=== PATIENT | female | born 1945 | race Caucasian/White ===

== ENCOUNTER → 2016-08-18 | Outpatient (CLI) | payer MEDICARE, OTHER ==
[~2016-08-18] MED LIST: DENOSUMAB 60 MG/ML 1 ML SYRINGE SQ ONE
[2016-08-18 12:21] VITALS: BP 135/69; PULSE 79; RESP 18; TEMP 98.3
== END | disposition home or self-care (01) ==
LOC: PROCWHC3 12:06
PROVIDERS: ATTEND Family Medicine
DX: M81.0 Age-related osteoporosis without current pathological fracture (principal)
CPT/HCPCS: 96372; J0897

== ENCOUNTER → 2017-02-17 | Outpatient (CLI) | payer MEDICARE, OTHER ==
[2017-02-17 12:57] VITALS: BP 184/85; PULSE 70; RESP 16; TEMP 97.7
== END | disposition home or self-care (01) ==
LOC: PROCWHC3 12:17
PROVIDERS: ATTEND Family Medicine
DX: M81.0 Age-related osteoporosis without current pathological fracture (principal)
CPT/HCPCS: 96372; J0897

== ENCOUNTER → 2017-09-09 | Outpatient (CLI) | payer MEDICARE, OTHER ==
--- NOTE | 2017-09-13 07:51 | BD ---
EXAMINATION TYPE: MG DEXA axial skeleton. DATE OF EXAM: 09/09/2017 COMPARISON: NONE CLINICAL HISTORY: 71 YR OLD FEMALE: ICD-10 CODE : N95.1 POST MENOPAUSAL, M81.0 OSTEOPOROSIS Height: 62 Weight: 151 FRAX RISK QUESTIONS: Alcohol (3 or more units per day): NO Family History (Parent hip fracture): YES, NO FX Glucocorticoids (More than 3mos): YES (Ex: prednisone, prednisolone, methylprednisolone, dexamethasone, and hydrocortisone). History of Fracture in Adulthood: YES Secondary Osteoporosis: YES 1. Type 1 Diabetes: NO 2. Hyperthyroidism: YES, THYROID WAS REMOVED 3. Menopause before 45: NO 4. Malnutrition: NO 5. Chronic liver disease: NO Rheumatoid Arthritis: NO Current Tobacco Use: YES, 1 PAC OR LESS DAILY RISK FACTORS HISTORY OF: RIBS, RT HUMERUS, LT HUMERUS, TOES, ....>48 YRS OLD Surgery to RT HIP AND FEMUR...THE RT AND FEMUR CAGED SURGICALLY When: 64 YRS OLD Family History of Osteoporosis: HERSELF AND HER MOTHER Active: BEST SHE CAN Diet low in dairy products/other sources of calcium: NO Postmenopausal woman: 53 YRS OLD Lost more than 2 inches in height since high school: YES Frequent falls: MANY FRACTURES, Hyperparathyroidism: YES, THYROID REMOVED...2003 Adrenal Insufficiency: NO MEDICATIONS: Prednisone or other steroids: ASTHMA INHALER, ON AND OFF...BREOL Thyroid Medications: YES, GENERIC SYNTHROID How Long: SINCE 2003 Osteoporosis Medications: PROLEA How Lon-3 YRS AGO Additional Medications: IBUPROFEN, CALCITONIN, VIT D AND CALCIUM, MULTIV., HX OF CHEMO AND RADIATION , 2007 AND 2008, STATINS FOR CHOLESTEROL, REFLUX MEDS Additional History: BREAST CANCER, LT WITH BILAT MASTECTOMY... BILAT KNEE REPLACEMENTS AND RT HIP REPLACEMENT. HYPER THYROID WITH REMOVAL OF THYROID, OSTEOPOROSIS EXAM MEASUREMENTS: Bone mineral densitometry was performed using the MVERSE System. Bone mineral density as measured about the Lumbar spine is: ----- L1-L4(G/cm2): 1.641 T Score Values are as follows: ----- L1: 2.7 ----- L2: 3.5 ----- L3: 3.6 ----- L4: 5.1 ----- L1-L4: 3.8 Bone mineral density FIRST BONE DENSITY AT [facility].... Bone mineral density about the L hip (g/cm2): 0829 T Score values are as follows: -----L Neck: -1.3 -----L Total: -1.4 Bone mineral density FIRST STUDY AT [facility] FRAX: THERE IS A 24.8% CHANCE OF A MAJOR OSTEOPOROTIC FX AND A 7.2% FOR HIP FX.....PROBABILITY OF FX IN 10 YRS TIME IMPRESSION: Osteopenia (T Score between -2.5 and -1 as noted by T score values in the left hip. There is slightly increased risk of fracture and the patient may be considered for treatment. Re-Screen 2-5 years. NOTE: T-SCORE=SD OF THE YOUNG ADULT MEAN.
== END | disposition home or self-care (01) ==
LOC: RADBDWWP 08:19
PROVIDERS: ATTEND Family Medicine
DX: M85.852 Other specified disorders of bone density and structure, left thigh (principal); N95.1 Menopausal and female climacteric states
CPT/HCPCS: 77080

== ENCOUNTER → 2017-09-17 | Outpatient (CLI) | payer MEDICARE, OTHER ==
[2017-09-17 14:13] VITALS: BP 182/75; PULSE 83; RESP 16; TEMP 97.5
== END | disposition home or self-care (01) ==
LOC: PROCWHC3 13:37
PROVIDERS: ATTEND Family Medicine
DX: M81.0 Age-related osteoporosis without current pathological fracture (principal)
CPT/HCPCS: 96372; J0897

== ENCOUNTER 2018-02-09 11:49 | Day surgery (SDC) | payer MEDICARE, OTHER ==
[2018-02-03 15:58] VITALS: BMI 27.1
[~2018-02-09 11:49] MED LIST changes: -DENOSUMAB 60 MG/ML 1 ML SYRINGE SQ ONE; +Pre Op ABX Message 1 EACH MISC MISCELLANE ONE
[2018-02-09] MEDS ORDERED: LACTATED RINGERS 1,000 ML IV SCH (12:11)
[2018-02-09] MEDS ORDERED: DEXAMETHASONE SOD PHOSPHATE 10 MG/ML 1 ML VIAL IV ONE (12:11)
[2018-02-09] MEDS ORDERED: ONDANSETRON 4 MG/2 ML VIAL IVP ONE (12:11)
[2018-02-09] MEDS ORDERED: MORPHINE SULFATE 4 MG/ML SYRINGE IV PRN (12:11)
[2018-02-09 12:20] VITALS: TEMP 98
[2018-02-09] MEDS ORDERED: LIDOCAINE 1% INJ 10MG/ML (20 ML MDV) ONE (13:00)
[2018-02-09] MEDS ORDERED: MIDAZOLAM 2 MG/2 ML VIAL ONE (13:00)
[2018-02-09] MEDS ORDERED: fentaNYL (PF) 50 MCG/ML 2 ML AMP ONE (13:00)
[2018-02-09] MEDS ORDERED: PROPOFOL 10 MG/ML 20 ML VIAL IV ONE (13:00)
[2018-02-09] MEDS ORDERED: LIDOCAINE 1% INJ 10MG/ML (20 ML MDV) SQ ONE (13:16)
--- NOTE | 2018-02-09 13:37 | P.PCN ---
Date of Procedure: 02/09/18 Preoperative Diagnosis: Hypertrophied bone fifth digit left foot Postoperative Diagnosis: Same Anesthesia: MAC (With 4 mL of 1% Xylocaine plain), local
--- NOTE | 2018-02-09 13:48 | P.OP ---
Date of Procedure: 02/09/18 Preoperative Diagnosis: Hypertrophied bone fifth digit left foot Postoperative Diagnosis: Same Procedure(s) Performed: Partial phalangectomy fifth digit left foot Surgeon: Get Richmond Operative Findings: Unremarkable Description of Procedure: On the date of surgery the patient was taken to the operating room in good condition placed on the operating table in the supine position where an IV was started and adequate IV anesthetic agents were utilized anesthesia was then further supplemented with approximately 4 mL of 1% Xylocaine plain given in a digital block to the fifth digit of the patient's left foot Agents left foot and ankle were then prepped and draped in the usual aseptic manner. His left foot and ankle were then elevated and exsanguinated of blood and clot tourniquet was placed over the patient's left ankle above the malleoli ankle tourniquet was then inflated to approximately 250 mmHg or graft at this time attention was directed to the distal aspect of the fifth digit of the patient's left foot where an approximately 0.75 cm linear incision - fish month incision was made. The incision was deepened down to the distal phalanx , tissue was freed dorsally plantarly medially and laterally. Utilizing a bone rongeur the terminal phalanx of the fifth digit was resected and removed ,throughout the surgical procedure copious amounts of sterile saline solution was used to irrigate the surgical site. Skin edges were then coaptated and maintained utilizing 4-0 nylon simple interrupted suture. Surgical site was covered with Adaptic kerlex fluffs and four inch Coban. Prior to dressing the digitthe ankle tourniquet to the patient's left ankle was deflated and adequate hemostatic return was seen in all digits of the left foot specifically the fifth digit. The patient tolerated the surgery and anesthesia well was taken to the recovery room in good postoperative condition.
[2018-02-09 14:22] VITALS: BP 150/75; PULSE 62; RESP 59
== END 2018-02-09 14:35 | disposition home or self-care (01) ==
LOC: OR 11:49
PROVIDERS: ATTEND Podiatrist Foot & Ankle Surgery
DX: M89.372 Hypertrophy of bone, left ankle and foot (principal); M81.0 Age-related osteoporosis without current pathological fracture; J44.9 Chronic obstructive pulmonary disease, unspecified; E78.5 Hyperlipidemia, unspecified; M15.9 Polyosteoarthritis, unspecified; R91.1 Solitary pulmonary nodule; E89.0 Postprocedural hypothyroidism; H40.9 Unspecified glaucoma; F17.210 Nicotine dependence, cigarettes, uncomplicated; Z96.649 Presence of unspecified artificial hip joint; Z96.659 Presence of unspecified artificial knee joint; Z79.890 Hormone replacement therapy; Z79.51 Long term (current) use of inhaled steroids; Z79.1 Long term (current) use of non-steroidal anti-inflammatories (NSAID); Z79.899 Other long term (current) drug therapy; Z88.8 Allergy status to other drugs, medicaments and biological substances; Z90.13 Acquired absence of bilateral breasts and nipples; Z85.3 Personal history of malignant neoplasm of breast; Z78.0 Asymptomatic menopausal state; Z98.51 Tubal ligation status
CPT/HCPCS: 28124; J1100; J2405; J2001; 88304; 88311

== ENCOUNTER → 2018-03-18 | Outpatient (CLI) | payer MEDICARE, OTHER ==
[~2018-03-18] MED LIST changes: +DENOSUMAB 60 MG/ML 1 ML SYRINGE SQ ONE; -Pre Op ABX Message 1 EACH MISC MISCELLANE ONE
[2018-03-18 13:18] VITALS: BP 125/65; PULSE 16; RESP 16; TEMP 97.8
== END | disposition home or self-care (01) ==
LOC: PROCWHC3 12:58
PROVIDERS: ATTEND Family Medicine
DX: M81.0 Age-related osteoporosis without current pathological fracture (principal)
CPT/HCPCS: 96372; J0897

== ENCOUNTER → 2018-09-22 | Outpatient (CLI) | payer MEDICARE, OTHER ==
[2018-09-22 11:06] VITALS: BP 157/79; PULSE 79; RESP 18; TEMP 97.9
== END ==
LOC: PROCWHC3 10:36
PROVIDERS: ATTEND Family Medicine
DX: M81.0 Age-related osteoporosis without current pathological fracture (principal)
CPT/HCPCS: 96372; J0897

== ENCOUNTER → 2018-11-01 | Outpatient (CLI) | payer MEDICARE, OTHER ==
--- NOTE | 2018-11-01 13:16 | CTL ---
EXAMINATION TYPE: CT Low Dose Lung DATE OF EXAM ORDERED: 11/01/2018 HISTORY: 72-year-old female Personal history of tobacco abuse. Lung cancer screening CT DLP: [address] CTDI: 1.76 mGy Automated exposure control for dose reduction was used. SCREENING VISIT: 2 year 3 month follow-up COMPARISON: 08/07/2016 and prior 03/23/2012 CT abdomen and pelvis TECHNIQUE: Low dose computed tomography scan was performed through the chest at 1 mm thick sections a nd reconstructed images in the coronal/sagittal plane. Additional coronal MIP reconstruction performe d. CT DIAGNOSTIC QUALITY: Satisfactory FINDINGS: Heart normal size without pericardial effusion. Coronary vessel calcifications are present. Ectatic ascending aorta 3.8 cm with moderate atherosclerotic arch calcifications and conventional arc h vessel branch anatomy. Lower descending thoracic aorta ectatic at 2.8 cm. Borderline enlarged caliber to the main right and left pulmonary arteries at 2.5 cm may reflect under lying pulmonary arterial hypertension. Patient is status post bilateral mastectomies. Surgical clips are noted in the left axilla. No thoracic lymphadenopathy by CT size criteria. Left apical pleural parenchymal scarring unchanged. Additional scattered strandy areas of scarring ar e present with a scattered mild to moderate bronchial wall thickening. Stable 4 mm right lower lobe pulmonary nodule axial image 135, 5 mm peripheral right lower lobe pulmo nary nodule axial image 165, some focal pleural parenchymal thickening peripheral right base, likely scarring, axial image 181, and 4 mm subpleural pulmonary nodule posterior right midlung, axial image 129. Very mild subpleural reticulations along the anterior mid to lower left chest probably due to postrad iation therapy change. No consolidation or pleural effusion. Some surgical material suggested along the right mid lung probably relating to prior wedge resection. Visualized upper abdomen shows a partially visualized lesion within the anterior left kidney that cou ld represent an enlarging cyst as compared to 03/23/2012 and can be confirmed with renal ultrasound. Bones: Moderate to advanced degenerative disc disease mid to lower thoracic spine. Superior endplate deformity of T7 is unchanged relating to a remote compression fracture. IMPRESSION: 1. LungRADS 2, Benign. Stable scattered 5 mm and smaller pulmonary nodules on the right. 2. Gdcy-nw-utitwnes bronchial wall thickening suggesting bronchitis or asthma. There are fibrotic noel nges and scarring and likely prior wedge resection along the right mid lung are redemonstrated. 3. Possible underlying pulmonary arterial hypertension. 4. Bilateral mastectomies and some mild subpleural postradiation fibrosis anterior aspect of the lung s. RECOMMENDATION: 1. Continue annual low-dose lung cancer screening CT. 2. Smoking cessation. FOLLOW UP CT CHEST RECOMMENDATION: [address] LUNG RAD: Lung-Rad 2 Benign Appearance or Behavior
== END | disposition home or self-care (01) ==
LOC: RADCTMAIN 12:13
PROVIDERS: ATTEND Family Medicine
DX: Z12.2 Encounter for screening for malignant neoplasm of respiratory organs (principal); R91.8 Other nonspecific abnormal finding of lung field; J98.09 Other diseases of bronchus, not elsewhere classified; Z87.891 Personal history of nicotine dependence; Z90.13 Acquired absence of bilateral breasts and nipples

== ENCOUNTER 2018-11-16 01:34 | Inpatient (IN) | payer MEDICARE, OTHER ==
[2018-11-16] MEDS ORDERED: DILTIAZEM DRIP BOLUS FROM BAG 1 MG SOLN IV ONE (01:43)
[2018-11-16] MEDS ORDERED: DILTIAZEM 125 MG in SODIUM CHLORIDE 0.9% 100 ML IV SCH (02:00)
[2018-11-16 02:02] LABS: Basophils % (A) 0 %; Eosinophils # (A) 0.2 k/uL (0-0.7); Eosinophils % (A) 1 %; HCT 42.7 % (34.0-46.0); HGB 13.9 gm/dL (11.4-16.0); Lymphocytes # (A) 0.8 k/uL (1.0-4.8); Lymphocytes % (A) 4 %; MCH 28.4 pg (25.0-35.0); MCHC 32.6 g/dL (31.0-37.0); Mean Platelet Volume 7.3; Monocytes # (A) 0.8 k/uL (0-1.0); Monocytes % (A) 4 %; Neutrophils # (A) 19.5 k/uL (1.3-7.7); Neutrophils % (A) 91 %; Platelet Count 242 k/uL (150-450); RBC 4.91 m/uL (3.80-5.40); RDW 12.9 % (11.5-15.5); WBC 21.4 k/uL (3.8-10.6)
[2018-11-16 02:11] LABS: Partial Thromboplastin Time 24.5 sec (22.0-30.0); Prothrombin Time 10.9 sec (9.0-12.0)
[2018-11-16 02:14] LABS: Albumin 3.6 g/dL (3.5-5.0); Calcium 9.1 mg/dL (8.4-10.2); Magnesium 1.3 mg/dL (1.6-2.3); Total Bilirubin 0.9 mg/dL (0.2-1.3); Total Protein 6.4 g/dL (6.3-8.2)
[2018-11-16 02:16] LABS: Potassium 4.3 mmol/L (3.5-5.1)
--- NOTE | 2018-11-16 02:21 | XR ---
INDICATION: Dyspnea COMPARISON: CXR 10/29/13 FINDINGS: Portable AP view of the chest is submitted for interpretation. The cardiomediastinal silhouette and pulmonary vascularity are normal. There is silhouetting of the lateral right hemidiaphragm which may represent focal airspace disease. There is no evidence of significant pleural effusion. There is no pneumothorax. There are no acute osseous findings. There are old left-sided rib fractures. IMPRESSION: 1. Possible airspace disease at the lateral right lung base could represent atelectasis or infiltrate.
[2018-11-16] MEDS ORDERED: SODIUM CHLORIDE 0.9% 500 ML 500 ML IV ONE (02:23)
[2018-11-16] MEDS ORDERED: DILTIAZEM 5 MG/ML 5 ML VIAL IVP STA ×2 (02:42→03:01)
[2018-11-16] MEDS ORDERED: LORazepam 2 MG/ML INJ IV STA (03:01)
--- NOTE | 2018-11-16 03:18 | ED ---
SOB HPI - General Chief Complaint: Shortness of Breath Stated Complaint: TONI Time Seen by Provider: 11/16/18 01:42 Source: patient, EMS Mode of arrival: EMS Limitations: no limitations - History of Present Illness Initial Comments: 's patient is 73-year-old woman who presents to be evaluated for shortness of breath. The patient states this is been coming on for nearly a week now. She states things had initially started with a cough, and then she started having shortness of breath associated. Patient denies having fever or chills. No chest pain. She denies diaphoresis, nausea or vomiting. Initially there was some congestion as well. MD Complaint: shortness of breath, cough Onset/Timin -: week(s) Severity: moderate Consistency: constant Improves With: nothing Worsens With: lying flat Associated Symptoms: cough Treatments Prior to Arrival: none - Related Data Home Medications Medication Instructions Recorded Confirmed Denosumab [Prolia] 60 mg SQ DIRECTED 01/10/14 09/22/18 Ibuprofen [Advil] 400 mg PO TID 01/10/14 09/22/18 Levothyroxine Sodium [Synthroid] 100 mcg PO DAILY 01/10/14 09/22/18 Calcitonin,[place],Synthetic 1 spray NASAL DAILY 12/17/14 09/22/18 [Calcitonin-[place]] Calcium Carbonate/Vitamin D3 1 each PO BID 12/17/14 09/22/18 [Calcium 600 + Vit D Tablet] Multivitamins, Thera [Theragran] 1 each PO DAILY 12/17/14 09/22/18 Potassium Gluconate 595 Mg 1 tab PO DAILY 12/17/14 09/22/18 Latanoprost [Xalatan 0.005%] 1 drop BOTH EYES HS 08/13/15 09/22/18 B12/Levomefolate Calcium/B-6 1 each PO DAILY 02/17/17 09/22/18 [Foltx Tablet] Fluticasone/Vilanterol [Breo 1 inhalation INHALATION HS 02/03/18 09/22/18 Ellipta 200-25 Mcg INH] Rosuvastatin [Crestor] 5 mg PO Q7D 02/03/18 09/22/18 Allergies Allergy/AdvReac Type Severity Reaction Status Date / Time diphenhydramine HCl Allergy EXTREME Verified 09/22/18 11:02 [From Benadryl] AGITATION Review of Systems ROS Statement: Those systems with pertinent positive or pertinent negative responses have been documented in the HPI. ROS Other: All systems not noted in ROS Statement are negative. Constitutional: Denies: fever, chills ENT: Reports: congestion Respiratory: Reports: cough, dyspnea. Denies: wheezes, hemoptysis, stridor Cardiovascular: Reports: palpitations, orthopnea. Denies: chest pain, dyspnea on exertion, edema, syncope Gastrointestinal: Denies: abdominal pain, nausea, vomiting Genitourinary: Denies: dysuria, hematuria Musculoskeletal: Denies: back pain Skin: Denies: rash Neurological: Denies: headache Past Medical History Past Medical History: Cancer, Hyperlipidemia, Osteoarthritis (OA), Thyroid Disorder Additional Past Medical History / Comment(s): BREAST CANCER, GLAUCOMA, LEFT LAZY EYE, EMPHYSEMA, HX OF STOMACH ULCER, PERFORATED BOWEL. states has "slack wrist" dx 2016 History of Any Multi-Drug Resistant Organisms: None Reported Past Surgical History: Bowel Resection, Breast Surgery, Joint Replacement, Orthopedic Surgery, Tonsillectomy, Tubal Ligation Additional Past Surgical History / Comment(s): RT TOTAL HIP X2, LT TOTAL HIP, BILAT KNEE REPLACEMENT, meenakshi mastectomy, partial lobectomy-rt upper lobe, thyroidectomy, colostomy/later reversal, meenakshi carpal tunnel, LT CATARACT. Past Anesthesia/Blood Transfusion Reactions: No Reported Reaction Past Psychological History: No Psychological Hx Reported Smoking Status: Current every day smoker - Past Family History Brother(s) Family Medical History: Cancer General Exam Limitations: no limitations General appearance: alert, in no apparent distress Head exam: Present: atraumatic, normocephalic Eye exam: Present: normal appearance. Absent: scleral icterus, conjunctival injection ENT exam: Present: normal oropharynx Respiratory exam: Present: respiratory distress. Absent: wheezes, rales, rhonchi, stridor, accessory muscle use, decreased breath sounds, prolonged expiratory Cardiovascular Exam: Present: tachycardia, irregular rhythm, normal heart sounds. Absent: systolic murmur, diastolic murmur, rubs, gallop GI/Abdominal exam: Present: soft. Absent: distended, tenderness, guarding, rebound, rigid, mass Extremities exam: Present: normal inspection, normal capillary refill. Absent: pedal edema, calf tenderness Neurological exam: Present: alert Skin exam: Present: warm, dry, intact, normal color. Absent: rash Course Vital Signs 11/16/18 11/16/18 11/16/18 01:35 02:00 02:10 Temperature 98.4 F Pulse Rate 150 H 156 H 151 H Pulse Rate [ Sleeper Cutter ] Respiratory 28 H 17 20 Rate Blood Pressure 80/64 80/64 72/61 Blood Pressure [Right Arm] O2 Sat by Pulse 95 94 L 94 L Oximetry 11/16/18 11/16/18 11/16/18 02:20 02:25 02:43 Temperature Pulse Rate 156 H 150 H 140 H Pulse Rate [ Sleeper Cutter ] Respiratory 23 18 18 Rate Blood Pressure 92/20 85/45 109/84 Blood Pressure [Right Arm] O2 Sat by Pulse 94 L 96 95 Oximetry 11/16/18 11/16/18 11/16/18 02:57 03:00 03:07 Temperature Pulse Rate 135 H 147 H 130 H Pulse Rate [ Sleeper Cutter ] Respiratory 18 17 Rate Blood Pressure 88/64 88/64 80/62 Blood Pressure [Right Arm] O2 Sat by Pulse 97 93 L Oximetry 11/16/18 11/16/18 11/16/18 03:29 03:30 04:00 Temperature Pulse Rate 140 H 149 H 130 H Pulse Rate [ Sleeper Cutter ] Respiratory 18 32 H 31 H Rate Blood Pressure 88/60 88/67 119/68 Blood Pressure [Right Arm] O2 Sat by Pulse 93 L 93 L 93 L Oximetry 11/16/18 11/16/18 11/16/18 04:30 04:51 05:00 Temperature Pulse Rate 138 H 130 H 108 H Pulse Rate [ Sleeper Cutter ] Respiratory 31 H 18 10 L Rate Blood Pressure 99/80 104/61 104/61 Blood Pressure [Right Arm] O2 Sat by Pulse 90 L 94 L 93 L Oximetry 11/16/18 11/16/18 11/16/18 05:29 05:30 05:39 Temperature 98.2 F Pulse Rate 73 75 Pulse Rate [ 74 Sleeper Cutter ] Respiratory 19 24 16 Rate Blood Pressure 97/68 96/57 Blood Pressure 123/56 [Right Arm] O2 Sat by Pulse 93 L 92 L Oximetry 11/16/18 06:00 Temperature Pulse Rate 67 Pulse Rate [ Sleeper Cutter ] Respiratory 30 H Rate Blood Pressure 101/54 Blood Pressure [Right Arm] O2 Sat by Pulse 94 L Oximetry Medical Decision Making - Lab Data Result diagrams: 11/16/18:50 11/16/18 01:50 Lab Results 11/16/18 11/16/18 11/16/18 Range/Units 01:50 01:50 01:50 WBC 21.4 H (3.8-10.6) k/uL RBC 4.91 (3.80-5.40) m/uL Hgb 13.9 (11.4-16.0) gm/dL Hct 42.7 (34.0-46.0) % MCV 87.0 (80.0-100.0) fL MCH 28.4 (25.0-35.0) pg MCHC 32.6 (31.0-37.0) g/dL RDW 12.9 (11.5-15.5) % Plt Count 242 (150-450) k/uL Neutrophils % 91 % Lymphocytes % 4 % Monocytes % 4 % Eosinophils % 1 % Basophils % 0 % Neutrophils # 19.5 H (1.3-7.7) k/uL Lymphocytes # 0.8 L (1.0-4.8) k/uL Monocytes # 0.8 (0-1.0) k/uL Eosinophils # 0.2 (0-0.7) k/uL Basophils # 0.0 (0-0.2) k/uL PT (9.0-12.0) sec INR (<1.2) APTT (22.0-30.0) sec Sodium 134 L (137-145) mmol/L Potassium 4.3 (3.5-5.1) mmol/L Chloride 102 (98-107) mmol/L Carbon Dioxide 22 (22-30) mmol/L Anion Gap 10 mmol/L BUN 15 (7-17) mg/dL Creatinine 0.79 (0.52-1.04) mg/dL Est GFR (CKD-EPI)AfAm 85 (>60 ml/min/1.73 sqM) Est GFR (CKD-EPI)NonAf 74 (>60 ml/min/1.73 sqM) Glucose 217 H (74-99) mg/dL Calcium 9.1 (8.4-10.2) mg/dL Magnesium 1.3 L (1.6-2.3) mg/dL Total Bilirubin 0.9 (0.2-1.3) mg/dL AST 34 (14-36) U/L ALT 22 (9-52) U/L Alkaline Phosphatase 56 (38-126) U/L Troponin I (0.000-0.034) ng/mL NT-Pro-B Natriuret Pep 2350 pg/mL Total Protein 6.4 (6.3-8.2) g/dL Albumin 3.6 (3.5-5.0) g/dL Influenza Type A RNA (Not Detectd) Influenza Type B (PCR) (Not Detectd) 11/16/18 11/16/18 11/16/18 Range/Units 01:50 01:50 03:43 WBC (3.8-10.6) k/uL RBC (3.80-5.40) m/uL Hgb (11.4-16.0) gm/dL Hct (34.0-46.0) % MCV (80.0-100.0) fL MCH (25.0-35.0) pg MCHC (31.0-37.0) g/dL RDW (11.5-15.5) % Plt Count (150-450) k/uL Neutrophils % % Lymphocytes % % Monocytes % % Eosinophils % % Basophils % % Neutrophils # (1.3-7.7) k/uL Lymphocytes # (1.0-4.8) k/uL Monocytes # (0-1.0) k/uL Eosinophils # (0-0.7) k/uL Basophils # (0-0.2) k/uL PT 10.9 (9.0-12.0) sec INR 1.0 (<1.2) APTT 24.5 (22.0-30.0) sec Sodium (137-145) mmol/L Potassium (3.5-5.1) mmol/L Chloride (98-107) mmol/L Carbon Dioxide (22-30) mmol/L Anion Gap mmol/L BUN (7-17) mg/dL Creatinine (0.52-1.04) mg/dL Est GFR (CKD-EPI)AfAm (>60 ml/min/1.73 sqM) Est GFR (CKD-EPI)NonAf (>60 ml/min/1.73 sqM) Glucose (74-99) mg/dL Calcium (8.4-10.2) mg/dL Magnesium (1.6-2.3) mg/dL Total Bilirubin (0.2-1.3) mg/dL AST (14-36) U/L ALT (9-52) U/L Alkaline Phosphatase (38-126) U/L Troponin I 0.109 H* (0.000-0.034) ng/mL NT-Pro-B Natriuret Pep pg/mL Total Protein (6.3-8.2) g/dL Albumin (3.5-5.0) g/dL Influenza Type A RNA Detected H (Not Detectd) Influenza Type B (PCR) Not Detected (Not Detectd) - EKG Data -: EKG Interpreted by Me EKG shows normal: axis (Normal), intervals (Normal) Rate: tachycardia Interpretation: LVH, other (Atrial fibrillation) Critical Care Time Critical Care Time: Yes (45 minutes) Disposition Clinical Impression: Atrial fibrillation with RVR Disposition: ADMITTED IP TO THIS HOSP Condition: Serious
[2018-11-16] MEDS ORDERED: MAGNESIUM SULFATE-D5W PMX 1 GM in DEXTROSE/WATER 1 100ML.BAG IVPB ONE (03:39)
[2018-11-16] MEDS ORDERED: NITROGLYCERIN SL TABS 0.4 MG TAB SUBLINGUAL PRN (05:10)
[2018-11-16] MEDS ORDERED: DENOSUMAB 60 MG/ML 1 ML SYRINGE SQ SCH (05:15)
[2018-11-16 06:19] LABS: Glucose,Whole Blood 134 mg/dL (75-99)
[2018-11-16 06:37] VITALS: BMI 25.1
[2018-11-16] MEDS ORDERED: ENOXAPARIN 80 MG/0.8 ML SYRINGE SQ SCH (07:00)
[2018-11-16] MEDS: LEVOTHYROXINE 100 MCG TAB PO SCH (08:34)
[2018-11-16] MEDS: CALCITONIN 200 USP/1 NASAL SPRAY 3.7ML BTL NASAL SCH (08:40)
[2018-11-16] MEDS ORDERED: ATORVASTATIN 10 MG TAB PO SCH (09:00)
[2018-11-16] MEDS ORDERED: OSELTAMIVIR 75 MG CAP PO SCH (09:00)
--- NOTE | 2018-11-16 11:14 | P.CRDCN ---
History of Present Illness History of present illness: This is Dr. Hernandez dictating a consult on this patient The patient was interviewed and examined by me IMPRESSION / ASSESSMENT: Patient presents with probably symptoms and is influenza A. Her troponins are abnormal. She was in atrial fibrillation with RVR paroxysmal She denies any chest discomfort. PLAN: Continue IV Cardizem and then switched to by mouth Cardizem Increase atorvastatin to 20 mg by mouth daily Continue Lovenox for now but switched to oral anticoagulants later 2-D echo and Doppler study to assess LV function HPI 73-year-old female who presented with shortness of breath for a week gestation started with a cough and then started expressing shortness of breath. She denied any fever chills no chest pain no diaphoresis nausea vomiting Nondiabetic, denies hypertension On Crestor for dyslipidemia Current smoker ROS: No fever chills or rigors, no cough, phlegm or expectoration, no nausea, vomiting or diarrhea, no hematuria, dysuria, no musculoskeletal complaints, no strokes or seizures, no skin lesions. EXAMINATION: Pulse rate in the 70s, respirations 16-20 Blood pressure 101/54 mmHg and 122 64 mmHg Patient is resting comfortably in bed Breath sounds are rhonchorous bilaterally with reduced breath sounds and crackles at the bases Heart sounds are soft and normal S1 normal S2 Abdomen is soft nontender No extremity edema REVIEW OF LABS, ECG & MEDICAL DATA Labs are reviewed white count is elevated at 21,000 sodium 134 potassium 4.3 normal renal function Troponin of 0.1 and 0.65 in the setting of influenza A with primary symptoms and signs Atrial fibrillation with RVR on 12-lead ECG heart rate from 56 beats a minute Another EKG shows sinus rhythm with T-wave inversions in V5 and V6 During atrial fibrillation she had a 0.5-[address] depression in V5 and V6 also Past Medical History Past Medical History: Cancer, Hyperlipidemia, Osteoarthritis (OA), Thyroid Disorder Additional Past Medical History / Comment(s): BREAST CANCER, GLAUCOMA, LEFT LAZY EYE, EMPHYSEMA, HX OF STOMACH ULCER, PERFORATED BOWEL. states has "slack wrist" dx 2015 History of Any Multi-Drug Resistant Organisms: None Reported Past Surgical History: Bowel Resection, Breast Surgery, Joint Replacement, Orthopedic Surgery, Tonsillectomy, Tubal Ligation Additional Past Surgical History / Comment(s): RT TOTAL HIP X2, LT TOTAL HIP, BILAT KNEE REPLACEMENT, meenakshi mastectomy, partial lobectomy-rt upper lobe, thyroidectomy, colostomy/later reversal, meenakshi carpal tunnel, LT CATARACT. Past Anesthesia/Blood Transfusion Reactions: No Reported Reaction Past Psychological History: No Psychological Hx Reported Smoking Status: Current every day smoker - Past Family History Brother(s) Family Medical History: Cancer Medications and Allergies Home Medications Medication Instructions Recorded Confirmed Type Levothyroxine Sodium [Synthroid] 100 mcg PO DAILY 01/10/14 11/16/18 History Calcitonin,[place],Synthetic 1 spray NASAL DAILY 12/17/14 11/16/18 History [Calcitonin-[place]] Latanoprost [Xalatan 0.005%] 1 drop BOTH EYES HS 08/13/15 11/16/18 History Fluticasone/Vilanterol [Breo 1 inhalation INHALATION DAILY 02/03/18 11/16/18 History Ellipta 200-25 Mcg INH] Rosuvastatin [Crestor] 5 mg PO SUWE 02/03/18 11/16/18 History Tiotropium 18 Mcg/Puff [Spiriva] 1 puff INHALATION DAILY 11/16/18 11/16/18 History Allergies Allergy/AdvReac Type Severity Reaction Status Date / Time diphenhydramine HCl Allergy EXTREME Verified 11/16/18 10:15 [From Benadryl] AGITATION Physical Exam Vitals: Vital Signs Temp Pulse Pulse Resp BP BP Pulse Ox 11/16/18 08:00 98.3 F 68 17 128/64 94 L 11/16/18 06:00 67 30 H 101/54 94 L 11/16/18 05:39 75 16 96/57 92 L 11/16/18 05:30 73 24 97/68 93 L 11/16/18 05:29 98.2 F 74 19 123/56 11/16/18 05:00 108 H 10 L 104/61 93 L 11/16/18 04:51 130 H 18 104/61 94 L 11/16/18 04:30 138 H 31 H 99/80 90 L 11/16/18 04:00 130 H 31 H 119/68 93 L 11/16/18 03:30 149 H 32 H 88/67 93 L 11/16/18 03:29 140 H 18 88/60 93 L 11/16/18 03:07 130 H 80/62 11/16/18 03:00 147 H 17 88/64 93 L 11/16/18 02:57 135 H 18 88/64 97 11/16/18 02:43 140 H 18 109/84 95 11/16/18 02:25 150 H 18 85/45 96 11/16/18 02:20 156 H 23 92/20 94 L 11/16/18 02:10 151 H 20 72/61 94 L 11/16/18 02:00 156 H 17 80/64 94 L 11/16/18 01:35 98.4 F 150 H 28 H 80/64 95 Intake and Output 11/15/18 11/16/18 11/16/18 22:59 06:59 14:59 Intake Total 732.417 10 Balance 732.417 10 Intake: IV 10 Sodium Chloride 0.9% 500 10 ml 500 ml @ 999 mls/hr IV .Q31M [facility] Rx#:[id number] Amount of Fluid Infused ( 700 ml) Intake, IV Titration 32.417 Amount Diltiazem 125 mg In 32.417 Sodium Chloride 0.9% 100 ml @ 5 MG/HR 5 mls/hr IV .Q24H [facility] Rx#:[id number] Other: # Voids 1 Weight 70.307 kg Results 11/16/18 01:50 11/16/18 01:50 Cardiac Enzymes 11/16/18 11/16/18 11/16/18 Range/Units 01:50 01:50 07:12 AST 34 (14-36) U/L Troponin I 0.109 H* 0.659 H* (0.000-0.034) ng/mL Coagulation 11/16/18 Range/Units 01:50 PT 10.9 (9.0-12.0) sec APTT 24.5 (22.0-30.0) sec CBC 11/16/18 Range/Units 01:50 WBC 21.4 H (3.8-10.6) k/uL RBC 4.91 (3.80-5.40) m/uL Hgb 13.9 (11.4-16.0) gm/dL Hct 42.7 (34.0-46.0) % Plt Count 242 (150-450) k/uL Comprehensive Metabolic Panel 11/16/18 Range/Units 01:50 Sodium 134 L (137-145) mmol/L Potassium 4.3 (3.5-5.1) mmol/L Chloride 102 (98-107) mmol/L Carbon Dioxide 22 (22-30) mmol/L BUN 15 (7-17) mg/dL Creatinine 0.79 (0.52-1.04) mg/dL Glucose 217 H (74-99) mg/dL Calcium 9.1 (8.4-10.2) mg/dL AST 34 (14-36) U/L ALT 22 (9-52) U/L Alkaline Phosphatase 56 (38-126) U/L Total Protein 6.4 (6.3-8.2) g/dL Albumin 3.6 (3.5-5.0) g/dL Current Medications Generic Name Dose Route Start Last Admin Trade Name Freq PRN Reason Stop Dose Admin Aspirin 325 mg 11/17/18 09:00 Aspirin PO DAILY [facility] Atorvastatin Calcium 10 mg 11/16/18 09:00 11/16/18 08:37 Lipitor PO 10 mg Q7D [facility]ILLI Administration Budesonide/Formoterol Fumarate 2 puff 11/16/18 20:00 Symbicort 160-4.5 Mcg Inhaler INHALATION RT-BID [facility] Calcitonin [place] 1 spray 11/16/18 09:00 11/16/18 08:40 Fortical NASAL 1 spray DAILY [facility] Administration Enoxaparin Sodium 70 mg 11/16/18 07:00 11/16/18 08:34 Lovenox SQ 70 mg Q12H MILLI Administration Diltiazem HCl 125 mg/ Sodium 125 mls @ 5 mls/hr 11/16/18 02:00 11/16/18 05:44 Chloride IV 5 mg/hr .Q24H [facility] 5 mls/hr Infusion 5 MG/HR Latanoprost 1 drops 11/16/18 21:00 Xalatan 0.005% BOTH EYES HS [facility] Levothyroxine Sodium 100 mcg 11/16/18 06:30 11/16/18 08:34 Synthroid PO 100 mcg DAILY@0630 MILLI Administration Nitroglycerin 0.4 mg 11/16/18 05:10 Nitrostat SUBLINGUAL Q5M PRN Chest Pain Oseltamivir Phosphate 75 mg 11/16/18 09:00 11/16/18 10:00 Tamiflu PO 75 mg DAILY [facility] Administration Intake and Output 11/15/18 11/16/18 11/16/18 22:59 06:59 14:59 Intake Total 732.417 10 Balance 732.417 10 Intake: IV 10 Sodium Chloride 0.9% 500 10 ml 500 ml @ 999 mls/hr IV .Q31M [facility] Rx#:[id number] Amount of Fluid Infused ( 700 ml) Intake, IV Titration 32.417 Amount Diltiazem 125 mg In 32.417 Sodium Chloride 0.9% 100 ml @ 5 MG/HR 5 mls/hr IV .Q24H [facility] Rx#:[id number] Other: # Voids 1 Weight 70.307 kg 11/16/18 01:50 11/16/18 01:50
[2018-11-16] MEDS: IPRATROPIUM-ALBUTEROL 3 ML NEB INHALATION SCH ×2 (16:01→19:41)
--- NOTE | 2018-11-16 16:23 | P.HPIM ---
History of Present Illness H&P Date: 11/16/18 Chief Complaint: Shortness of breath. This is a 73-year-old female one of Dr. Gamble with a previous medical history significant for hypertension and hypertensive cardio vascular disease with left ventricular hypertrophy, hyperlipidemia, history of chronic obstructi ve pulmonary disease/emphysema, hypothyroidism, history of breast cancer in the past status post left mastectomy, osteoarthritis, solitary pulmonary nodule, patient was in her usual state of health about a week ago Wednesday when she went and saw Dr. Gamble for follow-up appointment she was doing fine on Wednesday last week developed to have an increased postnasal drip associated with increased coughing with more shortness of breath, increased body aches, patient felt worse and ended up coming to the emergency department at [facility] yesterday because of increased shortness with an increased coughing and expiratory wheezes she was found to have A. fib with RVR in the EKG and also she was found to have an influenza A, patient was admitted to the hospital she was started on Lovenox 70 mg subcutaneously every 12 hours as well as Cardizem drip and she was placed in the droplet isolation due to her influenza A and she was started on Tamiflu, patient was seen by cardiology already she was converted to a sinus rhythm she was taken off her Cardizem drip and she was started on Lovenox 70 mg subcu Wednesday every 12 hours until the next 24 hours and she will be switched to Xarelto or Eliquis. Review of Systems Constitutional: Reports fatigue, Reports malaise, Reports weakness, Denies anorexia, Denies chronic headaches, Denies chronic pain, Denies lethargy Eyes: denies blurred vision, denies bulging eye, denies decreased vision Ears: deny: decreased hearing Ears, nose, mouth and throat: Denies dysphagia, Denies neck lump, Denies swelling in throat, Denies sore throat Breasts: bilateral: as per HPI (Bilateral mastectomies.) Cardiovascular: Reports decreased exercise tolerance, Reports dyspnea on exertion, Reports high blood pressure, Reports irregular heart beat, Reports orthopnea, Reports rapid heart beat, Reports shortness of breath, Denies chest pain, Denies syncope Respiratory: Reports congestion, Reports cough, Reports cough with sputum, Reports dyspnea, Reports respiratory infections, Reports wheezing, Denies home oxygen, Denies sleep apnea, Denies snoring Gastrointestinal: Denies abdominal pain, Denies bloating, Denies BRBPR, Denies heartburn, Denies hematemesis, Denies melena, Denies nausea, Denies vomiting Genitourinary: Denies dysuria, Denies hematuria Menstruation: Reports postmenopausal Musculoskeletal: Denies myalgias Musculoskeletal: absent: ankle pain, ankle stiffness, ankle swelling, elbow pain, elbow stiffness, elbow swelling, foot pain, foot stiffness, foot swelling, hand pain, hand stiffness, hand swelling, hip pain, hip stiffness, hip swelling, knee pain, knee stiffness, knee swelling, shoulder pain, shoulder stiffness, shoulder swelling, wrist pain, wrist stiffness, wrist swelling Integumentary: Denies pruritus, Denies rash Neurological: Denies numbness, Denies weakness Psychiatric: Denies anxiety, Denies depression Endocrine: Denies fatigue, Denies weight change Past Medical History Past Medical History: Cancer, COPD, Hyperlipidemia, Hypertension, Osteoarthritis (OA), Thyroid Disorder Additional Past Medical History / Comment(s): BREAST CANCER, GLAUCOMA, LEFT LAZY EYE, EMPHYSEMA, HX OF STOMACH ULCER, PERFORATED BOWEL. states has "slack wrist" dx 2016 History of Any Multi-Drug Resistant Organisms: None Reported Past Surgical History: Bowel Resection, Breast Surgery, Joint Replacement, Orthopedic Surgery, Tonsillectomy, Tubal Ligation Additional Past Surgical History / Comment(s): RT TOTAL HIP X2, LT TOTAL HIP, BILAT KNEE REPLACEMENT, meenakshi mastectomy, partial lobectomy-rt upper lobe, thyroidectomy, colostomy/later reversal, meenakshi carpal tunnel, LT CATARACT. Past Anesthesia/Blood Transfusion Reactions: No Reported Reaction Past Psychological History: No Psychological Hx Reported Smoking Status: Current every day smoker (Patient smoked about half a pack per day she started smoking when she was 18-year-old.) Past Alcohol Use History: None Reported Past Drug Use History: None Reported - Past Family History Brother(s) Family Medical History: Cancer (Patient had 3 brothers one of them alive and well the other one from lung cancer with metastases to the brain at age of 75 and the third one from congestive heart failure at the age of 78.) Father Family Medical History: Myocardial Infarction ([place]) (Father at age of 60 from heart disease.) Mother Family Medical History: Congestive Heart Failure (CHF) (Mother at age 70 from congestive heart failure.) Medications and Allergies Home Medications Medication Instructions Recorded Confirmed Type Levothyroxine Sodium [Synthroid] 100 mcg PO DAILY 01/10/14 11/16/18 History Calcitonin,[place],Synthetic 1 spray NASAL DAILY 12/17/14 11/16/18 History [Calcitonin-[place]] Latanoprost [Xalatan 0.005%] 1 drop BOTH EYES HS 08/13/15 11/16/18 History Fluticasone/Vilanterol [Breo 1 inhalation INHALATION DAILY 02/03/18 11/16/18 History Ellipta 200-25 Mcg INH] Rosuvastatin [Crestor] 5 mg PO SUWE 02/03/18 11/16/18 History Tiotropium 18 Mcg/Puff [Spiriva] 1 puff INHALATION DAILY 11/16/18 11/16/18 History Allergies Allergy/AdvReac Type Severity Reaction Status Date / Time diphenhydramine HCl Allergy EXTREME Verified 11/16/18 10:15 [From Benadryl] AGITATION Physical Exam Vitals: Vital Signs Temp Pulse Pulse Resp BP BP Pulse Ox 11/16/18 16:04 68 18 11/16/18 11:25 98.2 F 71 18 113/61 93 L 11/16/18 08:00 98.3 F 68 17 128/64 94 L 11/16/18 06:00 67 30 H 101/54 94 L 11/16/18 05:39 75 16 96/57 92 L 11/16/18 05:30 73 24 97/68 93 L 11/16/18 05:29 98.2 F 74 19 123/56 11/16/18 05:00 108 H 10 L 104/61 93 L 11/16/18 04:51 130 H 18 104/61 94 L 11/16/18 04:30 138 H 31 H 99/80 90 L 11/16/18 04:00 130 H 31 H 119/68 93 L 11/16/18 03:30 149 H 32 H 88/67 93 L 11/16/18 03:29 140 H 18 88/60 93 L 11/16/18 03:07 130 H 80/62 11/16/18 03:00 147 H 17 88/64 93 L 11/16/18 02:57 135 H 18 88/64 97 11/16/18 02:43 140 H 18 109/84 95 0403/19 02:25 150 H 18 85/45 96 11/16/18 02:20 156 H 23 92/20 94 L 11/16/18 02:10 151 H 20 72/61 94 L 11/16/18 02:00 156 H 17 80/64 94 L 11/16/18 01:35 98.4 F 150 H 28 H 80/64 95 Intake and Output 11/16/18 11/16/18 11/16/18 06:59 14:59 22:59 Intake Total 732.417 10 Balance 732.417 10 Intake: IV 10 Sodium Chloride 0.9% 500 10 ml 500 ml @ 999 mls/hr IV .Q31M [facility] Rx#:[id number] Amount of Fluid Infused ( 700 ml) Intake, IV Titration 32.417 Amount Diltiazem 125 mg In 32.417 Sodium Chloride 0.9% 100 ml @ 5 MG/HR 5 mls/hr IV .Q24H [facility] Rx#:[id number] Other: # Voids 1 Weight 70.307 kg - Constitutional General appearance: average body habitus, mild distress - EENT Eyes: anicteric sclerae, EOMI, PERRLA, no ptosis, no scleral icterus, normal ap pearance ENT: hearing grossly normal, NA/AT, normal oropharynx, no thrush Ears: bilateral: normal - Neck Neck: no lymphadenopathy, normal ROM, no rigidity, no stridor, no thyromegaly Carotids: bilateral: upstroke normal - Respiratory Respiratory: bilateral: diminished, rales, rhonchi, wheezing, prolonged expiration, negative: dullness - Cardiovascular Rhythm: regular Heart sounds: normal: S1, S2 Abnormal Heart Sounds: systolic murmur, no S3 Gallop, no S4 Gallop - Gastrointestinal General gastrointestinal: normal bowel sounds, soft, no splenomegaly, no tenderness, no umbilical hernia, no ventral hernia - Integumentary Integumentary: normal, normal turgor - Neurologic Neurologic: CNII-XII intact - Musculoskeletal Musculoskeletal: gait normal, strength equal bilaterally - Psychiatric Psychiatric: A&O x's 3, appropriate affect, intact judgment & insight Results CBC & Chem 7: 11/16/18 01:50 11/16/18 01:50 Labs: Abnormal Lab Results - Last 24 Hours (Table) 11/16/18 11/16/18 11/16/18 Range/Units 01:50 01:50 01:50 WBC 21.4 H (3.8-10.6) k/uL Neutrophils # 19.5 H (1.3-7.7) k/uL Lymphocytes # 0.8 L (1.0-4.8) k/uL Sodium 134 L (137-145) mmol/L Glucose 217 H (74-99) mg/dL POC Glucose (mg/dL) (75-99) mg/dL Magnesium 1.3 L (1.6-2.3) mg/dL Troponin I 0.109 H* (0.000-0.034) ng/mL Influenza Type A RNA (Not Detectd) 11/16/18 11/16/18 11/16/18 Range/Units 03:43 06:17 07:12 WBC (3.8-10.6) k/uL Neutrophils # (1.3-7.7) k/uL Lymphocytes # (1.0-4.8) k/uL Sodium (137-145) mmol/L Glucose (74-99) mg/dL POC Glucose (mg/dL) 134 H (75-99) mg/dL Magnesium (1.6-2.3) mg/dL Troponin I 0.659 H* (0.000-0.034) ng/mL Influenza Type A RNA Detected H (Not Detectd) 11/16/18 Range/Units 14:43 WBC (3.8-10.6) k/uL Neutrophils # (1.3-7.7) k/uL Lymphocytes # (1.0-4.8) k/uL Sodium (137-145) mmol/L Glucose (74-99) mg/dL POC Glucose (mg/dL) (75-99) mg/dL Magnesium (1.6-2.3) mg/dL Troponin I 0.589 H* (0.000-0.034) ng/mL Influenza Type A RNA (Not Detectd) Thrombosis Risk Factor Assmnt - DVT/VTE Prophylaxis DVT/VTE Prophylaxis: Pharmacologic Prophylaxis ordered, Mechanical Prophylaxis ordered - Choose All That Apply Any of the Below Risk Factors Present?: No Other Risk Factors: Yes Each Risk Factor Represents 3 Points: Age 75 years or older Thrombosis Risk Factor Assessment Total Risk Factor Score: 3 Thrombosis Risk Factor Assessment Level: Moderate Risk Assessment and Plan Assessment: Assessment and plan: 1. Acute hypoxemic respiratory failure secondary to atrial fibrillation with rapid ventricular response as well as Influenza A with COPD exacerbation. Patient will be started on Tamiflu 30 mg orally twice every day, she was already on Cardizem drip that was discontinued since the patient converted to sinus rhythm, continue Lovenox 70 mg subcutaneously every 12 hours, continue to monitor the patient very closely, continue oxygen support, continue DuoNeb 3 mL nebulization 4 times every day, continue Pulmicort 1 mg nebulization twice every day, pulmonary and cardiology consultation, follow the patient very closely. 2. Acute influenza A. Continue droplet precautions, continue with Tamiflu 30 mg orally twice every day for 5 days. 3. Acute COPD exacerbation. Continue DuoNeb 3 mg position 4 times every day, Pulmicort 1 mg nebulization twice every day, continue Solu-Medrol 40 mg IV push every 8 hours, continue oxygen support, continue to monitor the patient, Pulmonary consultation. 4. Hyperlipidemia. Continue patient on Lipitor 40 mg orally once every day. 5. COPD. Continue treatment as in paragraph #1 and #3. 6. Hypothyroidism. Continue Synthroid 100 g orally once every day. 7. Osteoporosis. Continue patient on calcitonin 200 international unit one spray in nostril alternate between nostrils daily. 8. DVT prophylaxis. Continue patient on Lovenox 70 mg subcu Wednesday every 12 hours. 9. GI prophylaxis. Continue Protonix 40 mg orally once every day. 10. Admitted to inpatient. Estimate a length of stay 2 midnights. 11. Patient is full code.
[2018-11-16] MEDS: methylPREDNISolone SOD SUCCI 40 MG/ML 1 ML VIAL IV SCH ×2 (17:36→23:32)
[2018-11-16] MEDS: BUDESONIDE 0.5 MG/2 ML NEBU INHALATION SCH (19:41)
[2018-11-16] MEDS ORDERED: SYMBICORT 160-4.5 MCG INHALER INHALATION SCH (20:00)
[2018-11-16] MEDS: OSELTAMIVIR 60 MG/10 ML ORAL SYRINGE PO SCH (21:01)
[2018-11-16] MEDS: ENOXAPARIN 80 MG/0.8 ML SYRINGE SQ SCH (21:02)
[2018-11-16] MEDS: LATANOPROST 0.005% OPHTH DROPS 2.5 ML BTL BOTH EYES SCH (21:05)
[2018-11-17 06:23] LABS: Basophils % (A) 0 %; Eosinophils % (A) 0 %; HCT 38.7 % (34.0-46.0); Lymphocytes # (A) 0.7 k/uL (1.0-4.8); Lymphocytes % (A) 5 %; MCH 28.7 pg (25.0-35.0); MCHC 33.7 g/dL (31.0-37.0); MCV 85.2 fL (80.0-100.0); Mean Platelet Volume 8.2; Monocytes # (A) 0.2 k/uL (0-1.0); Monocytes % (A) 2 %; Neutrophils # (A) 11.9 k/uL (1.3-7.7); Neutrophils % (A) 93 %; Platelet Count 253 k/uL (150-450); RBC 4.54 m/uL (3.80-5.40); RDW 13.1 % (11.5-15.5); WBC 12.8 k/uL (3.8-10.6)
[2018-11-17] MEDS: LEVOTHYROXINE 100 MCG TAB PO SCH (06:47)
[2018-11-17] MEDS: PANTOPRAZOLE 40 MG TABLET PO SCH (06:47)
[2018-11-17 06:55] LABS: ALT 26 U/L (9-52); AST 24 U/L (14-36); Albumin 3.4 g/dL (3.5-5.0); Alkaline Phosphatase 95 U/L (38-126); Anion Gap 8 mmol/L; Blood Urea Nitrogen 15 mg/dL (7-17); Calcium 8.5 mg/dL (8.4-10.2); Carbon Dioxide 23 mmol/L (22-30); Chloride 108 mmol/L (98-107); Cholesterol 136 mg/dL (<200); Glucose 168 mg/dL (74-99); HDL Cholesterol 44 mg/dL (40-60); LDL Cholesterol,Calculated 74 mg/dL (0-99); Magnesium 1.9 mg/dL (1.6-2.3); Potassium 3.8 mmol/L (3.5-5.1); Sodium 139 mmol/L (137-145); Total Bilirubin 0.4 mg/dL (0.2-1.3); Total Protein 6.2 g/dL (6.3-8.2); Triglycerides 89 mg/dL (<150)
[2018-11-17] MEDS: IPRATROPIUM-ALBUTEROL 3 ML NEB INHALATION SCH ×4 (08:04→20:10)
[2018-11-17] MEDS: BUDESONIDE 0.5 MG/2 ML NEBU INHALATION SCH ×2 (08:04→20:10)
--- NOTE | 2018-11-17 08:14 | XR ---
EXAMINATION TYPE: XR chest 1V portable DATE OF EXAM: 11/17/2018 COMPARISON: Prior chest x-ray 11/16/2018 HISTORY: Shortness of breath TECHNIQUE: Single frontal view of the chest is obtained. FINDINGS: There is some improvement in visualization of the lateral aspect of the right hemidiaphrag m. Heart size is stable. No evident pneumothorax. Rib deformities and associated pleural irregularity along the left hemithorax are again noted, surgical clips present in the left axilla. Aorta is dense . IMPRESSION: There is some improvement in aeration.
[2018-11-17] MEDS: ENOXAPARIN 80 MG/0.8 ML SYRINGE SQ SCH ×2 (08:57→23:38)
[2018-11-17] MEDS: ATORVASTATIN 20 MG TAB PO SCH (08:58)
[2018-11-17] MEDS: methylPREDNISolone SOD SUCCI 40 MG/ML 1 ML VIAL IV SCH ×2 (08:58→23:12)
[2018-11-17] MEDS: ASPIRIN 81 MG PO SCH (08:58)
[2018-11-17] MEDS ORDERED: ASPIRIN 325 MG TAB PO SCH (09:00)
--- NOTE | 2018-11-17 10:09 | ECHOF ---
Referral Reason:LV function MEASUREMENTS -------- HEIGHT: 162.6 cm WEIGHT: 70.3 kg BP: IVSd: 2.0 cm (0.6 - 1.1) LVIDd: 3.0 cm (3.9 - 5.3) LVPWd: 1.9 cm (0.6 - 1.1) IVSs: 2.2 cm LVIDs: 1.9 cm LVPWs: 2.0 cm LAESV Index (A-L): 38.03 ml/m Ao Diam: 3.3 cm (2.0 - 3.7) AV Cusp: 2.0 cm (1.5 - 2.6) LA Diam: 3.8 cm (2.7 - 3.8) MV EXCURSION: 14.924 mm (> 18.000) MV EF SLOPE: 100 mm/s (70 - 150) EPSS: 0.8 cm MV E Job: 0.91 m/s MV DecT: 267 ms MV A Job: 0.84 m/s MV E/A Ratio: 1.08 AV maxP.34 mmHg AV meanP.62 mmHg RAP: 5.00 mmHg RVSP: 33.76 mmHg FINDINGS -------- Sinus rhythm. This was a technically good study. The left ventricular size is normal. There is severe concentric left ventricular hypertrophy. Ove rall left ventricular systolic function is normal with, an EF between 55 - 60 %. The right ventricle is normal in size. LA is moderately dilated 34-39 ml/m2 The right atrial size is normal. Aortic valve is trileaflet and is mildly thickened. There is mild aortic valve sclerosis. Peak/me an gradient across the Aortic Valve is 12.34mmHg / 6.62mmHg. The mitral valve leaflets are mildly thickened. Moderate mitral annular calcification present. Mi ld mitral regurgitation is present. Mild tricuspid regurgitation present. The right ventricular systolic pressure, as measured by Doppl er, is 33.76mmHg. Pulmonic valve appears structurally normal. The aortic root size is normal. Normal inferior vena cava with normal inspiratory collapse consistent with estimated right atrial pre ssure of 5 mmHg. The pericardium is normal. CONCLUSIONS -------- 1. Sinus rhythm. 2. This was a technically good study. 3. The left ventricular size is normal. 4. There is severe concentric left ventricular hypertrophy. 5. Overall left ventricular systolic function is normal with, an EF between 55 - 60 %. 6. The right ventricle is normal in size. 7. LA is moderately dilated 34-39 ml/m2 8. The right atrial size is normal. 9. Aortic valve is trileaflet and is mildly thickened. 10. There is mild aortic valve sclerosis. 11. Peak/mean gradient across the Aortic Valve is 12.34mmHg / 6.62mmHg. 12. The mitral valve leaflets are mildly thickened. 13. Moderate mitral annular calcification present. 14. Mild mitral regurgitation is present. 15. Mild tricuspid regurgitation present. 16. The right ventricular systolic pressure, as measured by Doppler, is 33.76mmHg. 17. Pulmonic valve appears structurally normal. 18. The aortic root size is normal. 19. Normal inferior vena cava with normal inspiratory collapse consistent with estimated right atrial pressure of 5 mmHg. 20. The pericardium is normal. GAME ADVISOR: Thea Sellers RDCS
[2018-11-17] MEDS: METOPROLOL TARTRATE 25 MG TAB PO SCH ×2 (13:04→23:12)
[2018-11-17] MEDS: CALCITONIN 200 USP/1 NASAL SPRAY 3.7ML BTL NASAL SCH (13:04)
--- NOTE | 2018-11-17 13:24 | P.PN ---
Subjective Progress Note Date: 11/17/18 This is a 73-year-old female one of Dr. Gamble with a previous medical history significant for hypertension and hypertensive cardio vascular disease with left ventricular hypertrophy, hyperlipidemia, history of chronic obstructive pulmonary disease/emphysema, hypothyroidism, history of breast can cer in the past status post left mastectomy, osteoarthritis, solitary pulmonary nodule, patient was in her usual state of health about a week ago Wednesday when she went and saw Dr. Gamble for follow-up appointment she was doing fine on Wednesday last week developed to have an increased postnasal drip associated with increased coughing with more shortness of breath, increased body aches, patient felt worse and ended up coming to the emergency department at [facility] yesterday because of increased shortness with an increased coughing and expiratory wheezes she was found to have A. fib with RVR in the EKG and also she was found to have an influenza A, patient was admitted to the hospital she was started on Lovenox 70 mg subcutaneously every 12 hours as well as Cardizem drip and she was placed in the droplet isolation due to her influenza A and she was started on Tamiflu, patient was seen by cardiology already she was converted to a sinus rhythm she was taken off her Cardizem drip and she was started on Lovenox 70 mg subcu Wednesday every 12 hours until the next 24 hours and she will be switched to Xarelto or Eliquis. 11/17: Patient is seen again in the intensive care unit. She is waiting for a bed on the stepdown unit. Breathing status is improved from yesterday and we will d ecrease Solu-Medrol to 40 mg every 12 hours. She is continued on Tamiflu and in isolation. Repeat chest x-ray this morning is showing some improvement in aeration. Echocardiogram reveals severe concentric left ventricular hypertrophy, EF 55-60%, mild aortic valve sclerosis, mild mitral regurgitation, mild tricuspid regurgitation. Patient blood pressure is a little high today so we will start her on Lopressor 25 mg twice daily. Cardiology is following. Patient should be able to be transferred to the cardiac stepdown unit today. Anticipate discharge in the next 24-48 hours. Case management is checking co- pays on Xarelto and eliquis. Review of Systems Constitutional: Reports fatigue, Reports malaise, Reports weakness, Denies anorexia, Denies chronic headaches, Denies chronic pain, Denies lethargy Eyes: denies blurred vision, denies bulging eye, denies decreased vision Ears: deny: decreased hearing Ears, nose, mouth and throat: Denies dysphagia, Denies neck lump, Denies swelling in throat, Denies sore throat Breasts: bilateral: as per HPI (Bilateral mastectomies.) Cardiovascular: Reports decreased exercise tolerance, Reports dyspnea on exertion, Reports high blood pressure, Reports irregular heart beat, Reports orthopnea, Reports rapid heart beat, Reports shortness of breath, Denies chest pain, Denies syncope Respiratory: Reports congestion, Reports cough, Reports cough with sputum, Reports dyspnea, Reports respiratory infections, Reports wheezing, Denies home oxygen, Denies sleep apnea, Denies snoring Gastrointestinal: Denies abdominal pain, Denies bloating, Denies BRBPR, Denies heartburn, Denies hematemesis, Denies melena, Denies nausea, Denies vomiting Genitourinary: Denies dysuria, Denies hematuria Musculoskeletal: Denies myalgias Integumentary: Denies pruritus, Denies rash Neurological: Denies numbness, Denies weakness Psychiatric: Denies anxiety, Denies depression Endocrine: Denies fatigue, Denies weight change Objective - Vital Signs Vital signs: Vital Signs Temp 97.8 F 11/17/18 05:00 Pulse 76 11/17/18 08:15 Resp 21 11/17/18 05:00 BP 152/76 11/17/18 05:00 Pulse Ox 95 11/17/18 00:00 Intake & Output 11/16/18 11/17/18 11/17/18 18:59 06:59 18:59 Intake Total 90 400 Balance 90 400 Weight 68 kg Intake: IV 90 Sodium Chloride 0.9% 500 90 ml 500 ml @ 999 mls/hr IV .Q31M ONE Rx#:[id number] Oral 400 Other: # Voids 1 3 - Exam General appearance: average body habitus, no distress - EENT Eyes: anicteric sclerae, EOMI, PERRLA, no ptosis, no scleral icterus, normal appearance ENT: hearing grossly normal, NA/AT, normal oropharynx, no thrush Ears: bilateral: normal - Neck Neck: no lymphadenopathy, normal ROM, no rigidity, no stridor, no thyromegaly Carotids: bilateral: upstroke normal - Respiratory Respiratory: bilateral: diminished, rales, rhonchi, wheezing, prolonged expiration, negative: dullness - Cardiovascular Rhythm: regular Heart sounds: normal: S1, S2 Abnormal Heart Sounds: systolic murmur, no S3 Gallop, no S4 Gallop panel monitor is sinus rhythm. - Gastrointestinal General gastrointestinal: normal bowel sounds, soft, no splenomegaly, no tenderness, no umbilical hernia, no ventral hernia - Integumentary Integumentary: normal, normal turgor - Neurologic Neurologic: CNII-XII intact - Musculoskeletal Musculoskeletal: gait normal, strength equal bilaterally - Psychiatric Psychiatric: A&O x's 3, appropriate affect, intact judgment & insight - Labs CBC & Chem 7: 11/17/18 04:53 11/17/18 04:53 Labs: Abnormal Lab Results - Last 24 Hours (Table) 11/16/18 11/17/18 11/17/18 Range/Units 14:43 04:53 04:53 WBC 12.8 H (3.8-10.6) k/uL Neutrophils # 11.9 H (1.3-7.7) k/uL Lymphocytes # 0.7 L (1.0-4.8) k/uL Chloride 108 H (98-107) mmol/L Creatinine 0.50 L (0.52-1.04) mg/dL Glucose 168 H (74-99) mg/dL Troponin I 0.589 H* (0.000-0.034) ng/mL Total Protein 6.2 L (6.3-8.2) g/dL Albumin 3.4 L (3.5-5.0) g/dL Assessment and Plan Plan: 1. Acute hypoxemic respiratory failure secondary to atrial fibrillation with rapid ventricular response as well as Influenza A with COPD exacerbation. Continue Tamiflu 30 mg orally twice every day, patient is off Cardizem drip. Lopressor 25 mg twice daily will be started, continue Lovenox 70 mg subcutaneously every 12 hours, continue DuoNeb 3 mL nebulization 4 times every day, continue Pulmicort 1 mg nebulization twice every day, pulmonary and cardiology consultation, follow the patient very closely. 2. Acute influenza A. Continue droplet precautions, continue with Tamiflu 30 mg orally twice every day for 5 days. 3. Acute COPD exacerbation. Continue DuoNeb 3 mg position 4 times every day, Pulmicort 1 mg nebulization twice every day, continue Solu-Medrol 40 mg IV push every 8 hours, continue oxygen support, continue to monitor the patient, Pulmonary consultation. 4. A. fib with RVR, paroxysmal. Lopressor 25 mg twice daily will be started. Case management is checking co-pays on Xarelto and eliquis. Cardiology consult appreciated. 5. Hyperlipidemia. Continue patient on Lipitor 40 mg orally once every day. 6. Hypothyroidism. Continue Synthroid 100 g orally once every day. 7. Osteoporosis. Continue patient on calcitonin 200 international unit one spray in nostril alternate between nostrils daily. 8. DVT prophylaxis. Continue patient on Lovenox 70 mg subcu Wednesday every 12 hours. 9. GI prophylaxis. Continue Protonix 40 mg orally once every day. Patient is full code. Discharge plan: Return home Impression and plan of care have been directed as dictated by the signing physician. Megan Henry nurse practitioner acting as scribe for signing physician.
[2018-11-17] MEDS: OSELTAMIVIR 60 MG/10 ML ORAL SYRINGE PO SCH ×2 (15:25→23:13)
[2018-11-17] MEDS ORDERED: LEVOFLOXACIN 500MG-D5W PMX 500 MG in DEXTROSE/WATER 1 100ML.BAG IVPB SCH (23:00)
[2018-11-17] MEDS: LATANOPROST 0.005% OPHTH DROPS 2.5 ML BTL BOTH EYES SCH (23:12)
[2018-11-18] MEDS: PANTOPRAZOLE 40 MG TABLET PO SCH (06:34)
[2018-11-18] MEDS: LEVOTHYROXINE 100 MCG TAB PO SCH (06:34)
--- NOTE | 2018-11-18 06:37 | CONS ---
CONSULTATION Criss Sandhu is a 73 -year-old female who presented to the ED at [facility] with increasing shortness of breath of about 1 to 2 days duration. She felt some chills. No clear fever. She subsequently came into the ER. When she came into the ER, she was found to have atrial fibrillation with rapid ventricular response. She subsequently was admitted for further evaluation and management. PAST MEDICAL HISTORY: Positive for asthma, COPD. No clear history of A. fib. History of hypothyroidism. History of osteoarthritis. Previous history of breast cancer with double mastectomy, subsequent radiation and chemotherapy. History of perforated bowel and peptic ulcer disease. History of bowel resection, tonsillectomy. FAMILY HISTORY: Family history is positive for cancer in her brother. SOCIAL HISTORY: Patient is a smoker, smoked about 1 to 2 packs of cigarettes per day. 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 MEDICATIONS: Her medications prior to admission were Crestor, Synthroid, latanoprost, calcitonin, tiotropium, and Breo Ellipta. REVIEW OF SYSTEMS: Noncontributory. PHYSICAL EXAMINATION: On physical examination, respiratory rate is 18, pulse rate of 77, temperature 98.2, blood pressure 152/76, O2 saturation on room air is 95%. HEENT: Pupils are equal. Chest reveals decreased breath sounds, prolonged expiration with expiratory wheeze. Cardiovascular system reveals an S1, S2. Abdomen is soft. There is no pedal edema. White count is 21.4, hemoglobin of 13.9. Sodium 134, potassium 4.3, chloride 102, bicarb 22. Glucose 217. Influenza A is positive. Blood cultures have not been done. Magnesium is 1.3. Chest x-ray shows is possible infiltrate in the right lower zone. IMPRESSION AT THIS TIME: 1. Influenza A. 2. Asthma with chronic obstructive pulmonary disease with acute exacerbation. 3. Pneumonia. Continue her on Tamiflu, methylprednisolone, Pulmicort. Because of an elevated white blood cell count and possible infiltrate. We will add Levaquin to her regimen. I agree with keeping her on GI and DVT prophylaxis. I would like to thank you for allowing me the privilege of participating in her care. MMODL / IJN: [id number] /
[2018-11-18] MEDS: IPRATROPIUM-ALBUTEROL 3 ML NEB INHALATION SCH ×2 (07:30→11:28)
[2018-11-18] MEDS: BUDESONIDE 0.5 MG/2 ML NEBU INHALATION SCH (07:30)
[2018-11-18] MEDS: OSELTAMIVIR 60 MG/10 ML ORAL SYRINGE PO SCH (07:54)
[2018-11-18] MEDS: ASPIRIN 81 MG PO SCH (07:54)
[2018-11-18] MEDS: ENOXAPARIN 80 MG/0.8 ML SYRINGE SQ SCH (07:54)
[2018-11-18] MEDS: CALCITONIN 200 USP/1 NASAL SPRAY 3.7ML BTL NASAL SCH (07:54)
[2018-11-18] MEDS: methylPREDNISolone SOD SUCCI 40 MG/ML 1 ML VIAL IV SCH (07:54)
[2018-11-18] MEDS: METOPROLOL TARTRATE 25 MG TAB PO SCH (07:54)
[2018-11-18] MEDS: ATORVASTATIN 20 MG TAB PO SCH (07:55)
[2018-11-18 08:04] VITALS: BP 167/61; RESP 18; TEMP 98
[2018-11-18] MEDS ORDERED: APIXABAN 5 MG TAB PO SCH (11:00)
[2018-11-18 11:44] VITALS: PULSE 70
--- NOTE | 2018-11-18 12:49 | PN ---
PROGRESS NOTE DATE OF SERVICE: 11/18/2018 Patient is a 73-year-old female who is seen lying in bed, is awake and alert, feeling much better. Denies shortness of breath. is hemodynamically stable, afebrile, in no acute distress. PHYSICAL EXAM: VITAL SIGNS: Temp is 98.0, heart rate is 70, respiratory rate 18, blood pressure is 167/61, O2 SATs 94% on room air. HEENT. Head is normocephalic, atraumatic. Neck is supple. Trachea is midline. Lung sounds are decreased with an expiratory wheeze. HEART: S1, S2 are heard. Not tachycardic. ABDOMEN: Soft. Bowel sounds are heard. EXTREMITIES: With no edema. NEUROLOGIC: Patient is awake and alert. LABS: No new labs to review. IMAGING: No new imaging to review. IMPRESSION: 1. Influenza A. 2. Afib 3. Asthma with chronic obstructive pulmonary disease with acute exacerbation. 4. Pneumonia. PLAN: Continue current medications which have been reviewed. Continue bronchodilators and aerosolized steroids. Continue GI and DVT prophylaxis. Recommend changing from IV steroids to p.o. prednisone with a slow taper and will follow patient closely with you, making further changes as necessary. MMODL / IJN: [id number] / ELDON
--- NOTE | 2018-11-18 13:01 | P.DS ---
Providers Date of admission: 11/16/18 05:13 Expected date of discharge: 11/18/18 Attending physician: Lia Gamble Consults: 11/16/18 05:10 Consult Physician Routine Consulting Provider: Myles Tobin Consult Reason/Comments: Atrial fibrillation with rapid ventricular rate Do you want consulting provider notified?: Yes 11/16/18 15:06 Consult Physician Routine Consulting Provider: Analy Trejo Consult Reason/Comments: Flu A, COPD Do you want consulting provider notified?: Yes Primary care physician: Lia Gamble [facility] Course: This is a 73-year-old female one of Dr. Gamble with a previous medical history significant for hypertension and hypertensive cardio vascular disease with left ventricular hypertrophy, hyperlipidemia, history of chronic obstructive pulmonary disease/emphysema, hypothyroidism, history of breast cancer in the past status post left mastectomy, osteoarthritis, solitary pulmonary nodule, patient was in her usual state of health about a week ago Wednesday when she went and saw Dr. Gamble for follow-up appointment she was doing fine on Wednesday last week developed to have an increased postnasal drip associated with increased coughing with more shortness of breath, increased body aches, patient felt worse and ended up coming to the emergency department at [facility] yesterday because of increased shortness with an increased coughing and expiratory wheezes she was found to have A. fib with RVR in the EKG and also she was found to have an influenza A, patient was admitted to the hospital she was started on Lovenox 70 mg subcutaneously every 12 hours as well as Cardizem drip and she was placed in the droplet isolation due to her influenza A and she was started on Tamiflu, patient was seen by cardiology already she was converted to a sinus rhythm she was taken off her Cardizem drip and she was started on Lovenox 70 mg subcu Wednesday every 12 hours until the next 24 hours and she will be switched to Xarelto or Eliquis. 11/17: Patient is seen again in the intensive care unit. She is waiting for a bed on the stepdown unit. Breathing status is improved from yesterday and we will decrease Solu-Medrol to 40 mg every 12 hours. She is continued on Tamiflu and in isolation. Repeat chest x-ray this morning is showing some improvement in aeration. Echocardiogram reveals severe concentric left ventricular hypertro phy, EF 55-60%, mild aortic valve sclerosis, mild mitral regurgitation, mild tricuspid regurgitation. Patient blood pressure is a little high today so we will start her on Lopressor 25 mg twice daily. Cardiology is following. Patient should be able to be transferred to the cardiac stepdown unit today. Anticipate discharge in the next 24-48 hours. Case management is checking co- pays on Xarelto and eliquis. 11/18:the patient states that her breathing status is much improved today. She denies any chest pain or palpitations. She did have a bowel movement this morning.she is eating and drinking without difficulty. She has been afebrile, heart rate in the 60s and 70s, blood pressure 167/61, pulse ox 94% on room air.WBC 12.8, creatinine 0.5. Patient will be discharged home today in stable condition. Discharge diagnoses: 1. Acute hypoxemic respiratory failure secondary to atrial fibrillation with rapid ventricular response as well as Influenza A with COPD exacerbation. 2. Acute influenza A. 3. Acute COPD exacerbation. 4. A. fib with RVR, paroxysmal. 5. Hyperlipidemia. 6. Hypothyroidism. 7. Osteoporosis. Discharge plan: Return home Impression and plan of care have been directed as dictated by the signing physician. Megan Henry nurse practitioner acting as scribe for signing physician. Patient Condition at Discharge: Good Plan - Discharge Summary New Discharge Prescriptions: New Metoprolol Tartrate [Lopressor] 25 mg PO BID #60 tab Pantoprazole [Protonix] 40 mg PO AC-BRKFST #30 tablet. Apixaban [Eliquis] 5 mg PO BID #60 tab Levofloxacin [Levaquin] 500 mg PO DAILY #5 tab predniSONE 0 mg PO DIRECTED #30 tab Oseltamivir [Tamiflu] 75 mg PO Q12HR #6 cap Tiotropium 18 Mcg/Puff [Spiriva] 1 puff INHALATION DAILY #1 device Continue Levothyroxine Sodium [Synthroid] 100 mcg PO DAILY Calcitonin,[place],Synthetic [Calcitonin-[place]] 1 spray NASAL DAILY Latanoprost [Xalatan 0.005%] 1 drop BOTH EYES HS Rosuvastatin [Crestor] 5 mg PO SUWE Fluticasone/Vilanterol [Breo Ellipta 200-25 Mcg INH] 1 inhalation INHALATION DAILY Tiotropium 18 Mcg/Puff [Spiriva] 1 puff INHALATION DAILY Discharge Medication List Levothyroxine Sodium [Synthroid] 100 mcg PO DAILY 01/10/14 [History] Calcitonin,[place],Synthetic [Calcitonin-[place]] 1 spray NASAL DAILY 12/17/14 [History] Latanoprost [Xalatan 0.005%] 1 drop BOTH EYES HS 08/13/15 [History] Fluticasone/Vilanterol [Breo Ellipta 200-25 Mcg INH] 1 inhalation INHALATION DAILY 02/03/18 [History] Rosuvastatin [Crestor] 5 mg PO SUWE 02/03/18 [History] Tiotropium 18 Mcg/Puff [Spiriva] 1 puff INHALATION DAILY 11/16/18 [History] Apixaban [Eliquis] 5 mg PO BID #60 tab 11/18/18 [Rx] Levofloxacin [Levaquin] 500 mg PO DAILY #5 tab 11/18/18 [Rx] Metoprolol Tartrate [Lopressor] 25 mg PO BID #60 tab 11/18/18 [Rx] Oseltamivir [Tamiflu] 75 mg PO Q12HR #6 cap 11/18/18 [Rx] Pantoprazole [Protonix] 40 mg PO AC-BRKFST #30 tablet. 11/18/18 [Rx] Tiotropium 18 Mcg/Puff [Spiriva] 1 puff INHALATION DAILY #1 device 11/18/18 [Rx] predniSONE 0 mg PO DIRECTED #30 tab 11/18/18 [Rx] Follow up Appointment(s)/Referral(s): Nick Hernandez MD [STAFF PHYSICIAN] - 12/09/18 3:30 pm Lia Gamble MD [Primary Care Provider] - 11/22/18 2:45 pm Phani Cervantes MD [STAFF PHYSICIAN] - 11/24/18 2:45 pm (Appointment at [address] [place] [address] office: [address] [place] [address], [facility]) Patient Instructions/Handouts: A-fib (Atrial Fibrillation) (DC), Influenza (DC), Safe Use of Anticoagulants (DC)
== END 2018-11-18 13:15 | disposition home or self-care (01) | DRG 193 ==
LOC: EC 01:34 → 2SICU 05:13 → 3SCARD 11-17 11:27
PROVIDERS: ADMIT Family Medicine; ATTEND Family Medicine
DX: J10.00 Influenza due to other identified influenza virus with unspecified type of pneumonia (principal); J96.01 Acute respiratory failure with hypoxia; J45.901 Unspecified asthma with (acute) exacerbation; I48.0 Paroxysmal atrial fibrillation; I08.3 Combined rheumatic disorders of mitral, aortic and tricuspid valves; J43.9 Emphysema, unspecified; I11.9 Hypertensive heart disease without heart failure; J18.9 Pneumonia, unspecified organism; E78.5 Hyperlipidemia, unspecified; M19.90 Unspecified osteoarthritis, unspecified site; H40.9 Unspecified glaucoma; E89.0 Postprocedural hypothyroidism; F17.210 Nicotine dependence, cigarettes, uncomplicated; M81.0 Age-related osteoporosis without current pathological fracture; Z79.890 Hormone replacement therapy; Z79.899 Other long term (current) drug therapy; Z87.11 Personal history of peptic ulcer disease; Z96.653 Presence of artificial knee joint, bilateral; Z85.3 Personal history of malignant neoplasm of breast; Z90.49 Acquired absence of other specified parts of digestive tract; Z96.641 Presence of right artificial hip joint; Z90.13 Acquired absence of bilateral breasts and nipples; Z90.2 Acquired absence of lung [part of]; Z98.42 Cataract extraction status, left eye; Z98.41 Cataract extraction status, right eye; Z88.8 Allergy status to other drugs, medicaments and biological substances; Z82.49 Family history of ischemic heart disease and other diseases of the circulatory system; Z80.1 Family history of malignant neoplasm of trachea, bronchus and lung
CPT/HCPCS: 36415; 71045; 80053; 80061; 83735; 83880; 84484; 85025; 85610; 85730; 87502; 93005; 93306; 94640; 96361; 96365; 96366; 96375; 96376; 99291

== ENCOUNTER → 2019-03-10 | Outpatient (CLI) | payer MEDICARE, OTHER | END | disposition home or self-care (01) | LOC: RADUSWWP 12:12 | PROVIDERS: ATTEND Family Medicine | DX: M48.062 Spinal stenosis, lumbar region with neurogenic claudication (principal) | CPT/HCPCS: 93923 ==

== ENCOUNTER → 2019-03-16 | Outpatient (CLI) | payer MEDICARE, OTHER ==
--- NOTE | 2019-03-16 14:24 | MR ---
EXAMINATION TYPE: MR lumbar spine wo con DATE OF EXAM: 03/16/2019 COMPARISON: None HISTORY: LBP, spinal stenosis TECHNIQUE: Multiplanar, multisequence images of the lumbar spine were acquired. FINDINGS: Localizer images demonstrate extensive susceptibility artifact generated from a right hip p rosthesis. There is a mild compression deformity of L4 vertebral body that is chronic with approximat lorraine 10% vertebral body height loss of the anterior endplate however the mid portion of the superior e ndplate is also depressed from degenerative disc disease and Schmorl's node formation. The remainder the vertebral body heights of the lumbar spine are maintained. T11 and L1 vertebral body hemangiomas are seen that are T1/T2 hyperintense. Multilevel disc desiccation is present. There is a partially vi sualized T2 hyperintense and T1 hypointense left renal lesion. L1-L2: There is a broad-based disc bulge and facet arthropathy resulting in moderate to severe left a nd moderate right neural foraminal narrowing and mild spinal canal stenosis in combination with facet arthropathy and ligamentum flavum buckling. L2-L3: There is a broad-based disc bulge, ligamentum flavum buckling and facet arthropathy creating m oderate to severe spinal canal stenosis with buckling of the distal nerve roots. This also creates mo derate to severe left and moderate right neural foraminal narrowing. L3-L4: There is a right eccentric broad-based disc bulge and facet arthropathy creating severe right and moderate left neural foraminal narrowing. In combination with facet arthropathy and ligamentum fl avum buckling there is moderate spinal canal stenosis. L4-L5: There is a broad-based disc bulge and facet arthropathy with ligamentum flavum buckling creati ng moderate bilateral neural foraminal narrowing and moderate to severe spinal canal stenosis. The sp inal canal is narrowed in an anterior posterior and transverse dimension. L5-S1: There is a broad-based disc bulge and facet arthropathy contributing to moderate to severe meenakshi ateral neural foraminal narrowing and mild spinal canal stenosis. IMPRESSION: 1. Spinal canal stenosis throughout the lumbar spine that is mild at L1-L2 and L5-S1, moderate to sev ere at L2-L3 and L4-L5, and moderate at L3-L4. This is secondary to broad-based disc bulges, ligament um flavum buckling, and facet arthropathy. 2. Variable degrees of neural foraminal narrowing throughout the lumbar spine as detailed above are a lso secondary to broad-based disc bulges, ligamentum flavum buckling and facet arthropathy. 3. Old mild compression deformity of the L4 vertebral body without bone marrow edema.
== END | disposition home or self-care (01) ==
LOC: RADMRIMAIN 12:25
PROVIDERS: ATTEND Family Medicine
DX: M48.061 Spinal stenosis, lumbar region without neurogenic claudication (principal); M48.07 Spinal stenosis, lumbosacral region; M51.26 Other intervertebral disc displacement, lumbar region; M51.27 Other intervertebral disc displacement, lumbosacral region; M46.96 Unspecified inflammatory spondylopathy, lumbar region; M46.97 Unspecified inflammatory spondylopathy, lumbosacral region
CPT/HCPCS: 72148

== ENCOUNTER → 2019-04-19 | Outpatient (CLI) | payer MEDICARE, OTHER ==
[~2019-04-19] MED LIST changes: +DENOSUMAB 60 MG/ML 1 ML SYRINGE SQ NR; -DENOSUMAB 60 MG/ML 1 ML SYRINGE SQ ONE
[2019-04-19 12:40] VITALS: BP 122/66; PULSE 77; RESP 16; TEMP 97.8
== END | disposition home or self-care (01) ==
LOC: PROCWHC3 12:21
PROVIDERS: ATTEND Family Medicine
DX: M81.0 Age-related osteoporosis without current pathological fracture (principal)
CPT/HCPCS: 96372; J0897

== ENCOUNTER → 2019-05-17 | Outpatient (CLI) | payer MEDICARE, OTHER ==
--- NOTE | 2019-05-17 13:17 | US ---
EXAMINATION TYPE: US venous doppler duplex UE LT DATE OF EXAM: 05/17/2019 COMPARISON: NONE CLINICAL HISTORY: I82.629 Acute embolism and thrombosis of deep vein. Pt states left arm swelling aft er laceration to left elbow/ pt has history of mastectomy SIDE PERFORMED: Left Left Arm: Negative for DVT Results called to Dr. Gamble at time of exam IMPRESSION: No evidence of DVT.
== END | disposition home or self-care (01) ==
LOC: RADUSWWP 12:47
PROVIDERS: ATTEND Family Medicine
DX: I82.622 Acute embolism and thrombosis of deep veins of left upper extremity (principal)

== ENCOUNTER → 2019-07-20 | Outpatient (CLI) | payer MEDICARE, OTHER ==
[2019-07-20 13:09] LABS: HCT 43.5 % (34.0-46.0); HGB 14.1 gm/dL (11.4-16.0); MCH 28.6 pg (25.0-35.0); MCHC 32.5 g/dL (31.0-37.0); MCV 88.1 fL (80.0-100.0); Platelet Count 343 k/uL (150-450); RBC 4.94 m/uL (3.80-5.40); RDW 13.3 % (11.5-15.5); WBC 12.9 k/uL (3.8-10.6)
[2019-07-20 13:28] LABS: African American GFR (CKD) >90 (>60 ml/min/1.73 sqM); Anion Gap 8 mmol/L; Blood Urea Nitrogen 13 mg/dL (7-17); Carbon Dioxide 27 mmol/L (22-30); Chloride 101 mmol/L (98-107); Non-African American GFR(CKD) 85 (>60 ml/min/1.73 sqM); Potassium 4.1 mmol/L (3.5-5.1); Sodium 136 mmol/L (137-145)
== END | disposition home or self-care (01) ==
LOC: LABPAT 12:38
PROVIDERS: ATTEND Internal Medicine Interventional Cardiology
DX: Z01.812 Encounter for preprocedural laboratory examination (principal); I70.213 Atherosclerosis of native arteries of extremities with intermittent claudication, bilateral legs
CPT/HCPCS: 80051; 82565; 84520; 85027

== ENCOUNTER 2019-07-25 06:15 | Day surgery (SDC) | payer MEDICARE, OTHER ==
[2019-07-20 16:23] VITALS: BMI 26.9
[2019-07-25] MEDS ORDERED: SODIUM CHLORIDE 0.9% 1,000 ML in EMPTY BAG 1 BAG IV ONE (06:37)
[2019-07-25] MEDS ORDERED: ALPRAZolam 0.5 MG TAB PO PRN (06:37)
[2019-07-25] MEDS ORDERED: METOPROLOL SUCCINATE (ER) 50 MG TAB.ER.24H PO STA (06:45)
[2019-07-25] MEDS ORDERED: SODIUM CHLORIDE 0.9% 1,000 ML IV ONE (06:50)
[2019-07-25 07:05] VITALS: RESP 16; TEMP 98.1
[2019-07-25] MEDS: hydrALAZINE HCL 20 MG/ML 1 ML VIAL IV ONE ×3 (08:02→08:28)
[2019-07-25] MEDS ORDERED: ENALAPRILAT 1.25 MG/ML 1 ML VIAL IV ONE (08:03)
[2019-07-25] MEDS ORDERED: MIDAZOLAM 2 MG/2 ML VIAL IV ONE (08:04)
[2019-07-25] MEDS ORDERED: LIDOCAINE 1% INJ 10MG/ML (20 ML MDV) SQ ONE (08:06)
[2019-07-25] MEDS ORDERED: IOPAMIDOL-250 50ML BTL INTRAARTER ONE (08:14)
[2019-07-25] MEDS ORDERED: IOPAMIDOL-250 100ML BTL INTRAARTER ONE (08:14)
[2019-07-25] MEDS ORDERED: hydrALAZINE HCL 20 MG/ML 1 ML VIAL ONE (08:26)
[2019-07-25] MEDS ORDERED: hydrALAZINE HCL 20 MG/ML 1 ML VIAL IVP PRN (08:27)
[2019-07-25] MEDS ORDERED: ENALAPRILAT 1.25 MG/ML 1 ML VIAL IVP PRN (08:27)
[2019-07-25] MEDS ORDERED: SODIUM CHLORIDE 0.9% 1,000 ML IV SCH (08:30)
--- NOTE | 2019-07-25 09:47 | AN ---
ANGIOGRAPHY REPORT ABDOMINAL AORTOGRAM AND BILATERAL LOWER EXTREMITIES RUNOFF: DATE OF SERVICE: 07/25/2019 PERFORMING PHYSICIAN: Myles Tobin MD. PROCEDURE PERFORMED: 1. An abdominal aortogram. 2. Bilateral lower extremities runoff. INDICATION: This is a pleasant 73-year-old female patient who sees Dr. Hernandez in the office as an outpatient with history of smoking as well as history of dyslipidemia, was experiencing left leg intermittent claudication. She underwent an anterior duplex study and that revealed intermediate to severe disease involving the left SFA. Because she continues to be symptomatic in term of intermittent claudication, she was brought today to undergo an aortogram with runoff. APPROACH: Right common femoral artery. COMPLICATION: None. LEVEL OF SEDATION: Moderate with sedation length of 15 minutes. PROCEDURE DESCRIPTION: After obtaining an informed consent, the patient was brought to the cardiac laborer tan house. The right common femoral artery was cannulated using micropuncture technique, the micropuncture wire passed easily, then I placed a 5-Stateless sheath in the right common femoral artery. After that, I did an aortogram with runoff using 5-Stateless pigtail catheter which was initially placed at the level of the renal arteries, then it was pulled into above the bifurcation into right and left common iliac arteries. SELECTIVE PERIPHERAL ANGIOGRAM: 1. The aorta appeared to be calcified with mild diffuse disease only. 2. Common iliac arteries both appear to be calcified with mild disease only. 3. Internal iliac arteries both appear to be patent. 4. External iliac arteries, the right external iliac artery appeared to be normal and the left external iliac artery appeared to have intermediate disease only. 5. Common femoral arteries, both appeared to be angiographically normal. 6. Profunda, both appeared to be patent. 7. SFA, the right SFA appeared to have mild diffuse disease. The left SFA is occluded on short segment in the proximal portion that is diffusely diseased up to about 80%- 90% distally. 8. Popliteal, the right popliteal appeared to have mild disease only and the left popliteal appeared to have mild disease only. 9. Below the knee, there are 3 vessel runoff below the knee bilaterally. CONCLUSION: 1. Mild aortoiliac disease. 2. Occluded left SFA and diffuse disease involving the very distal left SFA as well. 3. Three vessel runoff below the knee bilaterally. POSTPROCEDURE MANAGEMENT: The patient will be scheduled to undergo a LOGISTIC SPECIALIST of the left SFA in the next few weeks. MMODL / IJN: [id number] /
--- NOTE | 2019-07-25 10:06 | IR ---
Fluoroscopy HISTORY: Leg pain, peripheral vascular occlusive disease 1.4 minutes fluoroscopy time supplied to the referring clinician. 98 intraoperative C-arm images doc ument the procedure. See dictated report from cardiology.
[2019-07-25] MEDS ORDERED: HYDROmorphone 0.5 MG/0.5 ML SYRINGE IVP PRN (13:53)
[2019-07-25] MEDS ORDERED: HYDROmorphone 1 MG/ML 1 ML SYRINGE ONE (13:54)
[2019-07-25 14:16] VITALS: BP 148/72; PULSE 72
== END 2019-07-25 14:05 | disposition home or self-care (01) ==
LOC: CATHCVL 06:15
PROVIDERS: ATTEND Internal Medicine Interventional Cardiology
DX: I70.213 Atherosclerosis of native arteries of extremities with intermittent claudication, bilateral legs (principal); I70.0 Atherosclerosis of aorta; I65.23 Occlusion and stenosis of bilateral carotid arteries; I48.0 Paroxysmal atrial fibrillation; I47.1 Supraventricular tachycardia; J44.9 Chronic obstructive pulmonary disease, unspecified; E78.5 Hyperlipidemia, unspecified; E03.9 Hypothyroidism, unspecified; F17.210 Nicotine dependence, cigarettes, uncomplicated; Z79.01 Long term (current) use of anticoagulants; Z79.51 Long term (current) use of inhaled steroids; Z79.890 Hormone replacement therapy; Z79.899 Other long term (current) drug therapy; Z88.8 Allergy status to other drugs, medicaments and biological substances
CPT/HCPCS: 36200; 75625; 75716; C1769 ×4; C1894; J2250; J0360; J2001; Q9966 ×2

== ENCOUNTER → 2019-09-18 | Outpatient (CLI) | payer MEDICARE, OTHER ==
[2019-09-18 12:14] LABS: HCT 43.5 % (34.0-46.0); MCH 28.6 pg (25.0-35.0); MCHC 32.2 g/dL (31.0-37.0); MCV 88.6 fL (80.0-100.0); Platelet Count 352 k/uL (150-450); RBC 4.91 m/uL (3.80-5.40); RDW 13.3 % (11.5-15.5); WBC 9.5 k/uL (3.8-10.6)
[2019-09-18 12:29] LABS: African American GFR (CKD) >90 (>60 ml/min/1.73 sqM); Anion Gap 6 mmol/L; Blood Urea Nitrogen 14 mg/dL (7-17); Carbon Dioxide 27 mmol/L (22-30); Chloride 104 mmol/L (98-107); Non-African American GFR(CKD) 88 (>60 ml/min/1.73 sqM); Potassium 3.9 mmol/L (3.5-5.1); Sodium 137 mmol/L (137-145)
== END | disposition home or self-care (01) ==
LOC: LABPAT 10:46
PROVIDERS: ATTEND Internal Medicine Interventional Cardiology
DX: Z01.812 Encounter for preprocedural laboratory examination (principal); I73.9 Peripheral vascular disease, unspecified
CPT/HCPCS: 36415; 80051; 82565; 84520; 85027

== ENCOUNTER 2019-09-20 13:46 | Day surgery (SDC) | payer MEDICARE, OTHER ==
[2019-09-15 15:35] VITALS: BMI 27.6
[~2019-09-20 13:46] MED LIST changes: +ALPRAZolam 0.5 MG TAB PO PRN; -DENOSUMAB 60 MG/ML 1 ML SYRINGE SQ NR; +SODIUM CHLORIDE 0.9% 1,000 ML in EMPTY BAG 1 BAG IV ONE
[2019-09-20] MEDS ORDERED: LIDOCAINE 1% INJ 10MG/ML (20 ML MDV) SQ ONE (18:43)
[2019-09-20] MEDS ORDERED: MIDAZOLAM 2 MG/2 ML VIAL IV ONE (18:43)
[2019-09-20] MEDS: fentaNYL (PF) 50 MCG/ML 2 ML AMP IV ONE ×2 (18:43→19:23)
[2019-09-20] MEDS ORDERED: hydrALAZINE HCL 20 MG/ML 1 ML VIAL IV ONE (18:53)
[2019-09-20] MEDS ORDERED: HYDROmorphone 1 MG/ML 1 ML SYRINGE IVP ONE (19:41)
[2019-09-20] MEDS ORDERED: IOPAMIDOL-250 100ML BTL INTRAARTER ONE ×2 (19:53→20:04)
[2019-09-20] MEDS ORDERED: CLOPIDOGREL 75 MG TAB PO ONE (20:04)
[2019-09-20] MEDS ORDERED: IBUPROFEN 400 MG TAB PO PRN (20:08)
[2019-09-20] MEDS ORDERED: PROLIA SQ SCH (20:15)
[2019-09-20] MEDS ORDERED: SODIUM CHLORIDE 0.9% 1,000 ML in EMPTY BAG 1 BAG IV SCH (20:15)
--- NOTE | 2019-09-20 20:37 | IR ---
EXAMINATION TYPE: IR stent intravas non coronary DATE OF EXAM: 09/20/2019 COMPARISON: NONE HISTORY: Fluoroscopy time. Fluoroscopy was provided to the referring clinician.
[2019-09-20] MEDS: IPRATROPIUM 0.5 MG/2.5 ML NEBU INHALATION SCH (20:39)
[2019-09-20] MEDS: SYMBICORT 160-4.5 MCG INHALER INHALATION SCH (20:40)
[2019-09-20] MEDS ORDERED: MONTELUKAST 10 MG TAB PO SCH (21:00)
[2019-09-20] MEDS ORDERED: LATANOPROST 0.005% OPHTH DROPS 2.5 ML BTL BOTH EYES SCH (21:00)
[2019-09-20] MEDS ORDERED: ZOLPIDEM 5 MG TAB PO PRN (21:00)
--- NOTE | 2019-09-20 22:26 | LTR ---
DATE OF SERVICE: September 20, 2019. Dear Dr. Gamble: Ms. Criss Sandhu underwent successful angioplasty of the left leg with an excellent angiographic results and without any complication. Thank you for allowing us to participate in her care and please do not hesitate to call if you have any question or any concerns. Sincerely, MMODL / IJN: [id number] /
[2019-09-20] MEDS: CALCIUM CARB-VIT D 500MG-200UN 1 EACH TAB PO SCH (22:39)
[2019-09-20] MEDS: VARENICLINE 1 MG TAB PO SCH (22:39)
--- NOTE | 2019-09-21 05:53 | AN ---
ANGIOGRAPHY REPORT PERCUTANEOUS PERIPHERAL INTERVENTION: DATE OF SERVICE: September 20, 2019. PERFORMING PHYSICIAN: Myles Tobin MD. PROCEDURE PERFORMED: 1. Left lower extremity angiogram. 2. 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 3. Intravascular ultrasound, IVUS, Of the left SFA. 4. Atherectomy of the left SFA using the TurboHawk device with extraction of significant amount of plaque. 5. Successful balloon angioplasty of the left SFA using 6 mm In.Pact drug-coated balloon with an excellent angiographic result. 6. Successful stenting of the proximal left SFA using 7 x 140 mm Zilver PTX drug- coated stent with an excellent angiographic result. 7. Selective right common femoral artery angiogram. INDICATION: This is a 73-year-old female patient who was experiencing lower extremities intermittent claudication and underwent a peripheral angiogram and that revealed occluded left SFA. She was brought today to undergo a MANAGER APPLICATION of the left SFA. APPROACH: Right common femoral artery. COMPLICATION: None. LEVEL OF SEDATION: Moderate with sedation length of 76 minutes. PROCEDURE DESCRIPTION: After obtaining an informed consent, the patient was brought to the cardiac laborer concrete paving. The right common femoral artery was cannulated using micropuncture technique, the micropuncture wire passed easily then I placed a 6-Divehi sheath 11 cm at the right common femoral artery. At that point, anticoagulation was initiated using heparin and the patient was given weight-based heparin with continuous ACT monitoring throughout the procedure. I did after that select the left profunda using 0.035 wire with 5-Divehi Rim catheter. After that I did exchange my short 11 cm sheath into long 70 cm Lionel sheath using 0.035 Supra Core wire After that I did leave lower extremity angiogram which revealed 3-vessel runoff below the knee with mild disease involving the left popliteal as well as occluded left SFA on long segment started from the very proximal portion. I did cross the chronic total occlusion of the left SFA and subsequently I was able to advance my catheter all the way to the left popliteal where I injected contrast in the left popliteal to prove that I was in the true lumen. After that I did intravascular ultrasound IVUS of the left SFA which showed a diameter of 6 to 7 mm with no evidence of clot/thrombus. There was significant change in the appearance of the left SFA between June and August and because of that, I did an IVUS to rule out any thrombus. I did after that atherectomy using the TurboHawk device with extraction of significant amount of plaque. After that I did balloon angioplasty using 5 mm balloon for the whole SFA. The proximal portion seems to be dissected, but the distal portion appeared to be angiographically normal and because of that I decided to cover the proximal portion with a stent so I deployed 7 x 140 mm Zilver PTX drug-coated stent where the stent was positioned under fluoroscopy guidance and deployed under fluoroscopy guidance then it was post dilated using 6 mm balloon. Distally I did drug-coated balloon which was 6 x 200 mm drug-coated balloon where the balloon was inflated under 4 atmospheres for 3 minutes. The following angiogram showed good angiographic results with an area in the mid left SFA appeared to be in the range of 50% to 60% which I decided to leave. After that I did change my long sheath into short sheath using 0.035 wire before I did selective right common femoral artery angiogram. The procedure was completed without any complication. POSTPROCEDURE MANAGEMENT: 1. Dual antiplatelet therapy. 2. Risk factor modifications. 3. Follow up with the patient. MMMIKEY / RUPAN: [id number] /
[2019-09-21] MEDS ORDERED: LEVOTHYROXINE 100 MCG TAB PO SCH (06:30)
[2019-09-21 07:02] LABS: Basophils % (A) 0 %; Eosinophils # (A) 0.1 k/uL (0-0.7); Eosinophils % (A) 1 %; HCT 42.3 % (34.0-46.0); HGB 13.9 gm/dL (11.4-16.0); Lymphocytes # (A) 1.3 k/uL (1.0-4.8); Lymphocytes % (A) 12 %; MCH 29.4 pg (25.0-35.0); MCHC 32.9 g/dL (31.0-37.0); MCV 89.3 fL (80.0-100.0); Monocytes # (A) 0.6 k/uL (0-1.0); Monocytes % (A) 5 %; Neutrophils # (A) 9.3 k/uL (1.3-7.7); Neutrophils % (A) 81 %; Platelet Count 329 k/uL (150-450); RBC 4.73 m/uL (3.80-5.40); RDW 13.3 % (11.5-15.5); WBC 11.5 k/uL (3.8-10.6)
[2019-09-21 07:11] LABS: African American GFR (CKD) >90 (>60 ml/min/1.73 sqM); Anion Gap 8 mmol/L; Blood Urea Nitrogen 11 mg/dL (7-17); Calcium 8.8 mg/dL (8.4-10.2); Carbon Dioxide 24 mmol/L (22-30); Chloride 106 mmol/L (98-107); Glucose 96 mg/dL (74-99); Non-African American GFR(CKD) >90 (>60 ml/min/1.73 sqM); Potassium 3.9 mmol/L (3.5-5.1); Sodium 138 mmol/L (137-145)
[2019-09-21 07:15] VITALS: RESP 18
[2019-09-21] MEDS: SYMBICORT 160-4.5 MCG INHALER INHALATION SCH (08:01)
[2019-09-21] MEDS: IPRATROPIUM 0.5 MG/2.5 ML NEBU INHALATION SCH (08:01)
[2019-09-21] MEDS: VARENICLINE 1 MG TAB PO SCH (08:32)
[2019-09-21] MEDS: CALCIUM CARB-VIT D 500MG-200UN 1 EACH TAB PO SCH (08:32)
[2019-09-21] MEDS ORDERED: CLOPIDOGREL 75 MG TAB PO SCH (09:00)
[2019-09-21] MEDS ORDERED: ASPIRIN 81 MG PO SCH (09:00)
[2019-09-21] MEDS ORDERED: CALCITONIN 200 USP/1 NASAL SPRAY 3.7ML BTL NASAL SCH (09:00)
[2019-09-21] MEDS ORDERED: METOPROLOL SUCCINATE (ER) 50 MG TAB.ER.24H PO SCH (09:00)
[2019-09-21] MEDS ORDERED: MULTIVITAMINS, THERA 1 EACH TAB PO SCH (09:00)
[2019-09-21 09:52] VITALS: BP 133/52; PULSE 84; TEMP 98.1
--- NOTE | 2019-09-21 10:27 | DS ---
DISCHARGE SUMMARY ADMISSION DATE: September 20, 2019. DISCHARGE DATE: September 21, 2019. BRIEF HISTORY: This is a 73-year-old female patient who underwent yesterday successful recanalizing chronically occluded left SFA with excellent angiographic results by the end and without any complication. The patient is going to be discharged home on dual antiplatelet therapy and statin and I will follow up with her in the office next week. MMODL / RUPAN: [id number] /
[2019-09-21] MEDS ORDERED: ATORVASTATIN 20 MG TAB PO SCH (18:30)
== END 2019-09-21 10:44 | disposition home or self-care (01) ==
LOC: CATHCVL 13:46 → 3SCARD 19:59 → CATHCVL 09-21 10:44
PROVIDERS: ATTEND Internal Medicine Interventional Cardiology
DX: I70.212 Atherosclerosis of native arteries of extremities with intermittent claudication, left leg (principal); I70.92 Chronic total occlusion of artery of the extremities; E11.51 Type 2 diabetes mellitus with diabetic peripheral angiopathy without gangrene; I48.0 Paroxysmal atrial fibrillation; E78.5 Hyperlipidemia, unspecified; I10 Essential (primary) hypertension; E03.9 Hypothyroidism, unspecified; Z79.01 Long term (current) use of anticoagulants; Z79.890 Hormone replacement therapy; Z79.899 Other long term (current) drug therapy; F17.210 Nicotine dependence, cigarettes, uncomplicated; Z88.8 Allergy status to other drugs, medicaments and biological substances
CPT/HCPCS: 94640 ×2; 37227; 37252; 80048; 85025; C1769 ×5; C1894; C1714; C1753; C1884; C1874; C1725; C2623; J2250; J0360; J2001; J3010; J1170; J1644; Q9966

== ENCOUNTER → 2019-10-19 | Outpatient (CLI) | payer MEDICARE, OTHER ==
[~2019-10-19] MED LIST changes: -ALPRAZolam 0.5 MG TAB PO PRN; +DENOSUMAB 60 MG/ML 1 ML SYRINGE SQ ONE; -SODIUM CHLORIDE 0.9% 1,000 ML in EMPTY BAG 1 BAG IV ONE
[2019-10-19 09:56] VITALS: BP 143/77; PULSE 87; RESP 14; TEMP 98.2
== END | disposition home or self-care (01) ==
LOC: PROCWHC3 09:48
PROVIDERS: ATTEND Family Medicine
DX: M81.0 Age-related osteoporosis without current pathological fracture (principal)
CPT/HCPCS: 96372; J0897

== ENCOUNTER → 2020-03-12 | Outpatient (CLI) | payer MEDICARE, OTHER ==
--- NOTE | 2020-03-12 10:40 | CTL ---
EXAMINATION TYPE: CT Low Dose Lung DATE OF EXAM ORDERED: 03/12/2020 HISTORY: Personal history tobacco use. Lung cancer screening CT DLP: 79.[address] CTDI: 2.2 mGy Automated exposure control for dose reduction was used. SCREENING VISIT: 3 COMPARISON: Prior exam dated 11/01/2018 TECHNIQUE: Low dose computed tomography scan was performed through the chest at 1 mm thick sections a nd reconstructed images in the coronal plane at [address] DIAGNOSTIC QUALITY: Satisfactory FINDINGS: LUNG NODULES: Stable appearance LUNGS: Stable appearance, there are areas of parenchymal scarring at the left lung apex, interstitial change s are again seen with interlobular pleural septal thickening, postop changes are noted to the right h emithorax. Lingular nodular density is more well-defined on axial image #106 is associated with the f issure and is likely not significant RIGHT PLEURAL SPACE: Effusion: None Calcification: Stable calcified subpleural lung nodules at the posterior right hemithorax Thickening: Stable Pneumothorax: None LEFT PLEURAL SPACE: Effusion: None Calcification: None Thickening: None Pneumothorax: None HEART: Heart Size: Stable Coronary calcification: Moderate Pericardial effusion: None OTHER FINDINGS: Upper abdomen: Unchanged Bony thorax: Stable but is multilevel spondylosis, degenerative disc change in the visualized spine, compression deformity superior endplate midthoracic spine again noted Supraclavicular region: 11/01/2018 Unremarkable Other: Aorta is borderline aneurysmal at the root level measuring 4 cm, ascending aorta measures appr oximately 4.2 cm pulmonary artery is prominent as noted on prior exam. Bilateral mastectomy change no rolly. IMPRESSION: benign. Aortic aneurysm and additional findings above. FOLLOW UP CT CHEST RECOMMENDATION: [address] LUNG RAD: 2
--- NOTE | 2020-03-12 14:52 | BD ---
EXAMINATION TYPE: Axial Bone Density DATE OF EXAM: 03/12/2020 COMPARISON: NONE CLINICAL HISTORY: Height: 5 FT 2 IN Weight: 155 FRAX RISK QUESTIONS: Alcohol (3 or more units per day): NO Family History (Parent hip fracture): NO Glucocorticoids (More than 3mos): NO (Ex: prednisone, prednisolone, methylprednisolone, dexamethasone, and hydrocortisone). History of Fracture in Adulthood: YES Secondary Osteoporosis: 1. Type 1 Diabetes: NO 2. Hyperthyroidism: THYROID REMOVED 3. Menopause before 45: NO 4. Malnutrition: NO 5. Chronic liver disease: NO Rheumatoid Arthritis: NO Current Tobacco Use: YES RISK FACTORS HISTORY OF: Surgery to Spine/Hip(right/left)/Wrist (right/left): RT HIP REPLACED RT WRIST When: 2009 AND 2010 Family History of Osteoporosis: YES Active: NO Postmenopausal woman: AGE 53 Take estrogen and/or progesterone medications: TOOK HRT FOR A WHILE NO LONGER TAKES Lost more than 2 inches in height since high school: YES MEDICATIONS: Thyroid Medications: YES Which medication: LEVOTHYROXINE How Long: SINCE 2003 Additional Medications: LEVOTHYROXINE, LATANAPROST, MONTELUKAST, ROSUVASTATIN, SPIRIVA, ELIQUIS, MUL TI, PROLEA Additional History: BREAST CANCER CHEMO AND RADIATION EXAM MEASUREMENTS: Bone mineral densitometry was performed using the [employer] System. Bone mineral density as measured about the Lumbar spine is: ----- L1-L4(G/cm2): 1.773 T Score Values are as follows: ----- L2: 6.0 ----- L3: 4.9 ----- L4: 5.7 ----- L1-L4: 4.9 Bone mineral density has: INCREASED 9.7 % since study of: 2018 Bone mineral density about the L hip (g/cm2): 0.886 T Score values are as follows: -----L Neck: -1.1 -----L Total: -1.3 Bone mineral density has: INCREASED 1.1 % since study of: 2018 IMPRESSION: Osteopenia bilateral femora. NOTE: T-SCORE=SD OF THE YOUNG ADULT MEAN.
== END | disposition home or self-care (01) ==
LOC: RADCTMAIN 09:10
PROVIDERS: ATTEND Family Medicine
DX: Z12.2 Encounter for screening for malignant neoplasm of respiratory organs (principal); F17.210 Nicotine dependence, cigarettes, uncomplicated; M81.0 Age-related osteoporosis without current pathological fracture; M85.89 Other specified disorders of bone density and structure, multiple sites
CPT/HCPCS: 77080; G0297

== ENCOUNTER 2020-04-23 13:09 | Emergency (ER) | payer MEDICARE, OTHER ==
[2020-04-23 13:32] VITALS: BP 110/63; PULSE 86; RESP 20; TEMP 98
--- NOTE | 2020-04-23 14:04 | XR ---
EXAMINATION TYPE: XR forearm RT DATE OF EXAM: 04/23/2020 CLINICAL HISTORY: Pain from fall injury. TECHNIQUE: Two views of the right forearm are obtained. COMPARISON: None. FINDINGS: Teller osseous structures are demineralized. There is no acute fracture or dislocation seen in the right radius or ulna. Some spurring at the ulnar aspect ulnohumeral articulation. Minus ulna r variance with near complete resorption of the proximal carpal row. Suspect old trauma or injury. Co rrelate clinically. Possible product of Charcot arthropathy. Moderate to severe narrowing at base of first metacarpal. With overlying soft tissue is unremarkable. IMPRESSION: There is no acute fracture or dislocation seen in the right radius or ulna.
--- NOTE | 2020-04-23 14:06 | ED ---
Upper Extremity HPI - General Source: patient Mode of arrival: wheelchair Limitations: no limitations <Alice Rodriguez - Last Filed: 04/23/20 14:16> <Garrett Washburn - Last Filed: 04/23/20 17:52> - General Chief Complaint: Extremity Injury, Upper Stated Complaint: rt arm injury Time Seen by Provider: 04/23/20 13:40 - History of Present Illness Initial Comments: 74yo female presented for right arm bruising after fall. Pt was in shower last week when she feel striking her right arm, causing a bruise. There is a small bump and a [facility] thought it might be broken sending patient to the ER for imaging. patient denies additional complaints or injuries. she states she only wants imaging of the right arm to ensure it is not broken. Denies numbness, tingling coolness or pallor. Patietn does use anticoagulation therapy. Patient appears well nontoxic on arrival. (Alice Rodriguez) - Related Data Home Medications Medication Instructions Recorded Confirmed Levothyroxine Sodium [Synthroid] 100 mcg PO DAILY 01/10/14 04/23/20 Calcitonin,[place],Synthetic 1 spray NASAL DAILY 12/17/14 04/23/20 [Calcitonin-[place]] Latanoprost [Xalatan 0.005%] 1 drop BOTH EYES HS 08/13/15 04/23/20 Rosuvastatin [Crestor] 10 mg PO 1830 02/03/18 04/23/20 Calcium With Vitamin D 1 tab PO BID 07/20/19 04/23/20 Ibuprofen 400 mg PO TID PRN 07/20/19 04/23/20 Metoprolol Succinate [Toprol XL] 50 mg PO DAILY 07/20/19 04/23/20 Montelukast [Singulair] 10 mg PO HS 07/20/19 04/23/20 Multivit with Calcium,Iron,Min 1 each PO DAILY 07/20/19 04/23/20 [Women's Multivitamin] Prolia (Unknown Dose) 1 dose SQ DIRECTED 07/20/19 04/23/20 Varenicline [Chantix Continuing 1 mg PO BID 07/20/19 04/23/20 Pack] Apixaban [Eliquis] 2.5 mg PO BID 09/21/19 04/23/20 Previous Rx's Medication Instructions Recorded Tiotropium 18 Mcg/Puff [Spiriva] 1 puff INHALATION DAILY #1 device 11/18/18 Allergies Allergy/AdvReac Type Severity Reaction Status Date / Time aspirin Allergy Nausea/ringing Verified 04/23/20 13:32 in ears diphenhydramine HCl Allergy EXTREME Verified 04/23/20 13:32 [From Benadryl] AGITATION/high BP Review of Systems ROS Other: All systems not noted in ROS Statement are negative. <Alice Rodriguez - Last Filed: 04/23/20 14:16> ROS Other: All systems not noted in ROS Statement are negative. <Garrett Washburn - Last Filed: 04/23/20 17:52> ROS Statement: Those systems with pertinent positive or pertinent negative responses have been documented in the HPI. Past Medical History Past Medical History: Atrial Fibrillation, Asthma, Cancer, COPD, Hyperlipidemia, Osteoarthritis (OA), Thyroid Disorder, Vascular Disorder Additional Past Medical History / Comment(s): BREAST CANCER, GLAUCOMA, LEFT LAZY EYE, EMPHYSEMA, HX OF STOMACH ULCER, PERFORATED BOWEL. states has "slack rt wrist" dx 2016, blocked artery left leg, hx velley fever rtlung History of Any Multi-Drug Resistant Organisms: None Reported Past Surgical History: Bowel Resection, Breast Surgery, Joint Replacement, Orthopedic Surgery, Tonsillectomy, Tubal Ligation Additional Past Surgical History / Comment(s): RT TOTAL HIP X2, LT TOTAL HIP, BILAT KNEE REPLACEMENT, meenakshi mastectomy, partial lobectomy-rt upper lobe, thyroidectomy, colostomy/later reversal, meenakshi carpal tunnel, meenakshi CATARACT. left wrist surgery, left great toe surgery, arortogram Past Anesthesia/Blood Transfusion Reactions: No Reported Reaction Past Psychological History: No Psychological Hx Reported Smoking Status: Current every day smoker Past Alcohol Use History: None Reported Past Drug Use History: None Reported - Past Family History Father Family Medical History: Myocardial Infarction (LA) Mother Family Medical History: Congestive Heart Failure (CHF) Brother(s) Family Medical History: Cancer <Alice Rodriguez - Last Filed: 04/23/20 14:16> General Exam Limitations: no limitations <Alice Rodriguez - Last Filed: 04/23/20 14:16> - General Exam Comments Initial Comments: General: The patient is awake and alert, in no distress, and does not appear acutely ill. Eye: +3 mm pupils are equal, round and reactive to light, extra-ocular movements are intact. No nystagmus. There is normal conjunctiva bilaterally. No signs of icterus. Cardiovascular: There is a regular rate and rhythm. No murmur, rub or gallop is appreciated. Respiratory: Lungs are clear to auscultation, respirations are non-labored, breath sounds are equal. No wheezes, stridor, rales, or rhonchi. Gastrointestinal: Soft, non-distended, non-tender abdomen without masses or organomegaly noted. There is no rebound or guarding present. Musculoskeletal: Some ecchymosis, of the radial aspect of the distal forearm, minimal tenderness. Normal ROM, no tenderness at wrist or elbow. Strength 5/5 of the UE and LE b/l. Sensation intact of the UE and LE b/l. Radial pulses equal bilaterally 2+. Neurological: A&O x 3. CN II-XII intact grossly, There are no obvious motor or sensory deficits. Coordination appears grossly intact. Speech is normal. Skin: Skin is warm and dry and no rashes or lesions are noted. Psychiatric: Cooperative, appropriate mood & affect, normal judgment. (Alice Rodriguez) Course <Garrett Washburn - Last Filed: 04/23/20 17:52> Vital Signs 04/23/20 13:29 Temperature 98.0 F Pulse Rate 86 Respiratory 20 Rate Blood Pressure 110/63 O2 Sat by Pulse 92 L Oximetry - Reevaluation(s) Reevaluation #1: 04/23/20 17:52 PA supervision: I personally evaluate this case patient present with complaints of a hematoma to the right hand/arm after falling recently. She came in for evaluation. Imaging shows no evidence of acute findings patient be discharged I do agree with the assessment and plan (Garrett Washburn) Medical Decision Making <Ailce Rodriguez - Last Filed: 04/23/20 14:16> - Medical Decision Making 74 year old female presenting today for chief complaint of evaluation of hematoma. Patient states she believes she has hematoma poison was more center and someone told her to come to the ER to ensure no fracture since she fell last week. Patient denies sustaining any other injuries. Denies additional concerns, patient XR (-) she is neurovascularly intact. She denies rapid expanding of the hematoma. It appears small this time. pt discharged appearing well. (Alice Rodriguez) Disposition Is patient prescribed a controlled substance at d/c from ED?: No Time of Disposition: 14:06 <Alice Rodriguez - Last Filed: 04/23/20 14:16> <Garrett Washburn - Last Filed: 04/23/20 17:52> Clinical Impression: Traumatic hematoma of right forearm Disposition: HOME SELF-CARE Condition: Good Instructions (If sedation given, give patient instructions): Hematoma (ED) Additional Instructions: Please use medication as discussed. Please follow-up with family doctor in the next 2 days. Please return to emergency room if the symptoms increase or worsen or for any other concerns. Referrals: Lia Gamble MD [Primary Care Provider] - 1-2 days
== END 2020-04-23 14:05 | disposition home or self-care (01) ==
LOC: EC 13:09
DX: S50.11XA Contusion of right forearm, initial encounter (principal); J44.9 Chronic obstructive pulmonary disease, unspecified; E07.9 Disorder of thyroid, unspecified; H40.9 Unspecified glaucoma; I48.91 Unspecified atrial fibrillation; K25.9 Gastric ulcer, unspecified as acute or chronic, without hemorrhage or perforation; M19.90 Unspecified osteoarthritis, unspecified site; E78.5 Hyperlipidemia, unspecified; F17.200 Nicotine dependence, unspecified, uncomplicated; Z79.890 Hormone replacement therapy; Z79.899 Other long term (current) drug therapy; Z79.01 Long term (current) use of anticoagulants; Z88.6 Allergy status to analgesic agent; Z88.8 Allergy status to other drugs, medicaments and biological substances; Z85.3 Personal history of malignant neoplasm of breast; Z96.653 Presence of artificial knee joint, bilateral; W18.2XXA Fall in (into) shower or empty bathtub, initial encounter; Y92.009 Unspecified place in unspecified non-institutional (private) residence as the place of occurrence of the external cause; Z90.13 Acquired absence of bilateral breasts and nipples
CPT/HCPCS: 99283

== ENCOUNTER → 2020-04-23 | Outpatient (CLI) | payer MEDICARE, OTHER ==
[2020-04-23 12:59] VITALS: BP 143/70; PULSE 81; RESP 16; TEMP 97.6
== END | disposition home or self-care (01) ==
LOC: PROCWHC3 12:50
PROVIDERS: ATTEND Family Medicine
DX: M81.0 Age-related osteoporosis without current pathological fracture (principal)
CPT/HCPCS: 96372; J0897

== ENCOUNTER → 2021-01-29 | Outpatient (CLI) | payer MEDICARE, OTHER ==
--- NOTE | 2021-01-29 10:54 | US ---
EXAMINATION TYPE: US carotid duplex BILAT DATE OF EXAM: 01/29/2021 COMPARISON: NONE CLINICAL HISTORY: I73.9 PAD, R09.89 Bruit. HTN. EXAM MEASUREMENTS: RIGHT: Peak Systolic Velocity (PSV) cm/sec ----- Right CCA: 70.2 ----- Right ICA: 138.4 ----- Right ECA: 175.3 ICA/CCA ratio: 2.0 RIGHT: End Diastole cm/sec ----- Right CCA: 19.7 ----- Right ICA: 39.8 ----- Right ECA: 5.7 LEFT: Peak Systolic Velocity (PSV) cm/sec ----- Left CCA: 117.9 ----- Left ICA: 75.8 ----- Left ECA: 137.3 ICA/CCA ratio: 0.6 LEFT: End Diastole cm/sec ----- Left CCA: 24.1 ----- Left ICA: 14.4 ----- Left ECA: 6.3 VERTEBRALS (direction of flow): Right Vertebral: Antegrade Left Vertebral: Antegrade Rhythm: Arrhythmia Bilateral wall thickening. Plaque visualized in bilateral CCA's and bulbs. Elevated bilateral ECA v elocities and proximal right ICA. Right significant stenosis. IMPRESSION: 50-69% stenosis of the proximal right ICA by peak systolic velocity criteria. Arrhythmia is questioned. Criteria for Assigning % of Stenosis / Diameter reduction (Estimation based on the indirect measurements of the internal carotid artery velocities (ICA PSV). 1. Normal (no stenosis)=ICA PSV < 125 cm/s: ratio < 2.0: ICA EDV<40 cm/s. 2. Less than 50% stenosis=ICA PSV < 125 cm/s: ratio < 2.0: ICA EDV<40 cm/s. 3. 50 to 69% stenosis=ICA PSV of 125 to 230 cm/s: ration 2.0 ? 4.0: ICA EDV 40-100 cm/s. 4. Greater than 70% stenosis to near occlusion= ICA PSV > 230 cm/s: ratio > 4.0: ICA EDV > 100 cm/s. 5. Near occlusion= ICA PSV velocities may be low or undetectable: variable ratio and ICA EDV. 6. Total occlusion=unable to detect flow.
--- NOTE | 2021-02-05 10:36 | P.ARTDOP ---
Arterial Doppler LOWER EXTREMITY ARTERIAL DOPPLER: DATE OF SERVICE: 01/29/2021 Reason for study: Follow post left femoral stent. Doppler waveforms: Multiphasic bilaterally throughout. Pulse volume recording: []. Pressure gradients: None. Ankle-brachial indices: 0.98 on the right and greater than 1 on the left. Toe brachial indices: [] on the right, [] on the left Impression: Normal study..
== END | disposition home or self-care (01) ==
LOC: RADUSWWP 08:50
PROVIDERS: ATTEND Family Medicine
DX: I73.9 Peripheral vascular disease, unspecified (principal); I65.21 Occlusion and stenosis of right carotid artery; I10 Essential (primary) hypertension
CPT/HCPCS: 93880; 93923

== ENCOUNTER → 2021-03-13 | Outpatient (CLI) | payer MEDICARE, OTHER ==
--- NOTE | 2021-03-13 11:40 | CTL ---
EXAMINATION TYPE: CT Low Dose Lung DATE OF EXAM ORDERED: 03/13/2021 HISTORY: Personal tobacco use. Lung cancer screening CT DLP: 54.10 mGycm Automated exposure control for dose reduction was used. SCREENING VISIT: Subsequent follow-up, third COMPARISON: 03/12/2020 TECHNIQUE: Low dose computed tomography scan was performed through the chest at 1 mm thick sections a nd reconstructed images in the coronal plane at [address] DIAGNOSTIC QUALITY: Satisfactory FINDINGS: LUNG NODULES: Present, detailed below: 1. Pleural-based nodule measuring 0.5 cm. Posterior right lung, series 4 image 119, present previousl y. 2. Stable posterior lateral right lung nodule, series 4 image 123. 3. Stable 0.4 cm nodule posterior left lung base. Series 4 image 152. 4. Stable 0.5 cm nodule lateral right lung. Series 4 image 156. 5. Stable 1.3 cm pleural-based thickening lateral right lung base. Series 4 image 173. There is a consolidation infiltrate within the lateral left apex, stable from comparison. Mild groundglass opacity is in the right mid lung. Sample image Series 4 image 119. LUNGS: COPD: Severity: Mild Fibrosis: Severity: Mild Lymph nodes: None Other findings: None RIGHT PLEURAL SPACE: Effusion: None Calcification: None Thickening: None Pneumothorax: None LEFT PLEURAL SPACE: Effusion: None Calcification: None Thickening: None Pneumothorax: None HEART: Heart Size: Normal Coronary calcification: Mild Pericardial effusion: None OTHER FINDINGS: Upper abdomen: Normal Bony thorax: Left rib fractures are evident. Supraclavicular region: Normal Other: The ascending thoracic aorta at the level of main pulmonary artery is 4.0 cm. Main pulmonary a rtery the bifurcation is 3.4 cm. IMPRESSION: 1. Stable nodularity. No suspicious changes to suggest primary or metastatic neoplasm. 2. Ascending thoracic aortic aneurysm stable at 4.[address] CHEST RECOMMENDATION: Yes, follow-up low-dose CT chest one year CT LUNG RAD: 2
== END | disposition home or self-care (01) ==
LOC: RADCTMAIN 09:26
PROVIDERS: ATTEND Family Medicine
DX: Z12.2 Encounter for screening for malignant neoplasm of respiratory organs (principal); R91.8 Other nonspecific abnormal finding of lung field; I71.2 Thoracic aortic aneurysm, without rupture; Z72.0 Tobacco use
CPT/HCPCS: 71271

== ENCOUNTER → 2021-11-06 | Outpatient (CLI) | payer MEDICARE, OTHER ==
--- NOTE | 2021-11-06 11:34 | P.CON ---
Consult Note - . Consult date: 11/06/21 Assessment/Plan:: HISTORY OF PRESENT ILLNESS: 75 yr old female as a referral from Dr Joya presents today with neck pain secondary to level scoliosis, anterolisthesis, DDD, neuroforaminal stenosis, spinal stenosis and facet arthropathy for evaluation. Patient states her neck pain waxes and wanes in intensity throughout the day but is currently 5 out of 10, constant, pressure in the lower aspect of her cervical spine where it meets the crook of her right shoulder. Pain is provoked with lateral flexion and rotation of the neck. Pain is relieved with ibuprofen, history of injections, ice or heat which provided little relief, physical therapy in September and October 2021 which did not help very much, daily home stretching regimen, use of a cane for ambulation, use of a tens unit which worsen the pain, massage which provided no change in pain level and rest. Past Medical History: Cancer, COPD/ Emphysema, Hyperlipidemia, Hypertension, Osteoarthritis (OA), Thyroid Disorder Past Surgical History: Bowel Resection, Breast CA Resection, Joint Replacement, Orthopedic Surgery, Tonsillectomy, Tubal Ligation Additional Past Surgical History / Comment(s): RT TOTAL HIP X2, LT TOTAL HIP, BILAT KNEE REPLACEMENT, meenakshi mastectomy, partial lobectomy-rt upper lobe, thyroidectomy, colostomy/later reversal, meenakshi carpal tunnel, LT CATARACT, Multiple MEGGAN (last in 2019) and Lumbar Ablation. Social History: 1/2 ppd x 57 years. No ETOH or illicit drug use. Family History: Brother(s)- Lung CA/ at age 75. CHF/ at age 78. One well. Father- IN/ at age 60. Mother- CHF- at age 60. All: See list Meds: See list REVIEW OF ORGAN SYSTEMS: CONSTITUTIONAL: No fevers or chills. No recent weight loss. HEENT: No visual acuity loss, eye pain, difficulties with hearing. No nosebleeds. No difficulty swallowing. RESPIRATORY: Denies any troubles with breathing or dyspnea on exertion. CARDIOVASCULAR: Denies any chest pain, palpitations, or r ecent heart attacks. GASTROINTESTINAL: Denies fatty food intolerance. Has change in bowel habits and gas bloat. GENITOURINARY: Denies any blood in urine. Has increased urinary frequency. NEUROLOGICAL: + numbness and tingling along the distal extremities. No seizure disorders or headaches. MUSCULOSKELETAL: + back pain SKIN: No skin cancer. No rash. PSYCHIATRIC: Denies current depression or suicidal thoughts. ENDOCRINE: Denies current thyroid disorders. Denies any blood sugar glucose intolerance. HEME/LYMPHATIC: Denies any lumps and bumps around the neck. History of deep venous thrombosis. ALLERGY/IMMUNOLOGY: No immunoglobulin therapy. No immune deficiencies. BREAST: Denies current breast lumps, pain or nipple discharge. Physical Examinations : Constitutional : Cooperative , not in acute distress . HEENT: Neck supple. No Lymphadenopathy. Normal thyroid size . Eyes no ptosis , no icterus, no photophobia . Hearing intact. Normal oropharynx. No Thrush. Respiratory : Chest clear to auscultations bilaterally. No whe ezing. No rhonchi. Cardiovascular : Regular rate and rhythm , S1 / S2. No S3 . No S4. Gastrointestinal : Abdomen soft. No tenderness. Bowel sounds x 4. No organomegaly . Genitourinary : Deferred. Neurologic : Cranial nerve II to XII intact. No focal neurological deficits. Psychiatric : alert & oriented x 3. Matching mood & appropriate affect. Judgment & insight intact. Lymphatic No Lymphadenopathy. Musculoskeletal : Cervical Spine Motor strength in the deltoid and biceps: Normal right side. Normal Left side Motor strength biceps and the wrist extensors: Normal right side . Normal left side Motor strength in the triceps muscle: Normal right side. Normal left side Deep tendon reflexes: Normal at the biceps. Normal at Brachioradialis. Normal at triceps Vertebral body tenderness over C7 Cervical facet loading test: positive on right Spurling test: positive Neck distraction test: positive bilaterally Foreign sign: positive bilaterally Lumbar spine Motor strength lower extremities ,thigh and legs 5/5 Right side , 5/5 Left side Deep tendon reflexes : Normal Knee Jerk. Normal Ankle Jerk Vertebral body tenderness over Lumbar facet Loading Test: positive Right / positive Left Range of motion of the lumbar spine Flexion 30 degrees, extension 10 degrees Straight Leg Raise test: Left/ Right positive at degree Chayo test: positive right / positive left. Severe tenderness over the Sacroiliac joint on the Right / Left sides Gaenslen test: positive bilaterally Seated flexion test: positive bilaterally. Assessment/ Plan : Recommendation of right C7-T1 interlaminar MEGGAN. May need a series of injections, up to 3 within a six-month period, to obtain optimal pain relief. Risks, benefits of procedure discussed and patient verbalized understanding. Denies aspirin or anti- coagulant use. Denies medical history of diabetes. All questions answered. I have spent greater than 50 minutes on patient care today. Dr Miller was available by phone for the evaluation of this patient. The time was used to review the medical records including relevant urine studies and Prescription history (MAPs), review of the available imaging, evaluation and examination of the patient, coordination of care with the medical staff and if applicable referring physicians, as well as creation of the medical record PQRS Measure Charge Sheet PQRS Narrative: Smoking Status Former smoker Home Medications: Ambulatory Orders Levothyroxine Sodium [Synthroid] 100 mcg PO DAILY 01/10/14 Calcitonin,[place],Synthetic [Calcitonin-[place]] 1 spray NASAL DAILY 12/17/14 Latanoprost [Xalatan 0.005%] 1 drop BOTH EYES HS 08/13/15 Rosuvastatin [Crestor] 10 mg PO 1830 02/03/18 Tiotropium 18 Mcg/Puff [Spiriva] 1 puff INHALATION DAILY #1 device 11/18/18 Calcium With Vitamin D 1 tab PO BID 07/20/19 Ibuprofen 400 mg PO TID PRN 07/20/19 Metoprolol Succinate [Toprol XL] 50 mg PO DAILY 07/20/19 Montelukast [Singulair] 10 mg PO HS 07/20/19 Multivit with Calcium,Iron,Min [Women's Multivitamin] 1 each PO DAILY 07/20/19 Prolia (Unknown Dose) 1 dose SQ DIRECTED 07/20/19 Varenicline [Chantix Continuing Pack] 1 mg PO BID 07/20/19 Apixaban [Eliquis] 2.5 mg PO BID 09/21/19
[2021-11-06 12:13] VITALS: BP 135/77; PULSE 80; RESP 18; TEMP 97.8
== END ==
LOC: PNWHC3 10:12
PROVIDERS: ATTEND Specialist
DX: M50.30 Other cervical disc degeneration, unspecified cervical region (principal); M41.9 Scoliosis, unspecified; M48.02 Spinal stenosis, cervical region; M47.812 Spondylosis without myelopathy or radiculopathy, cervical region; J43.9 Emphysema, unspecified; E78.5 Hyperlipidemia, unspecified; I10 Essential (primary) hypertension; M19.90 Unspecified osteoarthritis, unspecified site; Z87.891 Personal history of nicotine dependence; Z88.6 Allergy status to analgesic agent; Z88.8 Allergy status to other drugs, medicaments and biological substances
CPT/HCPCS: 99202

== ENCOUNTER 2021-12-09 13:05 | Day surgery (SDC) | payer MEDICARE, OTHER ==
[2021-12-08 12:37] VITALS: BMI 26.4
[~2021-12-09 13:05] MED LIST changes: -DENOSUMAB 60 MG/ML 1 ML SYRINGE SQ ONE; +LACTATED RINGERS 1,000 ML IV SCH; +LIDOCAINE 1% (10MG/ML) FOR IV START INTRADERMA PRN
[2021-12-09 13:17] VITALS: RESP 18; TEMP 98
[2021-12-09] MEDS ORDERED: LACTATED RINGERS 1,000 ML IV ONE ×2 (13:19→14:08)
[2021-12-09] MEDS ORDERED: DEXAMETHASONE SOD PHOSPHATE 10 MG/ML 1 ML VIAL ONE (13:24)
[2021-12-09] MEDS ORDERED: MIDAZOLAM 2 MG/2 ML VIAL ONE (13:24)
[2021-12-09] MEDS ORDERED: IOPAMIDOL M200 10 ML VIAL ONE (13:24)
[2021-12-09] MEDS ORDERED: fentaNYL (PF) 50 MCG/ML 2 ML AMP ONE (13:24)
--- NOTE | 2021-12-09 13:43 | P.PCN ---
Date of Procedure: 12/09/21 Description of Procedure: Pre- and Post-operative Diagnosis: Cervical radiculopathy Procedure: C7-T1 Inter-Laminar Cervical Epidural Steroid Injection under biplanar fluoroscopy Surgeon: Benjamin Perdue Anesthesia: Local: 1% Lidocaine, IV sedation : Versed, and fentanyl. Complications: None. Estimated blood loss: None Specimens removed: None Fluoroscopic image: saved to electronic medical records. Indications for Procedure: The patient has been suffering from neck pain and pain radiating to the upper extremity . Inadequate pain control with pharmacologic regimen. An inter-laminar approach cervical epidural steroid injection was scheduled for the patient. Procedure and Findings: The patient was seen and examined in the holding area. The written informed consent was obtained after explaining the risks, benefits, alternatives of the procedure to the patient. The patient was brought to the procedure room and was placed in the prone position on the operating table. A pillow was placed under the upper chest. Standard anesthesia monitoring was done through out the procedure. Timeout was completed. The skin preparation was done with ChloraPrep 1 and draping was done in usual sterile fashion. Sterile technique was observed throughout the procedure. Under fluoroscopic guidance, the C7-T1 inter-laminar space was identified. 3 ml of 1% Lidocaine was injected with a 25 gauge needle to achieve adequate local anesthesia of the skin and subcutaneous tissue. A 18 gauge, 3.5 inch Tuohy type epidural needle was placed and gradually advanced up to the epidural space using loss of resistance technique and fluoroscopic guidance. Lateral, oblique fluoroscopic views confirm the needle position. No paresthesia was noted. A negative aspiration was confirmed and then 2 ml of Isovue-200 was injected. A good dye spread was seen in the epidural space and it was negative for any intrathecal, intraneural or intravascular spread. A total of 5 ml solution containing 10 mg Dexamethasone, and 4 ml preservative-free Normal Saline was injected slowly with intermittent aspiration. The needle was removed intact, area was cleaned and bandage was applied. Disposition : The patient tolerated the procedure very well. The patient was transferred to the recovery room and remained stable until discharged home. The patient was given detailed discharge instructions for bleeding, infection, increased pain at the injection site, and was advised to seek immediate medical attention should significant side effects develop. The patient will be followed up with our Pain [facility] within 4 weeks for follow-up visit. 20-gauge 3.5 inch Tuohy epidural needle is not available as its backordered.
[2021-12-09 14:05] VITALS: BP 160/87; PULSE 74
[2021-12-09] MEDS ORDERED: IV FLUID CONTINUATION 800 ML IV ONE (14:08)
--- NOTE | 2021-12-09 14:16 | FL ---
Fluoroscopy HISTORY: Pain 19 seconds fluoroscopy time supplied to the referring clinician. 1 intraoperative C-arm images docum ent the procedure. See dictated report from anesthesia.
--- NOTE | 2021-12-15 17:59 | CDI ---
[facility] [address] [place] [address] Date: 12/15/2021 05:54:04 PM From: Susi Troy Phone: Admit Date: 12/09/2021 01:05:00 PM Patient Name: Criss Sandhu Visit Number: [id number] Discharge Date: Payor: MEDICARE Dear Dr. Hill, conscious sedation Please provide clarification as to what type of anesthesia was provided. MAC/unconscious sedation or Moderate/conscious sedation. Please respond below the line at the bottom. Thank you for your kind consideration. MTDD
== END 2021-12-09 14:12 | disposition home or self-care (01) ==
LOC: ORPAIN 13:05
DX: M54.2 Cervicalgia (principal); M54.12 Radiculopathy, cervical region; I73.9 Peripheral vascular disease, unspecified; I10 Essential (primary) hypertension; E03.9 Hypothyroidism, unspecified; H40.9 Unspecified glaucoma; Z85.3 Personal history of malignant neoplasm of breast; Z88.6 Allergy status to analgesic agent; Z88.8 Allergy status to other drugs, medicaments and biological substances
CPT/HCPCS: 62321; J2250; J1100; J3010; Q9966; 99152

== ENCOUNTER → 2022-01-07 | Outpatient (CLI) | payer MEDICARE, OTHER ==
--- NOTE | 2022-01-07 10:51 | P.PN ---
Subjective Progress Note Date: 01/07/22 Principal diagnosis: A 76 yr old female with a history of severe and chronic low back pain secondary to cervical degenerative disc diseases and spondylosis with facet arthropathy presents today for evaluation s/p R C7-T1 LEONCIO. She experienced 100% pain relief s/p procedure. Pain level is currently at 4/10 in intensity in the R aspects of her lumbar spine, constant, stabbing pain with movement. . Pain is provoked by PT in 2019 which made it worse, chiropractic treatments which worsened pain and she will not return to one, and walking. Pain is alleviated with medications (Ibuprofen), topicals, injections, R Lumbar RFA with Dr Ram in the past, alternating heat and ice, repositioning and rest. Interventional pain procedures completed include R Lumbar RFA Patient is currently on Ibuprofen OTC Patient denies any side effects of the medication(s), denies excessive d rowsiness or sleepiness, denies suicidal ideation and reports that the current pain medication is helping to control the pain and improve activities of daily living. Patient denies any motor or sensory deficits. Patient denies any fever or night sweats, denies any change in the bowel movements or urination. Physical Examination: -Constitutional: Cooperative. Not in acute distress . -HEENT: Neck is supple. No lymphadenopathy. No thyromegaly. Normal thyroid size. Eyes: No ptosis , no icterus, no photophobia. ENT: No auditory deficits. Normal oropharynx. No Thrush. - Respiratory: Chest clear to auscultations bilaterally. No wheezing. No rhonchi. - Cardiovascular: Regular rate and rhythm. S1 / S2 , no S3 , no S4. - Gastrointestinal: Abdomen soft no tenderness. Bowel sounds positive in all four quadrants. No organomegaly. - Genitourinary: Deferred. - Neurologic: Cranial nerve II to XII intact. No focal neurological deficits. - Psychatric: Alert & oriented x 3. Matching mood & appropriate affect. Judgment and insight intact. - Lymphatic: No Lymphadenopathy. - Musculoskeletal: Cervical spine: Muscle bulk/ tone/ strength in the bilateral upper extremities normal Vertebral body tenderness to palpation over Facet loading test positive Thoracic spine Muscle bulk / tone/ strength in the bilateral paraspinal muscles normal Vertebral body tender to palpation over Facet loading test positive Lumbar spine: Motor bulk/ tone/ strength lower extremities , thigh and legs : 5/5 Deep tendon reflexes : Normal Knee Jerk. Normal Ankle Jerk . Vertebral body tenderness to palpation over Lumbar Facet Loading Test positive R L4-L5, L5-S1 with jump reflex Straight Leg Raise: positive at 30 degrees right side/ left side Gaenslen's Test positive Sacral spine : Severe tenderness over the Sacroiliac joint: right side / left side Range of motion: Flexion of the lumbar spine <60 degrees Range of motion: Extension of the lumbar spine <20 degrees Gaenslen's Test positive Omar's Test positive Chayo test: positive right side / left side Thigh Thrust Test Sacral Thrust Test Assessment and plan: Chronic low back pain secondary to lumbar degenerative disc disease , lumbar spondylosis with facet arthropathy without myelopathy Recommendation of R RFA L4-L5, L5-S1. Documentation from Dr Ram/[facility] requested of the prior procedure. Risks, benefits of procedure discussed and pt verbalized understanding. Denies anticoagulant use or medical history of diabetes. All patient questions answered MAPS reviewed and it was appropriate. I have spent 31 minutes on patient care today. Dr Miller was available by phone for the evaluation of this patient. The time was used to review the medical records including relevant urine studies and Prescription history (MAPs), review of the available imaging, evaluation and examination of the patient, coordination of care with the medical staff and if applicable referring physicians, as well as creation of the medical record PQRS Measure Charge Sheet PQRS Narrative: Smoking Status Former smoker Hx Alcohol Use (MH) Yes Home Medications: Ambulatory Orders Latanoprost [Xalatan 0.005%] 1 drop BOTH EYES HS 08/13/15 Rosuvastatin [Crestor] 10 mg PO 1830 02/03/18 Calcium With Vitamin D 1 tab PO BID 07/20/19 Ibuprofen 400 mg PO TID PRN 07/20/19 Multivit with Calcium,Iron,Min [Women's Multivitamin] 1 each PO DAILY 07/20/19 Levothyroxine Sodium [Synthroid] 88 mcg PO DAILY 12/08/21
[2022-01-07 11:03] VITALS: BP 188/90; PULSE 72; RESP 18; TEMP 97.8
== END ==
LOC: PNWHC3 10:25
PROVIDERS: ATTEND Specialist
DX: M51.36 Other intervertebral disc degeneration, lumbar region (principal); M47.816 Spondylosis without myelopathy or radiculopathy, lumbar region; G89.29 Other chronic pain; Z87.891 Personal history of nicotine dependence; Z88.6 Allergy status to analgesic agent; Z88.8 Allergy status to other drugs, medicaments and biological substances
CPT/HCPCS: 99211

== ENCOUNTER 2022-02-13 06:54 | Day surgery (SDC) | payer MEDICARE, OTHER ==
[2022-02-11 11:41] VITALS: BMI 26.4
[2022-02-13 07:27] VITALS: RESP 16; TEMP 96.7
[2022-02-13] MEDS ORDERED: ROPIVACAINE 5MG/ML 20ML VIAL ONE (08:10)
[2022-02-13] MEDS ORDERED: fentaNYL (PF) 50 MCG/ML 2 ML AMP ONE (08:10)
[2022-02-13] MEDS ORDERED: MIDAZOLAM 2 MG/2 ML VIAL ONE (08:10)
[2022-02-13] MEDS ORDERED: methylPREDNISolone ACETATE 40 MG/ML 1 ML VIAL ONE (08:10)
--- NOTE | 2022-02-13 08:34 | P.PCN ---
Date of Procedure: 02/13/22 Procedure(s) Performed: PREOPERATIVE DIAGNOSIS: 1-Lumbar Spondylosis with Facet Arthropathy without myelopathy. 2- Lumber degenerative disc disease. POSTOPERATIVE DIAGNOSIS: 1- Lumbar Spondylosis with Facet Arthropathy without myelopathy. 2- Lumber degenerative disc disease. PROCEDURES : Right Radiofrequency thermocoagulation, L3 , L4 , and L5 medial branch, with fluoroscopic guidance (fluoroscopy images available in the radiology department) ( to denervate the facet joint at Right L4-5 ,and L5-S1 levels ). ANESTHESIA: Monitored anesthesia care as per anesthesia department . EBL: Minimal PROCEDURE INDICATION: The patient with low back pain secondary to lumbar facet arthropathy who had more than 50% relief of her pain with previous diagnostic lumbar medial branch block with bupivacaine. PROCEDURE DESCRIPTION / TECHNIQUE: The patient was seen and identified in the preoperative area. Risks, benefits, complications, including but not limited to risk of infection ,bleeding , allergic reactions to the medications and no complete pain releife , and alternatives were discussed with the patient, the patient agreed to proceed with the procedure and signed the consent. IV was started. Vital signs remained stable throughout the procedure. Patient was taken to the OR and time out was completed. The patient was placed in the prone position on the procedure table. The lumber area was prepped and draped in the usual sterile fashion. . Vital signs were closely monitored during the procedure .IV sedation was used during the procedure to decrease patients anxiety. Using AP and then oblique fluoroscopy, the ``eye of the Francesco dog correspon ding to the connection between the superior and transverse articular processes of right L3, L4, and L5 were identified, marked, and localized with 1% lidocaine. Subsequently, a 18 -lr radiofrequency cannula with a 10-mm active tip was advanced guided by fluoroscopy to each of the``eyes of the Francesco dog at right L3, L4, and L5. Each site then underwent sensory testing at 50 Hz and 0 to 1 volt and motor testing at 2.5 Hz and 0 to 3 volt with local stimulation, but no radicular symptoms down the legs. Thereafter each sites underwent radiofrequency thermocoagulation at 80 degrees celsius for 90 seconds after injecting 0.5 ml of PF Ropivacaine 1ml, then after the thermocoagulation done , 1 ml of the block solution containing Depo-Medrol 20 mg and 3 ml of Ropivacaine 0.5% was injected at the right L3 , L4 , and L5 , levels after negative aspiration of CSF and blood and with no paresthesias. Cannulas were retracted while injecting lidocaine 1% until the needle is out. At the end of the procedure, the skin was cleansed and bandages were applied. COMPLICATIONS: No acute complications. DISPOSITION / PLANS: The patient was placed in a supine position and transferred to the recovery area in a stable condition for observation and was discharged from the recovery room after meeting discharge criteria. Home discharge instructions given to the patient by the staff. The patient was reexamined prior to discharge. The patient will schedule a follow up in the clinic in 2-4 weeks.
[2022-02-13] MEDS ORDERED: IV FLUID CONTINUATION 1,000 ML IV ONE ×3 (08:38)
[2022-02-13 08:49] VITALS: BP 206/83; PULSE 73
--- NOTE | 2022-02-13 08:59 | FL ---
EXAMINATION TYPE: FL guided pain mgmt statistic DATE OF EXAM: 02/13/2022 HISTORY: Fluoroscopy time 14 seconds of fluoroscopy provided. IMPRESSION: 1. Fluoroscopy time.
== END 2022-02-13 09:30 | disposition home or self-care (01) ==
LOC: ORPAIN 06:54
PROVIDERS: ATTEND Specialist
DX: M47.816 Spondylosis without myelopathy or radiculopathy, lumbar region (principal); M51.36 Other intervertebral disc degeneration, lumbar region; I50.9 Heart failure, unspecified; I48.91 Unspecified atrial fibrillation; E78.5 Hyperlipidemia, unspecified; J45.909 Unspecified asthma, uncomplicated; M19.90 Unspecified osteoarthritis, unspecified site; Z97.2 Presence of dental prosthetic device (complete) (partial); E07.9 Disorder of thyroid, unspecified; Z79.1 Long term (current) use of non-steroidal anti-inflammatories (NSAID); Z79.890 Hormone replacement therapy; Z79.899 Other long term (current) drug therapy; Z88.6 Allergy status to analgesic agent; Z91.09 Other allergy status, other than to drugs and biological substances
CPT/HCPCS: 64635; 64636; J2250; J1030; J3010; J2795

== ENCOUNTER → 2022-03-02 | Outpatient (CLI) | payer MEDICARE, OTHER ==
[2022-03-02 10:42] VITALS: BP 143/75; PULSE 70; RESP 18; TEMP 98.1
--- NOTE | 2022-03-02 14:25 | P.PAINPG ---
PQRS Measure Charge Sheet Comment: A 76 yr old female with a history of severe and chronic low back pain secondary to lumbar degenerative disc diseases and lumbar spondylosis with facet arthropathy presents today for evaluation s/p R RFA L3-L5. She experienced 100% pain relief s/p procedure. Pain level is 3/10, localized in her R shoulder. SHe doesnt think it originates from her neck because she has a history of RCT for 35 yrs. Pain is dull/ achy in character. Pain is provoked by lifting. Pain is alleviated with medications (Ibuprofen), stretching, repositioning and rest. Interventional pain procedures completed include LEONCIO C7-T1 x 1 Patient is currently on Ibuprofen Patient denies any side effects of the medication(s), denies excessive drowsiness or sleepiness, denies suicidal ideation and reports that the current pain medication is helping to control the pain and improve activities of daily living. Patient denies any motor or sensory deficits. Patient denies any fever or night sweats, denies any change in the bowel movements or urination. Physical Examination: -Constitutional: Cooperative. Not in acute distress . - Neurologic: Cranial nerve II to XII intact. No focal neurological deficits. - Psychatric: Alert & oriented x 3. Matching mood & appropriate affect. Judgment and insight intact. - Musculoskeletal: Cervical spine: Muscle bulk/ tone/ strength in the bilateral upper extremities normal Vertebral body tenderness to palpation over C7 Spurling test positive on the R Distraction test positive Facet loading test positive Thoracic spine Muscle bulk / tone/ strength in the bilateral paraspinal muscles normal Vertebral body tender to palpation over Facet loading test positive Lumbar spine: Motor bulk/ tone/ strength lower extremities , thigh and legs : 5/5 Deep tendon reflexes : Normal Knee Jerk. Normal Ankle Jerk . Vertebral body tenderness to palpation over Lumbar Facet Loading Test positive Straight Leg Raise: positive at 30 degrees right side/ left side Gaenslen's Test positive Sacral spine : Severe tenderness over the Sacroiliac joint: right side / left side Range of motion: Flexion of the lumbar spine <60 degrees Range of motion: Extension of the lumbar spine <20 degrees Gaenslen's Test positive Omar's Test positive Chayo test: positive right side / left side Thigh Thrust Test Sacral Thrust Test Assessment and plan: Chronic low back pain secondary to lumbar degenerative disc disease , lumbar spondylosis with facet arthropathy without myelopathy Recommendation of LEONCIO R interlaminar C7-T1 #2. May need a series of injections, up to 6 within a year, for optimal pain relief. Risks, benefits of procedure discussed and pt verbalized understanding. Denies anticoagulant use or medical history of diabetes. R shoulder x ray re: M 19.019 All patient questions answered MAPS reviewed and it was appropriate. I have spent less than 30 minutes on patient care today. Dr Miller was available by phone for the evaluation of this patient. The time was used to review the medical records including relevant urine studies and Prescription history (MAPs), review of the available imaging, evaluation and examination of the patient, coordination of care with the medical staff and if applicable referring physicians, as well as creation of the medical record PQRS Narrative: Smoking Status Former smoker Hx Alcohol Use (MH) Yes Home Medications: Ambulatory Orders Latanoprost [Xalatan 0.005%] 1 drop BOTH EYES HS 08/13/15 Rosuvastatin [Crestor] 10 mg PO 1830 02/03/18 Calcium With Vitamin D 1 tab PO BID 07/20/19 Ibuprofen 400 mg PO TID PRN 07/20/19 Multivit with Calcium,Iron,Min [Women's Multivitamin] 1 each PO DAILY 07/20/19 Levothyroxine Sodium [Synthroid] 88 mcg PO DAILY 12/08/21 Controlled Substance Measures - Controlled Substance Measures Is patient prescribed a controlled substance at discharge?: No
== END ==
LOC: PNWHC3 10:13
PROVIDERS: ATTEND Specialist
DX: M51.36 Other intervertebral disc degeneration, lumbar region (principal); M47.816 Spondylosis without myelopathy or radiculopathy, lumbar region; G89.29 Other chronic pain; Z87.891 Personal history of nicotine dependence; Z88.6 Allergy status to analgesic agent; Z88.8 Allergy status to other drugs, medicaments and biological substances
CPT/HCPCS: 99211

== ENCOUNTER → 2022-03-02 | Outpatient (CLI) | payer MEDICARE, OTHER ==
--- NOTE | 2022-03-02 11:18 | XR ---
EXAMINATION TYPE: XR shoulder complete RT DATE OF EXAM: 03/02/2022 COMPARISON: NONE HISTORY: Obtained TECHNIQUE: Three views are submitted. FINDINGS: The osseous structures are intact. There is no acute fracture or dislocation. Severe AC joint arthro reynold with diffuse osteopenia. Suggestion previous surgery involving right hemithorax. IMPRESSION: 1. Severe AC joint arthropathy correlate for rotator cuff disease.
== END | disposition home or self-care (01) ==
LOC: RADXRMAIN 10:55
PROVIDERS: ATTEND Physician Assistant Medical
DX: M19.011 Primary osteoarthritis, right shoulder (principal)

== ENCOUNTER → 2022-05-21 | Outpatient (CLI) | payer MEDICARE, OTHER ==
[2022-05-21 11:50] VITALS: BP 162/82; PULSE 76; RESP 18; TEMP 97.9
--- NOTE | 2022-05-21 14:51 | P.PAINPG ---
Objective - Vital Signs Vital signs: Intake & Output 05/20/22 05/21/22 05/21/22 18:59 06:59 18:59 Weight 60.328 kg PQRS Measure Charge Sheet Comment: A 76 yr old femalewith a history of severe and chronic low back pain secondary to lumbar degenerative disc diseases and lumbar spondylosis with facet arthropathy without myelopathy presents today for evaluation s/p MEGGAN R intralaminar C7-T1. Pt states she experienced 100 % pain relief x 3 wks s/p procedure. Pain level is currently at 0/10 in intensity. Pain is provoked by hyperextension. Pain is alleviated with injections, medications (Ibuprofen), PT x 6 wks in Sep 2021, heat, ice, repositioning and rest. Interventional pain procedures completed include MEGGAN C7-T1. Patient is currently on Ibuprofen Patient denies any side effects of the medication(s), denies excessive drowsiness or sleepiness, denies suicidal ideation and reports that the current pain medication is helping to control the pain and improve activities of daily living. Patient denies any motor or sensory deficits. Patient denies any fever or night sweats, denies any change in the bowel movements or urination. Physical Examination: -Constitutional: Cooperative. Not in acute distress . - Neurologic: Cranial nerve II to XII intact. No focal neurological deficits. - Psychatric: Alert & oriented x 3. Matching mood & appropriate affect. Judgment and insight intact. - Musculoskeletal: Cervical spine: Muscle bulk/ tone/ strength in the bilateral upper extremities normal Vertebral body tenderness to palpation over Spurling test positive Distraction test positive Facet loading test positive Thoracic spine Muscle bulk / tone/ strength in the bilateral paraspinal muscles normal Vertebral body tender to palpation over Facet loading test positive Lumbar spine: Motor bulk/ tone/ strength lower extremities , thigh and legs : 5/5 Deep tendon reflexes : Normal Knee Jerk. Normal Ankle Jerk . Vertebral body tenderness to palpation over Lumbar Facet Loading Test positive Straight Leg Raise: positive at 30 degrees right side/ left side Gaenslen's Test positive Sacral spine : Severe tenderness over the Sacroiliac joint: right side / left side Range of motion: Flexion of the lumbar spine <60 degrees Range of motion: Extension of the lumbar spine <20 degrees Gaenslen's Test positive Omar's Test positive Chayo test: positive right side / left side Thigh Thrust Test Sacral Thrust Test Assessment and plan: Chronic low back pain secondary to lumbar degenerative disc disease , lumbar spondylosis with facet arthropathy without myelopathy Pt exhibited sufficent and substantial pain relief w prior procedure. She will continue to utilize home pain mgmt modalities and may return to this clinic on an as needed basis. Risks, benefits of procedure discussed and pt verbalized understanding. Denies anticoagulant use or medical history of diabetes. All patient questions answered I have spent less than 30 minutes on patient care today. Dr Miller was available by phone for the evaluation of this patient. The time was used to review the medical records including relevant urine studies and Prescription history (MAPs), review of the available imaging, evaluation and examination of the patient, coordination of care with the medical staff and if applicable referring physicians, as well as creation of the medical record PQRS Narrative: Smoking Status Former smoker Pain Intensity [Right Upper 0 Shoulder] Hx Alcohol Use (MH) No Home Medications: Ambulatory Orders Latanoprost [Xalatan 0.005%] 1 drop BOTH EYES HS 08/13/15 Rosuvastatin [Crestor] 10 mg PO 1830 02/03/18 Calcium With Vitamin D 1 tab PO BID 07/20/19 Ibuprofen 400 mg PO TID PRN 07/20/19 Multivit with Calcium,Iron,Min [Women's Multivitamin] 1 each PO DAILY 07/20/19 Levothyroxine Sodium [Synthroid] 88 mcg PO DAILY 12/08/21 Fiber Unknown Doseage 4 tab PO 1630 05/20/22 Controlled Substance Measures - Controlled Substance Measures Is patient prescribed a controlled substance at discharge?: No
== END ==
LOC: PNWHC3 11:04
PROVIDERS: ATTEND Specialist
DX: M51.36 Other intervertebral disc degeneration, lumbar region (principal); M47.816 Spondylosis without myelopathy or radiculopathy, lumbar region; G89.29 Other chronic pain; Z88.6 Allergy status to analgesic agent; Z88.8 Allergy status to other drugs, medicaments and biological substances; Z87.891 Personal history of nicotine dependence
CPT/HCPCS: 99211

== ENCOUNTER 2022-08-20 10:16 | Inpatient (IN) | payer MEDICARE, OTHER ==
[2022-08-20] MEDS ORDERED: DILTIAZEM DRIP BOLUS FROM BAG 1 MG SOLN IV ONE (10:41)
--- NOTE | 2022-08-20 10:42 | ED ---
General Adult HPI - General Chief complaint: Shortness of Breath Stated complaint: TONI Time Seen by Provider: 08/20/22 10:16 Source: patient, RN notes reviewed, old records reviewed Mode of arrival: EMS Limitations: no limitations - History of Present Illness Initial comments: This is a 76-year-old female who presents emergency Department complaining of shortness of breath last few days. Patient states she has a distant history of atrial fibrillation but nothing lately. Patient states her doctor gave her albuterol and Levaquin after she spoke to her over the phone thinking she might have pneumonia. Patient denies any chest pain but states she short of breath and particularly short of breath with walking. Patient states she has an occasional cough but no sputum production. Patient denies any fever chills or cough. Patient denies abdominal pain. Patient denies any swelling to the legs or calf tenderness. - Related Data Home Medications Medication Instructions Recorded Confirmed Latanoprost [Xalatan 0.005%] 1 drop BOTH EYES HS 08/13/15 08/20/22 Rosuvastatin [Crestor] 10 mg PO DAILY@1800 02/03/18 08/20/22 Levothyroxine Sodium [Synthroid] 88 mcg PO DAILY 12/08/21 08/20/22 Ipratropium/Albuter 20-100Mcg 1 puff INHALATION RT-QID 08/20/22 08/20/22 [Combivent Respimat 20-100Mcg Inhaler] predniSONE [Deltasone] See Taper PO DIRECTED 08/20/22 08/20/22 Allergies Allergy/AdvReac Type Severity Reaction Status Date / Time aspirin Allergy Nausea/ringing Verified 08/20/22 14:12 in ears diphenhydramine HCl Allergy EXTREME Verified 08/20/22 14:12 [From Benadryl] AGITATION/high BP Review of Systems ROS Statement: Those systems with pertinent positive or pertinent negative responses have been documented in the HPI. ROS Other: All systems not noted in ROS Statement are negative. Past Medical History Past Medical History: Atrial Fibrillation, Asthma, Cancer, COPD, Hyperlipidemia, Osteoarthritis (OA), Thyroid Disorder, Vascular Disorder Additional Past Medical History / Comment(s): BREAST CANCER, GLAUCOMA, LEFT LAZY EYE, EMPHYSEMA, HX OF STOMACH ULCER, PERFORATED BOWEL. states has "slack rt wrist" dx 2016, blocked artery left leg, hx valley fever rt lung, LOSING STRENGTH IN RT ARM, History of Any Multi-Drug Resistant Organisms: None Reported Past Surgical History: Bowel Resection, Breast Surgery, Joint Replacement, Orthopedic Surgery, Tonsillectomy, Tubal Ligation Additional Past Surgical History / Comment(s): RT TOTAL HIP X2, LT TOTAL HIP, BILAT KNEE REPLACEMENT, meenakshi mastectomy, partial lobectomy-rt upper lobe, thyroidectomy, colostomy/later reversal, meenakshi carpal tunnel, meenakshi CATARACT. left wrist surgery, left great toe surgery, arortogram, PAIN CLINIC PROCEDURES Past Anesthesia/Blood Transfusion Reactions: No Reported Reaction Past Psychological History: No Psychological Hx Reported Smoking Status: Current every day smoker - Past Family History Father Family Medical History: Myocardial Infarction ([place]) Mother Family Medical History: Congestive Heart Failure (CHF) Brother(s) Family Medical History: Cancer General Exam - General Exam Comments Initial Comments: GENERAL: Patient is well-developed and well-nourished. Patient is nontoxic and well- hydrated and is in mild distress. ENT: Neck is soft and supple. No significant lymphadenopathy is noted. Oropharynx is clear. Moist mucous membranes. Neck has full range of motion without eliciting any pain. EYES: The sclera were anicteric and conjunctiva were pink and moist. Extraocular movements were intact and pupils were equal round and reactive to light. Eyelids were unremarkable. PULMONARY: Patient is crackles bilateral bases CARDIOVASCULAR: Patient's heart rate about 170 beats a minute does appear to be irregular ABDOMEN: Soft and nontender with normal bowel sounds. SKIN: Skin is clear with no lesions or rashes and otherwise unremarkable. NEUROLOGIC: Patient is alert and oriented x3. Cranial nerves II through XII are grossly intact. Motor and sensory are also intact. Normal speech, volume and content. Symmetrical smile. MUSCULOSKELETAL: Normal extremities with adequate strength and full range of motion. No lower extremity swelling or edema. No calf tenderness. LYMPHATICS: No significant lymphadenopathy is noted PSYCHIATRIC: Normal psychiatric evaluation. Limitations: no limitations Course Vital Signs 08/20/22 08/20/22 10:17 14:02 Temperature 96.9 F L Pulse Rate 154 H 130 H Respiratory 20 18 Rate Blood Pressure 122/84 120/106 O2 Sat by Pulse 96 95 Oximetry Medical Decision Making - Medical Decision Making EKG was interpreted by myself. EKG shows atrial fibrillation with rapid ventricular response at 155 bpm QRS is 102 QT interval is 260 QTC is 347 per patient's EKG shows no ST segment elevation or depression. Was pt. sent in by a medical professional or institution (DWIGHT Lambert, FUNERAL HOME LOCATION MANAGER, urgent care, hospital, or [facility]...) When possible be specific @ -[No] Did you speak to anyone other than the patient for history (EMS, parent, family, police, friend...)? What history was obtained from this source @ -[No] Did you review nursing and triage notes (agree or disagree)? Why? @ -[I reviewed and agree with nursing and triage notes] Were old charts reviewed (outside hosp., previous admission, EMS record, old EKG, old radiological studies, urgent care reports/EKG's, [facility] records)? Report findings @ -I compared chest x-ray was normal chest x-ray and I reviewed old EKGs. Differential Diagnosis (chest pain, altered mental status, abdominal pain women, abdominal pain men, vaginal bleeding, weakness, fever, dyspnea, syncope, headache, dizziness, GI bleed, back pain, seizure, CVA, palpatations, mental health)? @ -Differential Dyspnea: Coronary syndrome, arrhythmia, tamponade, asthma, COPD, pulmonary embolism, pneumonia, pneumothorax, pulmonary effusion, anaphylaxis, diabetic ketoacidosis, flailed chest, pulmonary contusion, diaphragmatic rupture, anemia, neuromuscular, this is not meant to be an all-inclusive list. EKG interpreted by me (3pts min.). @ -[As above] X-rays interpreted by me (1pt min.). @ -Chest x-ray showed acute pulmonary edema it was compared to old chest x- rays. CT interpreted by me (1pt min.). @ -[None done] U/S interpreted by me (1pt. min.). @ -[None done] What testing was considered but not performed or refused? (CT, X-rays, U/S, labs)? Why? @ -[None] What meds were considered but not given or refused? Why? @ -[None] Did you discuss the management of the patient with other professionals (angie rios i.e. DWIGHT Lambert, [employer]ERAL HOME LOCATION MANAGER, lab, RT, psych nurse, clinical social work aide, hr intern, teacher, staff combat information center officer, case consultant)? Give summary @ -I spoke with Dr. winston and he agreed to admit the patient admitted the patient wrote admitting orders and he is aware of the treatment and workup in the emergency department Was smoking cessation discussed for >3mins.? @ -[No] Was critical care preformed (if so, how long)? @ -35 minutes. Patient was started on Cardizem after being given a Cardizem bolus she was given a second bolus because heart rate was not coming down and started to come down slowly. Were there social determinants of health that impacted care today? How? (Homelessness, low income, unemployed, alcoholism, drug addiction, transportation, low edu. Level, literacy, decrease access to med. care, custodial, rehab)? @ -[No] Was there de-escalation of care discussed even if they declined (Discuss DNR or withdrawal of care, Hospice)? DNR status @ -[No] What co-morbidities impacted this encounter? (DM, HTN, Smoking, COPD, CAD, Cancer, CVA, ARF, Chemo, Hep., AIDS, mental health diagnosis, sleep apnea, morbid obesity)? @ -[None] Was patient admitted / discharged? Hospital course, mention meds given and route, prescriptions, significant lab abnormalities, going to OR and other pertinent info. @ -Will be admitted. Patient has atrial fibrillation which is causing her pulmonary edema. Patient was started on Cardizem to slow her heart rate down. Patient was also given a bolus of Cardizem. Patient is also started on heparin for the atrial fibrillation. Patient will be admitted to Dr. winston and cardiology will be consulted Undiagnosed new problem with uncertain prognosis? @ -[No] Drug Therapy requiring intensive monitoring for toxicity (Heparin, Nitro, Insulin, Cardizem)? @ -[No] Were any procedures done? @ -[No] Diagnosis/symptom? @ -A. fib with rapid ventricular response Acute, or Chronic, or Acute on Chronic? @ -Acute Uncomplicated (without systemic symptoms) or Complicated (systemic symptoms)? @ -Complicated Side effects of treatment? @ -No Exacerbation, Progression, or Severe Exacerbation? @ -Severe exacerbation Poses a threat to life or bodily function? How? (Chest pain, [place], [place], pneumonia, PE, COPD, DKA, ARF, appy, cholecystitis, CVA, Diverticulitis, Homicidal, Suicidal, threat to staff... and all critical care pts) @ -Yes atrial fibrillation his cause back of fluid and lungs which is potentially leading to hypoxia Diagnosis/symptom? @ -Acute pulmonary edema Acute, or Chronic, or Acute on Chronic? @ -Acute Uncomplicated (without systemic symptoms) or Complicated (systemic symptoms)? @ -complicated Side effects of treatment? @ -[none] Exacerbation, Progression, or Severe Exacerbation] @ -Severe exacerbation Poses a threat to life or bodily function? @ -Yes it can lead to hypoxia and the patient - Lab Data Result diagrams: 08/20/22 11:01 08/20/22 11:01 Lab Results 08/20/22 08/20/22 08/20/22 Range/Units 11: 11: 11:01 WBC 15.5 H (3.8-10.6) k/uL RBC 4.47 (3.80-5.40) m/uL Hgb 13.1 (11.4-16.0) gm/dL Hct 39.3 (34.0-46.0) % MCV 87.9 (80.0-100.0) fL MCH 29.3 (25.0-35.0) pg MCHC 33.3 (31.0-37.0) g/dL RDW 13.0 (11.5-15.5) % Plt Count 402 (150-450) k/uL MPV 7.5 Neutrophils % 82 % Lymphocytes % 11 % Monocytes % 6 % Eosinophils % 0 % Basophils % 1 % Neutrophils # 12.6 H (1.3-7.7) k/uL Lymphocytes # 1.7 (1.0-4.8) k/uL Monocytes # 0.9 (0-1.0) k/uL Eosinophils # 0.0 (0-0.7) k/uL Basophils # 0.1 (0-0.2) k/uL PT 11.4 (9.0-12.0) sec INR 1.1 (<1.2) APTT 23.8 (22.0-30.0) sec Sodium 134 L (137-145) mmol/L Potassium 4.5 (3.5-5.1) mmol/L Chloride 101 (98-107) mmol/L Carbon Dioxide 26 (22-30) mmol/L Anion Gap 7 mmol/L BUN 25 H (7-17) mg/dL Creatinine 0.76 (0.52-1.04) mg/dL Est GFR (CKD-EPI)AfAm 87 (>60 ml/min/1.73 sqM) Est GFR (CKD-EPI)NonAf 76 (>60 ml/min/1.73 sqM) Glucose 112 H (74-99) mg/dL Calcium 8.7 (8.4-10.2) mg/dL Magnesium 2.0 (1.6-2.3) mg/dL Total Bilirubin 0.3 (0.2-1.3) mg/dL AST 31 (14-36) U/L ALT 42 H (4-34) U/L Alkaline Phosphatase 108 (38-126) U/L Troponin I (0.000-0.034) ng/mL NT-Pro-B Natriuret Pep pg/mL Total Protein 5.8 L (6.3-8.2) g/dL Albumin 3.2 L (3.5-5.0) g/dL TSH 2.110 (0.465-4.680) mIU/L 08/20/22 08/20/22 Range/Units 11:01 11:01 WBC (3.8-10.6) k/uL RBC (3.80-5.40) m/uL Hgb (11.4-16.0) gm/dL Hct (34.0-46.0) % MCV (80.0-100.0) fL MCH (25.0-35.0) pg MCHC (31.0-37.0) g/dL RDW (11.5-15.5) % Plt Count (150-450) k/uL MPV Neutrophils % % Lymphocytes % % Monocytes % % Eosinophils % % Basophils % % Neutrophils # (1.3-7.7) k/uL Lymphocytes # (1.0-4.8) k/uL Monocytes # (0-1.0) k/uL Eosinophils # (0-0.7) k/uL Basophils # (0-0.2) k/uL PT (9.0-12.0) sec INR (<1.2) APTT (22.0-30.0) sec Sodium (137-145) mmol/L Potassium (3.5-5.1) mmol/L Chloride (98-107) mmol/L Carbon Dioxide (22-30) mmol/L Anion Gap mmol/L BUN (7-17) mg/dL Creatinine (0.52-1.04) mg/dL Est GFR (CKD-EPI)AfAm (>60 ml/min/1.73 sqM) Est GFR (CKD-EPI)NonAf (>60 ml/min/1.73 sqM) Glucose (74-99) mg/dL Calcium (8.4-10.2) mg/dL Magnesium (1.6-2.3) mg/dL Total Bilirubin (0.2-1.3) mg/dL AST (14-36) U/L ALT (4-34) U/L Alkaline Phosphatase (38-126) U/L Troponin I 0.022 (0.000-0.034) ng/mL NT-Pro-B Natriuret Pep 6850 pg/mL Total Protein (6.3-8.2) g/dL Albumin (3.5-5.0) g/dL TSH (0.465-4.680) mIU/L Critical Care Time Critical Care Time: Yes Total Critical Care Time: 35 Disposition Clinical Impression: Acute pulmonary edema, Atrial fibrillation with rapid ventricular response Disposition: ADMITTED IP TO THIS HOSP Referrals: Lia Gamble MD [Primary Care Provider] - 1-2 days Time of Disposition: 14:30
[2022-08-20] MEDS: DILTIAZEM 125 MG in SODIUM CHLORIDE 0.9% 100 ML IV SCH (11:01)
[2022-08-20 11:43] LABS: Basophils # (A) 0.1 k/uL (0-0.2); Basophils % (A) 1 %; Eosinophils % (A) 0 %; HCT 39.3 % (34.0-46.0); HGB 13.1 gm/dL (11.4-16.0); Lymphocytes # (A) 1.7 k/uL (1.0-4.8); Lymphocytes % (A) 11 %; MCH 29.3 pg (25.0-35.0); MCHC 33.3 g/dL (31.0-37.0); MCV 87.9 fL (80.0-100.0); Mean Platelet Volume 7.5; Monocytes # (A) 0.9 k/uL (0-1.0); Monocytes % (A) 6 %; Neutrophils # (A) 12.6 k/uL (1.3-7.7); Neutrophils % (A) 82 %; Platelet Count 402 k/uL (150-450); RBC 4.47 m/uL (3.80-5.40); WBC 15.5 k/uL (3.8-10.6)
[2022-08-20 11:46] LABS: INR 1.1 (<1.2); Partial Thromboplastin Time 23.8 sec (22.0-30.0); Prothrombin Time 11.4 sec (9.0-12.0)
[2022-08-20 11:47] LABS: Albumin 3.2 g/dL (3.5-5.0); Calcium 8.7 mg/dL (8.4-10.2); Potassium 4.5 mmol/L (3.5-5.1); Total Bilirubin 0.3 mg/dL (0.2-1.3); Total Protein 5.8 g/dL (6.3-8.2)
--- NOTE | 2022-08-20 11:59 | XR ---
EXAMINATION TYPE: XR chest 2V DATE OF EXAM: 08/20/2022 COMPARISON: 11/17/2018 HISTORY: 76-year-old female dysrhythmia, shortness of breath TECHNIQUE: AP and lateral views FINDINGS: Patient is rotated towards the left. Heart appears borderline in size. Multifocal patchy and confluen t opacities, left greater than right. Trace bilateral pleural effusions. Hyperinflation. Loss of the subacromial space on both sides compatible with chronic full-thickness rotator cuff tears. IMPRESSION: COPD with a new interstitial and patchy bilateral opacities and trace pleural effusions. Findings sug gest CHF with patchy pulmonary edema versus multifocal pneumonia. Clinically correlate.
[2022-08-20] MEDS ORDERED: HEPARIN SODIUM 1,000 UN/ML (10ML VL) IV ONE (14:44)
[2022-08-20] MEDS ORDERED: NITROGLYCERIN SL TABS 0.4 MG TAB SUBLINGUAL PRN (14:50)
[2022-08-20] MEDS: HEPARIN SOD,PORK IN 0.45% NACL 25,000 UNIT in 0.45% NACL 1 250ML.BAG IV SCH (14:58)
[2022-08-20] MEDS ORDERED: ALPRAZolam 0.25 MG TAB PO PRN (16:57)
[2022-08-20] MEDS ORDERED: IPRATROPIUM-ALBUTEROL 3 ML NEB INHALATION PRN (16:57)
[2022-08-20] MEDS ORDERED: HYDROcodone/APAP 5-325MG 1 EACH TAB PO PRN (16:57)
[2022-08-20] MEDS: ATORVASTATIN 20 MG TAB PO SCH (17:30)
[2022-08-20] MEDS ORDERED: NON FORMULARY DRUG (Rosuvastatin 10 MG Tablet) PO SCH (18:00)
[2022-08-20] MEDS: BUDESONIDE 1 MG/2 ML NEBU INHALATION SCH (19:44)
[2022-08-20] MEDS: FORMOTEROL FUMARATE 20 MCG/2 ML NEBU INHALATION SCH (19:44)
[2022-08-20] MEDS: IPRATROPIUM-ALBUTEROL 3 ML NEB INHALATION SCH (19:44)
[2022-08-20] MEDS: FUROSEMIDE 10 MG/ML 2 ML VIAL IV SCH (21:45)
[2022-08-20] MEDS: LATANOPROST 0.005% OPHTH DROPS 2.5 ML BTL BOTH EYES SCH (21:54)
--- NOTE | 2022-08-20 23:14 | HP ---
HISTORY AND PHYSICAL CHIEF COMPLAINT: Shortness of breath. HISTORY OF PRESENT ILLNESS: This is a 76-year-old woman with a past medical history of emphysema, asthma, COPD, atrial fibrillation, history of hypertension, being followed by Dr. Gamble in the outpatient setting, complaining of shortness of breath over the past several days. Because of lack of improvement, the patient came to [facility] and was admitted for further evaluation and treatment. Chest x-ray showed some evidence of CHF also. The patient continues to smoke. The patient also has atrial fibrillation started on Cardizem drip in the ER. There is no history of any fever, rigors, or chills. PAST MEDICAL HISTORY: Reviewed include atrial fibrillation. The rest of the history and rest of the chart is also reviewed. HOME MEDICATIONS: Reviewed include prednisone, doses and rest of medications reviewed. ALLERGIES: Reviewed include aspirin. FAMILY HISTORY: History of cancer. SOCIAL HISTORY: History of smoking. REVIEW OF SYSTEMS: A 14-point review is negative except as mentioned earlier. PHYSICAL EXAMINATION: VITAL SIGNS: Pulse is 155, regular. Blood pressure 120/84, respirations 20. HEENT: Conjunctivae normal. NECK: No jugular venous distention. Breathing efforts are markedly increased. CARDIOVASCULAR: S1, S2 regular. RESPIRATORY: Breath sounds diminished at the bases. Scattered rhonchi and expiratory wheezing. No crackles. ABDOMEN: Soft, nontender. LEGS: No edema. No swelling. NERVOUS SYSTEM: No focal deficits. LABORATORY DATA: WBC 15.5. The rest of the labs are noted. ASSESSMENT: 1. Chronic obstructive pulmonary disease acute exacerbation with acute pain tracheobronchitis. 2. Rule out congestive heart failure, acute exacerbation. 3. Atrial fibrillation with fast ventricular rate present on admission. 4. Continued ongoing nicotine dependence. 5. History of asthma. 6. Hyperlipidemia. 7. History of breast cancer. 8. Multiple medical issues. RECOMMENDATIONS: This is a 76-year-old woman who presented with multiple complex medical issues. We will monitor the patient closely. I will recommend to initiate intensive bronchodilator treatment as well as IV steroids and empiric antibiotics. Otherwise, I would also recommend Cardiology and Pulmonology consultations. Empiric Lasix also will be given. Monitor fluid/electrolyte balance closely. A 2D echo with Doppler is also being ordered. The RSV, flu and COVID-19 testing is also recommended. Overall prognosis guarded. Home medication will be initiated once they are confirmed. Further recommendations to follow. MMODL / IJN: [id number] /
[2022-08-21] MEDS: DILTIAZEM 125 MG in SODIUM CHLORIDE 0.9% 100 ML IV SCH ×3 (06:44→22:21)
[2022-08-21 07:58] LABS: Basophils # (A) 0.1 k/uL (0-0.2); Basophils % (A) 0 %; Eosinophils % (A) 0 %; HCT 36.5 % (34.0-46.0); HGB 12.1 gm/dL (11.4-16.0); Lymphocytes # (A) 1.9 k/uL (1.0-4.8); Lymphocytes % (A) 12 %; MCHC 33.2 g/dL (31.0-37.0); MCV 87.1 fL (80.0-100.0); Mean Platelet Volume 7.5; Monocytes # (A) 0.7 k/uL (0-1.0); Monocytes % (A) 5 %; Neutrophils # (A) 12.6 k/uL (1.3-7.7); Neutrophils % (A) 80 %; Platelet Count 379 k/uL (150-450); RBC 4.19 m/uL (3.80-5.40); RDW 13.5 % (11.5-15.5); WBC 15.7 k/uL (3.8-10.6)
[2022-08-21] MEDS: FORMOTEROL FUMARATE 20 MCG/2 ML NEBU INHALATION SCH ×2 (08:07→20:32)
[2022-08-21] MEDS: BUDESONIDE 1 MG/2 ML NEBU INHALATION SCH ×2 (08:07→20:19)
[2022-08-21] MEDS: IPRATROPIUM-ALBUTEROL 3 ML NEB INHALATION SCH ×4 (08:08→20:19)
[2022-08-21] MEDS: LEVOTHYROXINE 88 MCG TAB PO SCH (08:46)
[2022-08-21] MEDS ORDERED: ASPIRIN 325 MG TAB PO SCH (09:00)
[2022-08-21] MEDS: FUROSEMIDE 10 MG/ML 2 ML VIAL IV SCH ×2 (09:02→20:34)
[2022-08-21] MEDS: NICOTINE 14MG/24HR PATCH TRANSDERM SCH (09:02)
[2022-08-21] MEDS: METOPROLOL TARTRATE 50 MG TAB PO SCH ×2 (09:02→20:34)
[2022-08-21] MEDS: ASPIRIN 81 MG PO SCH (09:02)
[2022-08-21] MEDS: PANTOPRAZOLE 40 MG TABLET PO SCH (09:02)
[2022-08-21 09:07] LABS: ALT 34 U/L (4-34); AST 23 U/L (14-36); African American GFR (CKD) >90 (>60 ml/min/1.73 sqM); Alkaline Phosphatase 104 U/L (38-126); Anion Gap 7 mmol/L; Blood Urea Nitrogen 19 mg/dL (7-17); Calcium 7.7 mg/dL (8.4-10.2); Carbon Dioxide 30 mmol/L (22-30); Chloride 101 mmol/L (98-107); Glucose 85 mg/dL (74-99); Non-African American GFR(CKD) 82 (>60 ml/min/1.73 sqM); Potassium 3.3 mmol/L (3.5-5.1); Sodium 138 mmol/L (137-145); Total Bilirubin 0.2 mg/dL (0.2-1.3); Total Protein 5.6 g/dL (6.3-8.2)
[2022-08-21] MEDS: MULTIVITAMINS, THERA 1 EACH TAB PO SCH (12:56)
--- NOTE | 2022-08-21 13:16 | P.CRDCN ---
History of Present Illness Consult date: 08/21/22 Consult reason: atrial fibrillation (with RVR) History of present illness: History of present illness: This is a 76 year old female patient of Dr. Hernandez with a past medical history of paroxysmal atrial fibrillation not on anticoagulation, diabetes mellitus type 2, tobacco use and dependence, PAD status post ZINC CHLORIDE OPERATOR of the left SFA. Patient gives history that she had body aches all over along with shortness of breath cough and phlegm production and runny nose along with sweats on Linda. She improved later in the week but 5 the following day the symptoms came back. She had contacted her PCP and was placed on prednisone, Levaquin and inhaler and was not getting any better. She states she continue have no energy and couldn't sleep and had difficulty taking a deep breath. Patient presented to the hospital and was found to be in A. fib with RVR. Consult was requested for A. fib with RVR. Patient has been started on a Cardizem drip and heparin drip. Patient is seen today in the emergency center waiting for a bed on the cardiac stepdown unit. EKG initial A. fib with RVR. Second EKG rate controlled with A. fib Chest x-ray COPD with new interstitial and patchy bilateral opacities and trace pleural effusions. Findings suggest heart failure with patchy pulmonary edema versus multifocal pneumonia WBC 15.7, hemoglobin 12.1. Potassium 3.3, BUN 19 and creatinine 0.7. Troponins negative 3. TSH 2.110. Influenza A, influenza B, RSV, Covid 19 not detected. Home cardiac medications include Crestor 10 mg daily, patient is also on levothyroxine 88 g daily Review Of Systems: At the time of my evaluation: Constitutional: No fever, no chills. No weakness, fatigue or lethargy. EENT: No headache. No dizziness. Lungs: Denies shortness of breath, cough, no sputum production. No wheezing. Cardiovascular: No chest pain, no lower extremity edema. No palpitations. No paroxysmal nocturnal dyspnea. No orthopnea. No lightheadedness or dizziness. No syncopal episodes. Abdominal: No abdominal pain. No nausea, vomiting. No diarrhea. No constipation. No bloody or tarry stools. Genitourinary: No dysuria.. No urinary retention. Musculoskeletal: No myalgias. No muscle weakness, no frequent falls. No back pain. No neck pain. Integumentary: No wounds. No rash. No unusual bruising. Neurologic: No aphasia. No facial droop. No change in mentation. No head injury. No headache. Psychiatric: No depression. No anxiety. Endocrine: No abnormal blood sugars. Physical examination: Gen: This is a 76 year old female. She is resting on the ER stretch and appears to be comfortable and in no acute distress. VS: reviewed HEENT: Head is atraumatic, normocephalic. Pupils equal, round. Sclerae is anic teric. NECK: Supple. No JVD. No lymphadenopathy. No thyromegaly. LUNGS: Bilateral scattered rhonchi. No intercostal retractions. HEART: Irregular rate and rhythm. ABDOMEN: Soft. Bowel sounds are present. No masses. No tenderness. EXTREMITIES: No pedal edema. No calf tenderness. NEUROLOGICAL: Patient is awake, alert and oriented x3. Cranial nerves 2 through 12 are grossly intact. Assessment: Pneumonia with A. fib with RVR Paroxysmal atrial fibrillation Recent viral infection Possible viral pneumonia Diabetes mellitus type 2 PAD Plan: Continue patient on home cardiac medications Continue patient on Cardizem drip Continue heparin drip Prescription for eliquis in to pharmacy to check coverage. Patient may be transitioned to eliquis tomorrow. Obtain 2-D echocardiogram and Doppler study to assess cardiac structure and function Further recommendations to follow based upon clinical course Thank you kindly for this consultation. Nurse practitioner note has been reviewed, I agree with documented findings and plan of care. Patient was seen and examined. Past Medical History Past Medical History: Atrial Fibrillation, Asthma, Cancer, COPD, Hyperlipidemia, Osteoarthritis (OA), Thyroid Disorder, Vascular Disorder Additional Past Medical History / Comment(s): BREAST CANCER, GLAUCOMA, LEFT LAZY EYE, EMPHYSEMA, HX OF STOMACH ULCER, PERFORATED BOWEL. states has "slack rt wrist" dx 2016, blocked artery left leg, hx valley fever rt lung, LOSING STRENGTH IN RT ARM, History of Any Multi-Drug Resistant Organisms: None Reported Past Surgical History: Bowel Resection, Breast Surgery, Joint Replacement, Orthopedic Surgery, Tonsillectomy, Tubal Ligation Additional Past Surgical History / Comment(s): RT TOTAL HIP X2, BILAT KNEE REPLACEMENT, meenakshi mastectomy, partial lobectomy-rt upper lobe, thyroidectomy, colostomy/later reversal, meenakshi carpal tunnel, meenakshi CATARACT. right wrist surgery, left great toe surgery, arortogram, PAIN CLINIC PROCEDURES Past Anesthesia/Blood Transfusion Reactions: No Reported Reaction Past Psychological History: No Psychological Hx Reported Smoking Status: Current every day smoker Past Alcohol Use History: None Reported Additional Past Alcohol Use History / Comment(s): SMOKES LESS THAN 1 PPD FROM 1963, down to 5 cigarettes Past Drug Use History: None Reported - Past Family History Father Family Medical History: Myocardial Infarction (CO) Mother Family Medical History: Congestive Heart Failure (CHF) Brother(s) Family Medical History: Cancer, Congestive Heart Failure (CHF) Medications and Allergies Home Medications Medication Instructions Recorded Confirmed Type Latanoprost [Xalatan 0.005%] 1 drop BOTH EYES HS 08/13/15 08/20/22 History Rosuvastatin [Crestor] 10 mg PO DAILY@1800 02/03/18 08/20/22 History Levothyroxine Sodium [Synthroid] 88 mcg PO DAILY 12/08/21 08/20/22 History Ipratropium/Albuter 20-100Mcg 1 puff INHALATION RT-QID 08/20/22 08/20/22 History [Combivent Respimat 20-100Mcg Inhaler] predniSONE [Deltasone] See Taper PO DIRECTED 08/20/22 08/20/22 History Apixaban [Eliquis] 5 mg PO BID #60 tab 08/21/22 Rx Allergies Allergy/AdvReac Type Severity Reaction Status Date / Time aspirin Allergy Nausea/ringing Verified 08/20/22 14:12 in ears diphenhydramine HCl Allergy EXTREME Verified 08/20/22 14:12 [From Benadryl] AGITATION/high BP Physical Exam Vitals: Vital Signs Temp Pulse Pulse Resp BP BP Pulse Ox 08/21/22 12:54 122 H 18 108/76 95 08/21/22 12:03 82 08/21/22 11:52 90 08/21/22 09:51 131 H 19 08/21/22 08:49 96.8 F L 131 H 19 144/89 91 L 08/21/22 08:33 121 H 08/21/22 08:24 104 H 08/21/22 08:09 101 H 94 L 08/21/22 06:00 123 H 16 148/116 95 08/21/22 05:00 124 H 16 106/74 96 08/21/22 04:00 97 16 157/96 94 L 08/21/22 03:00 124 H 16 131/90 95 08/21/22 02:00 133 H 16 96 08/20/22 23:28 124 H 16 135/76 94 L 08/20/22 21:57 128 H 16 126/83 94 L 08/20/22 21:00 136 H 16 120/92 96 08/20/22 20:08 122 H 08/20/22 20:00 172 H 16 118/96 94 L 08/20/22 19:57 131 H 08/20/22 19:56 131 H 08/20/22 19:45 130 H 08/20/22 17:47 134 H 20 105/91 95 08/20/22 14:37 154 H 18 100/75 95 08/20/22 14:02 130 H 18 120/106 95 Intake and Output 08/20/22 08/21/22 08/21/22 22:59 06:59 14:59 Intake Total 98.583 147.314 Balance 98.583 147.314 Intake: Intake, IV Titration 98.583 147.314 Amount Diltiazem 125 mg In 98.583 Sodium Chloride 0.9% 100 ml @ 5 MG/HR 5 mls/hr IV .Q24H [facility] Rx#:[id number] Heparin Sod,Pork in 0.45% 147.314 NaCl 25,000 unit In 0.45 % NaCl 1 250ml.bag @ 12 UNITS/KG/HR 7.239 mls/hr IV .Q24H [facility] Rx#: [id number] Other: Voiding Method Bedside Commode Weight 60.328 kg Results 08/21/22 07:29 08/21/22 07:29 Cardiac Enzymes 08/20/22 08/20/22 08/21/22 Range/Units 15:12 17:46 07:29 AST 23 (14-36) U/L Troponin I 0.020 0.019 (0.000-0.034) ng/mL Coagulation 08/20/22 08/21/22 08/21/22 Range/Units 20:30 07:29 10:42 APTT 48.1 H >200.0 H* 40.4 H (22.0-30.0) sec CBC 08/21/22 Range/Units 07:29 WBC 15.7 H (3.8-10.6) k/uL RBC 4.19 (3.80-5.40) m/uL Hgb 12.1 (11.4-16.0) gm/dL Hct 36.5 (34.0-46.0) % Plt Count 379 (150-450) k/uL Comprehensive Metabolic Panel 08/21/22 Range/Units 07:29 Sodium 138 (137-145) mmol/L Potassium 3.3 L (3.5-5.1) mmol/L Chloride 101 (98-107) mmol/L Carbon Dioxide 30 (22-30) mmol/L BUN 19 H (7-17) mg/dL Creatinine 0.71 (0.52-1.04) mg/dL Glucose 85 (74-99) mg/dL Calcium 7.7 L (8.4-10.2) mg/dL AST 23 (14-36) U/L ALT 34 (4-34) U/L Alkaline Phosphatase 104 (38-126) U/L Total Protein 5.6 L (6.3-8.2) g/dL Albumin 3.0 L (3.5-5.0) g/dL Current Medications Generic Name Dose Route Start Last Admin Trade Name Freq PRN Reason Stop Dose Admin Hydrocodone Bitart/Acetaminophen 1 each 08/20/22 16:57 Hydrocodone/Apap 5-325mg 1 Each Tab PO Q6HR PRN Pain Albuterol/Ipratropium 3 ml 08/20/22 20:00 08/21/22 11:52 Ipratropium-Albuterol 3 Ml Neb INHALATION 3 ml RT-QID [facility] Administration Albuterol/Ipratropium 3 ml 08/20/22 16:57 Ipratropium-Albuterol 3 Ml Neb INHALATION RT-QID PRN Shortness Of Breath Or Wheezing Alprazolam 0.25 mg 08/20/22 16:57 Alprazolam 0.25 Mg Tab PO TID PRN Anxiety Aspirin 81 mg 08/21/22 09:00 08/21/22 09:02 Aspirin 81 Mg PO 81 mg DAILY [facility] Administration Atorvastatin Calcium 20 mg 08/20/22 18:00 08/20/22 17:30 Atorvastatin 20 Mg Tab PO 20 mg DAILY@1800 [facility] Administration Budesonide 1 mg 08/20/22 18:00 08/21/22 08:07 Budesonide 1 Mg/2 Ml Nebu INHALATION 1 mg RT-BID [facility] Administration Formoterol Fumarate 20 mcg 08/20/22 18:00 08/21/22 08:07 Formoterol Fumarate 20 Mcg/2 Ml Nebu INHALATION 20 mcg RT-BID [facility] Administration Furosemide 20 mg 08/20/22 21:00 08/21/22 09:02 Furosemide 10 Mg/Ml 2 Ml Vial IV 20 mg Q12HR [facility] Administration Diltiazem HCl 125 mg/ Sodium 125 mls @ 10 mls/hr 08/20/22 10:45 08/21/22 06:44 Chloride IV 5 mg/hr .[id number] [facility] 5 mls/hr Administration 10 MG/HR Heparin Sodium/Sodium Chloride 250 mls @ 7.239 mls/hr 08/20/22 14:45 08/21/22 11:19 25,000 unit/ Sodium Chloride IV 15.32 units/kg/hr .Q24H [facility] 9.24 mls/hr Titration Protocol 12 UNITS/KG/HR Ceftriaxone Sodium 1 gm/ 50 mls @ 100 mls/hr 08/20/22 18:00 08/20/22 17:30 Sodium Chloride IVPB 100 mls/hr Q24H [facility] Administration Protocol Latanoprost 1 drops 08/20/22 21:00 08/20/22 21:54 Latanoprost 0.005% Ophth Drops 2.5 Ml Btl BOTH EYES 1 drops HS [facility] Administration Levothyroxine Sodium 88 mcg 08/21/22 06:30 08/21/22 08:46 Levothyroxine 88 Mcg Tab PO Not Given DAILY@0630 [facility] Metoprolol Tartrate 50 mg 08/21/22 09:00 08/21/22 09:02 Metoprolol Tartrate 50 Mg Tab PO 50 mg BID [facility] Administration Multivitamins 1 each 08/21/22 12:00 08/21/22 12:56 Multivitamins, Thera 1 Each Tab PO 1 each DAILY@1200 [facility] Administration Nicotine 1 patch 08/21/22 09:00 08/21/22 09:02 Nicotine 14mg/24hr Patch TRANSDERM 1 patch DAILY [facility] Administration Nitroglycerin 0.4 mg 08/20/22 14:50 Nitroglycerin Sl Tabs 0.4 Mg Tab SUBLINGUAL Q5M PRN Chest Pain Pantoprazole Sodium 40 mg 08/21/22 07:30 08/21/22 09:02 Pantoprazole 40 Mg Tablet PO 40 mg AC-BRKFST [facility] Administration Intake and Output 08/20/22 08/21/22 08/21/22 22:59 06:59 14:59 Intake Total 98.583 147.314 Balance 98.583 147.314 Intake: Intake, IV Titration 98.583 147.314 Amount Diltiazem 125 mg In 98.583 Sodium Chloride 0.9% 100 ml @ 5 MG/HR 5 mls/hr IV .Q24H [facility] Rx#:[id number] Heparin Sod,Pork in 0.45% 147.314 NaCl 25,000 unit In 0.45 % NaCl 1 250ml.bag @ 12 UNITS/KG/HR 7.239 mls/hr IV .Q24H [facility] Rx#: [id number] Other: Voiding Method Bedside Commode Weight 60.328 kg Patient Weight 08/22/22 06:59 Weight 60.328 kg 08/21/22 07:29 08/21/22 07:29
[2022-08-21] MEDS: ATORVASTATIN 20 MG TAB PO SCH (17:35)
[2022-08-21] MEDS: AZITHROMYCIN 500 MG TAB PO SCH (17:35)
[2022-08-21 17:56] LABS: Chol/HDL Ratio 2.23 Ratio; VLDL Calculation 18.06 mg/dL (5.00-40.00)
[2022-08-21] MEDS: HEPARIN SOD,PORK IN 0.45% NACL 25,000 UNIT in 0.45% NACL 1 250ML.BAG IV SCH (20:34)
[2022-08-21] MEDS: LATANOPROST 0.005% OPHTH DROPS 2.5 ML BTL BOTH EYES SCH (21:13)
[2022-08-22] MEDS: PANTOPRAZOLE 40 MG TABLET PO SCH (06:37)
[2022-08-22] MEDS: LEVOTHYROXINE 88 MCG TAB PO SCH (06:37)
[2022-08-22] MEDS: BUDESONIDE 1 MG/2 ML NEBU INHALATION SCH ×2 (08:47→19:57)
[2022-08-22] MEDS: FORMOTEROL FUMARATE 20 MCG/2 ML NEBU INHALATION SCH ×2 (08:47→20:09)
[2022-08-22] MEDS: IPRATROPIUM-ALBUTEROL 3 ML NEB INHALATION SCH ×4 (08:47→19:57)
[2022-08-22] MEDS: AZITHROMYCIN 500 MG TAB PO SCH (08:56)
[2022-08-22] MEDS: NICOTINE 14MG/24HR PATCH TRANSDERM SCH (08:56)
[2022-08-22] MEDS: ASPIRIN 81 MG PO SCH (08:56)
[2022-08-22] MEDS: FUROSEMIDE 10 MG/ML 2 ML VIAL IV SCH (08:56)
[2022-08-22] MEDS: METOPROLOL TARTRATE 50 MG TAB PO SCH ×3 (08:56→20:51)
[2022-08-22] MEDS ORDERED: FUROSEMIDE 10 MG/ML 2 ML VIAL IV ONE (10:26)
[2022-08-22 11:26] LABS: Basophils # (A) 0.1 k/uL (0-0.2); Basophils % (A) 0 %; Eosinophils # (A) 0.1 k/uL (0-0.7); Eosinophils % (A) 1 %; HGB 12.1 gm/dL (11.4-16.0); Hypochromasia Slight; Lymphocytes # (A) 1.3 k/uL (1.0-4.8); Lymphocytes % (A) 10 %; MCH 29.9 pg (25.0-35.0); MCHC 33.6 g/dL (31.0-37.0); MCV 89.2 fL (80.0-100.0); Mean Platelet Volume 7.8; Monocytes # (A) 0.7 k/uL (0-1.0); Monocytes % (A) 6 %; Neutrophils # (A) 10.3 k/uL (1.3-7.7); Neutrophils % (A) 82 %; Platelet Count 322 k/uL (150-450); RBC 4.04 m/uL (3.80-5.40); RDW 13.4 % (11.5-15.5); WBC 12.7 k/uL (3.8-10.6)
[2022-08-22 11:49] LABS: Calcium 6.9 mg/dL (8.4-10.2); Potassium 3.3 mmol/L (3.5-5.1)
[2022-08-22] MEDS ORDERED: Potassium Replacement Protocol 1 EACH MISC MISCELLANE PRN (12:11)
[2022-08-22] MEDS: MULTIVITAMINS, THERA 1 EACH TAB PO SCH (12:17)
[2022-08-22] MEDS: DIGOXIN 125 MCG TAB PO SCH (12:17)
--- NOTE | 2022-08-22 14:12 | P.PN ---
Subjective Progress Note Date: 08/22/22 This is Virgilio Pope NP, I'm dictating on behalf of Dr. Hernandez's H&P and A&P. Patient was interviewed and examined. Patient is a pleasant 68-year-old female who initially presented to the hospital with A. fib with rapid ventricular response, and possible pneumonia. Patient reports that she's feeling okay today. However she continues to demonstrate atrial fibrillation with an increased heart rate. He has been on a Cardizem drip. Patient has an echo ordered that is pending completion. GENERAL: Well-appearing, well-nourished and in no acute distress. NECK: Supple without JVD or thyromegaly. LUNGS: Breath sounds clear to auscultation bilaterally. Respiration equal and unlabored. No wheezes, rales or rhonchi. HEART: Regular rate and rhythm without murmurs, rubs or gallops. S1 and S2 heard. EXTREMITIES: Normal range of motion, no edema. No clubbing or cyanosis. Peripheral pulses intact and strong. VITALS: Temp 97.9, mechanical cuff heart rate 82, however telemetry shows 115, respira tions 19, blood pressure 91/60, O2 saturation 95% on 2 L TELEMETRY: Atrial fibrillation with rapid ventricular response LABS: White count 12.7, hemoglobin 12.1, platelet 222, sodium 135, potassium 3.3, B1 19, creatinine 0.76, calcium 6.9 IMPRESSION: 1. A. fib with RVR 2. Paroxysmal atrial fibrillation 3. Pneumonia 4. Diabetes 5. PAD PLAN: Continue Cardizem drip Start metoprolol 50 mg 3 times a day Start digoxin 0.125 mg daily Change Lasix to 40 mg by mouth daily Echocardiogram pending If approved by insurance, transition patient Eliquis Further recommendations based on the patient's clinical course Objective - Vital Signs Vital signs: Vital Signs Temp 97.9 F 08/22/22 11:53 Pulse 81 08/22/22 12:56 Resp 19 08/22/22 11:53 BP 91/60 08/22/22 11:53 Pulse Ox 95 08/22/22 11:53 FiO2 Intake & Output 08/21/22 08/22/22 08/22/22 18:59 06:59 18:59 Intake Total 201.564 85.47 265.256 Output Total 750 300 Balance 201.564 -664.53 -34.744 Weight 60.328 kg 63 kg Intake: Intake, IV Titration 201.564 85.47 147.256 Amount Diltiazem 125 mg In 54.25 Sodium Chloride 0.9% 100 ml @ 10 MG/HR 10 mls/hr IV .[id number] [facility] Rx#: [id number] Heparin Sod,Pork in 0.45% 147.314 85.47 147.256 NaCl 25,000 unit In 0.45 % NaCl 1 250ml.bag @ 12 UNITS/KG/HR 7.239 mls/hr IV .Q24H [facility] Rx#: [id number] Oral 118 Output: Urine 750 300 Other: Voiding Method Bedside Commode Bedside Commode Bedside Commode # Voids 1 2 - Labs CBC & Chem 7: 08/22/22 10:40 08/22/22 10:40 Labs: Abnormal Lab Results - Last 24 Hours (Table) 08/21/22 08/22/22 08/22/22 Range/Units 16:52 10:40 10:40 WBC 12.7 H (3.8-10.6) k/uL Neutrophils # 10.3 H (1.3-7.7) k/uL APTT 55.7 H (22.0-30.0) sec Sodium 135 L (137-145) mmol/L Potassium 3.3 L (3.5-5.1) mmol/L Carbon Dioxide 33 H (22-30) mmol/L BUN 19 H (7-17) mg/dL Glucose 102 H (74-99) mg/dL Calcium 6.9 L (8.4-10.2) mg/dL 08/22/22 Range/Units 10:40 WBC (3.8-10.6) k/uL Neutrophils # (1.3-7.7) k/uL APTT 92.7 H (22.0-30.0) sec Sodium (137-145) mmol/L Potassium (3.5-5.1) mmol/L Carbon Dioxide (22-30) mmol/L BUN (7-17) mg/dL Glucose (74-99) mg/dL Calcium (8.4-10.2) mg/dL Microbiology - Last 24 Hours (Table) 08/20/22 11:01 Blood Culture - Preliminary Blood No Growth after 48 hours 08/20/22 10:45 Blood Culture - Preliminary Blood No Growth after 48 hours
[2022-08-22] MEDS: DILTIAZEM 125 MG in SODIUM CHLORIDE 0.9% 100 ML IV SCH ×2 (15:57→23:58)
[2022-08-22] MEDS: POTASSIUM CHLORIDE ER 20 MEQ TAB.ER PO SCH ×2 (16:07→17:56)
[2022-08-22] MEDS: methylPREDNISolone SOD SUCCI 40 MG/ML 1 ML VIAL IV SCH ×2 (16:07→23:57)
[2022-08-22] MEDS: HEPARIN SOD,PORK IN 0.45% NACL 25,000 UNIT in 0.45% NACL 1 250ML.BAG IV SCH (17:56)
[2022-08-22] MEDS: ATORVASTATIN 20 MG TAB PO SCH (17:59)
--- NOTE | 2022-08-22 19:05 | CA ---
Transthoracic Echo Report Name: Criss Sandhu Age: 76 Gender: F : 1945 Exam Date: 08/22/2022 14:23 Exam Location: [facility] Ht (in): 61 Wt (lb): 138 Ordering Physician: Melonie Chisholm MD Attending/Referring Phys: Calculation Clerk Lory Ying RDCS Procedure CPT: Indications: chf Cardiac Hx: Technical Quality: Fair Contrast 1: Total Dose (mL): Contrast 2: Total Dose (mL): MEASUREMENTS (Male / Female) Normal Values 2D ECHO LV Diastolic Diameter PLAX 4.2 cm 4.2 - 5.9 / 3.9 - 5.3 cm LV Systolic Diameter PLAX 3.1 cm IVS Diastolic Thickness 1.6 cm 0.6 - 1.0 / 0.6 - 0.9 cm LVPW Diastolic Thickness 1.5 cm 0.6 - 1.0 / 0.6 - 0.9 cm LV Relative Wall Thickness 0.7 RV Internal Dim ED PLAX 3.3 cm LVOT Diameter 1.8 cm LA Volume 92.7 cm??? 18 - 58 / 22 - 52 cm??? M-MODE Aortic Root Diameter MM 3.0 cm LA Systolic Diameter MM 5.3 cm LA Ao Ratio MM 1.8 AV Cusp Separation MM 1.3 cm DOPPLER AV Peak Velocity 148.2 cm/s AV Peak Gradient 8.8 mmHg AV Mean Velocity 104.2 cm/s AV Mean Gradient 4.7 mmHg AV Velocity Time Integral 26.2 cm LVOT Peak Velocity 79.8 cm/s LVOT Peak Gradient 2.5 mmHg AV Area Cont Eq pk 1.4 cm??? MV E' Velocity 7.2 cm/s TR Peak Velocity 307.8 cm/s TR Peak Gradient 37.9 mmHg Right Ventricular Systolic Press 41.8 mmHg FINDINGS Left Ventricle Moderately increased septal wall thickness. Moderately increased posterior wall thickness. No obvious regional wall motion abnormalities. Left ventricular ejection fraction is estimated at 50-55 %. Right Ventricle Mild right ventricular dilatation. Mild pulmonary hypertension. Right Atrium Mild to moderate right atrial dilatation. Left Atrium Severely increased left atrial volume. Mildly increased left atrial area. Mitral Valve Mitral valve thickened. Moderate mitral annular calcification. [id number] mitral regurgitation. Aortic Valve No aortic valve stenosis or regurgitation. Aortic valve sclerosis. Tricuspid Valve [id number] tricuspid regurgitation. Pulmonic Valve Trace pulmonic regurgitation. Pericardium No pericardial effusion. Aorta Normal size aortic root and proximal ascending aorta. CONCLUSIONS Patient tachycardic LVH with ejection fraction of 50% Irregular rhythm Reduced aortic valve leaflet excursion Aortic valve gradient does not suggest significant aortic stenosis However the short axis views suggest reduced aortic valve opening Suggest reassessment when heart rates improve/or during sinus rhythm Previewed by: Dr. Nick Hernandez MD (Electronically Signed) Final Date: 22 August 2022 19:04
[2022-08-22] MEDS: LATANOPROST 0.005% OPHTH DROPS 2.5 ML BTL BOTH EYES SCH (20:51)
[2022-08-23] MEDS ORDERED: POTASSIUM CHLORIDE ER 20 MEQ TAB.ER PO STA (00:33)
--- NOTE | 2022-08-23 00:39 | P.PN ---
Subjective Progress Note Date: 08/21/22 Patient is a 76-year-old female with past medical history of COPD/asthma, atrial fibrillation, hypertension presents to ER with complaints of shortness of breath for the past few days. Chest x-ray showed evidence of CHF and pneumonia and patient was found to be in atrial fibrillation with rapid regular rate. 08/21/2022 Patient is currently lying in bed. Awake alert and oriented. Complains of shortness of breath with exertion. Heart rate is still elevated and is being continued on Cardizem drip. Cardiology is on board. Patient is also on heparin drip. No complaints of chest pain. No fever no chills. No nausea vomiting abdominal pain or diarrhea. Laboratory data showed WBC 15.7 hemoglobin 12.1 and platelets 379 sodium 138 potassium 3.3 chloride 101 bicarb is 30 BUN 19 and creatinine 0.11 and calcium 7.7 protein 5.6 and albumin 3.0. Cardiology is on board. Current medications reviewed. Objective - Vital Signs Vital signs: Vital Signs Temp 96.8 F L 08/21/22 08:49 Pulse 122 H 08/21/22 13:59 Resp 18 08/21/22 13:59 BP 108/76 08/21/22 12:54 Pulse Ox 95 08/21/22 12:54 FiO2 Intake & Output 08/20/22 08/21/22 08/21/22 18:59 06:59 18:59 Intake Total 98.583 147.314 Balance 98.583 147.314 Weight 60.328 kg 60.328 kg Intake: Intake, IV Titration 98.583 147.314 Amount Diltiazem 125 mg In 98.583 Sodium Chloride 0.9% 100 ml @ 5 MG/HR 5 mls/hr IV .Q24H [facility] Rx#:[id number] Heparin Sod,Pork in 0.45% 147.314 NaCl 25,000 unit In 0.45 % NaCl 1 250ml.bag @ 12 UNITS/KG/HR 7.239 mls/hr IV .Q24H [facility] Rx#: [id number] Other: Voiding Method Bedside Commode - Exam PHYSICAL EXAMINATION: Patient is lying in the bed comfortably, no acute distress, awake alert and oriented.. HEENT: Normocephalic. Neck is supple. Pupils reactive. Nostrils clear. Oral ca vity is moist. Neck reveals no JVD, carotid bruits, or thyromegaly. CHEST EXAMINATION: Trachea is central. Symmetrical expansion. Bilateral coarse breath sounds and scattered rhonchi.. CARDIAC: Normal S1, S2 with no gallops. No murmurs irregularly irregular rhythm. ABDOMEN: Soft. Bowel sounds present. Nontender. No organomegaly. No abdominal bruits. Extremities: reveal no edema. No clubbing or cyanosis Neurologically awake, alert, oriented x3 with well-coordinated movements. No focal deficits noted Skin: No rash or skin lesions. Psychiatric: Coperative. Nonsuicidal, Musculoskeletal: No joint swelling or deformity. Normal range of motion. - Labs CBC & Chem 7: 08/22/22 10:40 08/22/22 10:40 Labs: Abnormal Lab Results - Last 24 Hours (Table) 08/20/22 08/21/22 08/21/22 Range/Units 20:30 07:29 07:29 WBC 15.7 H (3.8-10.6) k/uL Neutrophils # 12.6 H (1.3-7.7) k/uL APTT 48.1 H (22.0-30.0) sec Potassium 3.3 L (3.5-5.1) mmol/L BUN 19 H (7-17) mg/dL Calcium 7.7 L (8.4-10.2) mg/dL Total Protein 5.6 L (6.3-8.2) g/dL Albumin 3.0 L (3.5-5.0) g/dL 08/21/22 08/21/22 Range/Units 07:29 10:42 WBC (3.8-10.6) k/uL Neutrophils # (1.3-7.7) k/uL APTT >200.0 H* 40.4 H (22.0-30.0) sec Potassium (3.5-5.1) mmol/L BUN (7-17) mg/dL Calcium (8.4-10.2) mg/dL Total Protein (6.3-8.2) g/dL Albumin (3.5-5.0) g/dL Microbiology - Last 24 Hours (Table) 08/20/22 11:01 Blood Culture - Preliminary Blood No Growth after 24 hours 08/20/22 10:45 Blood Culture - Preliminary Blood No Growth after 24 hours Assessment and Plan Assessment: Bilateral patchy infiltrates secondary to pneumonia Atrial fibrillation with rapid ventricular rate Paroxysmal atrial fibrillation Asthma/COPD and currently everyday smoker Hypertension Hypothyroidism Peripheral vascular disease History of breast cancer status post bilateral mastectomy History of right upper lobectomy GI prophylaxis Plan: Patient will be continued on Cardizem drip and heparin drip. Continue with antibiotics ceftriaxone azithromycin. Follow-up CBC and BMP. Cardiology is on board. Follow-up culture reports. Time with Patient: Greater than 30
--- NOTE | 2022-08-23 00:41 | P.PN ---
Subjective Progress Note Date: 08/22/22 Patient is a 76-year-old female with past medical history of COPD/asthma, atrial fibrillation, hypertension presents to ER with complaints of shortness of breath for the past few days. Chest x-ray showed evidence of CHF and pneumonia and patient was found to be in atrial fibrillation with rapid regular rate. 08/21/2022 Patient is currently lying in bed. Awake alert and oriented. Complains of shortness of breath with exertion. Heart rate is still elevated and is being continued on Cardizem drip. Cardiology is on board. Patient is also on heparin drip. No complaints of chest pain. No fever no chills. No nausea vomiting abdominal pain or diarrhea. Laboratory data showed WBC 15.7 hemoglobin 12.1 and platelets 379 sodium 138 potassium 3.3 chloride 101 bicarb is 30 BUN 19 and creatinine 0.11 and calcium 7.7 protein 5.6 and albumin 3.0. Cardiology is on board. 08/22/2022 Patient is currently sitting in the bed awake alert oriented x3. Still complains of shortness of breath and exertional dyspnea. Patient is also wheezing on exam and diffuse coarse sounds. No fever no chills. Does have c ough without any sputum production. Heart rate is still elevated today. No fever no chills. Currently on antibiotics. Leukocytosis trending down. Laboratory data showed WBC 12.7 hemoglobin 12.1 and platelets 322 sodium 135 potassium 3.3 chloride 98 bicarb 33 BUN 19 and creatinine 0.76 and calcium 6.9. Cardiology is on board. 2D echocardiogram showed ejection fraction 50% and reduced aortic valve leaflet excursion aortic valve gradient does not suggest significant aortic stenosis. Current medications reviewed. Objective - Vital Signs Vital signs: Vital Signs Temp 97.6 F 08/22/22 16:00 Pulse 80 08/22/22 20:15 Resp 19 08/22/22 16:00 BP 98/65 08/22/22 16:00 Pulse Ox 96 08/22/22 16:00 FiO2 Intake & Output 08/22/22 08/22/22 08/23/22 06:59 18:59 06:59 Intake Total 85.47 457.899 500 Output Total 750 300 700 Balance -664.53 157.899 -200 Weight 63 kg Intake: Intake, IV Titration 85.47 339.899 Amount Diltiazem 125 mg In 121.833 Sodium Chloride 0.9% 100 ml @ 10 MG/HR 10 mls/hr IV .[id number] [facility] Rx#: [id number] Heparin Sod,Pork in 0.45% 85.47 168.066 NaCl 25,000 unit In 0.45 % NaCl 1 250ml.bag @ 12 UNITS/KG/HR 7.239 mls/hr IV .Q24H [facility] Rx#: [id number] cefTRIAXone 1 gm In 50 Sodium Chloride 0.9% 50 ml @ 100 mls/hr IVPB Q24H [facility] Rx#:[id number] Oral 118 500 Output: Urine 750 300 700 Other: Voiding Method Bedside Commode Bedside Commode # Voids 1 2 2 - Exam PHYSICAL EXAMINATION: Patient is lying in the bed comfortably, no acute distress, awake alert and oriented.. HEENT: Normocephalic. Neck is supple. Pupils reactive. Nostrils clear. Oral cavity is moist. Neck reveals no JVD, carotid bruits, or thyromegaly. CHEST EXAMINATION: Trachea is central. Symmetrical expansion. Bilateral coarse breath sounds and scattered rhonchi.. CARDIAC: Normal S1, S2 with no gallops. No murmurs irregularly irregular rhythm. ABDOMEN: Soft. Bowel sounds present. Nontender. No organomegaly. No abdominal bruits. Extremities: reveal no edema. No clubbing or cyanosis Neurologically awake, alert, oriented x3 with well-coordinated movements. No focal deficits noted Skin: No rash or skin lesions. Psychiatric: Coperative. Nonsuicidal, Musculoskeletal: No joint swelling or deformity. Normal range of motion. - Labs CBC & Chem 7: 08/22/22 10:40 08/22/22 10:40 Labs: Abnormal Lab Results - Last 24 Hours (Table) 08/22/22 08/22/22 08/22/22 Range/Units 10:40 10:40 10:40 WBC 12.7 H (3.8-10.6) k/uL Neutrophils # 10.3 H (1.3-7.7) k/uL APTT 92.7 H (22.0-30.0) sec Sodium 135 L (137-145) mmol/L Potassium 3.3 L (3.5-5.1) mmol/L Carbon Dioxide 33 H (22-30) mmol/L BUN 19 H (7-17) mg/dL Glucose 102 H (74-99) mg/dL Calcium 6.9 L (8.4-10.2) mg/dL Microbiology - Last 24 Hours (Table) 08/20/22 11:01 Blood Culture - Preliminary Blood No Growth after 48 hours 08/20/22 10:45 Blood Culture - Preliminary Blood No Growth after 48 hours Assessment and Plan Assessment: Bilateral patchy infiltrates secondary to pneumonia Acute COPD exacerbation Atrial fibrillation with rapid ventricular rate Paroxysmal atrial fibrillation Asthma/COPD and currently everyday smoker Hypertension Hypothyroidism Peripheral vascular disease History of breast cancer status post bilateral mastectomy History of right upper lobectomy GI prophylaxis Plan: Patient is being continued on Cardizem drip. Also on metoprolol dose increased to 50 mg 3 times daily. Continue the digoxin. Patient was patient was started on IV Solu-Medrol and was given a dose of IV Lasix today. Continue with duo nebs and follow-up closely. Cardiology is on board. Patient is currently on heparin drip and will be changed to Eliquis. Continue with antibiotics ceftriaxone azithromycin. Follow-up CBC and BMP. Cardiology is on board. Follow-up culture reports. Time with Patient: Greater than 30
[2022-08-23] MEDS: HEPARIN SOD,PORK IN 0.45% NACL 25,000 UNIT in 0.45% NACL 1 250ML.BAG IV SCH (01:49)
[2022-08-23] MEDS: DILTIAZEM 125 MG in SODIUM CHLORIDE 0.9% 100 ML IV SCH ×2 (05:07→18:25)
[2022-08-23] MEDS: PANTOPRAZOLE 40 MG TABLET PO SCH (06:22)
[2022-08-23] MEDS: LEVOTHYROXINE 88 MCG TAB PO SCH (06:22)
[2022-08-23 07:26] LABS: Basophils % (A) 0 %; Eosinophils % (A) 0 %; HCT 40.4 % (34.0-46.0); HGB 12.6 gm/dL (11.4-16.0); Hypochromasia Slight; Lymphocytes # (A) 0.4 k/uL (1.0-4.8); Lymphocytes % (A) 2 %; MCH 28.4 pg (25.0-35.0); MCHC 31.2 g/dL (31.0-37.0); MCV 91.2 fL (80.0-100.0); Mean Platelet Volume 8.1; Monocytes # (A) 0.3 k/uL (0-1.0); Monocytes % (A) 2 %; Neutrophils # (A) 16.2 k/uL (1.3-7.7); Neutrophils % (A) 96 %; Platelet Count 326 k/uL (150-450); RBC 4.43 m/uL (3.80-5.40); RDW 13.7 % (11.5-15.5); WBC 16.9 k/uL (3.8-10.6)
[2022-08-23 07:39] LABS: African American GFR (CKD) >90 (>60 ml/min/1.73 sqM); Anion Gap 7 mmol/L; Blood Urea Nitrogen 19 mg/dL (7-17); Calcium 7.2 mg/dL (8.4-10.2); Carbon Dioxide 27 mmol/L (22-30); Chloride 100 mmol/L (98-107); Glucose 162 mg/dL (74-99); Non-African American GFR(CKD) 86 (>60 ml/min/1.73 sqM); Potassium 5.1 mmol/L (3.5-5.1); Sodium 134 mmol/L (137-145)
[2022-08-23] MEDS: IPRATROPIUM-ALBUTEROL 3 ML NEB INHALATION SCH ×4 (08:40→21:11)
[2022-08-23] MEDS: BUDESONIDE 1 MG/2 ML NEBU INHALATION SCH ×2 (08:40→21:11)
[2022-08-23] MEDS: FORMOTEROL FUMARATE 20 MCG/2 ML NEBU INHALATION SCH ×2 (08:40→21:11)
[2022-08-23] MEDS: NICOTINE 14MG/24HR PATCH TRANSDERM SCH (09:38)
[2022-08-23] MEDS: ASPIRIN 81 MG PO SCH (09:38)
[2022-08-23] MEDS: AZITHROMYCIN 500 MG TAB PO SCH (09:39)
[2022-08-23] MEDS: DIGOXIN 125 MCG TAB PO SCH (09:39)
[2022-08-23] MEDS: FUROSEMIDE 40 MG TAB PO SCH (09:39)
[2022-08-23] MEDS: methylPREDNISolone SOD SUCCI 40 MG/ML 1 ML VIAL IV SCH ×3 (09:39→23:36)
[2022-08-23] MEDS: METOPROLOL TARTRATE 50 MG TAB PO SCH ×3 (09:39→20:38)
[2022-08-23] MEDS: APIXABAN 5 MG TAB PO SCH ×2 (10:06→20:38)
[2022-08-23] MEDS: MULTIVITAMINS, THERA 1 EACH TAB PO SCH (12:14)
--- NOTE | 2022-08-23 12:33 | P.PN ---
Subjective Progress Note Date: 08/23/22 This is Virgilio Pope NP, I'm dictating on behalf of Dr. eHrnandez's H&P and A&P. Patient was interviewed and examined. Patient is a pleasant 76-year-old female who presented to the hospital with SOB and heart palpitations, has pneumonia and afib with RVR. Heart rate is much better controlled today, she continues in afib on the monitor but heart rate is in the 70's. Patient is tolerating the metoprolol and digoxin. She has continued on the cardizem drip. She denies chest pain overnight. Denies flu ttering in her chest. Echocardiogram read yesterday was difficult to read due to tachycardia, but EF is estimated at 50%. No obvious valvular abnormalities. Recommend follow-up echo once patient has her heart rate better under control. GENERAL: Well-appearing, well-nourished and in no acute distress. NECK: Supple without JVD or thyromegaly. LUNGS: Breath sounds clear to auscultation bilaterally. Respiration equal and unlabored. No wheezes, rales or rhonchi. HEART: Regular rate and rhythm without murmurs, rubs or gallops. S1 and S2 heard. EXTREMITIES: Normal range of motion, no edema. No clubbing or cyanosis. Peripheral pulses intact and strong. VITALS: Temp 98.0, pulse 75, respirations 18, blood pressure 106/67, O2 saturation 97% on 2 L TELEMETRY: Atrial fibrillation with controlled ventricular response LABS: White count 16.9, hemoglobin 12.6, platelets 326, sodium 134, potassium 5.1, B1 19, creatinine 0.64 IMPRESSION: 1. A. fib with RVR 2. Paroxysmal atrial fibrillation 3. Pneumonia 4. Diabetes 5. PAD PLAN: DC Cardizem Continue metoprolol, digoxin. If rate control continues to remain stable, consider Metoprolol BID. Start Eliquis 5mg BID. Pharmacy has verified coverage. Stop Heparin Drip 5 hours after first Eliqius dose. Further recommendations based on the patient's clinical course. Objective - Vital Signs Vital signs: Vital Signs Temp 97.5 F L 08/23/22 04:00 Pulse 78 08/23/22 09:03 Resp 16 08/23/22 04:00 BP 105/58 08/23/22 04:00 Pulse Ox 94 L 08/23/22 04:00 FiO2 Intake & Output 08/22/22 08/23/22 08/23/22 18:59 06:59 18:59 Intake Total 457.899 910.256 240 Output Total 300 1250 300 Balance 157.899 -339.744 -60 Intake: Intake, IV Titration 339.899 170.256 Amount Diltiazem 125 mg In 121.833 111.667 Sodium Chloride 0.9% 100 ml @ 10 MG/HR 10 mls/hr IV .[id number] [facility] Rx#: [id number] Heparin Sod,Pork in 0.45% 168.066 58.589 NaCl 25,000 unit In 0.45 % NaCl 1 250ml.bag @ 12 UNITS/KG/HR 7.239 mls/hr IV .Q24H [facility] Rx#: [id number] cefTRIAXone 1 gm In 50 Sodium Chloride 0.9% 50 ml @ 100 mls/hr IVPB Q24H [facility] Rx#:[id number] Oral 118 740 240 Output: Urine 300 1250 300 Other: Voiding Method Bedside Commode Bedside Commode # Voids 2 1 - Labs CBC & Chem 7: 08/23/22 06:46 08/23/22 06:46 Labs: Abnormal Lab Results - Last 24 Hours (Table) 08/22/22 08/22/22 08/22/22 Range/Units 10:40 10:40 10:40 WBC 12.7 H (3.8-10.6) k/uL Neutrophils # 10.3 H (1.3-7.7) k/uL Lymphocytes # (1.0-4.8) k/uL APTT 92.7 H (22.0-30.0) sec Sodium 135 L (137-145) mmol/L Potassium 3.3 L (3.5-5.1) mmol/L Carbon Dioxide 33 H (22-30) mmol/L BUN 19 H (7-17) mg/dL Glucose 102 H (74-99) mg/dL Calcium 6.9 L (8.4-10.2) mg/dL 08/23/22 08/23/22 08/23/22 Range/Units 00:26 06:46 06:46 WBC 16.9 H (3.8-10.6) k/uL Neutrophils # 16.2 H (1.3-7.7) k/uL Lymphocytes # 0.4 L (1.0-4.8) k/uL APTT 48.4 H (22.0-30.0) sec Sodium 134 L (137-145) mmol/L Potassium (3.5-5.1) mmol/L Carbon Dioxide (22-30) mmol/L BUN 19 H (7-17) mg/dL Glucose 162 H (74-99) mg/dL Calcium 7.2 L (8.4-10.2) mg/dL 08/23/22 Range/Units 06:46 WBC (3.8-10.6) k/uL Neutrophils # (1.3-7.7) k/uL Lymphocytes # (1.0-4.8) k/uL APTT 44.9 H (22.0-30.0) sec Sodium (137-145) mmol/L Potassium (3.5-5.1) mmol/L Carbon Dioxide (22-30) mmol/L BUN (7-17) mg/dL Glucose (74-99) mg/dL Calcium (8.4-10.2) mg/dL Microbiology - Last 24 Hours (Table) 08/20/22 11:01 Blood Culture - Preliminary Blood No Growth after 48 hours 08/20/22 10:45 Blood Culture - Preliminary Blood No Growth after 48 hours
[2022-08-23 17:02] LABS: Glucose,Whole Blood 276 mg/dL (70-110)
[2022-08-23] MEDS: ATORVASTATIN 20 MG TAB PO SCH (18:25)
[2022-08-23 20:25] LABS: Glucose,Whole Blood 186 mg/dL (70-110)
[2022-08-23] MEDS: LATANOPROST 0.005% OPHTH DROPS 2.5 ML BTL BOTH EYES SCH (20:38)
--- NOTE | 2022-08-24 01:21 | P.PN ---
Subjective Progress Note Date: 08/23/22 Patient is a 76-year-old female with past medical history of COPD/asthma, atrial fibrillation, hypertension presents to ER with complaints of shortness of breath for the past few days. Chest x-ray showed evidence of CHF and pneumonia and patient was found to be in atrial fibrillation with rapid regular rate. 08/21/2022 Patient is currently lying in bed. Awake alert and oriented. Complains of shortness of breath with exertion. Heart rate is still elevated and is being continued on Cardizem drip. Cardiology is on board. Patient is also on heparin drip. No complaints of chest pain. No fever no chills. No nausea vomiting abdominal pain or diarrhea. Laboratory data showed WBC 15.7 hemoglobin 12.1 and platelets 379 sodium 138 potassium 3.3 chloride 101 bicarb is 30 BUN 19 and creatinine 0.11 and calcium 7.7 protein 5.6 and albumin 3.0. Cardiology is on board. 08/22/2022 Patient is currently sitting in the bed awake alert oriented x3. Still complains of shortness of breath and exertional dyspnea. Patient is also wheezing on exam and diffuse coarse sounds. No fever no chills. Does have c ough without any sputum production. Heart rate is still elevated today. No fever no chills. Currently on antibiotics. Leukocytosis trending down. Laboratory data showed WBC 12.7 hemoglobin 12.1 and platelets 322 sodium 135 potassium 3.3 chloride 98 bicarb 33 BUN 19 and creatinine 0.76 and calcium 6.9. Cardiology is on board. 2D echocardiogram showed ejection fraction 50% and reduced aortic valve leaflet excursion aortic valve gradient does not suggest significant aortic stenosis. 08/23/2022 Patient is currently sitting in the bed. Awake alert and oriented. Breathing status is better today. Requiring oxygen at 2 L via nasal cannula. Patient is being continued on antibiotics ceftriaxone and azithromycin. Also on IV steroids and duo nebs. Otherwise patient continues to be in atrial fibrillation but heart rate is controlled. Cardizem drip has been discontinued and patient will be started on metoprolol. Heparin drip has been discontinued and patient was started on Eliquis. First dose today. Today echocardiogram showed physical activity percent and tachycardic. No obvi ous valvular abnormalities noted. Laboratory showed WBC increased to 16.9 likely due to steroids Hemoglobin 12.6 and platelets 326 sodium 134 potassium 5.1 chloride 100 bicarb 27 BUN 19 creatinine 0.64 and calcium 7.2. Cardiology is on board. Current medications reviewed. Objective - Vital Signs Vital signs: Vital Signs Temp 98.4 F 08/23/22 16:00 Pulse 80 08/23/22 21:25 Resp 18 08/23/22 16:00 BP 118/73 08/23/22 16:00 Pulse Ox 96 08/23/22 16:00 FiO2 Intake & Output 08/23/22 08/23/22 08/24/22 06:59 18:59 06:59 Intake Total 910.256 407.167 Output Total 1250 1950 300 Balance -339.744 -1542.833 -300 Intake: Intake, IV Titration 170.256 49.167 Amount Diltiazem 125 mg In 111.667 49.167 Sodium Chloride 0.9% 100 ml @ 10 MG/HR 10 mls/hr IV .[id number] [facility] Rx#: [id number] Heparin Sod,Pork in 0.45% 58.589 NaCl 25,000 unit In 0.45 % NaCl 1 250ml.bag @ 12 UNITS/KG/HR 7.239 mls/hr IV .Q24H [facility] Rx#: [id number] Oral 740 358 Output: Urine 1250 1950 300 Other: Voiding Method Bedside Commode Bedside Commode # Voids 1 2 - Exam PHYSICAL EXAMINATION: Patient is lying in the bed comfortably, no acute distress, awake alert and oriented.. HEENT: Normocephalic. Neck is supple. Pupils reactive. Nostrils clear. Oral cavity is moist. Neck reveals no JVD, carotid bruits, or thyromegaly. CHEST EXAMINATION: Trachea is central. Symmetrical expansion. Bilateral expiratory wheezing and scattered rhonchi and crackles.. CARDIAC: Normal S1, S2 with no gallops. No murmurs irregularly irregular rhythm. ABDOMEN: Soft. Bowel sounds present. Nontender. No organomegaly. No abdominal bruits. Extremities: reveal no edema. No clubbing or cyanosis Neurologically awake, alert, oriented x3 with well-coordinated movements. No focal deficits noted Skin: No rash or skin lesions. Psychiatric: Coperative. Nonsuicidal, Musculoskeletal: No joint swelling or deformity. Normal range of motion. - Labs CBC & Chem 7: 08/23/22 06:46 08/23/22 06:46 Labs: Abnormal Lab Results - Last 24 Hours (Table) 08/23/22 08/23/22 08/23/22 Range/Units 00:26 06:46 06:46 WBC 16.9 H (3.8-10.6) k/uL Neutrophils # 16.2 H (1.3-7.7) k/uL Lymphocytes # 0.4 L (1.0-4.8) k/uL APTT 48.4 H (22.0-30.0) sec Sodium 134 L (137-145) mmol/L BUN 19 H (7-17) mg/dL Glucose 162 H (74-99) mg/dL POC Glucose (mg/dL) (70-110) mg/dL Calcium 7.2 L (8.4-10.2) mg/dL 08/23/22 08/23/22 08/23/22 Range/Units 06:46 17:00 20:23 WBC (3.8-10.6) k/uL Neutrophils # (1.3-7.7) k/uL Lymphocytes # (1.0-4.8) k/uL APTT 44.9 H (22.0-30.0) sec Sodium (137-145) mmol/L BUN (7-17) mg/dL Glucose (74-99) mg/dL POC Glucose (mg/dL) 276 H 186 H (70-110) mg/dL Calcium (8.4-10.2) mg/dL Microbiology - Last 24 Hours (Table) 08/20/22 10:45 Blood Culture - Preliminary Blood No Growth after 72 hours 08/20/22 11:01 Blood Culture - Preliminary Blood No Growth after 72 hours Assessment and Plan Assessment: Bilateral patchy infiltrates secondary to pneumonia Acute COPD exacerbation Atrial fibrillation with rapid ventricular rate Paroxysmal atrial fibrillation Asthma/COPD and currently everyday smoker Hypertension Hypothyroidism Peripheral vascular disease History of breast cancer status post bilateral mastectomy History of right upper lobectomy GI prophylaxis Plan: Continue with digoxin started back on metoprolol. Cardizem drip will be discontinued with better heart rate control. Patient was patient was started on IV Solu-Medrol and was given a dose of IV Lasix. c/w PO lasix. Continue with duo nebs and follow-up closely. Cardiology is on board. Patient is currently on heparin drip and changed to Eliquis. Continue with antibiotics ceftriaxone azithromycin. Follow-up CBC and BMP. Cardiology is on board. Follow-up culture reports. Time with Patient: Greater than 30
[2022-08-24 06:17] LABS: Glucose,Whole Blood 154 mg/dL (70-110)
[2022-08-24] MEDS: DILTIAZEM 125 MG in SODIUM CHLORIDE 0.9% 100 ML IV SCH ×2 (06:22→21:38)
[2022-08-24] MEDS: LEVOTHYROXINE 88 MCG TAB PO SCH (06:22)
[2022-08-24] MEDS: PANTOPRAZOLE 40 MG TABLET PO SCH (06:23)
[2022-08-24] MEDS: IPRATROPIUM-ALBUTEROL 3 ML NEB INHALATION SCH ×4 (07:33→20:24)
[2022-08-24] MEDS: BUDESONIDE 1 MG/2 ML NEBU INHALATION SCH ×2 (07:33→20:24)
[2022-08-24] MEDS: FORMOTEROL FUMARATE 20 MCG/2 ML NEBU INHALATION SCH ×2 (07:33→20:24)
[2022-08-24 08:18] LABS: African American GFR (CKD) >90 (>60 ml/min/1.73 sqM); Anion Gap 6 mmol/L; Blood Urea Nitrogen 23 mg/dL (7-17); Calcium 7.1 mg/dL (8.4-10.2); Carbon Dioxide 28 mmol/L (22-30); Chloride 99 mmol/L (98-107); Glucose 141 mg/dL (74-99); Non-African American GFR(CKD) 86 (>60 ml/min/1.73 sqM); Potassium 4.8 mmol/L (3.5-5.1); Sodium 133 mmol/L (137-145)
[2022-08-24 08:26] LABS: Basophils % (A) 0 %; Eosinophils % (A) 0 %; HCT 38.1 % (34.0-46.0); HGB 12.6 gm/dL (11.4-16.0); Lymphocytes # (A) 0.4 k/uL (1.0-4.8); Lymphocytes % (A) 2 %; Mean Platelet Volume 8.4; Monocytes # (A) 0.4 k/uL (0-1.0); Monocytes % (A) 2 %; Neutrophils # (A) 21.2 k/uL (1.3-7.7); Neutrophils % (A) 96 %; Platelet Count 308 k/uL (150-450); RBC 4.33 m/uL (3.80-5.40); RDW 13.9 % (11.5-15.5)
[2022-08-24] MEDS: DIGOXIN 125 MCG TAB PO SCH (08:47)
[2022-08-24] MEDS: FUROSEMIDE 40 MG TAB PO SCH (08:47)
[2022-08-24] MEDS: METOPROLOL TARTRATE 50 MG TAB PO SCH ×3 (08:47→20:57)
[2022-08-24] MEDS: ASPIRIN 81 MG PO SCH (08:47)
[2022-08-24] MEDS: NICOTINE 14MG/24HR PATCH TRANSDERM SCH (08:47)
[2022-08-24] MEDS: methylPREDNISolone SOD SUCCI 40 MG/ML 1 ML VIAL IV SCH ×3 (08:47→23:48)
[2022-08-24] MEDS: APIXABAN 5 MG TAB PO SCH ×2 (08:47→20:56)
--- NOTE | 2022-08-24 10:05 | P.PN ---
Subjective Progress Note Date: 08/24/22 HISTORY OF PRESENT ILLNESS: Patient is a pleasant 76-year-old female who presented to the hospital with SOB and heart palpitations, has pneumonia and afib with RVR. Heart rate is much better controlled today, she continues in afib on the monitor but heart rate is in the 70's. Patient is tolerating the metoprolol and digoxin. She has continued on the cardizem drip. She denies chest pain overnight. Denies fluttering in her chest. Echocardiogram read yesterday was difficult to read due to tachycardia, but EF is estimated at 50%. No obvious valvular abnormalities. Recommend follow-up echo once patient has her heart rate better under control. 08/24/2022 Patient examined this morning at the bedside. Patient denies chest pain or pressure. She reports SOB which she states is chronic and at her baseline. Telemetry reveals atrial fibrillation with heart rates in the 100-120s. Patient denies palpitations. Patient's blood pressure is stable. She remains on IV Cardizem at 5 mg an hour. PHYSICAL EXAM: VITAL SIGNS: Reviewed. GENERAL: Well-developed in no acute distress. NECK: Supple. No JVD or thyromegaly LUNGS: Respirations even and unlabored. Lungs diminished to auscultation bilaterally. HEART: Tachycardic. Irregular rate and rhythm. S1 and S2 heard. EXTREMITIES: Normal range of motion. No clubbing or cyanosis. Peripheral pulses intact. No lower extremity edema ASSESSMENT: Paroxysmal atrial fibrillation with RVR Pneumonia Diabetes Peripheral arterial disease PLAN: Continue current dose of metoprolol 50 mg 3 times a day Continue digoxin Continue IV Cardizem drip Continue anticoagulation with Eliquis Further recommendations pending evaluation by Dr. Pineda Patient to follow up outpatient with Dr. Hernandez Further recommendations pending patient course Nurse practitioner note has been reviewed by physician. Signing provider agrees with the documented findings, assessment, and plan of care. Objective - Vital Signs Vital signs: Vital Signs Temp 97.5 F L 08/24/22 08:45 Pulse 126 H 08/24/22 08:45 Resp 18 08/24/22 08:45 BP 111/58 08/24/22 08:45 Pulse Ox 94 L 08/24/22 08:45 FiO2 Intake & Output 08/23/22 08/24/22 08/24/22 18:59 06:59 18:59 Intake Total 407.167 119.5 118 Output Total 1950 950 Balance -1542.833 -830.5 118 Intake: Intake, IV Titration 49.167 119.5 Amount Diltiazem 125 mg In 49.167 Sodium Chloride 0.9% 100 ml @ 10 MG/HR 10 mls/hr IV .[id number] [facility] Rx#: [id number] Diltiazem 125 mg In 119.5 Sodium Chloride 0.9% 100 ml @ 10 MG/HR 10 mls/hr IV .[id number] [facility] Rx#: [id number] Oral 358 118 Output: Urine 1950 950 Other: Voiding Method Bedside Commode Bedside Commode # Voids 2 - Labs CBC & Chem 7: 08/24/22 07:23 08/24/22 07:23 Labs: Abnormal Lab Results - Last 24 Hours (Table) 08/23/22 08/23/22 08/24/22 Range/Units 17:00 20:23 06:16 WBC (3.8-10.6) k/uL Neutrophils # (1.3-7.7) k/uL Lymphocytes # (1.0-4.8) k/uL Sodium (137-145) mmol/L BUN (7-17) mg/dL Glucose (74-99) mg/dL POC Glucose (mg/dL) 276 H 186 H 154 H (70-110) mg/dL Calcium (8.4-10.2) mg/dL 08/24/22 08/24/22 Range/Units 07:23 07:23 WBC 22.0 H (3.8-10.6) k/uL Neutrophils # 21.2 H (1.3-7.7) k/uL Lymphocytes # 0.4 L (1.0-4.8) k/uL Sodium 133 L (137-145) mmol/L BUN 23 H (7-17) mg/dL Glucose 141 H (74-99) mg/dL POC Glucose (mg/dL) (70-110) mg/dL Calcium 7.1 L (8.4-10.2) mg/dL Microbiology - Last 24 Hours (Table) 08/20/22 10:45 Blood Culture - Preliminary Blood No Growth after 72 hours 08/20/22 11:01 Blood Culture - Preliminary Blood No Growth after 72 hours
[2022-08-24 12:11] LABS: Glucose,Whole Blood 230 mg/dL (70-110)
[2022-08-24 12:53] VITALS: BMI 26.2
[2022-08-24] MEDS: MULTIVITAMINS, THERA 1 EACH TAB PO SCH (13:28)
--- NOTE | 2022-08-24 15:25 | CDI ---
Documentation Clarification Form Date: 08/24/2022 3:11:32 PM From: Rylie Burgess RN CCDS Admit Date: 08/20/2022 2:51:00 PM Patient Name: Criss Sandhu Visit Number: [id number] Discharge Date: ATTENTION: The Clinical Documentation Specialists (CDI) and [facility] Coding Staff appreciate your assistance in clarifying documentation. Please respond to the clarification below the line at the bottom and electronically sign. The CDI & [facility] Coding staff will review the response and follow-up if needed. Please note: Queries are made part of the Legal Health Record. If you have any questions, please contact the author of this message via ITS. Dr. Leobardo Pineda Your patient has the documented diagnosis of unspecified Heart Failure08/21, Cardiology Consult. Additional information regarding the type, acuity of CHF is requested. History/Risk Factors: 76-year-old female presents to the ED with shortness of breath over the past several days. Medical History: Asthma, COPD, Atrial fibrillation and HTN. 08/20, H&P Clinical Indicators: VS/Pulse OX: 08/20 B/P 122/84; HR 154; Temp 96.9 F Oral; RR 20; SpO2 96% room air BNP: 08/20 6850 Echocardiogram Results: 08/22 Patient tachycardic LVH with ejection fraction of 50% Irregular rhythm Reduced aortic valve leaflet excursion. Aortic valve gradient does not suggest significant aortic stenosis However the short axis views suggest reduced aortic valve opening. Chest X Ray: 08/20 Heart appears borderline in size. Multifocal patchy and confluent opacities left greater than right. Trace bilateral pleural effusions. Treatment: 08/20 08/22 Lasix 20m IV Q12HR; 08/22 Lasix 20mg IV x 1 Patient refused; 08/23 Lasix 40mg PO Daily [facility]; 08/21 08/22 Lopressor 50mg PO BID [facility]; 08/22 Lopressor 50mg TID [facility] In your professional opinion, can you please clarify the acuity and type of Heart Failure if known? [ ] Acute Diastolic Heart Failure (preserved EF) [ ] Chronic Diastolic Heart Failure (preserved EF) [ ] Other, please specify [ ] Unable to determine please pose the question to the physician that did the consult and documented CHF please avoid these queries that waste our time (Template Last Revised: September 2020) [facility]
[2022-08-24] MEDS ORDERED: DEXTROSE 50% SYRINGE 50 ML IVP PRN ×2 (16:50)
[2022-08-24 16:54] LABS: Glucose,Whole Blood 195 mg/dL (70-110)
[2022-08-24] MEDS: ATORVASTATIN 20 MG TAB PO SCH (16:59)
[2022-08-24] MEDS: INSULIN ASPART (NovoLOG) 100 UNIT/ML VIAL SQ SCH ×2 (17:07→20:57)
--- NOTE | 2022-08-24 18:46 | P.PN ---
Subjective Progress Note Date: 08/24/22 Patient is a 76-year-old female with past medical history of COPD/asthma, atrial fibrillation, hypertension presents to ER with complaints of shortness of breath for the past few days. Chest x-ray showed evidence of CHF and pneumonia and patient was found to be in atrial fibrillation with rapid regular rate. 08/21/2022 Patient is currently lying in bed. Awake alert and oriented. Complains of shortness of breath with exertion. Heart rate is still elevated and is being continued on Cardizem drip. Cardiology is on board. Patient is also on heparin drip. No complaints of chest pain. No fever no chills. No nausea vomiting abdominal pain or diarrhea. Laboratory data showed WBC 15.7 hemoglobin 12.1 and platelets 379 sodium 138 potassium 3.3 chloride 101 bicarb is 30 BUN 19 and creatinine 0.11 and calcium 7.7 protein 5.6 and albumin 3.0. Cardiology is on board. 08/22/2022 Patient is currently sitting in the bed awake alert oriented x3. Still complains of shortness of breath and exertional dyspnea. Patient is also wheezing on exam and diffuse coarse sounds. No fever no chills. Does have cough without any sputum production. Heart rate is still elevated today. No fever no chills. Currently on antibiotics. Leukocytosis trending down. Laboratory data showed WBC 12.7 hemoglobin 12.1 and platelets 322 sodium 135 potassium 3.3 chloride 98 bicarb 33 BUN 19 and creatinine 0.76 and calcium 6.9. Cardiology is on board. 2D echocardiogram showed ejection fraction 50% and reduced aortic valve leaflet excursion aortic valve gradient does not suggest significant aortic stenosis. 08/23/2022 Patient is currently sitting in the bed. Awake alert and oriented. Breathing status is better today. Requiring oxygen at 2 L via nasal cannula. Patient is being continued on antibiotics ceftriaxone and azithromycin. Also on IV steroids and duo nebs. Otherwise patient continues to be in atrial fibrillation but heart rate is controlled. Cardizem drip has been discontinued and patient will be started on metoprolol. Heparin drip has been discontinued and patient was started on Eliquis. First dose today. Today echocardiogram showed physical activity percent and tachycardic. No obvious valvular abnormalities noted. Laboratory showed WBC increased to 16.9 likely due to steroids Hemoglobin 12.6 and platelets 326 sodium 134 potassium 5.1 chloride 100 bicarb 27 BUN 19 creatinine 0.64 and calcium 7.2. Cardiology is on board. 08/24/2022 Patient is seen and evaluated and follow-up currently sitting up in bed bronchospastic continues to have cough with congestion. Patient's heart rate e levated into the 120s and patient placed back on Cardizem IV with cardiology following closely. Adjustments to beta daja being done and recommending continued telemetry monitoring with follow-up in the a.m. Patient is afebrile denies chest pain or palpitations. Patient continues to report coughing and shortness of breath which she states is chronic and wears oxygen outpatient. Recommend continued telemetry monitoring and weaning off Cardizem drip. Review of systems: Constitutional: No reports of fatigue, fever, or chills Cardiovascular: No reports of chest pain or palpitations Respiratory: No reports of worsening shortness of breath, reports continued cough GI: No reports of nausea, vomiting, or diarrhea : No reports of dysuria or retention Neurovascular: No reports of weakness or numbness All medications have been reviewed Active Medications Hydrocodone Bitart/Acetaminophen (Hydrocodone/Apap 5-325mg 1 Each Tab) 1 each PO Q6HR PRN PRN Reason: Pain Albuterol/Ipratropium (Ipratropium-Albuterol 3 Ml Neb) 3 ml INHALATION RT-QID [facility] [place] Last Admin: 08/24/22 15:10 Dose: 3 ml Albuterol/Ipratropium (Ipratropium-Albuterol 3 Ml Neb) 3 ml INHALATION RT-QID PRN PRN Reason: Shortness Of Breath Or Wheezing Alprazolam (Alprazolam 0.25 Mg Tab) 0.25 mg PO TID PRN PRN Reason: Anxiety Apixaban (Apixaban 5 Mg Tab) 5 mg PO BID [facility] [place]; Protocol Last Admin: 08/24/22 08:47 Dose: 5 mg Aspirin (Aspirin 81 Mg) 81 mg PO DAILY [facility] [place] Last Admin: 08/24/22 08:47 Dose: 81 mg Atorvastatin Calcium (Atorvastatin 20 Mg Tab) 20 mg PO DAILY@1800 [facility] [place] Last Admin: 08/23/22 18:25 Dose: 20 mg Budesonide (Budesonide 1 Mg/2 Ml Nebu) 1 mg INHALATION RT-BID [facility] [place] Last Admin: 08/24/22 07:33 Dose: 1 mg Digoxin (Digoxin 125 Mcg Tab) 125 mcg PO DAILY [facility] [place] Last Admin: 08/24/22 08:47 Dose: 125 mcg Formoterol Fumarate (Formoterol Fumarate 20 Mcg/2 Ml Nebu) 20 mcg INHALATION RT-BID [facility] [place] Last Admin: 08/24/22 07:33 Dose: 20 mcg Furosemide (Furosemide 40 Mg Tab) 40 mg PO DAILY [facility] [place] Last Admin: 08/24/22 08:47 Dose: 40 mg Ceftriaxone Sodium 1 gm/ (Sodium Chloride) 50 mls @ 100 mls/hr IVPB Q24H [facility] [place]; Protocol Last Admin: 08/23/22 17:45 Dose: 100 mls/hr Diltiazem HCl 125 mg/ Sodium (Chloride) 125 mls @ 10 mls/hr IV .[id number] [facility] [place] Last Admin: 08/24/22 06:22 Dose: 10 mg/hr, 10 mls/hr Latanoprost (Latanoprost 0.005% Ophth Drops 2.5 Ml Btl) 1 drops BOTH EYES HS [facility] [place] Last Admin: 08/23/22 20:38 Dose: 1 drops Levothyroxine Sodium (Levothyroxine 88 Mcg Tab) 88 mcg PO DAILY@0630 [facility] [place] Last Admin: 08/24/22 06:22 Dose: 88 mcg Methylprednisolone Sodium Succinate (Methylprednisolone Sod Succi 40 Mg/Ml 1 Ml Vial) 40 mg IV Q8HR [facility] [place] Last Admin: 08/24/22 08:47 Dose: 40 mg Metoprolol Tartrate (Metoprolol Tartrate 50 Mg Tab) 50 mg PO TID [facility] [place] Last Admin: 08/24/22 08:47 Dose: 50 mg Miscellaneous Information (Potassium Replacement Protocol 1 Each Misc) 1 each MISCELLANE DAILY PRN; Protocol PRN Reason: Per Protocol Multivitamins (Multivitamins, Thera 1 Each Tab) 1 each PO DAILY@1200 [facility] [place] Last Admin: 08/24/22 13:28 Dose: 1 each Nicotine (Nicotine 14mg/24hr Patch) 1 patch TRANSDERM DAILY [facility] [place] Last Admin: 08/24/22 08:47 Dose: 1 patch Nitroglycerin (Nitroglycerin Sl Tabs 0.4 Mg Tab) 0.4 mg SUBLINGUAL Q5M PRN PRN Reason: Chest Pain Pantoprazole Sodium (Pantoprazole 40 Mg Tablet) 40 mg PO [id number] [facility] [place] Last Admin: 08/24/22 06:23 Dose: 40 mg Physical exam: Patient is sitting up in the bed comfortably, no acute distress, awake alert and oriented.. HEENT: Normocephalic. Neck is supple. Pupils reactive. Nostrils clear. Oral cavity is moist. Neck reveals no JVD, carotid bruits, or thyromegaly. CHEST EXAMINATION: Trachea is central. Symmetrical expansion. Bilateral expiratory wheezing and scattered rhonchi and crackles.. CARDIAC: Normal S1, S2 with no gallops. No murmurs irregularly irregular rhythm. ABDOMEN: Soft. Bowel sounds present. Nontender. No organomegaly. No abdominal bruits. Extremities: reveal no edema. No clubbing or cyanosis Neurologically awake, alert, oriented x3 with well-coordinated movements. No focal deficits noted Skin: No rash or skin lesions. Psychiatric: Cooperative. Non-suicidal, Musculoskeletal: No joint swelling or deformity. Normal range of motion. Assessment: Bilateral patchy infiltrates secondary to pneumonia Acute COPD exacerbation Atrial fibrillation with rapid ventricular rate Paroxysmal atrial fibrillation Asthma/COPD and currently everyday smoker acute on chronic hypoxic respiratory failure secondary to COPD, wears 2 L outpatient Hypertension Hypothyroidism Peripheral vascular disease History of breast cancer status post bilateral mastectomy History of right upper lobectomy GI prophylaxis Plan: Continue with digoxin started back on metoprolol. cardiology following and patient continued in uncontrolled A. fib being placed back on Cardizem dri and increasing the doses of beta daja. Patient is continued on by mouth Lasix and will continue with duo nebs and IV steroids. Will need prednisone taper and is maintained on antibiotics in the form of ceftriaxone and Zithromax. Recommend repeat labs and follow-up chest x-ray. Prognosis is guarded The impression and plan of care has been dictated by Lori Cloud, Nurse Practitioner as directed. MD Pieter I have performed a history and examination and MDM of this patient, discussed the same with the dictator, and agree with the dictator's assessment and plan as written ,documented as a scribe. Based on total visit time, I have performed more than 50% of the visit. Objective - Vital Signs Vital signs: Vital Signs Temp 97.6 F 08/24/22 13:30 Pulse 98 08/24/22 15:11 Resp 16 08/24/22 13:30 BP 117/60 08/24/22 13:30 Pulse Ox 91 L 08/24/22 13:30 FiO2 Intake & Output 08/23/22 08/24/22 08/24/22 18:59 06:59 18:59 Intake Total 407.167 119.5 118 Output Total 1950 950 700 Balance -1542.833 -830.5 -582 Weight 63 kg Intake: Intake, IV Titration 49.167 119.5 Amount Diltiazem 125 mg In 49.167 Sodium Chloride 0.9% 100 ml @ 10 MG/HR 10 mls/hr IV .[id number] [facility] [place] Rx#: [id number] Diltiazem 125 mg In 119.5 Sodium Chloride 0.9% 100 ml @ 10 MG/HR 10 mls/hr IV .[id number] [facility] [place] Rx#: [id number] Oral 358 118 Output: Urine 1950 950 700 Other: Voiding Method Bedside Commode Bedside Commode Bedside Commode # Voids 2 - Labs CBC & Chem 7: 08/24/22 07:23 08/24/22 07:23 Labs: Abnormal Lab Results - Last 24 Hours (Table) 08/23/22 08/23/22 08/24/22 Range/Units 17:00 20:23 06:16 WBC (3.8-10.6) k/uL Neutrophils # (1.3-7.7) k/uL Lymphocytes # (1.0-4.8) k/uL Sodium (137-145) mmol/L BUN (7-17) mg/dL Glucose (74-99) mg/dL POC Glucose (mg/dL) 276 H 186 H 154 H (70-110) mg/dL Calcium (8.4-10.2) mg/dL 08/24/22 08/24/22 08/24/22 Range/Units 07:23 07:23 12:08 WBC 22.0 H (3.8-10.6) k/uL Neutrophils # 21.2 H (1.3-7.7) k/uL Lymphocytes # 0.4 L (1.0-4.8) k/uL Sodium 133 L (137-145) mmol/L BUN 23 H (7-17) mg/dL Glucose 141 H (74-99) mg/dL POC Glucose (mg/dL) 230 H (70-110) mg/dL Calcium 7.1 L (8.4-10.2) mg/dL Microbiology - Last 24 Hours (Table) 08/20/22 11:01 Blood Culture - Preliminary Blood No Growth after 96 hours 08/20/22 10:45 Blood Culture - Preliminary Blood No Growth after 96 hours
[2022-08-24 20:06] LABS: Glucose,Whole Blood 185 mg/dL (70-110)
[2022-08-24] MEDS: LATANOPROST 0.005% OPHTH DROPS 2.5 ML BTL BOTH EYES SCH (20:57)
[2022-08-25 06:28] LABS: Glucose,Whole Blood 188 mg/dL (70-110)
[2022-08-25] MEDS: LEVOTHYROXINE 88 MCG TAB PO SCH (06:38)
[2022-08-25] MEDS: INSULIN ASPART (NovoLOG) 100 UNIT/ML VIAL SQ SCH ×4 (06:38→20:46)
[2022-08-25] MEDS: PANTOPRAZOLE 40 MG TABLET PO SCH (06:38)
--- NOTE | 2022-08-25 07:35 | XR ---
EXAMINATION TYPE: XR chest 1V portable DATE OF EXAM: 08/25/2022 COMPARISON: 08/20/2022 HISTORY: Shortness of breath TECHNIQUE: Single frontal view of the chest is obtained. FINDINGS: Surgical clips in the left axilla. There is bilateral lower lobe consolidation and small e ffusion. COPD chronic interstitial lung disease is suspected. No pneumothorax. Degenerative changes of the spi ne. IMPRESSION: 1. Stable bilateral infiltrate and small effusion. 2. COPD.
[2022-08-25] MEDS: BUDESONIDE 1 MG/2 ML NEBU INHALATION SCH ×2 (07:47→20:17)
[2022-08-25] MEDS: FORMOTEROL FUMARATE 20 MCG/2 ML NEBU INHALATION SCH ×2 (07:47→20:18)
[2022-08-25] MEDS: IPRATROPIUM-ALBUTEROL 3 ML NEB INHALATION SCH ×4 (07:47→20:18)
[2022-08-25 08:14] LABS: Basophils % (A) 0 %; Eosinophils % (A) 0 %; HCT 38.2 % (34.0-46.0); HGB 12.3 gm/dL (11.4-16.0); Hypochromasia Slight; Lymphocytes # (A) 0.3 k/uL (1.0-4.8); Lymphocytes % (A) 2 %; MCHC 32.1 g/dL (31.0-37.0); MCV 90.2 fL (80.0-100.0); Mean Platelet Volume 7.9; Monocytes # (A) 0.4 k/uL (0-1.0); Monocytes % (A) 2 %; Neutrophils # (A) 16.7 k/uL (1.3-7.7); Neutrophils % (A) 96 %; Platelet Count 300 k/uL (150-450); RBC 4.23 m/uL (3.80-5.40); RDW 13.8 % (11.5-15.5); WBC 17.5 k/uL (3.8-10.6)
[2022-08-25 08:27] LABS: Potassium 4.1 mmol/L (3.5-5.1)
[2022-08-25] MEDS: DILTIAZEM 125 MG in SODIUM CHLORIDE 0.9% 100 ML IV SCH (09:21)
[2022-08-25] MEDS: methylPREDNISolone SOD SUCCI 40 MG/ML 1 ML VIAL IV SCH ×2 (09:27→16:11)
[2022-08-25] MEDS: METOPROLOL TARTRATE 50 MG TAB PO SCH ×2 (09:27→16:11)
[2022-08-25] MEDS: APIXABAN 5 MG TAB PO SCH ×2 (09:27→20:46)
[2022-08-25] MEDS: FUROSEMIDE 40 MG TAB PO SCH (09:27)
[2022-08-25] MEDS: DIGOXIN 125 MCG TAB PO SCH (09:27)
[2022-08-25] MEDS: ASPIRIN 81 MG PO SCH (09:27)
[2022-08-25] MEDS: NICOTINE 14MG/24HR PATCH TRANSDERM SCH (09:27)
[2022-08-25] MEDS: MULTIVITAMINS, THERA 1 EACH TAB PO SCH (11:44)
[2022-08-25 11:54] LABS: Glucose,Whole Blood 187 mg/dL (70-110)
--- NOTE | 2022-08-25 12:00 | P.PN ---
Subjective Progress Note Date: 08/25/22 HISTORY OF PRESENT ILLNESS: Patient is a pleasant 76-year-old female who presented to the hospital with SOB and heart palpitations, has pneumonia and afib with RVR. Heart rate is much better controlled today, she continues in afib on the monitor but heart rate is in the 70's. Patient is tolerating the metoprolol and digoxin. She has continued on the cardizem drip. She denies chest pain overnight. Denies fluttering in her chest. Echocardiogram read yesterday was difficult to read due to tachycardia, but EF is estimated at 50%. No obvious valvular abnormalities. Recommend follow-up echo once patient has her heart rate better under control. 08/24/2022 Patient examined this morning at the bedside. Patient denies chest pain or pressure. She reports SOB which she states is chronic and at her baseline. Telemetry reveals atrial fibrillation with heart rates in the 100-120s. Patient denies palpitations. Patient's blood pressure is stable. She remains on IV Cardizem at 5 mg an hour. 08/25/2022 Patient examined this morning at the bedside. Patient denies chest pain or pressure. Denies SOB. Telemetry reveals atrial fibrillation with RVR. She is on a Cardizem drip at 5mg/hr. Blood pressure stable. PHYSICAL EXAM: VITAL SIGNS: Reviewed. GENERAL: Well-developed in no acute distress. NECK: Supple. No JVD or thyromegaly LUNGS: Respirations even and unlabored. Lungs diminished to auscultation bilaterally. HEART: Tachycardic. Irregular rate and rhythm. S1 and S2 heard. EXTREMITIES: Normal range of motion. No clubbing or cyanosis. Peripheral pulses intact. No lower extremity edema ASSESSMENT: Paroxysmal atrial fibrillation with RVR Pneumonia Diabetes Peripheral arterial disease PLAN: Increase metoprolol to 100mg TID Continue digoxin Continue IV Cardizem Continue anticoagulation with Eliquis Case discussed with Dr. Hernandez. If patient continues to have afib with RVR despite medication changes, will plan for ANKUSH/CV or Wednesday. Further recommendations pending patient course Nurse practitioner note has been reviewed by physician. Signing provider agrees with the documented findings, assessment, and plan of care. Objective - Vital Signs Vital signs: Vital Signs Temp 98.1 F 08/25/22 08:00 Pulse 77 08/25/22 10:45 Resp 16 08/25/22 08:00 BP 152/69 08/25/22 08:00 Pulse Ox 92 L 08/25/22 08:00 FiO2 Intake & Output 08/24/22 08/25/22 08/25/22 18:59 06:59 18:59 Intake Total 841 348 Output Total 1400 300 Balance -559 -300 348 Weight 63 kg Intake: Intake, IV Titration 125 108 Amount Diltiazem 125 mg In 125 108 Sodium Chloride 0.9% 100 ml @ 10 MG/HR 10 mls/hr IV .[id number] [facility] Rx#: [id number] Oral 716 240 Output: Urine 1400 300 Other: Voiding Method Bedside Commode Bedside Commode Bedside Commode # Voids 1 - Labs CBC & Chem 7: 08/25/22 07:53 08/25/22 07:53 Labs: Abnormal Lab Results - Last 24 Hours (Table) 08/24/22 08/24/22 08/24/22 Range/Units 07:09 12:08 16:51 WBC (3.8-10.6) k/uL Neutrophils # (1.3-7.7) k/uL Lymphocytes # (1.0-4.8) k/uL Sodium (137-145) mmol/L BUN (7-17) mg/dL Glucose (74-99) mg/dL POC Glucose (mg/dL) 230 H 195 H (70-110) mg/dL Hemoglobin A1c 6.3 H (0.0-6.0) % Calcium (8.4-10.2) mg/dL 08/24/22 08/25/22 08/25/22 Range/Units 20:05 06:26 07:53 WBC 17.5 H (3.8-10.6) k/uL Neutrophils # 16.7 H (1.3-7.7) k/uL Lymphocytes # 0.3 L (1.0-4.8) k/uL Sodium (137-145) mmol/L BUN (7-17) mg/dL Glucose (74-99) mg/dL POC Glucose (mg/dL) 185 H 188 H (70-110) mg/dL Hemoglobin A1c (0.0-6.0) % Calcium (8.4-10.2) mg/dL 08/25/22 Range/Units 07:53 WBC (3.8-10.6) k/uL Neutrophils # (1.3-7.7) k/uL Lymphocytes # (1.0-4.8) k/uL Sodium 133 L (137-145) mmol/L BUN 32 H (7-17) mg/dL Glucose 187 H (74-99) mg/dL POC Glucose (mg/dL) (70-110) mg/dL Hemoglobin A1c (0.0-6.0) % Calcium 7.0 L (8.4-10.2) mg/dL Microbiology - Last 24 Hours (Table) 08/20/22 11:01 Blood Culture - Preliminary Blood No Growth after 96 hours 08/20/22 10:45 Blood Culture - Preliminary Blood No Growth after 96 hours
--- NOTE | 2022-08-25 16:01 | P.PN ---
Subjective Progress Note Date: 08/25/22 Patient is a 76-year-old female with past medical history of COPD/asthma, atrial fibrillation, hypertension presents to ER with complaints of shortness of breath for the past few days. Chest x-ray showed evidence of CHF and pneumonia and patient was found to be in atrial fibrillation with rapid regular rate. 08/21/2022 Patient is currently lying in bed. Awake alert and oriented. Complains of shortness of breath with exertion. Heart rate is still elevated and is being continued on Cardizem drip. Cardiology is on board. Patient is also on heparin drip. No complaints of chest pain. No fever no chills. No nausea vomiting abdominal pain or diarrhea. Laboratory data showed WBC 15.7 hemoglobin 12.1 and platelets 379 sodium 138 potassium 3.3 chloride 101 bicarb is 30 BUN 19 and creatinine 0.11 and calcium 7.7 protein 5.6 and albumin 3.0. Cardiology is on board. 08/22/2022 Patient is currently sitting in the bed awake alert oriented x3. Still complains of shortness of breath and exertional dyspnea. Patient is also wheezing on exam and diffuse coarse sounds. No fever no chills. Does have cough without any sputum production. Heart rate is still elevated today. No fever no chills. Currently on antibiotics. Leukocytosis trending down. Laboratory data showed WBC 12.7 hemoglobin 12.1 and platelets 322 sodium 135 potassium 3.3 chloride 98 bicarb 33 BUN 19 and creatinine 0.76 and calcium 6.9. Cardiology is on board. 2D echocardiogram showed ejection fraction 50% and reduced aortic valve leaflet excursion aortic valve gradient does not suggest significant aortic stenosis. 08/23/2022 Patient is currently sitting in the bed. Awake alert and oriented. Breathing status is better today. Requiring oxygen at 2 L via nasal cannula. Patient is being continued on antibiotics ceftriaxone and azithromycin. Also on IV steroids and duo nebs. Otherwise patient continues to be in atrial fibrillation but heart rate is controlled. Cardizem drip has been discontinued and patient will be started on metoprolol. Heparin drip has been discontinued and patient was started on Eliquis. First dose today. Today echocardiogram showed physical activity percent and tachycardic. No obvious valvular abnormalities noted. Laboratory showed WBC increased to 16.9 likely due to steroids Hemoglobin 12.6 and platelets 326 sodium 134 potassium 5.1 chloride 100 bicarb 27 BUN 19 creatinine 0.64 and calcium 7.2. Cardiology is on board. 08/24/2022 Patient is seen and evaluated and follow-up currently sitting up in bed bronchospastic continues to have cough with congestion. Patient's heart rate e levated into the 120s and patient placed back on Cardizem IV with cardiology following closely. Adjustments to beta daja being done and recommending continued telemetry monitoring with follow-up in the a.m. Patient is afebrile denies chest pain or palpitations. Patient continues to report coughing and shortness of breath which she states is chronic and wears oxygen outpatient. Recommend continued telemetry monitoring and weaning off Cardizem drip. 08/25/2022 Patient is seen and evaluated in follow-up today continues to be dyspneic with exertion and bronchospastic maintained on duo nebs along with IV steroids. Cardiology following patient is continued to be in atrial fibrillation with RVR and initially was on a lower dose of Cardizem although heart rates continued to be in the 120s to 140s and patient placed back on IV Cardizem 5 ML per hour. Adjustments to medications including metoprolol being made and cardiology following recommend possible consultation to Dr. Hernandez if patient remains in atrial fibrillation with uncontrolled rate. Patient encouraged to increase activity as tolerated and sit up out of the bed more often. Patient is maintained on 2 L via nasal cannula and chronically wears this outpatient. Recommend Accu-Cheks before meals and at bedtime and continue sliding scale. Chest x-ray today shows stable COPD findings. Patient is currently afebrile den ies chest pain or palpitations. Patient denies nausea or vomiting and tolerating diet. Review of systems: Constitutional: No reports of fatigue, fever, or chills Cardiovascular: No reports of chest pain or palpitations Respiratory: No reports of worsening shortness of breath, reports continued cou gh GI: No reports of nausea, vomiting, or diarrhea : No reports of dysuria or retention Neurovascular: No reports of weakness or numbness All medications have been reviewed Active Medications Hydrocodone Bitart/Acetaminophen (Hydrocodone/Apap 5-325mg 1 Each Tab) 1 each PO Q6HR PRN PRN Reason: Pain Albuterol/Ipratropium (Ipratropium-Albuterol 3 Ml Neb) 3 ml INHALATION RT-QID [facility] Last Admin: 08/25/22 10:36 Dose: 3 ml Albuterol/Ipratropium (Ipratropium-Albuterol 3 Ml Neb) 3 ml INHALATION RT-QID PRN PRN Reason: Shortness Of Breath Or Wheezing Alprazolam (Alprazolam 0.25 Mg Tab) 0.25 mg PO TID PRN PRN Reason: Anxiety Apixaban (Apixaban 5 Mg Tab) 5 mg PO BID [facility]; Protocol Last Admin: 08/25/22 09:27 Dose: 5 mg Aspirin (Aspirin 81 Mg) 81 mg PO DAILY [facility] Last Admin: 08/25/22 09:27 Dose: 81 mg Atorvastatin Calcium (Atorvastatin 20 Mg Tab) 20 mg PO DAILY@1800 [facility] Last Admin: 08/24/22 16:59 Dose: 20 mg Budesonide (Budesonide 1 Mg/2 Ml Nebu) 1 mg INHALATION RT-BID [facility] Last Admin: 08/25/22 07:47 Dose: 1 mg Dextrose/Water (Dextrose 50% Syringe 50 Ml) 25 ml IVP PER PROTOCOL PRN; Protocol PRN Reason: Hypoglycemia Dextrose/Water (Dextrose 50% Syringe 50 Ml) 50 ml IVP PER PROTOCOL PRN; Protocol PRN Reason: Hypoglycemia Digoxin (Digoxin 125 Mcg Tab) 125 mcg PO DAILY [facility] Last Admin: 08/25/22 09:27 Dose: 125 mcg Formoterol Fumarate (Formoterol Fumarate 20 Mcg/2 Ml Nebu) 20 mcg INHALATION RT-BID [facility] Last Admin: 08/25/22 07:47 Dose: 20 mcg Furosemide (Furosemide 40 Mg Tab) 40 mg PO DAILY [facility] Last Admin: 08/25/22 09:27 Dose: 40 mg Ceftriaxone Sodium 1 gm/ (Sodium Chloride) 50 mls @ 100 mls/hr IVPB Q24H [facility]; Protocol Last Admin: 08/24/22 17:01 Dose: 100 mls/hr Diltiazem HCl 125 mg/ Sodium (Chloride) 125 mls @ 10 mls/hr IV .[id number] [facility] Last Admin: 08/25/22 09:21 Dose: Not Given Insulin Aspart (Insulin Aspart (Novolog) 100 Unit/Ml Vial) 0 unit SQ ACHS [facility]; Protocol Last Admin: 08/25/22 06:38 Dose: 1 unit Latanoprost (Latanoprost 0.005% Ophth Drops 2.5 Ml Btl) 1 drops BOTH EYES HS [facility] Last Admin: 08/24/22 20:57 Dose: 1 drops Levothyroxine Sodium (Levothyroxine 88 Mcg Tab) 88 mcg PO DAILY@0630 [facility] Last Admin: 08/25/22 06:38 Dose: 88 mcg Methylprednisolone Sodium Succinate (Methylprednisolone Sod Succi 40 Mg/Ml 1 Ml Vial) 40 mg IV Q8HR [facility] Last Admin: 08/25/22 09:27 Dose: 40 mg Metoprolol Tartrate (Metoprolol Tartrate 50 Mg Tab) 100 mg PO TID [facility] Miscellaneous Information (Potassium Replacement Protocol 1 Each Misc) 1 each MISCELLANE DAILY PRN; Protocol PRN Reason: Per Protocol Multivitamins (Multivitamins, Thera 1 Each Tab) 1 each PO DAILY@1200 [facility] Last Admin: 08/25/22 11:44 Dose: 1 each Nicotine (Nicotine 14mg/24hr Patch) 1 patch TRANSDERM DAILY [facility] Last Admin: 08/25/22 09:27 Dose: 1 patch Nitroglycerin (Nitroglycerin Sl Tabs 0.4 Mg Tab) 0.4 mg SUBLINGUAL Q5M PRN PRN Reason: Chest Pain Pantoprazole Sodium (Pantoprazole 40 Mg Tablet) 40 mg PO AC-[id number] [facility] Last Admin: 08/25/22 06:38 Dose: 40 mg Physical exam: Patient is sitting up in the bed asleep, but arousable, alert and oriented.. HEENT: Normocephalic. Neck is supple. Pupils reactive. Nostrils clear. Oral cavity is moist. Neck reveals no JVD, carotid bruits, or thyromegaly. CHEST EXAMINATION: Trachea is central. Symmetrical expansion. Bilateral expiratory wheezing and scattered rhonchi and crackles.. CARDIAC: Normal S1, S2 with no gallops. No murmurs irregularly irregular rhythm. ABDOMEN: Soft. Bowel sounds present. Nontender. No organomegaly. No abdominal bruits. Extremities: reveal no edema. No clubbing or cyanosis Neurologically awake, alert, oriented x3 with well-coordinated movements. No focal deficits noted Skin: No rash or skin lesions. Psychiatric: Cooperative. Non-suicidal, Musculoskeletal: No joint swelling or deformity. Normal range of motion. Assessment: Bilateral patchy infiltrates secondary to pneumonia Acute COPD exacerbation Atrial fibrillation with rapid ventricular rate Paroxysmal atrial fibrillation Asthma/COPD and currently everyday smoker acute on chronic hypoxic respiratory failure secondary to COPD, wears 2 L outpatient Hypertension Hypothyroidism Peripheral vascular disease History of breast cancer status post bilateral mastectomy History of right upper lobectomy GI prophylaxis Plan: Continue with digoxin and increasing metoprolol with cardiology following. Patient is continued to be uncontrolled and atrial fibrillation maintained on IV Cardizem. Possible consultation to Dr Hernandez if A. fib persists. Patient is continued on by mouth Lasix and will continue with duo nebs and IV steroids. Will need prednisone taper on discharge She is continued on antibiotics in the form of ceftriaxone and Zithromax for pneumonia Chest x-ray reviewed and stable COPD Continue current medication regimen and will follow-up with cardiology Encouraged increased activity as tolerated Prognosis is guarded The impression and plan of care has been dictated by Lori Cloud, Nurse Practitioner as directed. MD Pieter I have performed a history and examination and MDM of this patient, discussed the same with the dictator, and agree with the dictator's assessment and plan as written ,documented as a scribe. Based on total visit time, I have performed more than 50% of the visit. Objective - Vital Signs Vital signs: Vital Signs Temp 97.8 F 08/25/22 05:00 Pulse 71 08/25/22 08:08 Resp 16 08/25/22 05:00 BP 120/68 08/25/22 05:00 Pulse Ox 96 08/25/22 07:48 FiO2 Intake & Output 08/24/22 08/25/22 08/25/22 18:59 06:59 18:59 Intake Total 841 348 Output Total 1400 300 Balance -559 -300 348 Weight 63 kg Intake: Intake, IV Titration 125 108 Amount Diltiazem 125 mg In 125 108 Sodium Chloride 0.9% 100 ml @ 10 MG/HR 10 mls/hr IV .[id number] [facility] Rx#: [id number] Oral 716 240 Output: Urine 1400 300 Other: Voiding Method Bedside Commode Bedside Commode # Voids 1 - Labs CBC & Chem 7: 08/25/22 07:53 08/25/22 07:53 Labs: Abnormal Lab Results - Last 24 Hours (Table) 08/24/22 08/24/22 08/24/22 Range/Units 07:09 12:08 16:51 WBC (3.8-10.6) k/uL Neutrophils # (1.3-7.7) k/uL Lymphocytes # (1.0-4.8) k/uL Sodium (137-145) mmol/L BUN (7-17) mg/dL Glucose (74-99) mg/dL POC Glucose (mg/dL) 230 H 195 H (70-110) mg/dL Hemoglobin A1c 6.3 H (0.0-6.0) % Calcium (8.4-10.2) mg/dL 08/24/22 08/25/22 08/25/22 Range/Units 20:05 06:26 07:53 WBC 17.5 H (3.8-10.6) k/uL Neutrophils # 16.7 H (1.3-7.7) k/uL Lymphocytes # 0.3 L (1.0-4.8) k/uL Sodium (137-145) mmol/L BUN (7-17) mg/dL Glucose (74-99) mg/dL POC Glucose (mg/dL) 185 H 188 H (70-110) mg/dL Hemoglobin A1c (0.0-6.0) % Calcium (8.4-10.2) mg/dL 08/25/22 Range/Units 07:53 WBC (3.8-10.6) k/uL Neutrophils # (1.3-7.7) k/uL Lymphocytes # (1.0-4.8) k/uL Sodium 133 L (137-145) mmol/L BUN 32 H (7-17) mg/dL Glucose 187 H (74-99) mg/dL POC Glucose (mg/dL) (70-110) mg/dL Hemoglobin A1c (0.0-6.0) % Calcium 7.0 L (8.4-10.2) mg/dL Microbiology - Last 24 Hours (Table) 08/20/22 11:01 Blood Culture - Preliminary Blood No Growth after 96 hours 08/20/22 10:45 Blood Culture - Preliminary Blood No Growth after 96 hours
[2022-08-25 16:59] LABS: Glucose,Whole Blood 215 mg/dL (70-110)
[2022-08-25] MEDS: ATORVASTATIN 20 MG TAB PO SCH (18:07)
[2022-08-25 19:50] LABS: Glucose,Whole Blood 175 mg/dL (70-110)
[2022-08-25] MEDS: LATANOPROST 0.005% OPHTH DROPS 2.5 ML BTL BOTH EYES SCH (20:46)
[2022-08-26] MEDS: DILTIAZEM 125 MG in SODIUM CHLORIDE 0.9% 100 ML IV SCH ×2 (00:08→08:43)
[2022-08-26] MEDS: METOPROLOL TARTRATE 50 MG TAB PO SCH ×4 (00:09→23:08)
[2022-08-26] MEDS: methylPREDNISolone SOD SUCCI 40 MG/ML 1 ML VIAL IV SCH ×2 (00:09→08:43)
[2022-08-26 06:15] LABS: Glucose,Whole Blood 137 mg/dL (70-110)
[2022-08-26] MEDS: INSULIN ASPART (NovoLOG) 100 UNIT/ML VIAL SQ SCH ×4 (06:16→20:43)
[2022-08-26] MEDS: LEVOTHYROXINE 88 MCG TAB PO SCH (06:29)
[2022-08-26] MEDS: PANTOPRAZOLE 40 MG TABLET PO SCH (06:29)
[2022-08-26] MEDS: IPRATROPIUM-ALBUTEROL 3 ML NEB INHALATION SCH ×4 (07:34→21:16)
[2022-08-26] MEDS: FORMOTEROL FUMARATE 20 MCG/2 ML NEBU INHALATION SCH ×2 (07:35→21:16)
[2022-08-26] MEDS: BUDESONIDE 1 MG/2 ML NEBU INHALATION SCH ×2 (07:35→21:16)
[2022-08-26 08:28] LABS: Basophils % (A) 0 %; Eosinophils % (A) 0 %; HCT 39.2 % (34.0-46.0); HGB 12.2 gm/dL (11.4-16.0); Lymphocytes # (A) 0.2 k/uL (1.0-4.8); Lymphocytes % (A) 2 %; MCH 27.9 pg (25.0-35.0); MCHC 31.2 g/dL (31.0-37.0); MCV 89.4 fL (80.0-100.0); Mean Platelet Volume 7.9; Monocytes # (A) 0.3 k/uL (0-1.0); Monocytes % (A) 2 %; Neutrophils # (A) 12.9 k/uL (1.3-7.7); Neutrophils % (A) 95 %; Platelet Count 296 k/uL (150-450); RBC 4.38 m/uL (3.80-5.40); RDW 14.6 % (11.5-15.5); WBC 13.6 k/uL (3.8-10.6)
[2022-08-26 08:32] LABS: African American GFR (CKD) >90 (>60 ml/min/1.73 sqM); Anion Gap 6 mmol/L; Blood Urea Nitrogen 31 mg/dL (7-17); Calcium 6.9 mg/dL (8.4-10.2); Carbon Dioxide 30 mmol/L (22-30); Chloride 97 mmol/L (98-107); Glucose 200 mg/dL (74-99); Non-African American GFR(CKD) 78 (>60 ml/min/1.73 sqM); Potassium 4.1 mmol/L (3.5-5.1); Sodium 133 mmol/L (137-145)
[2022-08-26] MEDS: NICOTINE 14MG/24HR PATCH TRANSDERM SCH (08:44)
[2022-08-26] MEDS: FUROSEMIDE 40 MG TAB PO SCH (08:44)
[2022-08-26] MEDS: APIXABAN 5 MG TAB PO SCH ×2 (08:44→20:05)
[2022-08-26] MEDS: DIGOXIN 125 MCG TAB PO SCH (08:44)
[2022-08-26] MEDS: ASPIRIN 81 MG PO SCH (08:44)
[2022-08-26 11:57] LABS: Glucose,Whole Blood 172 mg/dL (70-110)
--- NOTE | 2022-08-26 12:10 | P.PN ---
Subjective Progress Note Date: 08/26/22 HISTORY OF PRESENT ILLNESS: Patient is a pleasant 76-year-old female who presented to the hospital with SOB and heart palpitations, has pneumonia and afib with RVR. Heart rate is much better controlled today, she continues in afib on the monitor but heart rate is in the 70's. Patient is tolerating the metoprolol and digoxin. She has continued on the cardizem drip. She denies chest pain overnight. Denies fluttering in her chest. Echocardiogram read yesterday was difficult to read due to tachycardia, but EF is estimated at 50%. No obvious valvular abnormalities. Recommend follow-up echo once patient has her heart rate better under control. 08/24/2022 Patient examined this morning at the bedside. Patient denies chest pain or pressure. She reports SOB which she states is chronic and at her baseline. Telemetry reveals atrial fibrillation with heart rates in the 100-120s. Patient denies palpitations. Patient's blood pressure is stable. She remains on IV Cardizem at 5 mg an hour. 08/25/2022 Patient examined this morning at the bedside. Patient denies chest pain or pressure. Denies SOB. Telemetry reveals atrial fibrillation with RVR. She is on a Cardizem drip at 5mg/hr. Blood pressure stable. 08/26/2022 Patient examined this morning at the bedside. Patient denies chest pain or pressure. Denies SOB. Telemetry reveals atrial fibrillation with controlled ventricular rates. She remains on a Cardizem drip at 5 mg an hour. Blood pressure stable. PHYSICAL EXAM: VITAL SIGNS: Reviewed. GENERAL: Well-developed in no acute distress. NECK: Supple. No JVD or thyromegaly LUNGS: Respirations even and unlabored. Lungs diminished to auscultation bilaterally. HEART: Tachycardic. Irregular rate and rhythm. S1 and S2 heard. EXTREMITIES: Normal range of motion. No clubbing or cyanosis. Peripheral pulses intact. No lower extremity edema ASSESSMENT: Paroxysmal atrial fibrillation with RVR Pneumonia Diabetes Peripheral arterial disease PLAN: Continue current cardiac medications Add oral Cardizem 30 mg 3 times a day Discontinue IV Cardizem Continue anticoagulation with [facility] Case discussed with Dr. Hernandez. If patient continues to have afib with RVR despite medication changes, will plan for ANKUSH/CV, however her rate seems to be better controlled today Further recommendations pending patient course Nurse practitioner note has been reviewed by physician. Signing provider agrees with the documented findings, assessment, and plan of care. Objective - Vital Signs Vital signs: Vital Signs Temp 97.0 F L 08/26/22 08:00 Pulse 80 08/26/22 11:38 Resp 18 08/26/22 11:38 BP 109/68 08/26/22 08:00 Pulse Ox 94 L 08/26/22 08:00 FiO2 Intake & Output 08/25/22 08/26/22 08/26/22 18:59 06:59 18:59 Intake Total 963 118 Output Total 329 504 6499 Balance 834 -457 -698 Intake: Intake, IV Titration 125 Amount Diltiazem 125 mg In 125 Sodium Chloride 0.9% 100 ml @ 10 MG/HR 10 mls/hr IV .[id number] [facility] Rx#: [id number] Oral 838 118 Output: Urine 746 995 1177 Other: Voiding Method Bedside Commode Bedside Commode Toilet # Voids 1 # Bowel Movements 1 1 - Labs CBC & Chem 7: 08/26/22 07:43 08/26/22 07:42 Labs: Abnormal Lab Results - Last 24 Hours (Table) 08/25/22 08/25/22 08/26/22 Range/Units 16:57 19:49 06:14 WBC (3.8-10.6) k/uL Neutrophils # (1.3-7.7) k/uL Lymphocytes # (1.0-4.8) k/uL Sodium (137-145) mmol/L Chloride (98-107) mmol/L BUN (7-17) mg/dL Glucose (74-99) mg/dL POC Glucose (mg/dL) 215 H 175 H 137 H (70-110) mg/dL Calcium (8.4-10.2) mg/dL 08/26/22 08/26/22 08/26/22 Range/Units 07:42 07:43 11:45 WBC 13.6 H (3.8-10.6) k/uL Neutrophils # 12.9 H (1.3-7.7) k/uL Lymphocytes # 0.2 L (1.0-4.8) k/uL Sodium 133 L (137-145) mmol/L Chloride 97 L (98-107) mmol/L BUN 31 H (7-17) mg/dL Glucose 200 H (74-99) mg/dL POC Glucose (mg/dL) 172 H (70-110) mg/dL Calcium 6.9 L (8.4-10.2) mg/dL Microbiology - Last 24 Hours (Table) 08/20/22 11:01 Blood Culture - Preliminary Blood No Growth after 120 hours 08/20/22 10:45 Blood Culture - Preliminary Blood No Growth after 120 hours
[2022-08-26] MEDS: MULTIVITAMINS, THERA 1 EACH TAB PO SCH (12:34)
[2022-08-26] MEDS: DILTIAZEM ORAL 30 MG TAB PO SCH ×3 (12:34→23:08)
[2022-08-26 16:50] LABS: Glucose,Whole Blood 160 mg/dL (70-110)
--- NOTE | 2022-08-26 17:21 | CDI ---
Documentation Clarification Form Date: 08/24/2022 3:11:32 PM From: Rylie Burgess RN CCDS Admit Date: 08/20/2022 2:51:00 PM Patient Name: Criss Sandhu Visit Number: [id number] Discharge Date: ATTENTION: The Clinical Documentation Specialists (CDI) and [facility] Coding Staff appreciate your assistance in clarifying documentation. Please respond to the clarification below the line at the bottom and electronically sign. The CDI & [facility] Coding staff will review the response and follow-up if needed. Please note: Queries are made part of the Legal Health Record. If you have any questions, please contact the author of this message via ITS. Dr. Nick Hernandez MD Your patient has the documented diagnosis of unspecified Heart Failure08/21, Cardiology Consult. Additional information regarding the type, acuity of CHF is requested. History/Risk Factors: 76-year-old female presents to the ED with shortness of breath over the past several days. Medical History: Asthma, COPD, Atrial fibrillation and HTN. 08/20, H&P Clinical Indicators: VS/Pulse OX: 08/20 B/P 122/84; HR 154; Temp 96.9 F Oral; RR 20; SpO2 96% room air BNP: 08/20 6850 Echocardiogram Results: 08/22 Patient tachycardic LVH with ejection fraction of 50% Irregular rhythm Reduced aortic valve leaflet excursion. Aortic valve gradient does not suggest significant aortic stenosis However the short axis views suggest reduced aortic valve opening. Chest X Ray: 08/20 Heart appears borderline in size. Multifocal patchy and confluent opacities left greater than right. Trace bilateral pleural effusions. Treatment: 08/20 08/22 Lasix 20m IV Q12HR; 08/22 Lasix 20mg IV x 1 Patient refused; 08/23 Lasix 40mg PO Daily [facility]; 08/21 08/22 Lopressor 50mg PO BID [facility]; 08/22 Lopressor 50mg TID [facility] In your professional opinion, can you please clarify the acuity and type of Heart Failure if known? [ x ] Unable to determine (Template Last Revised: September 2020) Unable to determine MTDD
[2022-08-26] MEDS: ATORVASTATIN 20 MG TAB PO SCH (17:33)
[2022-08-26 20:04] VITALS: RESP 18
[2022-08-26] MEDS: LATANOPROST 0.005% OPHTH DROPS 2.5 ML BTL BOTH EYES SCH (20:05)
[2022-08-26 20:10] LABS: Glucose,Whole Blood 256 mg/dL (70-110)
--- NOTE | 2022-08-26 20:31 | P.PN ---
Subjective Progress Note Date: 08/26/22 Patient is a 76-year-old female with past medical history of COPD/asthma, atrial fibrillation, hypertension presents to ER with complaints of shortness of breath for the past few days. Chest x-ray showed evidence of CHF and pneumonia and patient was found to be in atrial fibrillation with rapid regular rate. 08/21/2022 Patient is currently lying in bed. Awake alert and oriented. Complains of shortness of breath with exertion. Heart rate is still elevated and is being continued on Cardizem drip. Cardiology is on board. Patient is also on heparin drip. No complaints of chest pain. No fever no chills. No nausea vomiting abdominal pain or diarrhea. Laboratory data showed WBC 15.7 hemoglobin 12.1 and platelets 379 sodium 138 potassium 3.3 chloride 101 bicarb is 30 BUN 19 and creatinine 0.11 and calcium 7.7 protein 5.6 and albumin 3.0. Cardiology is on board. 08/22/2022 Patient is currently sitting in the bed awake alert oriented x3. Still complains of shortness of breath and exertional dyspnea. Patient is also wheezing on exam and diffuse coarse sounds. No fever no chills. Does have cough without any sputum production. Heart rate is still elevated today. No fever no chills. Currently on antibiotics. Leukocytosis trending down. Laboratory data showed WBC 12.7 hemoglobin 12.1 and platelets 322 sodium 135 potassium 3.3 chloride 98 bicarb 33 BUN 19 and creatinine 0.76 and calcium 6.9. Cardiology is on board. 2D echocardiogram showed ejection fraction 50% and reduced aortic valve leaflet excursion aortic valve gradient does not suggest significant aortic stenosis. 08/23/2022 Patient is currently sitting in the bed. Awake alert and oriented. Breathing status is better today. Requiring oxygen at 2 L via nasal cannula. Patient is being continued on antibiotics ceftriaxone and azithromycin. Also on IV steroids and duo nebs. Otherwise patient continues to be in atrial fibrillation but heart rate is controlled. Cardizem drip has been discontinued and patient will be started on metoprolol. Heparin drip has been discontinued and patient was started on Eliquis. First dose today. Today echocardiogram showed physical activity percent and tachycardic. No obvious valvular abnormalities noted. Laboratory showed WBC increased to 16.9 likely due to steroids Hemoglobin 12.6 and platelets 326 sodium 134 potassium 5.1 chloride 100 bicarb 27 BUN 19 creatinine 0.64 and calcium 7.2. Cardiology is on board. 08/24/2022 Patient is seen and evaluated and follow-up currently sitting up in bed bronchospastic continues to have cough with congestion. Patient's heart rate e levated into the 120s and patient placed back on Cardizem IV with cardiology following closely. Adjustments to beta daja being done and recommending continued telemetry monitoring with follow-up in the a.m. Patient is afebrile denies chest pain or palpitations. Patient continues to report coughing and shortness of breath which she states is chronic and wears oxygen outpatient. Recommend continued telemetry monitoring and weaning off Cardizem drip. 08/25/2022 Patient is seen and evaluated in follow-up today continues to be dyspneic with exertion and bronchospastic maintained on duo nebs along with IV steroids. Cardiology following patient is continued to be in atrial fibrillation with RVR and initially was on a lower dose of Cardizem although heart rates continued to be in the 120s to 140s and patient placed back on IV Cardizem 5 ML per hour. Adjustments to medications including metoprolol being made and cardiology following recommend possible consultation to Dr. Hernandez if patient remains in atrial fibrillation with uncontrolled rate. Patient encouraged to increase activity as tolerated and sit up out of the bed more often. Patient is maintained on 2 L via nasal cannula and chronically wears this outpatient. Recommend Accu-Cheks before meals and at bedtime and continue sliding scale. Chest x-ray today shows stable COPD findings. Patient is currently afebrile den ies chest pain or palpitations. Patient denies nausea or vomiting and tolerating diet. 08/26/2022 Patient is seen in follow-up today with cardiology following And IV Cardizem is being discontinued. Metoprolol being increased along with Cardizem oral. Dr. hernandez discussed with cardiology and may plan for cardioversion if patient persists to be in atrial fibrillation. Encourage increase activity as tolerated and encouraged oral intake. Patient is currently on 2L via NC and was misunderstood when she does not usually wear 02 in the outpatient setting. Wean FI02 as tolerated and will do home assessment. Case management is aware. Afebrile and continued on antibiotics. Will transition steroids to oral. Review of systems: Constitutional: No reports of fatigue, fever, or chills Cardiovascular: No reports of chest pain or palpitations Respiratory: No reports of worsening shortness of breath, reports continued cough GI: No reports of nausea, vomiting, or diarrhea : No reports of dysuria or retention Neurovascular: No reports of weakness or numbness All medications have been reviewed Active Medications Hydrocodone Bitart/Acetaminophen (Hydrocodone/Apap 5-325mg 1 Each Tab) 1 each PO Q6HR PRN PRN Reason: Pain Albuterol/Ipratropium (Ipratropium-Albuterol 3 Ml Neb) 3 ml INHALATION RT-QID [facility] Last Admin: 08/26/22 15:37 Dose: 3 ml Albuterol/Ipratropium (Ipratropium-Albuterol 3 Ml Neb) 3 ml INHALATION RT-QID PRN PRN Reason: Shortness Of Breath Or Wheezing Alprazolam (Alprazolam 0.25 Mg Tab) 0.25 mg PO TID PRN PRN Reason: Anxiety Apixaban (Apixaban 5 Mg Tab) 5 mg PO BID [facility]; Protocol Last Admin: 08/26/22 20:05 Dose: 5 mg Aspirin (Aspirin 81 Mg) 81 mg PO DAILY [facility] Last Admin: 08/26/22 08:44 Dose: 81 mg Atorvastatin Calcium (Atorvastatin 20 Mg Tab) 20 mg PO DAILY@1800 [facility] Last Admin: 08/26/22 17:33 Dose: 20 mg Budesonide (Budesonide 1 Mg/2 Ml Nebu) 1 mg INHALATION RT-BID [facility] Last Admin: 08/26/22 07:35 Dose: 1 mg Dextrose/Water (Dextrose 50% Syringe 50 Ml) 25 ml IVP PER PROTOCOL PRN; Protocol PRN Reason: Hypoglycemia Dextrose/Water (Dextrose 50% Syringe 50 Ml) 50 ml IVP PER PROTOCOL PRN; Protocol PRN Reason: Hypoglycemia Digoxin (Digoxin 125 Mcg Tab) 125 mcg PO DAILY [facility] Last Admin: 08/26/22 08:44 Dose: 125 mcg Diltiazem HCl (Diltiazem Oral 30 Mg Tab) 30 mg PO TID [facility] Last Admin: 08/26/22 17:33 Dose: 30 mg Formoterol Fumarate (Formoterol Fumarate 20 Mcg/2 Ml Nebu) 20 mcg INHALATION RT-BID [facility] Last Admin: 08/26/22 07:35 Dose: 20 mcg Furosemide (Furosemide 40 Mg Tab) 40 mg PO DAILY [facility] Last Admin: 08/26/22 08:44 Dose: 40 mg Ceftriaxone Sodium 1 gm/ (Sodium Chloride) 50 mls @ 100 mls/hr IVPB Q24H [facility]; Protocol Last Admin: 08/26/22 17:33 Dose: 100 mls/hr Insulin Aspart (Insulin Aspart (Novolog) 100 Unit/Ml Vial) 0 unit SQ ACHS [facility]; Protocol Last Admin: 08/26/22 17:34 Dose: 1 unit Latanoprost (Latanoprost 0.005% Ophth Drops 2.5 Ml Btl) 1 drops BOTH EYES HS [facility] Last Admin: 08/26/22 20:05 Dose: 1 drops Levothyroxine Sodium (Levothyroxine 88 Mcg Tab) 88 mcg PO DAILY@0630 [facility] Last Admin: 08/26/22 06:29 Dose: 88 mcg Metoprolol Tartrate (Metoprolol Tartrate 50 Mg Tab) 100 mg PO TID [facility] Last Admin: 08/26/22 17:33 Dose: 100 mg Miscellaneous Information (Potassium Replacement Protocol 1 Each Misc) 1 each MISCELLANE DAILY PRN; Protocol PRN Reason: Per Protocol Multivitamins (Multivitamins, Thera 1 Each Tab) 1 each PO DAILY@1200 [facility] Last Admin: 08/26/22 12:34 Dose: 1 each Nicotine (Nicotine 14mg/24hr Patch) 1 patch TRANSDERM DAILY [facility] Last Admin: 08/26/22 08:44 Dose: 1 patch Nitroglycerin (Nitroglycerin Sl Tabs 0.4 Mg Tab) 0.4 mg SUBLINGUAL Q5M PRN PRN Reason: Chest Pain Pantoprazole Sodium (Pantoprazole 40 Mg Tablet) 40 mg PO AC-BRKFST [facility] Last Admin: 08/26/22 06:29 Dose: 40 mg Prednisone (Prednisone 20 Mg Tab) 40 mg PO DAILY [facility] Physical exam: Patient is sitting up in the bed awake, alert and oriented.. HEENT: Normocephalic. Neck is supple. Pupils reactive. Nostrils clear. Oral cavity is moist. Neck reveals no JVD, carotid bruits, or thyromegaly. CHEST EXAMINATION: Trachea is central. Symmetrical expansion. Bilateral faint expiratory wheezing and scattered rhonchi noted.. CARDIAC: Normal S1, S2 with no gallops. No murmurs irregularly irregular rhythm. ABDOMEN: Soft. Bowel sounds present. Nontender. No organomegaly. No abdominal bruits. Extremities: reveal no edema. No clubbing or cyanosis Neurologically awake, alert, oriented x3 with well-coordinated movements. No focal deficits noted Skin: No rash or skin lesions. Psychiatric: Cooperative. Non-suicidal, Musculoskeletal: No joint swelling or deformity. Normal range of motion. Assessment: Bilateral patchy infiltrates secondary to pneumonia Acute COPD exacerbation Atrial fibrillation with rapid ventricular rate Paroxysmal atrial fibrillation Asthma/COPD and currently everyday smoker acute hypoxic respiratory failure secondary to COPD Hypertension Hypothyroidism Peripheral vascular disease History of breast cancer status post bilateral mastectomy History of right upper lobectomy GI prophylaxis Plan: Continue with digoxin and increasing metoprolol with cardiology following. Patient appears somewhat controlled on the monitor and Cardizem IV discontinued. Encouraged increased activity as tolerated. . Possible consultation to Dr Hernandez if A. fib persists. Patient is continued on by mouth Lasix and will continue with duo nebs and t ransition IV steroids to oral prednisone She is continued on antibiotics in the form of ceftriaxone and Zithromax for pneumonia Chest x-ray reviewed and stable COPD Continue current medication regimen and will follow-up with cardiology Encouraged increased activity as tolerated Discussed with case management about possible home 02 to manage COPD. Will do home 02 eval in am Prognosis is guarded Possible discharge in 24-48 hours. The impression and plan of care has been dictated by Lori Cloud, Nurse Practitioner as directed. MD Pieter I have performed a history and examination and MDM of this patient, discussed the same with the dictator, and agree with the dictator's assessment and plan as written ,documented as a scribe. Based on total visit time, I have performed more than 50% of the visit. Objective - Vital Signs Vital signs: Vital Signs Temp 98 F 08/25/22 20:00 Pulse 80 08/26/22 08:00 Resp 18 08/26/22 08:00 BP 146/77 08/26/22 04:00 Pulse Ox 96 08/26/22 07:35 FiO2 Intake & Output 08/25/22 08/26/22 08/26/22 18:59 06:59 18:59 Intake Total 963 118 Output Total 700 800 Balance 263 -800 118 Intake: Intake, IV Titration 125 Amount Diltiazem 125 mg In 125 Sodium Chloride 0.9% 100 ml @ 10 MG/HR 10 mls/hr IV .[id number] [facility] Rx#: [id number] Oral 838 118 Output: Urine 700 800 Other: Voiding Method Bedside Commode Bedside Commode # Voids 1 # Bowel Movements 1 - Labs CBC & Chem 7: 08/26/22 07:43 08/26/22 07:42 Labs: Abnormal Lab Results - Last 24 Hours (Table) 08/25/22 08/25/22 08/25/22 Range/Units 11:52 16:57 19:49 WBC (3.8-10.6) k/uL Neutrophils # (1.3-7.7) k/uL Lymphocytes # (1.0-4.8) k/uL Sodium (137-145) mmol/L Chloride (98-107) mmol/L BUN (7-17) mg/dL Glucose (74-99) mg/dL POC Glucose (mg/dL) 187 H 215 H 175 H (70-110) mg/dL Calcium (8.4-10.2) mg/dL 08/26/22 08/26/22 08/26/22 Range/Units 06:14 07:42 07:43 WBC 13.6 H (3.8-10.6) k/uL Neutrophils # 12.9 H (1.3-7.7) k/uL Lymphocytes # 0.2 L (1.0-4.8) k/uL Sodium 133 L (137-145) mmol/L Chloride 97 L (98-107) mmol/L BUN 31 H (7-17) mg/dL Glucose 200 H (74-99) mg/dL POC Glucose (mg/dL) 137 H (70-110) mg/dL Calcium 6.9 L (8.4-10.2) mg/dL Microbiology - Last 24 Hours (Table) 08/20/22 11:01 Blood Culture - Preliminary Blood No Growth after 120 hours 08/20/22 10:45 Blood Culture - Preliminary Blood No Growth after 120 hours
[2022-08-27 06:38] LABS: Glucose,Whole Blood 125 mg/dL (70-110)
[2022-08-27] MEDS: PANTOPRAZOLE 40 MG TABLET PO SCH (06:42)
[2022-08-27] MEDS: INSULIN ASPART (NovoLOG) 100 UNIT/ML VIAL SQ SCH ×2 (06:42→12:25)
[2022-08-27] MEDS: LEVOTHYROXINE 88 MCG TAB PO SCH (06:42)
[2022-08-27] MEDS: FORMOTEROL FUMARATE 20 MCG/2 ML NEBU INHALATION SCH (07:34)
[2022-08-27] MEDS: BUDESONIDE 1 MG/2 ML NEBU INHALATION SCH (07:34)
[2022-08-27] MEDS: IPRATROPIUM-ALBUTEROL 3 ML NEB INHALATION SCH ×2 (07:34→11:35)
[2022-08-27] MEDS: ASPIRIN 81 MG PO SCH (08:50)
[2022-08-27] MEDS: FUROSEMIDE 40 MG TAB PO SCH (08:50)
[2022-08-27] MEDS: METOPROLOL TARTRATE 50 MG TAB PO SCH (08:50)
[2022-08-27] MEDS: DIGOXIN 125 MCG TAB PO SCH (08:50)
[2022-08-27] MEDS: MULTIVITAMINS, THERA 1 EACH TAB PO SCH (08:50)
[2022-08-27] MEDS: APIXABAN 5 MG TAB PO SCH (08:50)
[2022-08-27] MEDS: NICOTINE 14MG/24HR PATCH TRANSDERM SCH (08:50)
[2022-08-27] MEDS: DILTIAZEM ORAL 30 MG TAB PO SCH (08:50)
[2022-08-27 08:56] VITALS: TEMP 97.6
[2022-08-27] MEDS ORDERED: predniSONE 20 MG TAB PO SCH (09:00)
[2022-08-27 12:04] LABS: Glucose,Whole Blood 128 mg/dL (70-110)
[2022-08-27 12:30] VITALS: BP 109/56; PULSE 89
--- NOTE | 2022-08-27 13:15 | P.PN ---
Subjective Progress Note Date: 08/27/22 HISTORY OF PRESENT ILLNESS: Patient is a pleasant 76-year-old female who presented to the hospital with SOB and heart palpitations, has pneumonia and afib with RVR. Heart rate is much better controlled today, she continues in afib on the monitor but heart rate is in the 70's. Patient is tolerating the metoprolol and digoxin. She has continued on the cardizem drip. She denies chest pain overnight. Denies fluttering in her chest. Echocardiogram read yesterday was difficult to read due to tachycardia, but EF is estimated at 50%. No obvious valvular abnormalities. Recommend follow-up echo once patient has her heart rate better under control. 08/24/2022 Patient examined this morning at the bedside. Patient denies chest pain or pressure. She reports SOB which she states is chronic and at her baseline. Telemetry reveals atrial fibrillation with heart rates in the 100-120s. Patient denies palpitations. Patient's blood pressure is stable. She remains on IV Cardizem at 5 mg an hour. 08/25/2022 Patient examined this morning at the bedside. Patient denies chest pain or pressure. Denies SOB. Telemetry reveals atrial fibrillation with RVR. She is on a Cardizem drip at 5mg/hr. Blood pressure stable. 08/26/2022 Patient examined this morning at the bedside. Patient denies chest pain or pressure. Denies SOB. Telemetry reveals atrial fibrillation with controlled ventricular rates. She remains on a Cardizem drip at 5 mg an hour. Blood pressure stable. 08/27/2022 Patient examined this might bedside. Patient denies chest pain or pressure. She denies shortness of breath. Telemetry reveals atrial fibrillation with controlled ventricular rates. Her IV Cardizem drip has been discontinued. PHYSICAL EXAM: VITAL SIGNS: Reviewed. GENERAL: Well-developed in no acute distress. NECK: Supple. No JVD or thyromegaly LUNGS: Respirations even and unlabored. Lungs diminished to auscultation bilaterally. HEART: Irregular rate and rhythm. S1 and S2 heard. EXTREMITIES: Normal range of motion. No clubbing or cyanosis. Peripheral pulses intact. No lower extremity edema ASSESSMENT: Paroxysmal atrial fibrillation with RVR Pneumonia Diabetes Peripheral arterial disease PLAN: Continue current cardiac medications Patient is stable for discharge home today from a cardiac standpoint Further recommendations pending patient course Nurse practitioner note has been reviewed by physician. Signing provider agrees with the documented findings, assessment, and plan of care. Objective - Vital Signs Vital signs: Vital Signs Temp 97.6 F 08/27/22 08:00 Pulse 89 08/27/22 12:00 Resp 18 08/27/22 12:00 BP 109/56 08/27/22 12:00 Pulse Ox 85 L 08/27/22 12:00 FiO2 Intake & Output 08/26/22 08/27/22 08/27/22 18:59 06:59 18:59 Intake Total 598 358 Output Total 1450 250 Balance -852 108 Intake: Oral 598 358 Output: Urine 1450 250 Other: Voiding Method Toilet Toilet Toilet # Voids 1 # Bowel Movements 1 - Labs CBC & Chem 7: 08/26/22 07:43 08/26/22 07:42 Labs: Abnormal Lab Results - Last 24 Hours (Table) 08/26/22 08/26/22 08/27/22 Range/Units 16:44 20:08 06:38 POC Glucose (mg/dL) 160 H 256 H 125 H (70-110) mg/dL 08/27/22 Range/Units 11:58 POC Glucose (mg/dL) 128 H (70-110) mg/dL Microbiology - Last 24 Hours (Table) 08/20/22 11:01 Blood Culture - Final Blood No Growth after 144 hours 08/20/22 10:45 Blood Culture - Final Blood No Growth after 144 hours
--- NOTE | 2022-08-29 09:02 | P.DS ---
Providers Date of admission: 08/20/22 14:51 Expected date of discharge: 08/27/22 Attending physician: Ck Murry MD Consults: 08/20/22 14:50 Consult Physician Urgent Consulting Provider: [facility] Consult Reason/Comments: Acute pulmonary edema, A. fib with rapid ventricular response Do you want consulting provider notified?: Yes Primary care physician: Lia Gamble Hospital Course: Final diagnosis Bilateral patchy infiltrates secondary to pneumonia Acute COPD exacerbation Atrial fibrillation with rapid ventricular rate Paroxysmal atrial fibrillation Asthma/COPD and currently everyday smoker acute hypoxic respiratory failure secondary to COPD Hypertension Hypothyroidism Peripheral vascular disease History of breast cancer status post bilateral mastectomy History of right upper lobectomy GI prophylaxis Discharge disposition Patient is being discharged in a stable condition with guarded prognosis to home . Patient will follow-up with Dr. Gamble in the outpatient setting upon discharge. Patient is to follow up with cardiology as scheduled. Patient will require 2 L via nasal cannula on discharge to manage COPD and will be continued on a prednisone taper Total time taken is greater than 35 minutes. Hospital course This is a 76-year-old female who was recently admitted with increasing shortness of breath COPD exacerbation also found to be in atrial fibrillation with RVR, persistent. Patient being followed by cardiology was maintained on IV Cardizem for quite some time although has converted. Patient follow-up with cardiology closely within the next 1 week. Patient with history of COPD not normally wearing oxygen in the outpatient setting is now requiring oxygen 2 L as her saturation was in the low 80s on room air. Patient to continue with DuoNeb treatments along with inhalers and close outpatient follow-up with primary care provider. Patient encouraged strongly to quit smoking and avoid tobacco exposure. Currently no reports of chest pain, shortness of breath, or palpitations. Patient is afebrile. No reports of nausea or vomiting and patient is tolerating diet. Patient will be discharged today. Physical exam: Gen: This is a 76-year-old female who is awake, alert and oriented 3, thin built, elderly appearing female HEENT: Head is atraumatic, normocephalic. Pupils equal, round. Sclerae is anicteric. NECK: Supple. No JVD. No lymphadenopathy. No thyromegaly. LUNGS: Diminished breath sounds bilaterally with some scattered rhonchi noted. No intercostal retractions. HEART: S1, S2 are muffled, irregular ABDOMEN: Soft. Bowel sounds are present. No masses. No tenderness. EXTREMITIES: No pedal edema. No calf tenderness. NEUROLOGICAL: Patient is awake, alert and oriented x3. Cranial nerves 2 through 12 are grossly intact. Please refer to medication reconciliation sheet for a list of medications. The impression and plan of care has been dictated by Lori Cloud, Nurse Practitioner as directed. Dr. Dot MD I have performed a history and examination and MDM of this patient, discussed the same with the dictator, and agree with the dictator's assessment and plan as written ,documented as a scribe. Based on total visit time, I have performed more than 50% of the visit. Patient Condition at Discharge: Fair Plan - Discharge Summary Discharge Rx Participant: No New Discharge Prescriptions: New Apixaban [Eliquis] 5 mg PO BID #60 tab Ipratropium-Albuterol Nebulize [Duoneb 0.5 mg-3 mg/3 ml Soln] 3 ml INHALATION RT-QID PRN each PRN Reason: Shortness Of Breath Or Wheezing Digoxin [Lanoxin] 125 mcg PO DAILY 30 Days #30 tab Nitroglycerin Sl Tabs [Nitrostat] 0.4 mg SUBLINGUAL Q5M PRN #30 tab PRN Reason: Chest Pain Aspirin 81 mg PO DAILY 30 Days #30 tab Diltiazem Oral [Cardizem*] 30 mg PO TID 30 Days #90 tab Ipratropium-Albuterol Nebulize [Duoneb 0.5 mg-3 mg/3 ml Soln] 3 ml INHALATION RT-QID 30 Days #120 each Furosemide [Lasix] 40 mg PO DAILY 30 Days #30 tab Metoprolol Tartrate [Lopressor] 100 mg PO TID 30 Days #180 tab Multivitamins, Thera [Multivitamin (formulary)] 1 each PO DAILY@1200 30 Days #30 tab predniSONE 10 mg PO DIRECTED #30 tab Continue Latanoprost [Xalatan 0.005%] 1 drop BOTH EYES HS Rosuvastatin [Crestor] 10 mg PO DAILY@1800 Levothyroxine Sodium [Synthroid] 88 mcg PO DAILY Ipratropium/Albuter 20-100Mcg [Combivent Respimat 20-100Mcg Inhaler] 1 puff INHALATION RT-QID Discontinued predniSONE [Deltasone] See Taper PO DIRECTED Discharge Medication List Latanoprost [Xalatan 0.005%] 1 drop BOTH EYES HS 08/13/15 [History] Rosuvastatin [Crestor] 10 mg PO DAILY@1800 02/03/18 [History] Levothyroxine Sodium [Synthroid] 88 mcg PO DAILY 12/08/21 [History] Ipratropium/Albuter 20-100Mcg [Combivent Respimat 20-100Mcg Inhaler] 1 puff INHALATION RT-QID 08/20/22 [History] Apixaban [Eliquis] 5 mg PO BID #60 tab 08/21/22 [Rx] Aspirin 81 mg PO DAILY 30 Days #30 tab 08/27/22 [Rx] Digoxin [Lanoxin] 125 mcg PO DAILY 30 Days #30 tab 08/27/22 [Rx] Diltiazem Oral [Cardizem*] 30 mg PO TID 30 Days #90 tab 08/27/22 [Rx] Furosemide [Lasix] 40 mg PO DAILY 30 Days #30 tab 08/27/22 [Rx] Ipratropium-Albuterol Nebulize [Duoneb 0.5 mg-3 mg/3 ml Soln] 3 ml INHALATION RT-QID 30 Days #120 each 08/27/22 [Rx] Ipratropium-Albuterol Nebulize [Duoneb 0.5 mg-3 mg/3 ml Soln] 3 ml INHALATION RT-QID PRN each 08/27/22 [Rx] Metoprolol Tartrate [Lopressor] 100 mg PO TID 30 Days #180 tab 08/27/22 [Rx] Multivitamins, Thera [Multivitamin (formulary)] 1 each PO DAILY@1200 30 Days #30 tab 08/27/22 [Rx] Nitroglycerin Sl Tabs [Nitrostat] 0.4 mg SUBLINGUAL Q5M PRN #30 tab 08/27/22 [Rx] predniSONE 10 mg PO DIRECTED #30 tab 08/27/22 [Rx] Follow up Appointment(s)/Referral(s): Lia Gamble MD [Primary Care Provider] - 1-2 days [facility] [NON-STAFF] - Leobardo Pineda MD [STAFF PHYSICIAN] - 09/07/22 2:15 pm Patient Instructions/Handouts: A-fib (Atrial Fibrillation) (DC) Activity/Diet/Wound Care/Special Instructions: Activity Limited until follow-up Follow-up primary care provider on discharge Follow-up cardiology in one week Continue taking medications as prescribed Continue with oxygen via nasal cannula 2 L to manage COPD Avoid tobacco use and exposure to tobacco Discharge Disposition: HOME SELF-CARE
== END 2022-08-27 14:38 | disposition home or self-care (01) | DRG 308 ==
LOC: EC 10:16 → 3SCARD 14:51
PROVIDERS: ADMIT Internal Medicine; ATTEND Internal Medicine
DX: I48.0 Paroxysmal atrial fibrillation (principal); J18.9 Pneumonia, unspecified organism; J96.21 Acute and chronic respiratory failure with hypoxia; Z20.822 Contact with and (suspected) exposure to COVID-19; I25.10 Atherosclerotic heart disease of native coronary artery without angina pectoris; I11.0 Hypertensive heart disease with heart failure; E11.51 Type 2 diabetes mellitus with diabetic peripheral angiopathy without gangrene; E78.5 Hyperlipidemia, unspecified; Z96.641 Presence of right artificial hip joint; Z96.653 Presence of artificial knee joint, bilateral; F17.210 Nicotine dependence, cigarettes, uncomplicated; I50.9 Heart failure, unspecified; J43.9 Emphysema, unspecified; T38.0X5A Adverse effect of glucocorticoids and synthetic analogues, initial encounter; Z99.81 Dependence on supplemental oxygen; Z79.01 Long term (current) use of anticoagulants; Z79.52 Long term (current) use of systemic steroids; Z79.890 Hormone replacement therapy; Z79.899 Other long term (current) drug therapy; Z85.3 Personal history of malignant neoplasm of breast; Z90.13 Acquired absence of bilateral breasts and nipples; Z87.11 Personal history of peptic ulcer disease; Z88.6 Allergy status to analgesic agent; Z88.8 Allergy status to other drugs, medicaments and biological substances; Z90.2 Acquired absence of lung [part of]
CPT/HCPCS: 36415; 71045; 71046; 80048; 80053; 80061; 83036; 83735; 83880; 84443; 84484; 85025; 85610; 85730; 87040; 87636; 93005; 93306; 94640; 94760; 96365; 96366; 96367; 96368; 96375; 96376; 99291

== ENCOUNTER → 2022-12-01 | Outpatient (CLI) | payer MEDICARE, OTHER ==
--- NOTE | 2022-12-01 17:04 | CA ---
Transthoracic Echo Report Name: Criss Sandhu Age: 77 Gender: F : 1945 Exam Date: 12/01/2022 14:09 Exam Location: [facility] Ht (in): 63 Wt (lb): 130 Ordering Physician: Lia Gamble MD Attending/Referring Phys: Urology Physician Shonna Kumar RDCS Procedure CPT: Indications: echo Cardiac Hx: Technical Quality: Fair Contrast 1: Total Dose (mL): Contrast 2: Total Dose (mL): MEASUREMENTS (Male / Female) Normal Values 2D ECHO LV Diastolic Diameter PLAX 5.2 cm 4.2 - 5.9 / 3.9 - 5.3 cm LV Systolic Diameter PLAX 3.6 cm IVS Diastolic Thickness 1.4 cm 0.6 - 1.0 / 0.6 - 0.9 cm LVPW Diastolic Thickness 1.2 cm 0.6 - 1.0 / 0.6 - 0.9 cm LV Relative Wall Thickness 0.5 RV Internal Dim ED PLAX 3.4 cm LVOT Diameter 2.5 cm LA Systolic Diameter LX 4.2 cm 3.0 - 4.0 / 2.7 - 3.8 cm LV Diastolic Volume MOD BP 34.1 cm??? 67 - 155 / 56 - 104 cm??? LV Systolic Volume MOD BP 12.4 cm??? 22 - 58 / 19 - 49 cm??? LV Ejection Fraction MOD BP 63.5 % >= 55 % LV Diastolic Volume MOD 4C 36.6 cm??? LV Systolic Volume MOD 4C 12.0 cm??? LV Ejection Fraction MOD 4C 67.3 % LV Diastolic Length 4C 5.4 cm LV Systolic Length 4C 4.6 cm LV Diastolic Volume MOD 2C 30.2 cm??? LV Systolic Volume MOD 2C 13.9 cm??? LV Ejection Fraction MOD 2C 54.1 % LV Diastolic Length 2C 5.0 cm LV Systolic Length 2C 4.5 cm LA Volume 54.1 cm??? 18 - 58 / 22 - 52 cm??? M-MODE Aortic Root Diameter MM 3.8 cm MV E Point Septal Separation 0.5 cm AV Cusp Separation MM 1.1 cm DOPPLER AV Peak Velocity 147.9 cm/s AV Peak Gradient 8.8 mmHg AV Mean Velocity 95.7 cm/s AV Mean Gradient 4.3 mmHg AV Velocity Time Integral 27.0 cm LVOT Peak Velocity 76.7 cm/s LVOT Peak Gradient 2.4 mmHg AV Area Cont Eq pk 2.6 cm??? MV Area PHT 4.2 cm??? MV Deceleration Time 119.5 ms TR Peak Velocity 299.9 cm/s TR Peak Gradient 36.0 mmHg Right Ventricular Systolic Press 40.2 mmHg FINDINGS Left Ventricle Left ventricular ejection fraction is estimated at 50-55 %. Left ventricular cavity size normal. Moderately increased septal wall thickness. Mildly increased posterior wall thickness. Right Ventricle Mild right ventricular dilatation. Mild pulmonary hypertension. Right Atrium Normal right atrial size. Left Atrium Mildly increased left atrial diameter. Mildly increased left atrial volume. Mildly increased left atrial area. Mitral Valve Mitral valve thickened. Moderate mitral annular calcification. Trace to mild mitral regurgitation. Aortic Valve Trileaflet aortic valve. Aortic stenosis. AO valve area by planimetry is 1.4 cm. No gradient recordet Tricuspid Valve Structurally normal tricuspid valve. Clec-ih-drcuifte tricuspid regurgitation. Pulmonic Valve Structurally normal pulmonic valve. Trace to mild pulmonic regurgitation. Pericardium Normal pericardium. Small pericardial effusion by LV Aorta Mild aortic dilatation at the level of the sinuses of valsalva 38 mm CONCLUSIONS Normal LV systolic function Mitral annular calcification with mild mitral regurgitation Aortic sclerosis with mild aortic stenosis Mild aortic root dilatation Previewed by: Dr. Leobardo Pineda MD (Electronically Signed) Final Date: 01 December 2022 17:03
== END | disposition home or self-care (01) ==
LOC: RADECHMAIN 14:00
PROVIDERS: ATTEND Family Medicine
DX: I34.81 Nonrheumatic mitral (valve) annulus calcification (principal); I34.0 Nonrheumatic mitral (valve) insufficiency; I35.8 Other nonrheumatic aortic valve disorders; I35.1 Nonrheumatic aortic (valve) insufficiency; I48.0 Paroxysmal atrial fibrillation
CPT/HCPCS: 93306

== ENCOUNTER → 2022-12-03 | Outpatient (CLI) | payer MEDICARE, OTHER ==
--- NOTE | 2022-12-03 12:00 | XR ---
EXAMINATION TYPE: XR chest 2V DATE OF EXAM: 12/03/2022 COMPARISON: 10/14/2022 HISTORY: Shortness of breath TECHNIQUE: Frontal and lateral views of the chest are obtained. FINDINGS: There is stable gwgz-mp-ecwrppnz cardiomegaly. The cardiomediastinal silhouette is unchanged. The pul monary vasculature is within normal limits. There is no focal consolidation, significant pleural effu janusz, or pneumothorax. There is redemonstration of an opacity at the left lung base, which correspond s to an area of pleural thickening when correlated with CT 04/08/2022. There are increased lung volume s, which can be seen in the setting of emphysema/COPD. IMPRESSION: No acute cardiopulmonary process.
== END | disposition home or self-care (01) ==
LOC: RADXRMAIN 08:58
PROVIDERS: ATTEND Family Medicine
DX: J90 Pleural effusion, not elsewhere classified (principal)
CPT/HCPCS: 71046

== ENCOUNTER → 2022-12-03 | Outpatient (CLI) | payer MEDICARE, OTHER ==
[2022-12-03 10:44] LABS: Basophils % (A) 0 %; Eosinophils # (A) 0.3 k/uL (0-0.7); Eosinophils % (A) 3 %; HGB 13.7 gm/dL (11.4-16.0); Lymphocytes # (A) 2.2 k/uL (1.0-4.8); Lymphocytes % (A) 22 %; MCH 27.2 pg (25.0-35.0); MCHC 31.1 g/dL (31.0-37.0); MCV 87.7 fL (80.0-100.0); Mean Platelet Volume 7.8; Monocytes # (A) 0.6 k/uL (0-1.0); Monocytes % (A) 6 %; Neutrophils # (A) 6.6 k/uL (1.3-7.7); Neutrophils % (A) 67 %; Platelet Count 306 k/uL (150-450); RBC 5.02 m/uL (3.80-5.40); RDW 14.3 % (11.5-15.5)
[2022-12-03 15:10] LABS: RBC Morphology Normal
[2022-12-03 16:11] LABS: ALT 20 U/L (8-44); AST 25 U/L (13-35); African American GFR (CKD) 71.5 (60.0-200.0); Albumin 3.9 g/dL (3.8-4.9); Albumin/Globulin Ratio 1.62 (1.60-3.17); Alkaline Phosphatase 86 U/L (41-126); BUN/Creat Ratio 13.39 Ratio (12.00-20.00); Blood Urea Nitrogen 11.9 mg/dL (9.0-27.0); Calcium 9.5 mg/dL (8.7-10.3); Carbon Dioxide 25.7 mmol/L (20.0-27.5); Chloride 103 mmol/L (96-109); Chol/HDL Ratio 2.91 Ratio; Globulin 2.4 g/dL (1.6-3.3); Glucose 93 mg/dL (70-110); Iron 51 ug/dL (50-170); Non-African American GFR(CKD) 61.7 (60.0-200.0); Potassium 3.4 mmol/L (3.5-5.5); Sodium 144 mmol/L (135-145); Total Iron Binding Capacity 378 ug/dL (228-460); Total Protein 6.3 g/dL (6.2-8.2)
== END | disposition home or self-care (01) ==
LOC: LABWHC1 08:06
PROVIDERS: ATTEND Family Medicine
DX: J90 Pleural effusion, not elsewhere classified (principal); D72.829 Elevated white blood cell count, unspecified; D50.9 Iron deficiency anemia, unspecified; M40.03 Postural kyphosis, cervicothoracic region; R53.82 Chronic fatigue, unspecified
CPT/HCPCS: 36415; 80053; 80061; 82533; 82607; 83036; 83540; 83550; 83735; 83880; 84146; 84439; 84443; 85025

== ENCOUNTER → 2022-12-15 | Outpatient (CLI) | payer MEDICARE, OTHER ==
[2022-12-15 08:49] LABS: African American GFR (CKD) >90 (>60 ml/min/1.73 sqM); Blood Urea Nitrogen 12 mg/dL (7-17); Non-African American GFR(CKD) 84 (>60 ml/min/1.73 sqM)
--- NOTE | 2022-12-15 09:50 | CT ---
EXAMINATION TYPE: CT chest w con DATE OF EXAM: 12/15/2022 COMPARISON: 04/08/2022, 11/01/2018 HISTORY: Atrial fibrillation. CT DLP: 146.4 mGycm Automated exposure control for dose reduction was used. TECHNIQUE: CT scan of the chest is performed with IV Contrast, patient injected with 100ml mL of Isovue 300. MS P Images are created on CT scanner and reviewed. 3D reconstructed images are created on an [employer] workstation and reviewed. FINDINGS: LUNGS: The lungs are grossly clear, there is no concerning consolidative pneumonia identified. Biapi jayant pleural thickening greater involving the left lung apex. There is subsegmental consolidation note d bilaterally. Underlying emphysematous changes suspected. There is a stable appearing 3.6 mm nodule in the right lower lobe superior segment axial image 30 and 5 mm nodule right lower lobe axial image 36 unchanged from prior exam. There is no pleural effusion or pneumothorax seen. The tracheobronchia l tree is patent. Vmdx-xj-nwjqwqre bronchial wall thickening suggesting bronchitis or asthma. There are fibrotic changes and scarring and likely prior wedge resection along the right mid lung are redem onstrated. MEDIASTINUM: There are no greater than 1 cm hilar or mediastinal lymph nodes. The heart is enlarged. There is atherosclerotic change of the aorta. Maximal dimension of 3.7 cm. Coronary artery calcificat ion noted. OTHER: Liver reduced in attenuation. There is a stable nodular thickening left adrenal gland may be in the basal segments of the abdomen. Low attenuation is most typical of hepatic steatosis. Simple ap pearing left renal cyst incidentally noted. Bilateral previous mastectomy noted. Severe multilevel de generative disc disease. A chronic appearing 50% compression endplate fracture mid thoracic spine. Ch ronic rib cage deformities suggest prior fractures. Correlate for previous left axillary lymph node d issection. Arthropathy of the shoulders. IMPRESSION: 1. Cardiomegaly with coronary artery calcium. No overt failure. 2. COPD with areas of subsegmental consolidation most typical of scarring or atelectasis. 3. Stable subcentimeter pulmonary nodules. 4. Stable postsurgical change involving the right lung.
== END | disposition home or self-care (01) ==
LOC: RADCTMAIN 08:07
PROVIDERS: ATTEND Family Medicine
DX: I51.7 Cardiomegaly (principal); I48.91 Unspecified atrial fibrillation; J44.9 Chronic obstructive pulmonary disease, unspecified; I25.10 Atherosclerotic heart disease of native coronary artery without angina pectoris; R91.8 Other nonspecific abnormal finding of lung field
CPT/HCPCS: 82565; 84520; 71260; 36415; Q9967

== ENCOUNTER → 2022-12-17 | Outpatient (CLI) | payer MEDICARE, OTHER ==
[~2022-12-17] MED LIST changes: -LACTATED RINGERS 1,000 ML IV SCH; -LIDOCAINE 1% (10MG/ML) FOR IV START INTRADERMA PRN; +REGADENOSON 0.4 MG/5 ML SYRINGE IV PRN
--- NOTE | 2022-12-17 12:19 | CA ---
Lexiscan Nuclear Stress Test Report Name: Criss Sandhu Exam Date: 12/17/2022 09:34 Exam Location: [facility] Ht (in): 62 Wt (lb): 128 BSA: 1.58 Ordering Phys: Lia Gamble MD Referring Phys: JOANNA, Technologist: Wu Carver Age: 77 Gender: F : 1945 Procedure CPT: Indications: i48.0 ICD-10 Codes: Patient History: Medications: Meds past 24 hrs: Pretest Chest Pain: STRESS TEST Lexiscan Protocol Exercise Duration (min:sec): 02:[address] Depressions (mm): Angina Score: Leonardo Score: Resting HR (bpm): 73 Peak HR (bpm): 99 Resting BP (mmHg): 174 / 88 Peak BP (mmHg): 144 / 72 MPHR: 141 Target HR: 120 % MPHR: 70 METS: 1.0 Total Dose: Peak Dose: Atropine: Double Product: 52674 BP Response: Stress Termination: PROTOCOL COMPLETE Stress Symptoms: NO SYMPTOMS Stress Summary: ECG ANALYSIS Resting ECG: Atrial fibirllation. Normal conduction. Nonspecific ST-T abnormality. Stress ECG: No ECG changes from baseline with Lexiscan infusion. CONCLUSIONS No ECG evidence of ischemia with Lexiscan infusion. Nuclear test results to follow. Dr. Shakila Clements MD (Electronically Signed) Final Date: 17 Dec 2022 12:18
--- NOTE | 2022-12-17 12:31 | NM ---
EXAMINATION TYPE: NM stress lexiscan cardiolite DATE OF EXAM: 12/17/2022 COMPARISON: NONE CLINICAL INDICATION: Female, 77 years old with history of I48.0; TECHNIQUE: After the intravenous administration of 9.4 mCi Tc 99m Sestamibi - Cardiolite resting SPE CT images acquired 45 minutes post injection. The patient received 0.4mg Lexiscan, 24.1 mCi Tc 99m Sestamibi - Stress images obtained [address] injection FINDINGS: Review of stress and rest SPECT images demonstrates no distinct perfusion abnormality. Gated analysi s shows normal wall motion with an estimated left ventricular ejection fraction of 48 %. IMPRESSION: No scintigraphic evidence for reversible ischemia.
== END | disposition home or self-care (01) ==
LOC: RADNMMAIN 07:56
PROVIDERS: ATTEND Family Medicine
DX: I48.0 Paroxysmal atrial fibrillation (principal); R07.9 Chest pain, unspecified; R91.1 Solitary pulmonary nodule
CPT/HCPCS: 93017; 78452; A9500; J2785

== ENCOUNTER → 2024-04-27 | Outpatient (CLI) | payer MEDICARE, OTHER ==
--- NOTE | 2024-04-27 14:59 | BD ---
EXAMINATION TYPE: Axial Bone Density DATE OF EXAM: 04/27/2024 CLINICAL HISTORY: 78 years old Female. ICD-10 CODE: Z78.0 Post menopausal; M89.9 Disorder of bone Height: 61.5" Weight: 121lbs FRAX RISK QUESTIONS: Alcohol (3 or more units per day): No Family History (Parent hip fracture): No Glucocorticoids (More than 3mos): No (Ex: prednisone, prednisolone, methylprednisolone, dexamethasone, and hydrocortisone). History of Fracture in Adulthood: Secondary Osteoporosis: 1. Type 1 Diabetes: No 2. Hyperthyroidism: No 3. Menopause before 45: No 4. Malnutrition: No 5. Chronic liver disease: No Rheumatoid Arthritis: No Current Tobacco Use: Yes RISK FACTORS HISTORY OF: Hip Fracture (Right/Left): No Spine Fracture: No History of Wrist Fracture: No Surgery to Spine/Hip(right/left)/Wrist (right/left): Yes, right hip and femur, also right wrist sx When: Over 5 years ago MEDICATIONS: Thyroid Medications: Yes Which medication: Levothyroxine How Long: Since 2003 Osteoporosis Medications: No EXAM MEASUREMENTS: Bone mineral densitometry was performed using the [facility]. Bone mineral density as measured about the Lumbar spine is: ----- L1-L4(G/cm2): 1.712 T Score Values are as follows: ----- L1: 2.9 ----- L2: 5.6 ----- L3: 4.6 ----- L4: 4.8 ----- L1-L4: 4.4 Z Score Values are as follows: ----- L1: 5.1 ----- L2: 7.8 ----- L3: 6.8 ----- L4: 7.0 ----- L1-L4: 6.6 Bone mineral density has: decreased -4.5% since study of: 03/12/2020 Bone mineral density about the L hip (g/cm2): 0.842 T Score values are as follows: -----L Neck: -0.9 -----L Total: -1.3 Z Score values are as follows: -----L Neck: 1.4 -----L Total: 0.9 Bone mineral density has: increased 0.5% since study of: 03/09/2020 FRAX%s: The graph provided illustrates a 15.6% chance for a major osteoporotic fx and a 4.4% chance f or the hips probability for fx in 10 years time. IMPRESSION: Osteopenia (T Score between -2.5 and -1). There is slightly increased risk of fracture and the patient may be considered for treatment. Re-Screen 2-5 years. NOTE: T-SCORE=SD OF THE YOUNG ADULT MEAN.
== END | disposition home or self-care (01) ==
LOC: RADBDWWP 08:16
PROVIDERS: ATTEND Family Medicine
DX: M85.852 Other specified disorders of bone density and structure, left thigh (principal); Z78.0 Asymptomatic menopausal state
CPT/HCPCS: 77080

== ENCOUNTER 2025-03-09 09:54 | Inpatient (IN) | payer MEDICARE, OTHER ==
--- NOTE | 2025-03-09 10:23 | CT ---
EXAMINATION TYPE: CT brain apriline wo con DATE OF EXAM: 03/09/2025 10:07 AM COMPARISON: None. CLINICAL INDICATION: Female, 79 years old with history of fall, fall on blood thinners large hematoma on left forehead, pain TECHNIQUE: CT of the brain is performed utilizing 3 mm thick sections through the posterior fossa and 3 mm thick sections through the remaining calvarium. Study is performed within 24 hours of arrival to the hospital. Contrast used: mL of , (none if empty) CT DLP: 1366.1 mGycm, Automated exposure control for dose reduction was used. FINDINGS: No abnormal hyperdensity is present to suggest an acute intracranial hemorrhage. No mass lesion is evident. Minimal physiologic basal ganglion calcifications present. No acute infarcts are evident. Periventricular white matter hypodensity is present likely on the bas is of chronic ischemic changes. Ventricles and sulci are appropriate for the patient age. There is prominent soft tissue swelling over the left frontal temporal region. No underlying fracture s Tiny retention cyst medial wall right sphenoid sinus. Paranasal sinuses and mastoid air cells within the oapgv-vv-mjvm are otherwise clear. IMPRESSIONS: 1. No acute intracranial process. Follow-up MRI can be performed as clinically indicated. 2. Atrophy with chronic appearing periventricular white matter ischemic-type changes. CT cervical spine. COMPARISON: None TECHNIQUE: CT of the cervical spine is performed in the axial plane at 2 mm thick sections. Reconstr ucted images in the coronal, and sagittal plane are reviewed on the computer. FINDINGS: No acute fractures are evident. Vertebral body alignment is normal. There is loss of disc height at C3-4 C4-5 C5-6 and C6-7. Posterior endplate spurring is present C4-5 through C6-C7. Large anterior vertebral body spurs are present C4-C6. Vertebral body heights are preserved. Endplate spurring from C6-7 has moderate left paracentral sac impression. Cord contact may be present . MRI further evaluate this if clinically indicated. C5-6 endplate spurring is moderate anterior thec al sac compression. Spinal canal stenosis is evident. Uncovertebral joint spur contributing to severe bilateral foraminal stenosis is 4 right C4-5 bilatera lly C5-6 and 7. IMPRESSION: 1. No acute osseous abnormality cervical spine. 2. Degenerative disc changes C3-4 -C6-7. 3. Posterior endplate spurring C6-7 levels C5-6 has moderate anterior thecal sac compression. MRI cou ld be performed for cord evaluation if this would be of benefit. [facility], , 03/09/2025 10:21 AM
--- NOTE | 2025-03-09 10:39 | ED ---
Fall HPI - General Chief Complaint: Fall Stated Complaint: Fall Time Seen by Provider: 03/09/25 09:55 Source: patient, EMS, RN notes reviewed Mode of arrival: EMS Limitations: no limitations - History of Present Illness Initial Comments: This is a 79-year-old female who presents to the emergency department for a fall. Patient was walking to the bathroom and this morning and lost her balance and fell, hitting the front of her head. Denies any loss of consciousness. She is on Eliquis for A-fib. Complains of pain to her head and left hip. However, she is still able to move the left leg. Patient's oxygen saturation noted to be low on arrival. Denies any chest pain or shortness of breath, however she does report feeling weaker and somewhat rundown over the last couple of days. She does not wear oxygen at home. MD Complaint: fall - Related Data Home Medications Medication Instructions Recorded Confirmed Calcium(Unknown Dose) 1 tab PO BID 03/09/25 03/09/25 Digoxin [Lanoxin] 125 mcg PO DAILY@1200 03/09/25 03/09/25 Fluticasone/Vilanterol [Breo 1 puff INHALATION RT-HS 03/09/25 03/09/25 Ellipta 200-25 Mcg Inhaler] Ipratropium/Albuter 20-100Mcg 1 puff INHALATION RT-BID 03/09/25 03/09/25 [Combivent Respimat 20-100Mcg Inhaler] Latanoprost Ophth [Xalatan 0.005%] 1 drop BOTH EYES HS 03/09/25 03/09/25 Metoprolol Tartrate [Lopressor] 100 mg PO BID 03/09/25 03/09/25 Multivitamins, Thera [Multivitamin 1 tab PO DAILY 03/09/25 03/09/25 (formulary)] Psyllium Husk [Fiber Capsule] 0.8 gm PO DAILY 03/09/25 03/09/25 Rosuvastatin [Crestor] 10 mg PO DAILY 03/09/25 03/09/25 Previous Rx's Medication Instructions Recorded Apixaban [Eliquis] 5 mg PO BID 30 Days #60 tab 10/15/22 Levothyroxine Sodium [Synthroid] 88 mcg PO DAILY #30 tab 10/15/22 Allergies Allergy/AdvReac Type Severity Reaction Status Date / Time aspirin AdvReac Nausea/ringing Verified 03/09/25 12:38 in ears diphenhydramine HCl AdvReac EXTREME Verified 03/09/25 12:38 [From Benadryl] AGITATION/high BP Review of Systems ROS Statement: Those systems with pertinent positive or pertinent negative responses have been documented in the HPI. ROS Other: All systems not noted in ROS Statement are negative. Past Medical History Past Medical History: Atrial Fibrillation, Asthma, Cancer, COPD, Hyperlipidemia, Osteoarthritis (OA), Thyroid Disorder, Vascular Disorder Additional Past Medical History / Comment(s): BREAST CANCER, GLAUCOMA, LEFT LAZY EYE, EMPHYSEMA, HX OF STOMACH ULCER, PERFORATED BOWEL. states has "slack rt wrist" dx 2016, blocked artery left leg, hx valley fever rt lung, LOSING STRENGTH IN RT ARM, History of Any Multi-Drug Resistant Organisms: None Reported Past Surgical History: Bowel Resection, Breast Surgery, Joint Replacement, Orthopedic Surgery, Tonsillectomy, Tubal Ligation Additional Past Surgical History / Comment(s): RT TOTAL HIP X2, BILAT KNEE REPLACEMENT, meenakshi mastectomy, partial lobectomy-rt upper lobe, thyroidectomy, colostomy/later reversal, meenakshi carpal tunnel, meenakshi CATARACT. right wrist surgery, left great toe surgery, arortogram, PAIN CLINIC PROCEDURES Past Anesthesia/Blood Transfusion Reactions: No Reported Reaction Past Psychological History: No Psychological Hx Reported Smoking Status: Current some day smoker Past Alcohol Use History: None Reported Past Drug Use History: None Reported - Past Family History Father Family Medical History: Myocardial Infarction ([place]) Mother Family Medical History: Congestive Heart Failure (CHF) Brother(s) Family Medical History: Cancer, Congestive Heart Failure (CHF) General Exam Limitations: no limitations General appearance: alert, in no apparent distress Head exam: Present: other (Ecchymosis to the left side of the forehead) Respiratory exam: Present: decreased breath sounds, prolonged expiratory Cardiovascular Exam: Present: tachycardia, irregular rhythm GI/Abdominal exam: Present: soft. Absent: distended, tenderness Extremities exam: Present: other (Tenderness to palpation over the left hip. Full range of motion of the left lower extremity, however this does induce pain. 2+ DP and PT pulses) Neurological exam: Present: alert, oriented X3, CN II-XII intact Psychiatric exam: Present: normal affect, normal mood Course Vital Signs 03/09/25 03/09/25 03/09/25 10:09 11:34 11:37 Temperature 97.8 F Pulse Rate 70 115 H 102 H Respiratory 18 16 Rate Blood Pressure 116/71 130/61 O2 Sat by Pulse 87 L 93 L Oximetry 03/09/25 03/09/25 11:47 12:22 Temperature Pulse Rate 114 H 137 H Respiratory 18 Rate Blood Pressure 130/67 O2 Sat by Pulse 93 L Oximetry Medical Decision Making - Medical Decision Making This is an 79-year-old female who presents to the emergency department for a fall and head injury. Was pt. sent in by a medical professional or institution? @ -No Did you speak to anyone other than the patient for history? @ -No Did you review nursing and triage notes? @ -Yes, and I agree, it is accurate with regards to the patient's symptoms. Were old charts reviewed? @ -No Differential Diagnosis? @ -Differential Diagnosis Head Injury: Contusion, hematoma, intracranial hemorrhage, skull fracture, whiplash, concuss ion, this is not meant to be an all-inclusive list. EKG interpreted by me (3pts min.)? @ -EKG interpreted by me demonstrating the following: A-fib with RVR. Ventricular rate 112 bpm, QRS duration 139 ms, QTc 460 ms. X-rays interpreted by me (1pt min.)? @ -Chest x-ray obtained. My interpretation identifies diffuse interstitial opacities. X-ray of the left hip/AP pelvis obtained. My interpretation identifies no acute fractures. CT interpreted by me (1pt min.)? @ -Computed tomography scan of the brain and c-spine obtained. My interpretation identifies no evidence of an acute intracranial hemorrhage, skull fracture, or cervical spine fracture. U/S interpreted by me (1pt. min.)? @ -Not obtained What testing was considered but not performed? (CT, X-rays, U/S, labs)? Why? @ -None What meds were considered but not given? Why? @ -None Did you discuss the management of the patient with other professionals? @ -Yes, Dr. Chisholm, who accepts the patient for admission. Did you reconcile home meds? @ -Yes Was smoking cessation discussed for >3mins.? @ -No Was critical care preformed (if so, how long)? @ -Yes, >35 minutes Were there social determinants of health that impacted care today? How? (Homelessness, low income, unemployed, alcoholism, drug addiction, transportation, low edu. Level, literacy, decrease access to med. care, penitentiary, rehab)? @ -No Was there de-escalation of care discussed even if they declined? (Discuss DNR or withdrawal of care, Hospice)? @ -No What co-morbidities impacted this encounter? (DM, HTN, Smoking, COPD, CAD, Cancer, CVA, Hep., AIDS, mental health diagnosis, sleep apnea, morbid obesity)? @ -A-fib, COPD Was patient admitted / discharged? @ -Admitted. Given that the patient experienced a head injury on blood thinners, code coag was activated on arrival. CT scan of the brain and C-spine obtained. No acute intracranial process or signs of cervical spine fracture were identified. They did note that she has posterior endplate spurring at C6- C7 and C5-C6 has moderate anterior thecal sac compression. They advised that cord contact cannot be excluded. This was discussed with the patient. States that she has had problems with her neck for quite a while and this is nothing new. Denies any upper extremity weakness or paresthesias. When the patient arrived she was found have an oxygen saturation of 87% and nasal cannula was applied at 3 L. She is not experiencing any chest pain or shortness of breath, but did advise that she felt weaker than normal. She had also been experiencing coughing and congestion. Lab work subsequently obtained, which demonstrates leukocytosis with a white blood cell count of 14.3. Lactic acid elevated at 2.6. BNP 3160, which is stable when compared with prior values. X-ray of the left hip/AP pelvis reveals no acute process. Chest x-ray demonstrates concern for pneumonia versus pulmonary edema. Given the leukocytosis associated with it, she was started on the pneumonia protocol with ceftriaxone and azithromycin. She did also meet sepsis criteria at approximately 1220 based on pneumonia being potential source of infection with SIRS criteria of tachycardia and leukocytosis. However, due to a history of CHF fluid administration was reduc ed. She had first been given a liter of normal saline followed by 500 mL of LR and blood cultures had been obtained. Patient admitted to medicine for A-fib with RVR, acute hypoxic respiratory failure, pneumonia, CHF, and fall. Consult placed for pulmonology and cardiology. Case discussed with ED attending Dr. Holt. Undiagnosed new problem with uncertain prognosis? @ -None Drug Therapy requiring intensive monitoring for toxicity (Heparin, Nitro, Insulin, Cardizem)? @ -Cardizem Were any procedures done? @ -None Diagnosis/symptom? @ -A-fib with RVR, acute hypoxic respiratory failure, pneumonia, fall Acute, or Chronic, or Acute on Chronic? @ -Acute Uncomplicated (without systemic symptoms) or Complicated (systemic symptoms)? @ -Complicated Side effects of treatment? @ -None Exacerbation, Progression, or Severe Exacerbation] @ -Not applicable Poses a threat to life or bodily function? @ -Yes, can lead to - Lab Data Result diagrams: 03/09/25 10:37 03/09/25 10:37 Lab Results 03/09/25 03/09/25 03/09/25 Range/Units 10:37 10:37 10:37 WBC 14.30 H (4.50-10.00) 10*3/uL RBC 5.49 H (4.10-5.20) 10*6/uL Hgb 16.1 H (12.0-15.0) g/dL Hct 46.8 H (37.2-46.3) % MCV 85.2 (80.0-97.0) fL MCH 29.3 (27.0-32.0) pg MCHC 34.4 (32.0-37.0) g/dL Plt Count 179 (140-440) 10*3/uL MPV 10.1 (9.5-12.2) fL Immature Gran % (Auto) 0.6 % Neutrophils % 91.8 % Lymphocytes % 1.8 % Monocytes % 4.7 % Eosinophils % 0.6 % Basophils % 0.5 % Immature Gran # 0.09 H (0.00-0.04) 10*3/uL Neutrophils # 13.12 H (1.80-7.70) 10*3/uL Lymphocytes # 0.26 L (0.90-5.00) 10*3/uL Monocytes # 0.67 (0.20-1.00) 10*3/uL Eosinophils # 0.09 (0.04-0.35) 10*3/uL Basophils # 0.07 (0.00-0.10) 10*3/uL PT 11.5 (10.0-12.5) sec INR 1.0 (<1.2) APTT 23.8 (22.0-30.0) sec Sodium 134 L (137-145) mmol/L Potassium 3.6 (3.5-5.1) mmol/L Chloride 102 (98-107) mmol/L Carbon Dioxide 25 (22-30) mmol/L Anion Gap 7 mmol/L BUN 28 H (7-17) mg/dL Creatinine 0.61 (0.52-1.04) mg/dL Est GFR (CKD-EPI)AfAm >90 (>60 ml/min/1.73 sqM) Est GFR (CKD-EPI)NonAf 85 (>60 ml/min/1.73 sqM) Glucose 110 H (74-99) mg/dL Lactic Ac Sepsis Rflx Plasma Lactic Acid Mahendra (0.7-2.0) mmol/L Calcium 9.6 (8.4-10.2) mg/dL Magnesium 1.9 (1.6-2.3) mg/dL Total Bilirubin 1.6 H (0.2-1.3) mg/dL AST 31 (14-36) U/L ALT 18 (4-34) U/L Alkaline Phosphatase 111 (38-126) U/L Troponin I (0.000-0.034) ng/mL C-Reactive Protein (<1.0) mg/dL NT-Pro-B Natriuret Pep 3160 pg/mL Total Protein 5.9 L (6.3-8.2) g/dL Albumin 3.2 L (3.5-5.0) g/dL Influenza Type A (PCR) (Not Detectd) Influenza Type B (PCR) (Not Detectd) RSV (PCR) (Not Detectd) SARS-CoV-2 (PCR) (Not Detectd) 03/09/25 03/09/25 03/09/25 Range/Units 10:37 10:37 10:37 WBC (4.50-10.00) 10*3/uL RBC (4.10-5.20) 10*6/uL Hgb (12.0-15.0) g/dL Hct (37.2-46.3) % MCV (80.0-97.0) fL MCH (27.0-32.0) pg MCHC (32.0-37.0) g/dL Plt Count (140-440) 10*3/uL MPV (9.5-12.2) fL Immature Gran % (Auto) % Neutrophils % % Lymphocytes % % Monocytes % % Eosinophils % % Basophils % % Immature Gran # (0.00-0.04) 10*3/uL Neutrophils # (1.80-7.70) 10*3/uL Lymphocytes # (0.90-5.00) 10*3/uL Monocytes # (0.20-1.00) 10*3/uL Eosinophils # (0.04-0.35) 10*3/uL Basophils # (0.00-0.10) 10*3/uL PT (10.0-12.5) sec INR (<1.2) APTT (22.0-30.0) sec Sodium (137-145) mmol/L Potassium (3.5-5.1) mmol/L Chloride (98-107) mmol/L Carbon Dioxide (22-30) mmol/L Anion Gap mmol/L BUN (7-17) mg/dL Creatinine (0.52-1.04) mg/dL Est GFR (CKD-EPI)AfAm (>60 ml/min/1.73 sqM) Est GFR (CKD-EPI)NonAf (>60 ml/min/1.73 sqM) Glucose (74-99) mg/dL Lactic Ac Sepsis Rflx Plasma Lactic Acid Mahendra 2.6 H* (0.7-2.0) mmol/L Calcium (8.4-10.2) mg/dL Magnesium (1.6-2.3) mg/dL Total Bilirubin (0.2-1.3) mg/dL AST (14-36) U/L ALT (4-34) U/L Alkaline Phosphatase (38-126) U/L Troponin I 0.013 (0.000-0.034) ng/mL C-Reactive Protein 22.8 H (<1.0) mg/dL NT-Pro-B Natriuret Pep pg/mL Total Protein (6.3-8.2) g/dL Albumin (3.5-5.0) g/dL Influenza Type A (PCR) (Not Detectd) Influenza Type B (PCR) (Not Detectd) RSV (PCR) (Not Detectd) SARS-CoV-2 (PCR) (Not Detectd) 03/09/25 03/09/25 Range/Units 10:41 11:09 WBC (4.50-10.00) 10*3/uL RBC (4.10-5.20) 10*6/uL Hgb (12.0-15.0) g/dL Hct (37.2-46.3) % MCV (80.0-97.0) fL MCH (27.0-32.0) pg MCHC (32.0-37.0) g/dL Plt Count (140-440) 10*3/uL MPV (9.5-12.2) fL Immature Gran % (Auto) % Neutrophils % % Lymphocytes % % Monocytes % % Eosinophils % % Basophils % % Immature Gran # (0.00-0.04) 10*3/uL Neutrophils # (1.80-7.70) 10*3/uL Lymphocytes # (0.90-5.00) 10*3/uL Monocytes # (0.20-1.00) 10*3/uL Eosinophils # (0.04-0.35) 10*3/uL Basophils # (0.00-0.10) 10*3/uL PT (10.0-12.5) sec INR (<1.2) APTT (22.0-30.0) sec Sodium (137-145) mmol/L Potassium (3.5-5.1) mmol/L Chloride (98-107) mmol/L Carbon Dioxide (22-30) mmol/L Anion Gap mmol/L BUN (7-17) mg/dL Creatinine (0.52-1.04) mg/dL Est GFR (CKD-EPI)AfAm (>60 ml/min/1.73 sqM) Est GFR (CKD-EPI)NonAf (>60 ml/min/1.73 sqM) Glucose (74-99) mg/dL Lactic Ac Sepsis Rflx Y Plasma Lactic Acid Mahendra (0.7-2.0) mmol/L Calcium (8.4-10.2) mg/dL Magnesium (1.6-2.3) mg/dL Total Bilirubin (0.2-1.3) mg/dL AST (14-36) U/L ALT (4-34) U/L Alkaline Phosphatase (38-126) U/L Troponin I (0.000-0.034) ng/mL C-Reactive Protein (<1.0) mg/dL NT-Pro-B Natriuret Pep pg/mL Total Protein (6.3-8.2) g/dL Albumin (3.5-5.0) g/dL Influenza Type A (PCR) Not Detected (Not Detectd) Influenza Type B (PCR) Not Detected (Not Detectd) RSV (PCR) Not Detected (Not Detectd) SARS-CoV-2 (PCR) Not Detected (Not Detectd) - Radiology Data Radiology results: report reviewed, image reviewed Critical Care Time Critical Care Time: Yes Critical Care Time: >35 minutes Disposition Clinical Impression: Atrial fibrillation with RVR, Acute hypoxic respiratory failure, CHF (congestive heart failure), Pneumonia, Sepsis Disposition: ADMITTED IP TO THIS HOSP
[2025-03-09] MEDS: SODIUM CHLORIDE 0.9% 1,000 ML IV ONE (10:40)
[2025-03-09 10:44] LABS: Basophils # (A) 0.07 10*3/uL (0.00-0.10); Basophils % (A) 0.5 %; Eosinophils # (A) 0.09 10*3/uL (0.04-0.35); Eosinophils % (A) 0.6 %; HCT 46.8 % (37.2-46.3); HGB 16.1 g/dL (12.0-15.0); Lymphocytes # (A) 0.26 10*3/uL (0.90-5.00); Lymphocytes % (A) 1.8 %; MCH 29.3 pg (27.0-32.0); MCHC 34.4 g/dL (32.0-37.0); MCV 85.2 fL (80.0-97.0); Monocytes # (A) 0.67 10*3/uL (0.20-1.00); Monocytes % (A) 4.7 %; Neutrophils # (A) 13.12 10*3/uL (1.80-7.70); Neutrophils % (A) 91.8 %; Platelet Count 179 10*3/uL (140-440); RBC 5.49 10*6/uL (4.10-5.20); RDW 14.0 % (11.5-14.5); WBC 14.30 10*3/uL (4.50-10.00)
[2025-03-09 10:57] LABS: ALT 18 U/L (4-34); AST 31 U/L (14-36); African American GFR (CKD) >90 (>60 ml/min/1.73 sqM); Albumin 3.2 g/dL (3.5-5.0); Alkaline Phosphatase 111 U/L (38-126); Anion Gap 7 mmol/L; Blood Urea Nitrogen 28 mg/dL (7-17); Calcium 9.6 mg/dL (8.4-10.2); Carbon Dioxide 25 mmol/L (22-30); Chloride 102 mmol/L (98-107); Glucose 110 mg/dL (74-99); Magnesium 1.9 mg/dL (1.6-2.3); Non-African American GFR(CKD) 85 (>60 ml/min/1.73 sqM); Potassium 3.6 mmol/L (3.5-5.1); Sodium 134 mmol/L (137-145); Total Protein 5.9 g/dL (6.3-8.2)
[2025-03-09 11:03] LABS: INR 1.0 (<1.2); Partial Thromboplastin Time 23.8 sec (22.0-30.0); Prothrombin Time 11.5 sec (10.0-12.5)
[2025-03-09 11:06] LABS: NT-Pro-B-Type Natriuretic Pept 3160 pg/mL
[2025-03-09 11:31] LABS: RSV Not Detected (Not Detectd)
[2025-03-09] MEDS: IPRATROPIUM-ALBUTEROL 3 ML NEB INHALATION STA (11:37)
[2025-03-09] MEDS ORDERED: PNEUMONIA PROTOCOL UTILIZED 1 EACH MISC PO PRN (11:48)
[2025-03-09] MEDS: ACETAMINOPHEN TAB 500 MG TAB PO STA (12:11)
--- NOTE | 2025-03-09 12:16 | XR ---
EXAMINATION TYPE: XR chest 2V DATE OF EXAM: 03/09/2025 11:40 AM COMPARISON: 12/03/2022 CLINICAL INDICATION: Female, 79 years old with history of Weakness, , TECHNIQUE: AP and lateral views FINDINGS: Heart mildly enlarged. Volume loss in the left hemithorax appears similar back to 2022. However, ther e are superimposed diffuse interstitial densities. Hyperinflation. No sizable pleural effusion is see n. IMPRESSION: Redemonstrated COPD, mild cardiomegaly, and asymmetric volume loss in the left hemithorax. However, t here are new extensive interstitial opacities throughout and patchy opacities on the left. Consider C HF with interstitial pulmonary edema versus atypical pneumonia versus patchy conventional pneumonia. [facility], , 03/09/2025 12:14 PM
[2025-03-09] MEDS ORDERED: HYDROcodone/APAP 5-325MG 1 EACH TAB PO PRN (12:18)
[2025-03-09] MEDS ORDERED: NALOXONE 0.4 MG/ML 1 ML VIAL IV PRN (12:18)
[2025-03-09] MEDS ORDERED: ACETAMINOPHEN TAB 325 MG TAB PO PRN (12:18)
[2025-03-09] MEDS ORDERED: ONDANSETRON 4 MG/2 ML VIAL IVP PRN (12:18)
[2025-03-09] MEDS ORDERED: MORPHINE SULFATE 4 MG/ML SYRINGE IV PRN (12:18)
--- NOTE | 2025-03-09 12:19 | XR ---
EXAMINATION TYPE: XR Hip 2 views LT and AP Pelvis DATE OF EXAM: 03/09/2025 11:40 AM COMPARISON: None CLINICAL INDICATION: Female, 79 years old with history of Fall; PHH, pain FINDINGS: Degenerative disc disease lower lumbar spine and facet arthropathy. Vascular calcifications in the pe lvis. Vascular stent upper medial left thigh. There is moderate degenerative change at the left hip w ith axial joint space loss. Partially visualized right hip total arthroplasty. Stable lines within th e pelvis related to prior bowel surgery. No acute fracture, subluxation, dislocation is seen. IMPRESSION: 1. Moderate left hip OA. No acute osseous abnormality seen. 2. Partially visualized right total hip arthroplasty. 3. Moderate to advanced degenerative change lower lumbar spine. [facility], Workstation: [email or web address], 03/09/2025 12:16 PM
[2025-03-09] MEDS: DILTIAZEM 5 MG/ML 5 ML VIAL IVP STA (12:26)
[2025-03-09] MEDS: DILTIAZEM 125 MG in DEXTROSE 5% IN WATER 100 ML IV SCH (12:30)
[2025-03-09] MEDS: LACTATED RINGERS 500 ML IV ONE (13:02)
[2025-03-09] MEDS: AZITHROMYCIN 500 MG in SODIUM CHLORIDE 0.9% 250 ML IVPB STA (13:02)
[2025-03-09] MEDS ORDERED: HYDROmorphone 0.5 MG/0.5 ML SYRINGE IVP PRN (13:12)
[2025-03-09] MEDS: LACTATED RINGERS 1,000 ML IV SCH (13:53)
[2025-03-09 15:28] LABS: Bilirubin,Urine Negative (Negative); Blood,Urine Trace (Negative); Color,Urine Light Yellow; Glucose,Urine (UA) Negative (Negative); Ketones,Urine Trace (Negative); Leukocyte Esterase,Urine Negative (Negative); Nitrite,Urine Negative (Negative); PH, Urine 6.5 (5.0-8.0); Protein,Urine Negative (Negative); RBC,Urine 2 /hpf (0-5); Specific Gravity,Urine 1.016 (1.001-1.035); Squamous Epithelial Cell,Urine 1 /hpf (0-4); Urobilinogen,Urine <2.0 mg/dL (<2.0); WBC,Urine 2 /hpf (0-5)
[2025-03-09] MEDS: IPRATROPIUM-ALBUTEROL 3 ML NEB INHALATION SCH (15:46)
[2025-03-09] MEDS ORDERED: NON FORMULARY DRUG (Ipratropium/Albuter 20-100mcg 120 PUFF Each) INHALATION SCH (20:00)
[2025-03-09] MEDS: SYMBICORT 160-4.5 MCG INHALER INHALATION SCH (20:31)
[2025-03-09] MEDS: CALCIUM CARBONATE 500 MG CHEWABLE PO SCH (21:16)
[2025-03-09] MEDS: METOPROLOL TARTRATE 50 MG TAB PO SCH (21:16)
[2025-03-09] MEDS: APIXABAN 2.5 MG TABLET PO SCH (21:16)
[2025-03-09] MEDS: LATANOPROST 0.005% OPHTH DROPS 2.5 ML BTL BOTH EYES SCH (21:54)
--- NOTE | 2025-03-09 23:47 | HP ---
HISTORY AND PHYSICAL CHIEF COMPLAINTS: Fall, on thinners. HISTORY OF PRESENT ILLNESS: This 79-year-old woman with a past medical history of multiple medical problems including atrial fibrillation, was on Eliquis. The patient apparently lost her balance and fell in the bathroom, hit her head on the left side resulting in hematoma. The patient also had low oxygen saturation. The patient also had some cough also. The patient was taken to [facility], admitted for evaluation and treatment. A chest x-ray showed some increased bronchovascular markings, and pneumonia is not completely ruled out. Hip and pelvis x-rays showed significant DJD. A CT scan of the brain showed no acute changes. There is no history of fever, rigors, or chills. PAST MEDICAL HISTORY: History of atrial fibrillation, history of asthma, COPD. Rest of history and chart is also reviewed. HOME MEDICATIONS: Reviewed include Crestor. Dose and rest of medications reviewed. ALLERGIES: Aspirin. FAMILY HISTORY: History of CHF. SOCIAL HISTORY: Current smoking. REVIEW OF SYSTEMS: Fourteen-point Review of Systems negative except as mentioned earlier. PHYSICAL EXAM: VITAL SIGNS: Pulse 137, blood pressure 130/67, respirations 18. HEENT: Conjunctivae normal. Significant hematoma of the left forehead present. NECK: No JVD. CARDIOVASCULAR: S1, S2 tachycardic. RESPIRATION: Few scattered rhonchi and crackles. ABDOMEN: Soft, nontender. LEGS: No edema, no cyanosis. NERVOUS SYSTEM: Nonfocal. LABORATORY DATA: Reviewed. ASSESSMENT: 1. Chronic obstructive pulmonary disease, asthma, acute exacerbation with possible acute bilateral pneumonia. 2. Rule out congestive heart failure, acute exacerbation. 3. Atrial fibrillation with fast ventricular rate. 4. Fall and left forehead hematoma. 5. Elevated WBC. 6. History of hyperlipidemia. 7. History of breast cancer. 8. Multiple complex medical issues. RECOMMENDATION: This 79-year-old woman presented with multiple complex medical issues. We will monitor the patient closely. I would recommend empiric antibiotics as well as bronchodilators. Obtain Cardiology, Pulmonology consultations. Resume the home medications. PT, OT evaluation. The patient is started on Cardizem. We will continue to monitor. Also possibly repeat a 2D echo. I will also recommend viral testing. Overall prognosis guarded because of multiple complex medical conditions. See orders for details. MMODL / IJN: [id number] /
[2025-03-10] MEDS: LEVOTHYROXINE 88 MCG TAB PO SCH (06:32)
[2025-03-10 07:31] LABS: Basophils # (A) 0.03 10*3/uL (0.00-0.10); Basophils % (A) 0.3 %; Eosinophils # (A) 0.02 10*3/uL (0.04-0.35); Eosinophils % (A) 0.2 %; HCT 33.9 % (37.2-46.3); Lymphocytes # (A) 0.89 10*3/uL (0.90-5.00); Lymphocytes % (A) 7.6 %; MCH 28.6 pg (27.0-32.0); MCHC 33.3 g/dL (32.0-37.0); MCV 85.8 fL (80.0-97.0); Monocytes # (A) 1.04 10*3/uL (0.20-1.00); Monocytes % (A) 8.9 %; Neutrophils # (A) 9.67 10*3/uL (1.80-7.70); Neutrophils % (A) 82.5 %; Platelet Count 196 10*3/uL (140-440); RBC 3.95 10*6/uL (4.10-5.20); RDW 14.0 % (11.5-14.5); WBC 11.71 10*3/uL (4.50-10.00)
[2025-03-10 07:38] LABS: HGB 11.3 g/dL (12.0-15.0)
[2025-03-10 07:40] LABS: ALT 16 U/L (4-34); AST 29 U/L (14-36); African American GFR (CKD) >90 (>60 ml/min/1.73 sqM); Albumin 2.5 g/dL (3.5-5.0); Alkaline Phosphatase 89 U/L (38-126); Anion Gap 4 mmol/L; Blood Urea Nitrogen 15 mg/dL (7-17); Calcium 8.5 mg/dL (8.4-10.2); Carbon Dioxide 25 mmol/L (22-30); Chloride 105 mmol/L (98-107); Glucose 81 mg/dL (74-99); Non-African American GFR(CKD) >90 (>60 ml/min/1.73 sqM); Potassium 3.5 mmol/L (3.5-5.1); Sodium 134 mmol/L (137-145); Total Protein 4.9 g/dL (6.3-8.2)
[2025-03-10] MEDS: MULTIVITAMINS, THERA 1 EACH TAB PO SCH (10:19)
[2025-03-10] MEDS: ATORVASTATIN 20 MG TAB PO SCH (10:20)
[2025-03-10] MEDS: AZITHROMYCIN 500 MG TAB PO SCH (10:20)
[2025-03-10] MEDS: PANTOPRAZOLE 40 MG/10 ML VIAL IV SCH (10:25)
[2025-03-10] MEDS: CALCIUM CARBONATE 500 MG CHEWABLE PO SCH (10:26)
[2025-03-10] MEDS ORDERED: Potassium Replacement Protocol 1 EACH MISC MISCELLANE PRN (11:32)
[2025-03-10] MEDS: DIGOXIN 125 MCG TAB PO SCH (11:42)
[2025-03-10] MEDS: POTASSIUM CHLORIDE ER 20 MEQ TAB.ER PO SCH (11:42)
--- NOTE | 2025-03-10 12:25 | P.CNPUL ---
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 She was brought into the emergency room yesterday after getting up to go to the bathroom and walking with her walker tripped and fell injuring her head with a left forehead hematoma noted. CT scan of the brain revealed no acute intracranial process. The scan of the cervical spine revealed no acute osseous abnormalities. Left hip x-ray reveals no acute fracture. Right total hip arthroplasty noted. Moderate to advanced degenerative changes. Chest x-ray reveals evidence of COPD, mild cardiomegaly and asymmetric volume loss of the left hemithorax. Possible pulmonary edema versus atypical pneumonia. White count 11.7. Hemoglobin 11.3. Platelets 196. Sodium 134. Potassium 3.5. Bicarb 25. BUN 15. Creatinine 0.46. Glucose 81. proBNP 2340. Urinalysis clean. Urine Legionella screen negative. She is seen today in consultation on the selective care unit. She is currently sitting up in bed. Awake and alert in no acute distress. Denies any worsening shortness of breath, cough or congestion. She is maintaining O2 saturations in the 90s on 3 L/min per nasal cannula. She is afebrile. Hemodynamically stable. Review of Systems REVIEW OF SYSTEMS: CONSTITUTIONAL: Trip and fall with head injury. Denies any recent significant weight loss or weight gain. EYES: Denies change in vision. EARS, NOSE, MOUTH, THROAT: Denies headaches, denies sore throat. CARDIOVASCULAR: Denies chest pain, palpitations or syncopal episodes. RESPIRATORY: Positive for shortness of breath, cough, congestion no hemoptysis. GASTROINTESTINAL: Denies change in appetite, denies abdominal pain GENITOURINARY: Denies hematuria, denies infections. MUSKULOSKELETAL: Denies pain, denies swelling. INTEGUMENTARY: Denies rash, denies eczema. NEUROLOGICAL: Denies recent memory loss, no recent seizure activity. PSYCHIATRIC: Denies anxiety, denies depression. HEMATOLOGIC/LYMPHATIC: Denies anemia, denies enlarged lymph nodes. Past Medical History Past Medical History: Atrial Fibrillation, Asthma, Cancer, COPD, Hyperlipidemia, Osteoarthritis (OA), Thyroid Disorder, Vascular Disorder Additional Past Medical History / Comment(s): BREAST CANCER, GLAUCOMA, LEFT LAZY EYE, EMPHYSEMA, HX OF STOMACH ULCER, PERFORATED BOWEL. states has "slack rt wrist" dx 2016, blocked artery left leg, hx valley fever rt lung, LOSING STRENGTH IN RT ARM, History of Any Multi-Drug Resistant Organisms: None Reported Past Surgical History: Bowel Resection, Breast Surgery, Joint Replacement, Orthopedic Surgery, Tonsillectomy, Tubal Ligation Additional Past Surgical History / Comment(s): RT TOTAL HIP X2, BILAT KNEE REPLACEMENT, meenakshi mastectomy, partial lobectomy-rt upper lobe, thyroidectomy, colostomy/later reversal, meenakshi carpal tunnel, meenakshi CATARACT. right wrist surgery, left great toe surgery, aortogram, PAIN CLINIC PROCEDURES Past Anesthesia/Blood Transfusion Reactions: No Reported Reaction Past Psychological History: No Psychological Hx Reported Smoking Status: Current some day smoker Past Alcohol Use History: None Reported Additional Past Alcohol Use History / Comment(s): SMOKES LESS THAN 1 PPD FROM 1963, down to 5 cigarettes Past Drug Use History: None Reported - Past Family History Father Family Medical History: Myocardial Infarction ([place]) Mother Family Medical History: Congestive Heart Failure (CHF) Brother(s) Family Medical History: Cancer, Congestive Heart Failure (CHF) Medications and Allergies Home Medications Medication Instructions Recorded Confirmed Type Apixaban [Eliquis] 5 mg PO BID 30 Days #60 tab 10/15/22 03/09/25 Rx Levothyroxine Sodium [Synthroid] 88 mcg PO DAILY #30 tab 10/15/22 03/09/25 Rx Calcium(Unknown Dose) 1 tab PO BID 03/09/25 03/09/25 History Digoxin [Lanoxin] 125 mcg PO DAILY@1200 03/09/25 03/09/25 History Fluticasone/Vilanterol [Breo 1 puff INHALATION RT-HS 03/09/25 03/09/25 History Ellipta 200-25 Mcg Inhaler] Ipratropium/Albuter 20-100Mcg 1 puff INHALATION RT-BID 03/09/25 03/09/25 History [Combivent Respimat 20-100Mcg Inhaler] Latanoprost Ophth [Xalatan 0.005%] 1 drop BOTH EYES HS 03/09/25 03/09/25 History Metoprolol Tartrate [Lopressor] 100 mg PO BID 03/09/25 03/09/25 History Multivitamins, Thera [Multivitamin 1 tab PO DAILY 03/09/25 03/09/25 History (formulary)] Psyllium Husk [Fiber Capsule] 0.8 gm PO DAILY 03/09/25 03/09/25 History Rosuvastatin [Crestor] 10 mg PO DAILY 03/09/25 03/09/25 History Allergies Allergy/AdvReac Type Severity Reaction Status Date / Time aspirin AdvReac Nausea/ringing Verified 03/09/25 12:38 in ears diphenhydramine HCl AdvReac EXTREME Verified 03/09/25 12:38 [From Benadryl] AGITATION/high BP Physical Exam Vitals: Vital Signs Temp Pulse Pulse Resp BP BP Pulse Ox 03/10/25 11:46 98.2 F 75 20 108/63 92 L 03/10/25 09:25 98.4 F 98 20 152/53 93 L 03/10/25 09:11 90 03/10/25 09:00 89 93 L 03/10/25 03:45 89 16 120/65 91 L 03/10/25 02:00 18 03/09/25 23:07 82 18 99/56 94 L 03/09/25 20:40 104 H 03/09/25 20:30 106 H 03/09/25 19:40 98.3 F 72 18 126/63 03/09/25 18:28 98.2 F 115 H 18 134/62 93 L 03/09/25 18:23 110 H 18 109/54 94 L 03/09/25 18:15 98.2 F 115 H 22 134/62 93 L 03/09/25 16:30 116 H 18 95/73 95 03/09/25 16:09 104 H 03/09/25 15:59 106 H 03/09/25 15:14 98.3 F 66 17 103/59 99 03/09/25 12:22 137 H 18 130/67 93 L Intake and Output 03/09/25 03/10/25 03/10/25 22:59 06:59 14:59 Intake Total 540 200 237.25 Output Total 1000 225 Balance 540 -800 12.25 Intake: IV 10 Invasive Line 2 10 Intake, IV Titration 109.25 Amount Diltiazem 125 mg In 109.25 Dextrose 5% in Water 100 ml @ 5 MG/HR 5 mls/hr IV .Q24H [facility] Rx#:[id number] Oral 540 200 118 Output: Urine 1000 225 Other: Voiding Method External Catheter External Catheter # Voids 0 # Bowel Movements 0 1 Weight 57 kg 58 kg 58 kg GENERAL EXAM: Alert, was not 79-year-old female, on 3 L nasal cannula, fairly comfortable in no apparent distress. HEAD: Normocephalic. Ecchymosis and edema over left eye. EYES: Normal reaction of pupils, equal size. NOSE: Clear with pink turbinates. THROAT: No erythema or exudates. NECK: No masses, no JVD. CHEST: No chest wall deformity. LUNGS: Equal air entry with few scattered rhonchi. CVS: S1 and S2 normal with no audible murmur, irregular rhythm. ABDOMEN: No hepatosplenomegaly, normal bowel sounds, no guarding or rigidity. SPINE: No scoliosis or deformity SKIN: No rashes CENTRAL NERVOUS SYSTEM: No focal deficits, tone is normal in all 4 extremities. EXTREMITIES: There is no peripheral edema. No clubbing, no cyanosis. Peripheral pulses are intact. Results - Laboratory Findings CBC and BMP: 03/10/25 06:54 03/10/25 06:54 PT/INR, D-dimer PT 11.5 sec (10.0-12.5) 03/09/25 10:37 INR 1.0 (<1.2) 03/09/25 10:37 Abnormal lab findings: Abnormal Labs 03/09/25 03/09/25 03/09/25 10:37 10:37 10:37 WBC 14.30 H RBC 5.49 H Hgb 16.1 H Hct 46.8 H Immature Gran # 0.09 H Neutrophils # 13.12 H Lymphocytes # 0.26 L Monocytes # Eosinophils # Sodium 134 L BUN 28 H Creatinine Glucose 110 H Plasma Lactic Acid Mahendra 2.6 H* Total Bilirubin 1.6 H C-Reactive Protein Total Protein 5.9 L Albumin 3.2 L Procalcitonin Urine Ketones Urine Blood 03/09/25 03/09/25 03/09/25 10:37 10:37 13:17 WBC RBC Hgb Hct Immature Gran # Neutrophils # Lymphocytes # Monocytes # Eosinophils # Sodium BUN Creatinine Glucose Plasma Lactic Acid Mahendra 2.4 H* Total Bilirubin C-Reactive Protein 22.8 H Total Protein Albumin Procalcitonin 1.63 H Urine Ketones Urine Blood 03/09/25 03/10/25 03/10/25 15:11 06:54 06:54 WBC 11.71 H RBC 3.95 L Hgb 11.3 L D Hct 33.9 L Immature Gran # 0.06 H Neutrophils # 9.67 H Lymphocytes # 0.89 L Monocytes # 1.04 H Eosinophils # 0.02 L Sodium 134 L BUN Creatinine 0.46 L Glucose Plasma Lactic Acid Mahendra Total Bilirubin C-Reactive Protein Total Protein 4.9 L Albumin 2.5 L Procalcitonin Urine Ketones Trace H Urine Blood Trace H - Diagnostic Findings Chest x-ray: image reviewed Assessment and Plan Assessment: Trauma secondary to ground-level fall, tripping over her walker, anticoagulated with Eliquis. Ecchymosis and edema over right eye. CT scan of the head without acute intracranial process and neck without fracture Acute hypoxic respiratory failure secondary to possible community-acquired pneumonia and underlying congestive heart failure. Procalcitonin 1.63. proBNP 3160. 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 Lung volume loss of the left lung of unclear etiology Plan: The patient was seen and evaluated All imaging, labs and medications reviewed Continue on ceftriaxone and azithromycin Initiate DuoNeb inhalations Initiate Symbicort Continue on Eliquis Cardiology consulted Echocardiogram pending Sputum culture pending Currently stable on 3 L nasal cannula Titrate the FiO2 as tolerated Increase her activity as tolerated Educated regarding the importance of smoking cessation NicoDerm patch will be offered We will continue to follow and make further recommendations based on her clinical status I have personally seen and examined the patient, performed the documentation and the assessment and plan as written. Number of minutes spent on the visit: 20 Dictation was produced using [employer] dictation software. Please excuse any grammatical, word or spelling errors.
--- NOTE | 2025-03-10 12:36 | P.CRDCN ---
History of Present Illness History of present illness: HISTORY OF PRESENT ILLNESS: This is a 79-year-old female with a past medical history significant for permanent atrial fibrillation, peripheral arterial disease, hypertension, hyperlipidemia, carotid stenosis, valvular heart disease, and COPD. Patient follows in the office with Dr. Tobin. We have been asked to see the patient in consultation for atrial fibrillation. Patient examined at the bedside. Patient states that she presented to the hospital after sustaining a fall at home. She states that she was rushing to get to the bathroom and lost her balance. She states that she does use a 4 wheeled walker at home. She states she is usually fairly steady on her feet and does not fall very often. At the time of examination, patient denies any chest pain or pressure. She denies any shortness of breath. She does report that she has had a cough for the past few weeks. Patient was found to be in A-fib with RVR upon admission to the hospital. She was started on IV Cardizem which is currently infusing at 5 mg an hour. Telemetry reveals atrial fibrillation with a heart rate in the 80s. DIAGNOSTICS: - EKG reveals atrial fibrillation with RVR, right bundle branch block. - Chest xray redemonstrated COPD, mild cardiomegaly, and asymmetric volume loss in the left hemothorax. However there are new extensive interstitial opacities throughout and patchy opacities on the left. Consider CHF with interstitial edema versus atypical pneumonia versus patchy conventional pneumonia. - Laboratory data: WBC 11.71. Hemoglobin 11.3. Sodium 134. Potassium 3.5. BUN 15. Creatinine 0.46. proBNP 2340 - Current home cardiac medications include rosuvastatin 10 mg daily, metoprolol tartrate 100 mg twice a day, digoxin 125 mcg daily, Eliquis 5 mg twice a day. - Most recent echocardiogram obtained in November 2022 reveals ejection fraction 50 to 55%, mild pulm hypertension, trace to mild mitral regurgitation, mild to moderate tricuspid regurgitation, small pericardial effusion. - Patient underwent Lexiscan stress test in December 2022 which was negative for ischemia - Cardiac catheterization history: Patient denies REVIEW OF SYSTEMS: At the time of my exam: CONSTITUTIONAL: Denies fever or chills. HEENT: Denies blurred vision, vision changes, or eye pain. Denies hemoptysis CARDIOVASCULAR: Denies chest pain. Denies orthopnea. Denies PND. Denies palpitations RESPIRATORY: Denies shortness of breath. GASTROINTESTINAL: Denies abdominal pain. Denies nausea or vomiting. HEMATOLOGIC: Denies bleeding disorders. GENITOURINARY: Denies any blood in urine. SKIN: Denies pruitis. Denies rash. PHYSICAL EXAM: VITAL SIGNS: Reviewed. GENERAL: Well-developed in no acute distress. HEENT: Head is normocephalic. Pupils are equal, round. Sclerae anicteric. Mucous membranes of the mouth are moist. Neck supple. No JVD or thyromegaly LUNGS: Respirations even and unlabored. Left lung with decreased air exchange HEART: Irregular rate and rhythm. S1 and S2 heard. Systolic murmur noted ABDOMEN: Soft. Nondistended. Nontender. EXTREMITIES: Normal range of motion. No clubbing or cyanosis. Peripheral pulses intact. No lower extremity edema NEUROLOGIC: Awake and alert. Oriented x 3. ASSESSMENT: Status post mechanical fall Left-sided pneumonia Acute hypoxic respiratory failure secondary to pneumonia, requiring supplemental oxygen Permanent atrial fibrillation with RVR, currently rate controlled History of COPD Peripheral arterial disease with previous lower extremity intervention Hypertension Hyperlipidemia Carotid stenosis Mild pulmonary hypertension Nicotine dependence Debility PLAN: Obtain 2D echo to assess cardiac structure and function Discontinue IV Cardizem Resume home cardiac medications including rosuvastatin, metoprolol, digoxin, and Eliquis Telemetry monitoring Wean oxygen as tolerated Further recommendations pending patient course Nurse practitioner note has been reviewed by physician. Signing provider agrees with the documented findings, assessment, and plan of care documented by STRIKE OFF MACHINE OPERATOR as a scribe. Past Medical History Past Medical History: Atrial Fibrillation, Asthma, Cancer, COPD, Hyperlipidemia, Osteoarthritis (OA), Thyroid Disorder, Vascular Disorder Additional Past Medical History / Comment(s): BREAST CANCER, GLAUCOMA, LEFT LAZY EYE, EMPHYSEMA, HX OF STOMACH ULCER, PERFORATED BOWEL. states has "slack rt wrist" dx 2016, blocked artery left leg, hx valley fever rt lung, LOSING STRENGTH IN RT ARM, History of Any Multi-Drug Resistant Organisms: None Reported Past Surgical History: Bowel Resection, Breast Surgery, Joint Replacement, Orthopedic Surgery, Tonsillectomy, Tubal Ligation Additional Past Surgical History / Comment(s): RT TOTAL HIP X2, BILAT KNEE REPLACEMENT, meenakshi mastectomy, partial lobectomy-rt upper lobe, thyroidectomy, colostomy/later reversal, meenakshi carpal tunnel, meenakshi CATARACT. right wrist surgery, left great toe surgery, aortogram, PAIN CLINIC PROCEDURES Past Anesthesia/Blood Transfusion Reactions: No Reported Reaction Past Psychological History: No Psychological Hx Reported Smoking Status: Current some day smoker Past Alcohol Use History: None Reported Additional Past Alcohol Use History / Comment(s): SMOKES LESS THAN 1 PPD FROM 1963, down to 5 cigarettes Past Drug Use History: None Reported - Past Family History Father Family Medical History: Myocardial Infarction ([place]) Mother Family Medical History: Congestive Heart Failure (CHF) Brother(s) Family Medical History: Cancer, Congestive Heart Failure (CHF) Medications and Allergies Home Medications Medication Instructions Recorded Confirmed Type Apixaban [Eliquis] 5 mg PO BID 30 Days #60 tab 10/15/22 03/09/25 Rx Levothyroxine Sodium [Synthroid] 88 mcg PO DAILY #30 tab 10/15/22 03/09/25 Rx Calcium(Unknown Dose) 1 tab PO BID 03/09/25 03/09/25 History Digoxin [Lanoxin] 125 mcg PO DAILY@1200 03/09/25 03/09/25 History Fluticasone/Vilanterol [Breo 1 puff INHALATION RT-HS 03/09/25 03/09/25 History Ellipta 200-25 Mcg Inhaler] Ipratropium/Albuter 20-100Mcg 1 puff INHALATION RT-BID 03/09/25 03/09/25 History [Combivent Respimat 20-100Mcg Inhaler] Latanoprost Ophth [Xalatan 0.005%] 1 drop BOTH EYES HS 03/09/25 03/09/25 History Metoprolol Tartrate [Lopressor] 100 mg PO BID 03/09/25 03/09/25 History Multivitamins, Thera [Multivitamin 1 tab PO DAILY 03/09/25 03/09/25 History (formulary)] Psyllium Husk [Fiber Capsule] 0.8 gm PO DAILY 03/09/25 03/09/25 History Rosuvastatin [Crestor] 10 mg PO DAILY 03/09/25 03/09/25 History Allergies Allergy/AdvReac Type Severity Reaction Status Date / Time aspirin AdvReac Nausea/ringing Verified 03/09/25 12:38 in ears diphenhydramine HCl AdvReac EXTREME Verified 03/09/25 12:38 [From Benadryl] AGITATION/high BP Physical Exam Vitals: Vital Signs Temp Pulse Pulse Resp BP BP Pulse Ox 03/10/25 11:46 98.2 F 75 20 108/63 92 L 03/10/25 09:25 98.4 F 98 20 152/53 93 L 03/10/25 09:11 90 03/10/25 09:00 89 93 L 03/10/25 03:45 89 16 120/65 91 L 03/10/25 02:00 18 03/09/25 23:07 82 18 99/56 94 L 03/09/25 20:40 104 H 03/09/25 20:30 106 H 03/09/25 19:40 98.3 F 72 18 126/63 03/09/25 18:28 98.2 F 115 H 18 134/62 93 L 03/09/25 18:23 110 H 18 109/54 94 L 03/09/25 18:15 98.2 F 115 H 22 134/62 93 L 03/09/25 16:30 116 H 18 95/73 95 03/09/25 16:09 104 H 03/09/25 15:59 106 H 03/09/25 15:14 98.3 F 66 17 103/59 99 Intake and Output 03/09/25 03/10/25 03/10/25 22:59 06:59 14:59 Intake Total 540 200 237.25 Output Total 1000 225 Balance 540 -800 12.25 Intake: IV 10 Invasive Line 2 10 Intake, IV Titration 109.25 Amount Diltiazem 125 mg In 109.25 Dextrose 5% in Water 100 ml @ 5 MG/HR 5 mls/hr IV .Q24H [facility] Rx#:[id number] Oral 540 200 118 Output: Urine 1000 225 Other: Voiding Method External Catheter External Catheter # Voids 0 # Bowel Movements 0 1 Weight 57 kg 58 kg 58 kg Results 03/10/25 06:54 03/10/25 06:54 Cardiac Enzymes 03/10/25 Range/Units 06:54 AST 29 (14-36) U/L CBC 03/10/25 Range/Units 06:54 WBC 11.71 H (4.50-10.00) 10*3/uL RBC 3.95 L (4.10-5.20) 10*6/uL Hgb 11.3 L D (12.0-15.0) g/dL Hct 33.9 L (37.2-46.3) % Plt Count 196 (140-440) 10*3/uL Comprehensive Metabolic Panel 03/10/25 Range/Units 06:54 Sodium 134 L (137-145) mmol/L Potassium 3.5 (3.5-5.1) mmol/L Chloride 105 (98-107) mmol/L Carbon Dioxide 25 (22-30) mmol/L BUN 15 (7-17) mg/dL Creatinine 0.46 L (0.52-1.04) mg/dL Glucose 81 (74-99) mg/dL Calcium 8.5 (8.4-10.2) mg/dL AST 29 (14-36) U/L ALT 16 (4-34) U/L Alkaline Phosphatase 89 (38-126) U/L Total Protein 4.9 L (6.3-8.2) g/dL Albumin 2.5 L (3.5-5.0) g/dL Current Medications Generic Name Dose Route Start Last Admin Trade Name Freq PRN Reason Stop Dose Admin Acetaminophen 650 mg 03/09/25 12:18 Acetaminophen Tab 325 Mg Tab PO Q6HR PRN Mild Pain or Fever > 100.5 Hydrocodone Bitart/Acetaminophen 1 each 03/09/25 12:18 Hydrocodone/Apap 5-325mg 1 Each Tab PO Q4HR PRN Moderate Pain (Scale 4 to 6) Albuterol/Ipratropium 3 ml 03/09/25 11:48 Ipratropium-Albuterol 3 Ml Neb INHALATION RT-Q4H PRN shortness of breath Albuterol/Ipratropium 3 ml 03/09/25 12:00 03/10/25 09:00 Ipratropium-Albuterol 3 Ml Neb INHALATION 3 ml RT-QID [facility] Administration Apixaban 2.5 mg 03/09/25 21:00 03/10/25 10:19 Apixaban 2.5 Mg Tablet PO 2.5 mg BID [facility] Administration Protocol Atorvastatin Calcium 20 mg 03/10/25 09:00 03/10/25 10:20 Atorvastatin 20 Mg Tab PO 20 mg DAILY [facility] Administration Azithromycin 500 mg 03/10/25 09:00 03/10/25 10:20 Azithromycin 500 Mg Tab PO 03/11/25 09:01 500 mg DAILY [facility] Administration Protocol Budesonide/Formoterol Fumarate 2 puff 03/09/25 20:00 03/10/25 09:00 Symbicort 160-4.5 Mcg Inhaler INHALATION 2 puff RT-BID [facility] Administration Calcium Carbonate/Glycine 500 mg 03/10/25 10:30 03/10/25 10:26 Calcium Carbonate 500 Mg Chewable PO 500 mg BID [facility] Administration Calcium Polycarbophil 625 mg 03/10/25 09:00 03/10/25 10:20 Calcium Polycarbophil 625 Mg Tab PO 625 mg DAILY [facility] Administration Digoxin 125 mcg 03/10/25 12:00 03/10/25 11:42 Digoxin 125 Mcg Tab PO 125 mcg DAILY@1200 [facility] Administration Hydromorphone HCl 0.25 mg 03/09/25 13:12 Hydromorphone 0.5 Mg/0.5 Ml Syringe IVP Q6HR PRN Severe Pain (Scale 7 to 10) Ceftriaxone Sodium 2 gm/ 50 mls @ 100 mls/hr 03/10/25 09:00 03/10/25 10:19 Sodium Chloride IVPB 03/13/25 09:29 100 mls/hr Q24HR [facility] Administration Protocol Lactated Ringer's 1,000 mls @ 75 mls/hr 03/09/25 12:30 03/10/25 10:19 Lactated Ringers IV 75 mls/hr .[id number] [facility] Administration Latanoprost 1 drops 03/09/25 21:00 03/09/25 21:54 Latanoprost 0.005% Ophth Drops 2.5 Ml Btl BOTH EYES 1 drops HS [facility] Administration Levothyroxine Sodium 88 mcg 03/10/25 06:30 03/10/25 06:32 Levothyroxine 88 Mcg Tab PO 88 mcg DAILY@0630 [facility] Administration Metoprolol Tartrate 100 mg 03/09/25 21:00 03/10/25 10:20 Metoprolol Tartrate 50 Mg Tab PO 100 mg BID [facility] Administration Miscellaneous Information 1 each 03/09/25 11:48 Pneumonia Protocol Utilized 1 Each Misc PO ONCE PRN Per Protocol Miscellaneous Information 1 each 03/10/25 11:32 Potassium Replacement Protocol 1 Each Misc MISCELLANE DAILY PRN Per Protocol Protocol Multivitamins 1 each 03/10/25 09:00 03/10/25 10:19 Multivitamins, Thera 1 Each Tab PO 1 each DAILY [facility] Administration Naloxone HCl 0.2 mg 03/09/25 12:18 Naloxone 0.4 Mg/Ml 1 Ml Vial IV Q2M PRN Opioid Reversal Nicotine 1 patch 03/11/25 09:00 Nicotine 14mg/24hr Patch TRANSDERM DAILY [facility] Ondansetron HCl 4 mg 03/09/25 12:18 Ondansetron 4 Mg/2 Ml Vial IVP Q8HR PRN Nausea And Vomiting Pantoprazole Sodium 40 mg 03/11/25 07:30 Pantoprazole 40 Mg Tablet PO [id number] [facility] Potassium Chloride 20 meq 03/10/25 12:00 03/10/25 11:42 Potassium Chloride Er 20 Meq Tab.Er PO 03/10/25 13:01 20 meq Q1HR [facility] Administration Protocol Intake and Output 03/09/25 03/10/25 03/10/25 22:59 06:59 14:59 Intake Total 540 200 237.25 Output Total 1000 225 Balance 540 -800 12.25 Intake: IV 10 Invasive Line 2 10 Intake, IV Titration 109.25 Amount Diltiazem 125 mg In 109.25 Dextrose 5% in Water 100 ml @ 5 MG/HR 5 mls/hr IV .Q24H [facility] Rx#:[id number] Oral 540 200 118 Output: Urine 1000 225 Other: Voiding Method External Catheter External Catheter # Voids 0 # Bowel Movements 0 1 Weight 57 kg 58 kg 58 kg Patient Weight 03/11/25 06:59 Weight 58 kg 03/10/25 06:54 03/10/25 06:54
[2025-03-10] MEDS: METOPROLOL TARTRATE 50 MG TAB PO STA (17:35)
[2025-03-10] MEDS: IPRATROPIUM-ALBUTEROL 3 ML NEB INHALATION PRN (22:49)
[2025-03-10 23:02] LABS: Glucose,Whole Blood 111 mg/dL (70-110)
[2025-03-10] MEDS: FUROSEMIDE 10 MG/ML 4 ML VIAL IV STA (23:05)
--- NOTE | 2025-03-11 00:36 | XR ---
EXAM: XR Chest, 1 View CLINICAL HISTORY: ITS.REASON XR Reason: Resp distress TECHNIQUE: Frontal view of the chest. COMPARISON: 03/09/2025. FINDINGS: Lungs: There is a 1.6 cm nodule of the right lung base of uncertain etiology. There is a 6.1 x 1.2 cm density laterally at the left midlung near the pleura. Diffuse interstitial prominence. No consolidation. Pleural space: Small left pleural effusion. No pneumothorax. Heart: There is cardiomegaly. Mediastinum: Unremarkable. Normal mediastinal contour. Bones/joints: Unremarkable. No acute fracture. IMPRESSION: 1. Indeterminate bilateral nodular densities. Neoplasm cannot be excluded. Differential etiologies include multifocal pneumonia. Findings are nonspecific. CT imaging is advised to follow. 2. Cardiomegaly and small left pleural effusion. Consider intercurrent congestive heart failure. 3. Diffuse interstitial prominence.
--- NOTE | 2025-03-11 01:53 | PN ---
PROGRESS NOTE DATE OF SERVICE: 03/10/2025 SUBJECTIVE: This is an 79-year-old woman who was admitted with fall, on thinners, and has left forehead hematoma. The patient is being closely monitored. No chest pain. No palpitation. PHYSICAL EXAMINATION: VITAL SIGNS: On exam, pulse is 136, blood pressure is 131/70, respirations 18. HEENT: Conjunctivae normal. NECK: No JVD. CARDIOVASCULAR: S1, S2. Tachycardia. RESPIRATIONS: Few scattered rhonchi. ABDOMEN: Soft, nontender. NERVOUS SYSTEM: Nonfocal. LABS: Reviewed. ASSESSMENT: 1. COPD acute exacerbation with possible acute bilateral pneumonia. 2. Rule out CHF acute exacerbation. 3. Atrial fibrillation, with fast ventricular rate. 4. Fall and left forehead hematoma. 5. Elevated WBC. 6. Hyperlipidemia. 7. History of breast cancer. 8. Multiple complex medical issues. RECOMMENDATIONS AND DISCUSSION: I recommend to continue current medications, symptomatic treatment. Otherwise, continue the bronchodilators, empiric antibiotics. Cultures are negative. Closely follow with the Cardiology and Pulmonology. The patient is on beta blockers. Further recommendations to follow. MMODL / IJN: [id number] /
[2025-03-11] MEDS: DILTIAZEM 125 MG in DEXTROSE 5% IN WATER 100 ML IV SCH (02:14)
[2025-03-11] MEDS: PANTOPRAZOLE 40 MG TABLET PO SCH (06:16)
[2025-03-11 07:18] LABS: Basophils # (A) 0.03 10*3/uL (0.00-0.10); Basophils % (A) 0.2 %; Eosinophils # (A) 0.01 10*3/uL (0.04-0.35); Eosinophils % (A) 0.1 %; HCT 36.5 % (37.2-46.3); HGB 12.1 g/dL (12.0-15.0); Lymphocytes # (A) 0.87 10*3/uL (0.90-5.00); Lymphocytes % (A) 5.1 %; MCH 28.3 pg (27.0-32.0); MCHC 33.2 g/dL (32.0-37.0); MCV 85.3 fL (80.0-97.0); Monocytes # (A) 1.40 10*3/uL (0.20-1.00); Monocytes % (A) 8.2 %; Neutrophils # (A) 14.71 10*3/uL (1.80-7.70); Neutrophils % (A) 85.6 %; Platelet Count 224 10*3/uL (140-440); RBC 4.28 10*6/uL (4.10-5.20); RDW 14.1 % (11.5-14.5); WBC 17.16 10*3/uL (4.50-10.00)
[2025-03-11 07:41] LABS: ALT 28 U/L (4-34); African American GFR (CKD) >90 (>60 ml/min/1.73 sqM); Anion Gap 6 mmol/L; Blood Urea Nitrogen 12 mg/dL (7-17); Calcium 8.3 mg/dL (8.4-10.2); Carbon Dioxide 27 mmol/L (22-30); Chloride 100 mmol/L (98-107); Glucose 101 mg/dL (74-99); Non-African American GFR(CKD) >90 (>60 ml/min/1.73 sqM); Sodium 133 mmol/L (137-145)
[2025-03-11 07:42] LABS: AST 48 U/L (14-36); Albumin 2.8 g/dL (3.5-5.0); Alkaline Phosphatase 99 U/L (38-126); Potassium 4.2 mmol/L (3.5-5.1); Total Protein 5.5 g/dL (6.3-8.2)
[2025-03-11] MEDS: FUROSEMIDE 10 MG/ML 4 ML VIAL IV SCH (10:12)
[2025-03-11] MEDS: NICOTINE 14MG/24HR PATCH TRANSDERM SCH (10:14)
--- NOTE | 2025-03-11 12:17 | P.PN ---
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 She was brought into the emergency room yesterday after getting up to go to the bathroom and walking with her walker tripped and fell injuring her head with a left forehead hematoma noted. CT scan of the brain revealed no acute intracranial process. The scan of the cervical spine revealed no acute osseous abnormalities. Left hip x-ray reveals no acute fracture. Right total hip arthroplasty noted. Moderate to advanced degenerative changes. Chest x-ray reveals evidence of COPD, mild cardiomegaly and asymmetric volume loss of the left hemithorax. Possible pulmonary edema versus atypical pneumonia. White count 11.7. Hemoglobin 11.3. Platelets 196. Sodium 134. Potassium 3.5. Bicarb 25. BUN 15. Creatinine 0.46. Glucose 81. proBNP 2340. Urinalysis clean. Urine Legionella screen negative. She is seen today in consultation on the selective care unit. She is currently sitting up in bed. Awake and alert in no acute distress. Denies any worsening shortness of breath, cough or congestion. She is maintaining O2 saturations in the 90s on 3 L/min per nasal cannula. She is afebrile. Hemodynamically stable. The patient is seen today March 11, 2025 in follow-up on the selective care unit. She is currently resting in bed. Awake and alert in no acute distress. She did have a rapid response team called on her last evening for increasing shortness of breath. Chest x-ray revealed evidence of congestive heart failure. She received IV Lasix and placed on BiPAP. She also was in atrial fibrillation. She is currently maintaining O2 saturations in the mid 90s on 4 L/min per nasal cannula. She has been afebrile. Hemodynamically stable. Blood and sputum cultures are pending. White count 17.1. Hemoglobin 12.1. Platelets 224. Sodium 133. Potassium 4.2. Bicarb 27. BUN 12. Creatinine 0.44. Glucose 101. Procalcitonin 1.63. She remains on DuoNeb inhalations, Symbicort. Antibiotics in the form of Zosyn. She is on a Cardizem drip at 5 mg/h. Remains on digoxin. She is anticoagulated with Eliquis. Objective - Vital Signs Vital signs: Vital Signs Temp 97.7 F 03/11/25 09:54 Pulse 63 03/11/25 11:57 Resp 18 03/11/25 11:21 BP 104/60 03/11/25 11:21 Pulse Ox 95 03/11/25 11:21 FiO2 40 03/10/25 23:23 Intake & Output 03/10/25 03/11/25 03/11/25 18:59 06:59 18:59 Intake Total 473.25 30 348.5 Output Total 375 1450 350 Balance 98.25 -1420 -1.5 Weight 58 kg Intake: IV 10 30 10 Invasive Line 2 10 10 Invasive Line 3 20 10 Intake, IV Titration 109.25 98.5 Amount Diltiazem 125 mg In 98.5 Dextrose 5% in Water 100 ml @ 10 MG/HR 10 mls/hr IV .[id number] [facility] Rx#: [id number] Diltiazem 125 mg In 109.25 Dextrose 5% in Water 100 ml @ 5 MG/HR 5 mls/hr IV .Q24H [facility] Rx#:[id number] Oral 354 240 Output: Urine 375 1450 350 Other: Voiding Method External Catheter External Catheter External Catheter # Bowel Movements 1 - Exam GENERAL EXAM: Alert, frail 79-year-old female, on 4 L nasal cannula, fairly comfortable in no apparent distress. HEAD: Normocephalic. Ecchymosis and edema over left eye. EYES: Normal reaction of pupils, equal size. NOSE: Clear with pink turbinates. THROAT: No erythema or exudates. NECK: No masses, no JVD. CHEST: No chest wall deformity. LUNGS: Equal air entry with few scattered rhonchi, crackles in the bilateral bases. CVS: S1 and S2 normal with no audible murmur, irregular rhythm. ABDOMEN: No hepatosplenomegaly, normal bowel sounds, no guarding or rigidity. SPINE: No scoliosis or deformity SKIN: No rashes CENTRAL NERVOUS SYSTEM: No focal deficits, tone is normal in all 4 extremities. EXTREMITIES: There is no peripheral edema. No clubbing, no cyanosis. Peripheral pulses are intact. - Labs CBC & Chem 7: 03/11/25 06:53 03/11/25 06:53 Labs: Abnormal Lab Results - Last 24 Hours (Table) 03/10/25 03/11/25 03/11/25 Range/Units 23:01 06:53 06:53 WBC 17.16 H (4.50-10.00) 10*3/uL Hct 36.5 L (37.2-46.3) % Immature Gran # 0.14 H (0.00-0.04) 10*3/uL Neutrophils # 14.71 H (1.80-7.70) 10*3/uL Lymphocytes # 0.87 L (0.90-5.00) 10*3/uL Monocytes # 1.40 H (0.20-1.00) 10*3/uL Eosinophils # 0.01 L (0.04-0.35) 10*3/uL Sodium 133 L (137-145) mmol/L Creatinine 0.44 L (0.52-1.04) mg/dL Glucose 101 H (74-99) mg/dL POC Glucose (mg/dL) 111 H (70-110) mg/dL Calcium 8.3 L (8.4-10.2) mg/dL AST 48 H (14-36) U/L Total Protein 5.5 L (6.3-8.2) g/dL Albumin 2.8 L (3.5-5.0) g/dL Microbiology - Last 24 Hours (Table) 03/10/25 11:46 Gram Stain - Preliminary Sputum 03/09/25 12:05 Blood Culture - Preliminary Blood Assessment and Plan Assessment: Trauma secondary to ground-level fall, tripping over her walker, anticoagulated with Eliquis. Ecchymosis and edema over right eye. CT scan of the head without acute intracranial process and neck without fracture Acute hypoxic respiratory failure secondary to possible community-acquired pneumonia and underlying congestive heart failure. Procalcitonin 1.63. proBNP 3160. 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 Lung volume loss of the left lung of unclear etiology Plan: The patient was seen and evaluated Chest x-ray, labs and medications reviewed Initiated on Lasix 40 mg IV every 12 hours Currently on a Cardizem drip at 5 mg/h Discontinue ceftriaxone/azithromycin Initiated on Zosyn Continue DuoNeb inhalations Continue Symbicort Continue on Eliquis Echocardiogram pending Sputum culture pending Titrate the FiO2 as tolerated Increase her activity as tolerated Again educated regarding smoking cessation NicoDerm patch offered but refused Prognosis is guarded DNR CODE STATUS We will continue to follow I have personally seen and examined the patient, performed the documentation and the assessment and plan as written. Number of minutes spent on the visit: 10 Dictation was produced using [employer] dictation software. Please excuse any grammatical, word or spelling errors.
[2025-03-11] MEDS: PIPERACILLIN-TAZOBACTAM 3.375 GM in SODIUM CHLORIDE 0.9% 100 ML IVPB SCH (16:18)
[2025-03-11] MEDS: IOPAMIDOL CONTRAST (ORAL USE) VIAL PO PRN (17:04)
--- NOTE | 2025-03-11 19:02 | CT ---
EXAMINATION TYPE: CT ChestAbdPelvis wo con DATE OF EXAM: 03/11/2025 6:46 PM COMPARISON: Previous CT chest 12/15/2022. CLINICAL INDICATION: Female, 79 years old with history of pneumonia, mass?; PHH, PNEUMONIA, R/O MASS Technique: CT ChestAbdPelvis wo con; Multiple axial images were obtained. Two-dimensional coronal and sagittal reconstructions were obtained. Oral contrast used: with Oral Contrast CT DLP: 480.8 mGycm, Automated exposure control for dose reduction was used. Findings: CHEST: LUNGS/ PLEURA: Patchy groundglass and consolidative opacities throughout the lungs. Small bilateral p leural effusions with adjacent lower lobe compressive atelectasis. AIRWAY: Patent and unremarkable. HEART: Cardiomegaly and coronary artery calcifications. No significant pericardial effusion. MEDIASTINUM: No gross evidence of adenopathy. VASCULATURE: No aortic aneurysm. MUSCULOSKELETAL: No acute osseous abnormalities. SOFT TISSUES/LYMPH NODES: Unremarkable. LOWER NECK: No significant findings. ABDOMEN: ABDOMEN LIVER: Unremarkable GALLBLADDER AND BILE DUCTS: Unremarkable. PANCREAS: Unremarkable. SPLEEN: Unremarkable. ADRENAL GLANDS: Unremarkable. KIDNEYS AND URETERS: No evidence of hydronephrosis. Punctate not certain calculus in the inferior lef t kidney The ureters are unremarkable. Simple cyst in the left kidney. PELVIS BLADDER: Unremarkable REPRODUCTIVE: Unremarkable. ABDOMEN & PELVIS STOMACH AND BOWEL: Stomach and duodenum are unremarkable. Diastasis recti the anterior abdominal wall . No evidence of bowel obstruction. PERITONEUM/RETROPERITONEUM: No evidence of pneumoperitoneum or free fluid. VASCULATURE: No evidence of aortic aneurysm. MUSCULOSKELETAL: No acute osseous abnormalities. Right hip arthroplasty. Multilevel thoracic or lumba r spine degenerative changes. Moderate to severe T7 chronic compression deformity, similar to prior s tudy 12/15/2022. Multilevel thoracic or lumbar spine degenerative changes. Age-indeterminate mild compr ession deformity of the L4 superior endplate. Numerous old left-sided rib fracture deformities. LYMPH NODES: No gross evidence for lymphadenopathy. SOFT TISSUE/ABDOMINAL WALL: Fat-containing right anterior abdominal wall hernia defect (80/123). Mild body wall edema/anasarca. IMPRESSION: 1. Patchy groundglass and consolidative opacities throughout bilateral lungs suspicious for multifoc al pneumonia. 2. Small bilateral pleural effusions with adjacent lower lobe compressive atelectasis. 3. Cardiomegaly and coronary artery calcifications. 4. Additional nonacute findings as above. [facility], , 03/11/2025 7:00 PM
[2025-03-11] MEDS: MAGNESIUM SULFATE-D5W PMX 1 GM in DEXTROSE/WATER 1 100ML.BAG IVPB ONE (21:17)
--- NOTE | 2025-03-12 00:13 | P.PN ---
Subjective Progress Note Date: 03/11/25 HISTORY OF PRESENT ILLNESS: This is a 79-year-old female with a past medical history significant for pe rmanent atrial fibrillation, peripheral arterial disease, hypertension, hyperlipidemia, carotid stenosis, valvular heart disease, and COPD. Patient follows in the office with Dr. Tobin. We have been asked to see the patient in consultation for atrial fibrillation. Patient examined at the bedside. Patient states that she presented to the hospital after sustaining a fall at home. She states that she was rushing to get to the bathroom and lost her balance. She states that she does use a 4 wheeled walker at home. She states she is usually fairly steady on her feet and does not fall very often. At the time of examination, patient denies any chest pain or pressure. She denies any shortness of breath. She does report that she has had a cough for the past few weeks. Patient was found to be in A-fib with RVR upon admission to the hospital. She was started on IV Cardizem which is currently infusing at 5 mg an hour. Telemetry reveals atrial fibrillation with a heart rate in the 80s. DIAGNOSTICS: - EKG reveals atrial fibrillation with RVR, right bundle branch block. - Chest xray redemonstrated COPD, mild cardiomegaly, and asymmetric volume loss in the left hemothorax. However there are new extensive interstitial opacities throughout and patchy opacities on the left. Consider CHF with interstitial edema versus atypical pneumonia versus patchy conventional pneumonia. - Laboratory data: WBC 11.71. Hemoglobin 11.3. Sodium 134. Potassium 3.5. BUN 15. Creatinine 0.46. proBNP 2340 - Current home cardiac medications include rosuvastatin 10 mg daily, metoprolol tartrate 100 mg twice a day, digoxin 125 mcg daily, Eliquis 5 mg twice a day. - Most recent echocardiogram obtained in November 2022 reveals ejection fraction 50 to 55%, mild pulm hypertension, trace to mild mitral regurgitation, mild to moderate tricuspid regurgitation, small pericardial effusion. - Patient underwent Lexiscan stress test in December 2022 which was negative for ischemia - Cardiac catheterization history: Patient denies Progress note 03/12/2025 Last night patient's heart rates were uncontrolled for which she was started on low-dose Cardizem drip. By morning patient's heart rate was much better controlled. Therefore her Cardizem drip was discontinued. Later in the evening patient's heart rate did go up again for which she was placed on low-dose Cardizem drip again. She is continuing to get IV antibiotics. Denies any chest pain chest pressure. PHYSICAL EXAM: VITAL SIGNS: Reviewed. GENERAL: Well-developed in no acute distress. HEENT: Head is normocephalic. Pupils are equal, round. Sclerae anicteric. Mucous membranes of the mouth are moist. Neck supple. No JVD or thyromegaly LUNGS: Respirations even and unlabored. Left lung with decreased air exchange HEART: Irregular rate and rhythm. S1 and S2 heard. Systolic murmur noted ABDOMEN: Soft. Nondistended. Nontender. EXTREMITIES: Normal range of motion. No clubbing or cyanosis. Peripheral pulses intact. No lower extremity edema NEUROLOGIC: Awake and alert. Oriented x 3. ASSESSMENT: Status post mechanical fall Left-sided pneumonia Acute hypoxic respiratory failure secondary to pneumonia, requiring supplemental oxygen Permanent atrial fibrillation with RVR, currently rate controlled History of COPD Peripheral arterial disease with previous lower extremity intervention Hypertension Hyperlipidemia Carotid stenosis Mild pulmonary hypertension Nicotine dependence Debility PLAN: Obtain 2D echo to assess cardiac structure and function As needed Cardizem drip Resume home cardiac medications including rosuvastatin, metoprolol, digoxin, and Eliquis Telemetry monitoring Wean oxygen as tolerated Further recommendations pending patient course Objective - Vital Signs Vital signs: Vital Signs Temp 98.2 F 03/11/25 23:11 Pulse 71 03/11/25 23:11 Resp 20 03/11/25 23:11 BP 110/61 03/11/25 23:11 Pulse Ox 92 L 03/11/25 23:11 FiO2 40 03/10/25 23:23 Intake & Output 03/11/25 03/11/25 03/12/25 06:59 18:59 06:59 Intake Total 30 614.25 Output Total 1450 350 Balance -1420 264.25 Intake: IV 30 10 Invasive Line 2 10 Invasive Line 3 20 10 Intake, IV Titration 124.25 Amount Diltiazem 125 mg In 124.25 Dextrose 5% in Water 100 ml @ 10 MG/HR 10 mls/hr IV .[id number] [facility] Rx#: [id number] Oral 480 Output: Urine 1450 350 Other: Voiding Method External Catheter External Catheter External Catheter - Labs CBC & Chem 7: 03/11/25 06:53 03/11/25 06:53 Labs: Abnormal Lab Results - Last 24 Hours (Table) 03/11/25 03/11/25 Range/Units 06:53 06:53 WBC 17.16 H (4.50-10.00) 10*3/uL Hct 36.5 L (37.2-46.3) % Immature Gran # 0.14 H (0.00-0.04) 10*3/uL Neutrophils # 14.71 H (1.80-7.70) 10*3/uL Lymphocytes # 0.87 L (0.90-5.00) 10*3/uL Monocytes # 1.40 H (0.20-1.00) 10*3/uL Eosinophils # 0.01 L (0.04-0.35) 10*3/uL Sodium 133 L (137-145) mmol/L Creatinine 0.44 L (0.52-1.04) mg/dL Glucose 101 H (74-99) mg/dL Calcium 8.3 L (8.4-10.2) mg/dL AST 48 H (14-36) U/L Total Protein 5.5 L (6.3-8.2) g/dL Albumin 2.8 L (3.5-5.0) g/dL Microbiology - Last 24 Hours (Table) 03/09/25 12:05 Blood Culture - Preliminary Blood 03/10/25 11:46 Gram Stain - Preliminary Sputum
--- NOTE | 2025-03-12 04:20 | PN ---
PROGRESS NOTE DATE OF SERVICE: 03/11/2025 SUBJECTIVE: This 79-year-old woman who was admitted after a fall also had shortness of breath. The patient also had chest x-ray which showed bilateral pneumonia. Nodules cannot be ruled out. The patient does not have a recent CT scan of the chest. PAST MEDICAL HISTORY: Reviewed. REVIEW OF SYSTEMS: Fourteen-point review of systems is negative as mentioned earlier. CURRENT MEDICATIONS: Reviewed. PHYSICAL EXAMINATION: VITAL SIGNS: Pulse is 85, blood pressure 100/60, respirations 18. HEENT: Conjunctivae normal. CARDIOVASCULAR: S1 and S2. RESPIRATIONS: A few scattered rhonchi. ABDOMEN: Soft. NERVOUS SYSTEM: Nonfocal. LABORATORY DATA: Reviewed. ASSESSMENT: 1. Chronic obstructive pulmonary disease exacerbation with bilateral pneumonia, possibly gram-negative. 2. Rule out congestive heart failure acute exacerbation. 3. Atrial fibrillation with fast ventricular rate. 4. Fall and left forehead hematoma. 5. Elevated WBC. 6. Hyperlipidemia. 7. History of breast cancer. 8. Multiple complex medical issues. RECOMMENDATIONS: Recommend to continue current medication management and continue symptomatic treatment. I would recommend CT scan of the chest, abdomen, and pelvis to complete the workup. PT, OT evaluation. Possible ECF rehab. Prognosis is extremely guarded. Further recommendations to follow. Regarding the antibiotics, the patient is currently on Zosyn. MMODL / IJN: [id number] /
[2025-03-12 08:03] LABS: Basophils # (A) 0.03 10*3/uL (0.00-0.10); Basophils % (A) 0.2 %; Eosinophils # (A) 0.01 10*3/uL (0.04-0.35); Eosinophils % (A) 0.1 %; HCT 32.7 % (37.2-46.3); HGB 11.1 g/dL (12.0-15.0); Lymphocytes # (A) 0.80 10*3/uL (0.90-5.00); Lymphocytes % (A) 4.5 %; MCH 28.4 pg (27.0-32.0); MCHC 33.9 g/dL (32.0-37.0); MCV 83.6 fL (80.0-97.0); Monocytes # (A) 1.37 10*3/uL (0.20-1.00); Monocytes % (A) 7.7 %; Neutrophils # (A) 15.19 10*3/uL (1.80-7.70); Neutrophils % (A) 85.9 %; Platelet Count 249 10*3/uL (140-440); RBC 3.91 10*6/uL (4.10-5.20); RDW 13.8 % (11.5-14.5); WBC 17.68 10*3/uL (4.50-10.00)
[2025-03-12 08:28] LABS: ALT 28 U/L (4-34); AST 37 U/L (14-36); African American GFR (CKD) >90 (>60 ml/min/1.73 sqM); Albumin 2.6 g/dL (3.5-5.0); Alkaline Phosphatase 110 U/L (38-126); Anion Gap 5 mmol/L; Blood Urea Nitrogen 10 mg/dL (7-17); Calcium 8.3 mg/dL (8.4-10.2); Carbon Dioxide 30 mmol/L (22-30); Chloride 95 mmol/L (98-107); Glucose 100 mg/dL (74-99); Non-African American GFR(CKD) >90 (>60 ml/min/1.73 sqM); Potassium 3.3 mmol/L (3.5-5.1); Sodium 130 mmol/L (137-145); Total Protein 5.1 g/dL (6.3-8.2)
[2025-03-12] MEDS: FUROSEMIDE 40 MG TAB PO SCH (09:38)
[2025-03-12] MEDS: POTASSIUM CHLORIDE ER 20 MEQ TAB.ER PO SCH (11:32)
--- NOTE | 2025-03-12 13:24 | CA ---
Transthoracic Echo Report Name: Criss Sandhu Age: 79 Gender: F : 1945 Exam Date: 03/12/2025 08:30 Exam Location: [facility] Ht (in): 60 Wt (lb): 127 Ordering Physician: Arminda Parker Attending/Referring Phys: [id number], Keith Vamp Presser Denny Gonzalez, TYLER Procedure CPT: Indications: afib, s/p fall Cardiac Hx: Technical Quality: Fair Contrast 1: Total Dose (mL): Contrast 2: Total Dose (mL): MEASUREMENTS (Male / Female) Normal Values 2D ECHO LV Diastolic Diameter PLAX 3.7 cm 4.2 - 5.9 / 3.9 - 5.3 cm LV Systolic Diameter PLAX 2.6 cm IVS Diastolic Thickness 1.5 cm 0.6 - 1.0 / 0.6 - 0.9 cm LVPW Diastolic Thickness 1.5 cm 0.6 - 1.0 / 0.6 - 0.9 cm LV Relative Wall Thickness 0.8 RV Internal Dim ED PLAX 4.3 cm LVOT Diameter 1.7 cm LA Systolic Diameter LX 4.6 cm 3.0 - 4.0 / 2.7 - 3.8 cm LA Volume 77.0 cm??? 18 - 58 / 22 - 52 cm??? LA Volume Index 48.9 cm???/m??? 16 - 28 cm???/m??? DOPPLER AV Peak Velocity 247.9 cm/s AV Peak Gradient 24.6 mmHg AV Mean Velocity 163.0 cm/s AV Mean Gradient 12.5 mmHg AV Velocity Time Integral 36.8 cm MV Peak Velocity 122.7 cm/s MV Peak Gradient 6.0 mmHg MV Mean Velocity 61.1 cm/s MV Mean Gradient 1.9 mmHg MV Velocity Time Integral 25.5 cm TR Peak Velocity 372.1 cm/s TR Peak Gradient 55.4 mmHg Right Atrial Pressure 10.0 mmHg Pulmonary Artery Systolic Pressu 65.4 mmHg Right Ventricular Systolic Press 65.4 mmHg FINDINGS Left Ventricle Left ventricular ejection fraction is estimated at 55 to 60%. Moderate concentric left ventricular hypertrophy. Left ventricular cavity size normal. No obvious regional wall motion abnormalities. Right Ventricle Mild right ventricular dilatation. Severe pulmonary hypertension. Right ventricular systolic pressure estimated at 65 mm hg. Right Atrium Normal right atrial size. Left Atrium Moderately increased left atrial diameter. Severely increased left atrial volume. Mildly increased left atrial area. Mitral Valve Mitral valve thickened. Moderate mitral annular calcification. No mitral stenosis. Mild to moderate mitral regurgitation. Aortic Valve Trileaflet aortic valve. JUSTIN planimetry is 1.3 cm2, no gradient is recorded. Calcified aortic valve Tricuspid Valve Structurally normal tricuspid valve. No tricuspid stenosis. moderate tricuspid regurgitation. Pulmonic Valve Structurally normal pulmonic valve. No pulmonic stenosis. Mild to moderate pulmonic regurgitation. Pericardium No pericardial effusion. Aorta Aortic annulus normal. CONCLUSIONS 1. Normal left ventricular size and systolic function 2. Mild to moderate mitral regurgitation 3. Moderate tricuspid regurgitation with severe pulmonary hypertension 4. At least mild aortic stenosis with suboptimal gradient measurement Previewed by: Dr. Shakila Clements MD (Electronically Signed) Final Date: 12 March 2025 13:23
--- NOTE | 2025-03-12 13:29 | P.PN ---
Subjective Progress Note Date: 03/12/25 HISTORY OF PRESENT ILLNESS: This is a 79-year-old female with a past medical history significant for pe rmanent atrial fibrillation, peripheral arterial disease, hypertension, hyperlipidemia, carotid stenosis, valvular heart disease, and COPD. Patient follows in the office with Dr. Tobin. We have been asked to see the patient in consultation for atrial fibrillation. Patient examined at the bedside. Patient states that she presented to the hospital after sustaining a fall at home. She states that she was rushing to get to the bathroom and lost her balance. She states that she does use a 4 wheeled walker at home. She states she is usually fairly steady on her feet and does not fall very often. At the time of examination, patient denies any chest pain or pressure. She denies any shortness of breath. She does report that she has had a cough for the past few weeks. Patient was found to be in A-fib with RVR upon admission to the hospital. She was started on IV Cardizem which is currently infusing at 5 mg an hour. Telemetry reveals atrial fibrillation with a heart rate in the 80s. DIAGNOSTICS: - EKG reveals atrial fibrillation with RVR, right bundle branch block. - Chest xray redemonstrated COPD, mild cardiomegaly, and asymmetric volume loss in the left hemothorax. However there are new extensive interstitial opacities throughout and patchy opacities on the left. Consider CHF with interstitial edema versus atypical pneumonia versus patchy conventional pneumonia. - Laboratory data: WBC 11.71. Hemoglobin 11.3. Sodium 134. Potassium 3.5. BUN 15. Creatinine 0.46. proBNP 2340 - Current home cardiac medications include rosuvastatin 10 mg daily, metoprolol tartrate 100 mg twice a day, digoxin 125 mcg daily, Eliquis 5 mg twice a day. - Most recent echocardiogram obtained in November 2022 reveals ejection fraction 50 to 55%, mild pulm hypertension, trace to mild mitral regurgitation, mild to moderate tricuspid regurgitation, small pericardial effusion. - Patient underwent Lexiscan stress test in December 2022 which was negative for ischemia - Cardiac catheterization history: Patient denies Progress note 03/11/2025 Last night patient's heart rates were uncontrolled for which she was started on low-dose Cardizem drip. By morning patient's heart rate was much better controlled. Therefore her Cardizem drip was discontinued. Later in the evening patient's heart rate did go up again for which she was placed on low-dose Cardizem drip again. She is continuing to get IV antibiotics. Denies any chest pain chest pressure. 03/12/2025 Patient seen and examined. Echocardiogram is pending. Patient is on Cardizem drip at 10 mg/h and remains in atrial fibrillation. She is having shortness of breath today. She is on nasal cannula at 5 L nasal cannula with pulse ox of 91% . BiPAP is at bedside. Blood pressure 121/43, heart rate in the 60s. Repeat blood work reveals WBC 17.6, hemoglobin 0.1, potassium 3.3, creatinine one 0.45. PHYSICAL EXAM: VITAL SIGNS: Reviewed. GENERAL: Well-developed in no acute distress. HEENT: Head is normocephalic. Pupils are equal, round. Sclerae anicteric. Neck supple. No JVD or thyromegaly LUNGS: Respirations even and unlabored. No wheezes or rhonchi HEART: Irregular rate and rhythm. S1 and S2 heard. Systolic murmur at the apex ABDOMEN: Soft. Nondistended. Nontender. EXTREMITIES: No clubbing or cyanosis. Peripheral pulses intact. No lower extremity edema NEUROLOGIC: Awake and alert. Oriented x 3. ASSESSMENT: Status post mechanical fall Left-sided pneumonia Acute hypoxic respiratory failure secondary to pneumonia, requiring supplemental oxygen Permanent atrial fibrillation with RVR, currently rate controlled History of COPD Peripheral arterial disease with previous lower extremity intervention Hypertension Hyperlipidemia Carotid stenosis Mild pulmonary hypertension Nicotine dependence Debility PLAN: Obtain 2D echo to assess cardiac structure and function As needed Cardizem drip Continue home cardiac medications including rosuvastatin, metoprolol, digoxin, and Eliquis Telemetry monitoring Wean oxygen as tolerated Further recommendations pending patient course Nurse practitioner note has been reviewed, I agree with documented findings and plan of care. Patient was seen and examined. Objective - Vital Signs Vital signs: Vital Signs Temp 97.3 F L 03/12/25 11:23 Pulse 70 03/12/25 12:12 Resp 22 03/12/25 11:23 BP 121/43 03/12/25 11:23 Pulse Ox 91 L 03/12/25 11:23 FiO2 40 03/10/25 23:23 Intake & Output 03/11/25 03/12/25 03/12/25 18:59 06:59 18:59 Intake Total 624.25 114.167 140 Output Total 350 Balance 274.25 114.167 140 Weight 57.5 kg Intake: IV 20 20 Invasive Line 3 10 10 Invasive Line 4 10 10 Intake, IV Titration 124.25 114.167 Amount Diltiazem 125 mg In 124.25 114.167 Dextrose 5% in Water 100 ml @ 10 MG/HR 10 mls/hr IV .[id number] [facility] Rx#: [id number] Oral 480 120 Output: Urine 350 Other: Voiding Method External Catheter External Catheter External Catheter # Voids 2 1 # Bowel Movements 1 - Labs CBC & Chem 7: 03/12/25 07:12 03/12/25 07:12 Labs: Abnormal Lab Results - Last 24 Hours (Table) 03/12/25 03/12/25 Range/Units 07:12 07:12 WBC 17.68 H (4.50-10.00) 10*3/uL RBC 3.91 L (4.10-5.20) 10*6/uL Hgb 11.1 L (12.0-15.0) g/dL Hct 32.7 L (37.2-46.3) % Immature Gran # 0.28 H (0.00-0.04) 10*3/uL Neutrophils # 15.19 H (1.80-7.70) 10*3/uL Lymphocytes # 0.80 L (0.90-5.00) 10*3/uL Monocytes # 1.37 H (0.20-1.00) 10*3/uL Eosinophils # 0.01 L (0.04-0.35) 10*3/uL Sodium 130 L (137-145) mmol/L Potassium 3.3 L (3.5-5.1) mmol/L Chloride 95 L (98-107) mmol/L Creatinine 0.45 L (0.52-1.04) mg/dL Glucose 100 H (74-99) mg/dL Calcium 8.3 L (8.4-10.2) mg/dL AST 37 H (14-36) U/L Total Protein 5.1 L (6.3-8.2) g/dL Albumin 2.6 L (3.5-5.0) g/dL Microbiology - Last 24 Hours (Table) 03/10/25 11:46 Gram Stain - Preliminary Sputum Sputum Culture - Preliminary Yamilet glabrata 03/09/25 12:05 Blood Culture - Preliminary Blood
--- NOTE | 2025-03-12 14:04 | P.PN ---
Subjective Progress Note Date: 03/12/25 Principal diagnosis: Atrial fibrillation with RVR. 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 She was brought into the emergency room yesterday after getting up to go to the bathroom and walking with her walker tripped and fell injuring her head with a left forehead hematoma noted. CT scan of the brain revealed no acute intracranial process. The scan of the cervical spine revealed no acute osseous abnormalities. Left hip x-ray reveals no acute fracture. Right total hip arthroplasty noted. Moderate to advanced degenerative changes. Chest x-ray reveals evidence of COPD, mild cardiomegaly and asymmetric volume loss of the left hemithorax. Possible pulmonary edema versus atypical pneum onia. White count 11.7. Hemoglobin 11.3. Platelets 196. Sodium 134. Potassium 3.5. Bicarb 25. BUN 15. Creatinine 0.46. Glucose 81. proBNP 2340. Urinalysis clean. Urine Legionella screen negative. She is seen today in consultation on the selective care unit. She is currently sitting up in bed. Awake and alert in no acute distress. Denies any worsening shortness of breath, cough or congestion. She is maintaining O2 saturations in the 90s on 3 L/min per nasal cannula. She is afebrile. Hemodynamically stable. The patient is seen today March 11, 2025 in follow-up on the selective care unit. She is currently resting in bed. Awake and alert in no acute distress. She did have a rapid response team called on her last evening for increasing shortness of breath. Chest x-ray revealed evidence of congestive heart failure. She received IV Lasix and placed on BiPAP. She also was in atrial fibrillation. She is currently maintaining O2 saturations in the mid 90s on 4 L/min per nasal cannula. She has been afebrile. Hemodynamically stable. Blood and sputum cultures are pending. White count 17.1. Hemoglobin 12.1. Platelets 224. Sodium 133. Potassium 4.2. Bicarb 27. BUN 12. Creatinine 0.44. Glucose 101. Procalcitonin 1.63. She remains on DuoNeb inhalations, Symbicort. Antibiotics in the form of Zosyn. She is on a Cardizem drip at 5 mg/h. Remains on digoxin. She is anticoagulated with Eliquis. Progress note dated March 12, 2025. 79-year-old female seen today in room 366. The patient is resting comfortably in bed. She is on 5 L nasal cannula. The patient is receiving Cardizem at 10 mg an hour for her atrial fibrillation. The patient is getting Zosyn. Lactated Ringer's IV, is currently on hold. Current laboratory data includes a white count of 17.7, hemoglobin 11.1, hematocrit 32.7, and a platelet count of 249,000. Sodium 130, potassium 3.3, chlorides 95, CO2 30, BUN 10, creatinine 0.45. Anion gap is 5. Glucose is 100. Calcium is 8.3. Albumin is 2.6. Sputum shows evidence for Yamilet glabrata. CT scan of the chest shows small bilateral pleural effusions, compressive atelectasis, and possible groundglass opacities consistent with pneumonia. Procalcitonin level was elevated on March 09, at 1.63. Objective - Vital Signs Vital signs: Vital Signs Temp 97.3 F L 03/12/25 11:23 Pulse 70 03/12/25 12:12 Resp 22 03/12/25 11:23 BP 121/43 03/12/25 11:23 Pulse Ox 91 L 03/12/25 11:23 FiO2 40 03/10/25 23:23 Intake & Output 03/11/25 03/12/25 03/12/25 18:59 06:59 18:59 Intake Total 624.25 114.167 140 Output Total 350 Balance 274.25 114.167 140 Weight 57.5 kg Intake: IV 20 20 Invasive Line 3 10 10 Invasive Line 4 10 10 Intake, IV Titration 124.25 114.167 Amount Diltiazem 125 mg In 124.25 114.167 Dextrose 5% in Water 100 ml @ 10 MG/HR 10 mls/hr IV .[id number] [facility] Rx#: [id number] Oral 480 120 Output: Urine 350 Other: Voiding Method External Catheter External Catheter External Catheter # Voids 2 1 # Bowel Movements 1 - Exam No acute distress, oriented 3. HEENT examination is grossly unremarkable. Mucous membranes are moist. No oral lesions. Neck supple. Full range of motion. No adenopathy thyromegaly or neck vein distention. Cardiovascular examination reveals regular rhythm rate. S1-S2 normal. No S3 or S4. No discernible murmur noted. Lungs reveal mild bilateral scattered rhonchi. No wheezes. No crackles. Breath sounds are equal bilaterally. Abdomen soft bowel sounds are heard. No masses or tenderness. Extremities are intact. No cyanosis clubbing or edema. Skin is without rash or lesion. Neurologic examination is brief but nonfocal. - Labs CBC & Chem 7: 03/12/25 07:12 03/12/25 07:12 Labs: Abnormal Lab Results - Last 24 Hours (Table) 03/12/25 03/12/25 Range/Units 07:12 07:12 WBC 17.68 H (4.50-10.00) 10*3/uL RBC 3.91 L (4.10-5.20) 10*6/uL Hgb 11.1 L (12.0-15.0) g/dL Hct 32.7 L (37.2-46.3) % Immature Gran # 0.28 H (0.00-0.04) 10*3/uL Neutrophils # 15.19 H (1.80-7.70) 10*3/uL Lymphocytes # 0.80 L (0.90-5.00) 10*3/uL Monocytes # 1.37 H (0.20-1.00) 10*3/uL Eosinophils # 0.01 L (0.04-0.35) 10*3/uL Sodium 130 L (137-145) mmol/L Potassium 3.3 L (3.5-5.1) mmol/L Chloride 95 L (98-107) mmol/L Creatinine 0.45 L (0.52-1.04) mg/dL Glucose 100 H (74-99) mg/dL Calcium 8.3 L (8.4-10.2) mg/dL AST 37 H (14-36) U/L Total Protein 5.1 L (6.3-8.2) g/dL Albumin 2.6 L (3.5-5.0) g/dL Microbiology - Last 24 Hours (Table) 03/10/25 11:46 Gram Stain - Preliminary Sputum Sputum Culture - Preliminary Yamilet glabrata 03/09/25 12:05 Blood Culture - Preliminary Blood Assessment and Plan Assessment: Trauma secondary to ground-level fall, tripping over her walker, anticoagulated with Eliquis. Ecchymosis and edema over right eye. CT scan of the head without acute intracranial process and neck without fracture. Acute hypoxic respiratory failure secondary to possible community-acquired pneumonia and underlying congestive heart failure. Procalcitonin 1.63. proBNP 3160. Viral screen negative. Leukocytosis secondary to above. Chronic atrial fibrillation anticoagulated with Eliquis. Chronic and ongoing tobacco dependence of greater than 60 years. Chronic obstructive pulmonary disease. Hypertension. Hyperlipidemia. Hypothyroidism. 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 Lung volume loss of the left lung of unclear etiology. Plan: Plan dated March 12, 2025. The patient is seen today in room 366. The patient remains on Cardizem at 10 mg an hour. The patient is receiving nasal O2 at 5 L/min. Her IV of lactated Ringer's is currently on hold. She continues on Zosyn for possible pneumonia. Procalcitonin level was elevated. The patient has not use of BiPAP in a number of days. We will continue to follow make recommendations along the way. Labs, x-rays, and medications are reviewed. The patient is overall prognosis remains guarded. She is a no code patient. Dictation was produced using [employer] dictation software. Please excuse any grammatical, word or spelling errors. Time with Patient: Less than 30
--- NOTE | 2025-03-12 19:52 | CDI ---
Documentation Clarification Form Date: 03/12/2025 07:17:06 PM From: Jesika Villanueva RN, CCDS Phone: [phone] Admit Date: 03/09/2025 12:34:00 PM Patient Name: Criss Sandhu Visit Number: [id number] Discharge Date: ATTENTION: The Clinical Documentation Specialists (CDI) and [facility] Coding Staff appreciate your assistance in clarifying documentation. Please respond to the clarification below the line at the bottom and electronically sign. The CDI & [facility] Coding staff will review the response and follow-up if needed. Please note: Queries are made part of the Legal Health Record. If you have any questions, please contact the author of this message via ITS. Doctor. Melonie Chisholm Your patient has the documented diagnosis of unspecified CHF in you H/P and subsequent progress notes. Additional information regarding the type, acuity of CHF is requested. History/Risk Factors: Atrial Fibrillation, Asthma, Cancer, COPD, Clinical Indicators: 79-year-old female present after a fall in bathroom. She arrived with low oxygen saturation. She has cough and congestion. 03/09 VS/Pulse OX: 116/71 70 18 97.8 87% BNP: 3160 03/12 Echocardiogram Results: Normal left ventricular size and systolic function Left ventricular ejection fraction is estimated at 55 to 60%. Mild right ventricular dilatation. Moderate tricuspid regurgitation. Severe pulmonary hypertension. At least mild aortic stenosis with suboptimal gradient measurement 03/09 Chest X Ray: COPD, mild cardiomegaly, Consider CHF with interstitial pulmonary edema 03/11 Chest X-ray: Cardiomegaly and small left pleural effusion. Consider intercurrent congestive heart failure. Treatment: First Sampler / Telemetry Lasix40 MG IV Once 03/10 Lasix 40 MG IV Q 12 HRS 03/11-03/11 Lasix 40 MG PO Daily 03/12 Duoneb 0.5 MG-3 MG/3 ML Sara 03/09-03/12 Lopressor 100 MG PO BID 03/09-03/12 In your professional opinion, can you please clarify the acuity and type of CHF if known? [x ] Acute Diastolic Heart Failure (preserved EF) [ ] Chronic Diastolic Heart Failure (preserved EF) [ ] Acute on Chronic Diastolic Heart Failure (preserved EF) [ ] Other, please specify [ ] Unable to determine (Template Last Revised: September 2020) MTDD
[2025-03-12] MEDS: ALPRAZolam 0.25 MG TAB PO PRN (22:06)
[2025-03-12] MEDS: FUROSEMIDE 10 MG/ML 2 ML VIAL IV STA (22:06)
--- NOTE | 2025-03-13 01:39 | XR ---
EXAM: XR Chest, 1 View CLINICAL HISTORY: ITS.REASON XR Reason: sob TECHNIQUE: Frontal view of the chest. COMPARISON: CXR, 2 days ago. FINDINGS: Lungs: Patchy bilateral airspace consolidations, consistent with severe multilobar pneumonia. Pleural space: Unremarkable. No pneumothorax. Heart: Cardiomegaly. Mediastinum: Unremarkable. Bones/joints: Right full-thickness rotator cuff tear. IMPRESSION: Patchy bilateral airspace consolidations, consistent with severe multilobar pneumonia.
[2025-03-13] MEDS: methylPREDNISolone SOD SUCCI 125 MG/2 ML VIAL IV SCH (05:56)
--- NOTE | 2025-03-13 07:09 | XR ---
EXAMINATION TYPE: XR chest 1V portable DATE OF EXAM: 03/13/2025 6:51 AM COMPARISON: Chest radiographs from 03/12/2025, CT chest abdomen pelvis 03/11/2025 TECHNIQUE: XR chest 1V portable Portable AP radiograph of the chest. CLINICAL INDICATION:Female, 79 years old with history of pneumonia; FINDINGS: Lungs/Pleura: Blunting of the left costophrenic angle. Multifocal patchy airspace opacities throughou t the lungs. No pneumothorax. Pulmonary vascularity: Unremarkable. Heart/mediastinum: Cardiomediastinal silhouette is enlarged and stable. Atherosclerotic calcificatio ns are seen in the aorta. Musculoskeletal: No acute osseous pathology. Right shoulder arthropathy. IMPRESSION: 1. Similar multifocal pneumonia. 2. Small left pleural effusion. [facility], , 03/13/2025 7:07 AM
[2025-03-13 08:05] LABS: Basophils # (A) 0.05 10*3/uL (0.00-0.10); Basophils % (A) 0.3 %; Eosinophils # (A) 0.02 10*3/uL (0.04-0.35); Eosinophils % (A) 0.1 %; HCT 35.3 % (37.2-46.3); HGB 12.1 g/dL (12.0-15.0); Lymphocytes # (A) 0.86 10*3/uL (0.90-5.00); Lymphocytes % (A) 4.3 %; MCH 28.8 pg (27.0-32.0); MCHC 34.3 g/dL (32.0-37.0); MCV 84.0 fL (80.0-97.0); Monocytes # (A) 1.06 10*3/uL (0.20-1.00); Monocytes % (A) 5.3 %; Neutrophils # (A) 17.35 10*3/uL (1.80-7.70); Neutrophils % (A) 87.3 %; Platelet Count 317 10*3/uL (140-440); RBC 4.20 10*6/uL (4.10-5.20); RDW 13.8 % (11.5-14.5); WBC 19.88 10*3/uL (4.50-10.00)
[2025-03-13 08:24] LABS: African American GFR (CKD) >90 (>60 ml/min/1.73 sqM); Anion Gap 8 mmol/L; Blood Urea Nitrogen 12 mg/dL (7-17); Calcium 8.2 mg/dL (8.4-10.2); Carbon Dioxide 34 mmol/L (22-30); Chloride 91 mmol/L (98-107); Glucose 120 mg/dL (74-99); Non-African American GFR(CKD) >90 (>60 ml/min/1.73 sqM); Potassium 3.3 mmol/L (3.5-5.1); Sodium 133 mmol/L (137-145)
[2025-03-13] MEDS: POTASSIUM CHLORIDE ER 20 MEQ TAB.ER PO STA (08:58)
[2025-03-13] MEDS: DILTIAZEM ORAL 30 MG TAB PO SCH (08:58)
--- NOTE | 2025-03-13 11:51 | P.PN ---
Subjective Progress Note Date: 03/13/25 HISTORY OF PRESENT ILLNESS: This is a 79-year-old female with a past medical history significant for pe rmanent atrial fibrillation, peripheral arterial disease, hypertension, hyperlipidemia, carotid stenosis, valvular heart disease, and COPD. Patient follows in the office with Dr. Tobin. We have been asked to see the patient in consultation for atrial fibrillation. Patient examined at the bedside. Patient states that she presented to the hospital after sustaining a fall at home. She states that she was rushing to get to the bathroom and lost her balance. She states that she does use a 4 wheeled walker at home. She states she is usually fairly steady on her feet and does not fall very often. At the time of examination, patient denies any chest pain or pressure. She denies any shortness of breath. She does report that she has had a cough for the past few weeks. Patient was found to be in A-fib with RVR upon admission to the hospital. She was started on IV Cardizem which is currently infusing at 5 mg an hour. Telemetry reveals atrial fibrillation with a heart rate in the 80s. DIAGNOSTICS: - EKG reveals atrial fibrillation with RVR, right bundle branch block. - Chest xray redemonstrated COPD, mild cardiomegaly, and asymmetric volume loss in the left hemothorax. However there are new extensive interstitial opacities throughout and patchy opacities on the left. Consider CHF with interstitial edema versus atypical pneumonia versus patchy conventional pneumonia. - Laboratory data: WBC 11.71. Hemoglobin 11.3. Sodium 134. Potassium 3.5. BUN 15. Creatinine 0.46. proBNP 2340 - Current home cardiac medications include rosuvastatin 10 mg daily, metoprolol tartrate 100 mg twice a day, digoxin 125 mcg daily, Eliquis 5 mg twice a day. - Most recent echocardiogram obtained in November 2022 reveals ejection fraction 50 to 55%, mild pulm hypertension, trace to mild mitral regurgitation, mild to moderate tricuspid regurgitation, small pericardial effusion. - Patient underwent Lexiscan stress test in December 2022 which was negative for ischemia - Cardiac catheterization history: Patient denies Progress note 03/11/2025 Last night patient's heart rates were uncontrolled for which she was started on low-dose Cardizem drip. By morning patient's heart rate was much better controlled. Therefore her Cardizem drip was discontinued. Later in the evening patient's heart rate did go up again for which she was placed on low-dose Cardizem drip again. She is continuing to get IV antibiotics. Denies any chest pain chest pressure. 03/12/2025 Patient seen and examined. Echocardiogram is pending. Patient is on Cardizem drip at 10 mg/h and remains in atrial fibrillation. She is having shortness of breath today. She is on nasal cannula at 5 L nasal cannula with pulse ox of 91% . BiPAP is at bedside. Blood pressure 121/43, heart rate in the 60s. Repeat blood work reveals WBC 17.6, hemoglobin 0.1, potassium 3.3, creatinine one 0.45. 03/13/2025 Patient seen and examined. She is currently on Cardizem drip at 2.5. She is taking oral medications and this will be discontinued and start her on oral Cardizem. Blood pressure 141/67, heart rate 90s, respiratory rate 25-28, pulse ox 94% on high flow nasal cannula at 9 L. Oxygen demands are increasing. Repeat blood work reveals WBC 19.8, hemoglobin 12.1, creatinine 0.48, potassium 3.3. Repeat chest x-ray performed at 1 AM revealed patchy bilateral airspace consolidations consistent with severe multilobar pneumonia and another chest x- ray at 7 AM revealed similar multifocal pneumonia. Small left pleural effusion. Echocardiogram reveals EF of 55 to 60%, mild to moderate mitral regurgitation, moderate tricuspid regurgitation with severe pulmonary hypertension. At least mild aortic stenosis with suboptimal gradient measurement. PHYSICAL EXAM: VITAL SIGNS: Reviewed. GENERAL: Well-developed in no acute distress. HEENT: Head is normocephalic. Pupils are equal, round. Sclerae anicteric. Neck supple. No JVD or thyromegaly LUNGS: + Accessory muscle usage. Bilateral wheeze HEART: Irregular rate and rhythm. S1 and S2 heard. Systolic murmur at the apex ABDOMEN: Soft. Nondistended. Nontender. EXTREMITIES: No clubbing or cyanosis. Peripheral pulses intact. No lower extremity edema NEUROLOGIC: Awake and alert. Oriented x 3. ASSESSMENT: Status post mechanical fall Left-sided pneumonia Acute hypoxic respiratory failure secondary to pneumonia, requiring supplemental oxygen Permanent atrial fibrillation with RVR, currently rate controlled History of COPD Peripheral arterial disease with previous lower extremity intervention Hypertension Hyperlipidemia Carotid stenosis Mild pulmonary hypertension Nicotine dependence Debility PLAN: Discontinue Cardizem drip and start patient on oral Cardizem 30 mg 3 times daily Continue home cardiac medications including rosuvastatin, metoprolol, digoxin, and Eliquis Telemetry monitoring Wean oxygen as tolerated Further recommendations pending patient course Nurse practitioner note has been reviewed, I agree with documented findings and plan of care. Patient was seen and examined. Objective - Vital Signs Vital signs: Vital Signs Temp 97.6 F 03/13/25 08:00 Pulse 78 03/13/25 11:33 Resp 25 H 03/13/25 08:00 BP 141/67 03/13/25 08:00 Pulse Ox 93 L 03/13/25 08:30 FiO2 40 03/12/25 15:29 Intake & Output 03/12/25 03/13/25 03/13/25 18:59 06:59 18:59 Intake Total 256.833 117.417 Output Total 650 Balance 256.833 -532.583 Weight 57.5 kg Intake: IV 20 Invasive Line 3 10 Invasive Line 4 10 Intake, IV Titration 116.833 117.417 Amount Diltiazem 125 mg In 116.833 117.417 Dextrose 5% in Water 100 ml @ 10 MG/HR 10 mls/hr IV .[id number] [facility] Rx#: [id number] Oral 120 Output: Urine 650 Other: Voiding Method External Catheter Bedside Commode Bedside Commode External Catheter External Catheter # Voids 2 # Bowel Movements 1 - Labs CBC & Chem 7: 03/13/25 07:17 03/13/25 07:17 Labs: Abnormal Lab Results - Last 24 Hours (Table) 03/13/25 03/13/25 Range/Units 07:17 07:17 WBC 19.88 H (4.50-10.00) 10*3/uL Hct 35.3 L (37.2-46.3) % Immature Gran # 0.54 H (0.00-0.04) 10*3/uL Neutrophils # 17.35 H (1.80-7.70) 10*3/uL Lymphocytes # 0.86 L (0.90-5.00) 10*3/uL Monocytes # 1.06 H (0.20-1.00) 10*3/uL Eosinophils # 0.02 L (0.04-0.35) 10*3/uL Sodium 133 L (137-145) mmol/L Potassium 3.3 L (3.5-5.1) mmol/L Chloride 91 L (98-107) mmol/L Carbon Dioxide 34 H (22-30) mmol/L Creatinine 0.48 L (0.52-1.04) mg/dL Glucose 120 H (74-99) mg/dL Calcium 8.2 L (8.4-10.2) mg/dL Microbiology - Last 24 Hours (Table) 03/10/25 11:46 Gram Stain - Final Sputum Sputum Culture - Final Yamilet tropicalis Yamilet glabrata 03/09/25 12:05 Blood Culture - Preliminary Blood
--- NOTE | 2025-03-13 12:49 | PN ---
PROGRESS NOTE DATE OF SERVICE: 03/12/2025 SUBJECTIVE: This 79-year-old woman, was admitted with COPD exacerbation, also had atrial ablation with fast ventricular rate. The patient had a chest, abdomen and pelvis CAT scan, which showed patchy ground-glass opacities, cardiomegaly, and multiple other findings. A 2D echo with Doppler showed normal ejection fraction with mitral regurgitation and tricuspid regurgitation, mild aortic stenosis. PHYSICAL EXAMINATION: VITAL SIGNS: Pulse is 70, blood pressure 121/43, and respirations 20. CHEST: A few scattered rhonchi and crackles. ABDOMEN: Soft. NERVOUS SYSTEM: Nonfocal. LABORATORY DATA: Reviewed. ASSESSMENT: 1. Chronic obstructive pulmonary disease acute exacerbation with bilateral pneumonia, possibly gram-negative. 2. Possible congestive heart failure, acute exacerbation with acute on chronic diastolic dysfunction. 3. Tbrz-xg-iijchyzb mitral regurgitation and moderate tricuspid regurgitation. 4. Atrial fibrillation with fast ventricular rate. 5. Fall and left forehead hematoma. 6. Increased WBC. 7. Hyperlipidemia. 8. History of breast cancer. 9. Multiple of complex medical issues. RECOMMENDATIONS AND DISCUSSION: I recommend to continue current management and symptomatic treatment. Continue the antibiotics. I would recommend repeat chest x-ray tomorrow. Repeat labs. Continue the current medications, PT and OT evaluation, possible ECF, rehab. Further recommendations to follow. MMODL / IJN: [id number] /
--- NOTE | 2025-03-13 13:01 | P.PN ---
Subjective Progress Note Date: 03/13/25 Principal diagnosis: Atrial fibrillation with RVR. 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 She was brought into the emergency room yesterday after getting up to go to the bathroom and walking with her walker tripped and fell injuring her head with a left forehead hematoma noted. CT scan of the brain revealed no acute intracranial process. The scan of the cervical spine revealed no acute osseous abnormalities. Left hip x-ray reveals no acute fracture. Right total hip arthroplasty noted. Moderate to advanced degenerative changes. Chest x-ray reveals evidence of COPD, mild cardiomegaly and asymmetric volume loss of the left hemithorax. Possible pulmonary edema versus atypical pneum onia. White count 11.7. Hemoglobin 11.3. Platelets 196. Sodium 134. Potassium 3.5. Bicarb 25. BUN 15. Creatinine 0.46. Glucose 81. proBNP 2340. Urinalysis clean. Urine Legionella screen negative. She is seen today in consultation on the selective care unit. She is currently sitting up in bed. Awake and alert in no acute distress. Denies any worsening shortness of breath, cough or congestion. She is maintaining O2 saturations in the 90s on 3 L/min per nasal cannula. She is afebrile. Hemodynamically stable. The patient is seen today March 11, 2025 in follow-up on the selective care unit. She is currently resting in bed. Awake and alert in no acute distress. She did have a rapid response team called on her last evening for increasing shortness of breath. Chest x-ray revealed evidence of congestive heart failure. She received IV Lasix and placed on BiPAP. She also was in atrial fibrillation. She is currently maintaining O2 saturations in the mid 90s on 4 L/min per nasal cannula. She has been afebrile. Hemodynamically stable. Blood and sputum cultures are pending. White count 17.1. Hemoglobin 12.1. Platelets 224. Sodium 133. Potassium 4.2. Bicarb 27. BUN 12. Creatinine 0.44. Glucose 101. Procalcitonin 1.63. She remains on DuoNeb inhalations, Symbicort. Antibiotics in the form of Zosyn. She is on a Cardizem drip at 5 mg/h. Remains on digoxin. She is anticoagulated with Eliquis. Progress note dated March 12, 2025. 79-year-old female seen today in room 366. The patient is resting comfortably in bed. She is on 5 L nasal cannula. The patient is receiving Cardizem at 10 mg an hour for her atrial fibrillation. The patient is getting Zosyn. Lactated Ringer's IV, is currently on hold. Current laboratory data includes a white count of 17.7, hemoglobin 11.1, hematocrit 32.7, and a platelet count of 249,000. Sodium 130, potassium 3.3, chlorides 95, CO2 30, BUN 10, creatinine 0.45. Anion gap is 5. Glucose is 100. Calcium is 8.3. Albumin is 2.6. Sputum shows evidence for Yamilet glabrata. CT scan of the chest shows small bilateral pleural effusions, compressive atelectasis, and possible groundglass opacities consistent with pneumonia. Procalcitonin level was elevated on March 09, at 1.63. Progress note dated March 13, 2025. 79-year-old female seen today in room 366. The patient continues on nasal O2 at 9 L. No IV fluids. The patient is a DO NOT RESUSCITATE patient. The patient's procalcitonin level was elevated at 1.63. She is very frail appearing, but she is awake and alert. Current labs include a white count of 19.9, hemoglobin 12.1, hematocrit 35.3, and a platelet count of 317,000. Sodium 133, potassium 3.3, chloride 91, CO2 34, BUN 12, creatinine 0.48. Glucose is 120. Calcium is 8.2. 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 Chest x-ray is largely unchanged. Objective - Vital Signs Vital signs: Vital Signs Temp 97.6 F 03/13/25 08:00 Pulse 80 03/13/25 12:00 Resp 22 03/13/25 12:00 BP 104/58 03/13/25 12:00 Pulse Ox 96 03/13/25 12:00 FiO2 40 03/12/25 15:29 Intake & Output 03/12/25 03/13/25 03/13/25 18:59 06:59 18:59 Intake Total 256.833 117.417 480 Output Total 650 850 Balance 256.833 -532.583 -370 Weight 57.5 kg Intake: IV 20 Invasive Line 3 10 Invasive Line 4 10 Intake, IV Titration 116.833 117.417 Amount Diltiazem 125 mg In 116.833 117.417 Dextrose 5% in Water 100 ml @ 10 MG/HR 10 mls/hr IV .[id number] [facility] Rx#: [id number] Oral 120 480 Output: Urine 650 850 Other: Voiding Method External Catheter Bedside Commode Bedside Commode External Catheter External Catheter # Voids 2 # Bowel Movements 1 - Exam No acute distress, oriented 3. Currently on 9 L nasal cannula. Despite that, no obvious respiratory distress. HEENT examination is grossly unremarkable. Mucous membranes are moist. No oral lesions. Neck supple. Full range of motion. No adenopathy thyromegaly or neck vein distention. Cardiovascular examination reveals regular rhythm rate. S1-S2 normal. No S3 or S4. No discernible murmur noted. Lungs reveal mild bilateral scattered rhonchi. No wheezes. No crackles. Breath sounds are equal bilaterally. Abdomen soft bowel sounds are heard. No masses or tenderness. Extremities are intact. No cyanosis clubbing or edema. Skin is without rash or lesion. Neurologic examination is brief but nonfocal. - Labs CBC & Chem 7: 03/13/25 07:17 03/13/25 07:17 Labs: Abnormal Lab Results - Last 24 Hours (Table) 03/13/25 03/13/25 Range/Units 07:17 07:17 WBC 19.88 H (4.50-10.00) 10*3/uL Hct 35.3 L (37.2-46.3) % Immature Gran # 0.54 H (0.00-0.04) 10*3/uL Neutrophils # 17.35 H (1.80-7.70) 10*3/uL Lymphocytes # 0.86 L (0.90-5.00) 10*3/uL Monocytes # 1.06 H (0.20-1.00) 10*3/uL Eosinophils # 0.02 L (0.04-0.35) 10*3/uL Sodium 133 L (137-145) mmol/L Potassium 3.3 L (3.5-5.1) mmol/L Chloride 91 L (98-107) mmol/L Carbon Dioxide 34 H (22-30) mmol/L Creatinine 0.48 L (0.52-1.04) mg/dL Glucose 120 H (74-99) mg/dL Calcium 8.2 L (8.4-10.2) mg/dL Microbiology - Last 24 Hours (Table) 03/10/25 11:46 Gram Stain - Final Sputum Sputum Culture - Final Yamilet tropicalis Yamilet glabrata 03/09/25 12:05 Blood Culture - Preliminary Blood Assessment and Plan Assessment: Trauma secondary to ground-level fall, tripping over her walker, anticoagulated with Eliquis. Ecchymosis and edema over right eye. CT scan of the head without acute intracranial process and neck without fracture. Acute hypoxic respiratory failure secondary to possible community-acquired pneumonia and underlying congestive heart failure. Procalcitonin 1.63. proBNP 3160. Viral screen negative. Leukocytosis secondary to above. Chronic atrial fibrillation anticoagulated with Eliquis. Chronic and ongoing tobacco dependence of greater than 60 years. Chronic obstructive pulmonary disease. Hypertension. Hyperlipidemia. Hypothyroidism. 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 Lung volume loss of the left lung of unclear etiology. Plan: Plan dated March 12, 2025. The patient is seen today in room 366. The patient remains on Cardizem at 10 mg an hour. The patient is receiving nasal O2 at 5 L/min. Her IV of lactated Ringer's is currently on hold. She continues on Zosyn for possible pneumonia. Procalcitonin level was elevated. The patient has not use of BiPAP in a number of days. We will continue to follow make recommendations along the way. Labs, x-rays, and medications are reviewed. The patient is overall prognosis remains guarded. She is a no code patient. Dictation was produced using [email or web address] dictation software. Please excuse any grammatical, word or spelling errors. Plan dated March 13, 2025. Yesterday, the patient was on Cardizem. That has been turned off. She does continue on nasal O2 now at 9 L. She is not receiving any IV fluids. Her procalcitonin level was elevated at 1.63. All labs, x-rays, and medications are reviewed. Chest x-ray is unchanged. The patient is very frail and weak appearing. We will continue to follow, make recommendations along the way. Prognosis is poor. The patient is a DO NOT RESUSCITATE patient. Dictation was produced using [email or web address] dictation software. Please excuse any grammatical, word or spelling errors. Time with Patient: Less than 30
--- NOTE | 2025-03-13 22:39 | PN ---
PROGRESS NOTE DATE OF SERVICE: 03/13/2025 SUBJECTIVE: This 79-year-old woman was admitted with COPD exacerbation, bilateral pneumonia, is being closely monitored. No chest pain, no palpitation. PHYSICAL EXAMINATION: VITAL SIGNS: Pulse is 79, blood pressure 120/69, respirations 20. CHEST: Few scattered rhonchi and crackles. ABDOMEN: Soft. NERVOUS SYSTEM: Nonfocal. LABORATORY DATA: Reviewed. ASSESSMENT: 1. Chronic obstructive pulmonary disease exacerbation with bilateral pneumonia, possibly gram-negative. 2. Possible congestive heart failure with acute exacerbation, acute on chronic diastolic dysfunction. 3. Shaj-eu-yldpcegr mitral regurgitation with moderate tricuspid regurgitation. 4. Atrial fibrillation, fast ventricular rate. 5. Fall and left forehead hematoma. 6. Increased WBC. 7. Hyperlipidemia. 8. History of breast cancer. 9. Multiple complex medical issues. RECOMMENDATIONS: Recommend to continue current management and continue with steroids. Continue the rest of bronchodilators. Continue rest of medications. IV antibiotics. Guarded prognosis because of multiple complex medical conditions. Further recommendations to follow. Possible ECF, rehab. MMMIKEY / RUPAN: [id number] /
[2025-03-14 07:21] LABS: Basophils # (A) 0.05 10*3/uL (0.00-0.10); Basophils % (A) 0.2 %; Eosinophils # (A) 0.00 10*3/uL (0.04-0.35); Eosinophils % (A) 0.0 %; HCT 35.9 % (37.2-46.3); HGB 12.0 g/dL (12.0-15.0); Lymphocytes # (A) 0.74 10*3/uL (0.90-5.00); Lymphocytes % (A) 2.9 %; MCH 28.3 pg (27.0-32.0); MCHC 33.4 g/dL (32.0-37.0); MCV 84.7 fL (80.0-97.0); Monocytes # (A) 0.65 10*3/uL (0.20-1.00); Monocytes % (A) 2.6 %; Neutrophils # (A) 23.52 10*3/uL (1.80-7.70); Neutrophils % (A) 93.0 %; Platelet Count 362 10*3/uL (140-440); RBC 4.24 10*6/uL (4.10-5.20); RDW 14.0 % (11.5-14.5); WBC 25.29 10*3/uL (4.50-10.00)
[2025-03-14 08:09] LABS: African American GFR (CKD) >90 (>60 ml/min/1.73 sqM); Anion Gap 7 mmol/L; Blood Urea Nitrogen 19 mg/dL (7-17); Calcium 8.8 mg/dL (8.4-10.2); Carbon Dioxide 36 mmol/L (22-30); Chloride 91 mmol/L (98-107); Glucose 150 mg/dL (74-99); Non-African American GFR(CKD) >90 (>60 ml/min/1.73 sqM); Potassium 4.1 mmol/L (3.5-5.1); Sodium 134 mmol/L (137-145)
--- NOTE | 2025-03-14 12:25 | P.PN ---
Subjective Progress Note Date: 03/14/25 Principal diagnosis: Atrial fibrillation with RVR. 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 She was brought into the emergency room yesterday after getting up to go to the bathroom and walking with her walker tripped and fell injuring her head with a left forehead hematoma noted. CT scan of the brain revealed no acute intracranial process. The scan of the cervical spine revealed no acute osseous abnormalities. Left hip x-ray reveals no acute fracture. Right total hip arthroplasty noted. Moderate to advanced degenerative changes. Chest x-ray reveals evidence of COPD, mild cardiomegaly and asymmetric volume loss of the left hemithorax. Possible pulmonary edema versus atypical pneum onia. White count 11.7. Hemoglobin 11.3. Platelets 196. Sodium 134. Potassium 3.5. Bicarb 25. BUN 15. Creatinine 0.46. Glucose 81. proBNP 2340. Urinalysis clean. Urine Legionella screen negative. She is seen today in consultation on the selective care unit. She is currently sitting up in bed. Awake and alert in no acute distress. Denies any worsening shortness of breath, cough or congestion. She is maintaining O2 saturations in the 90s on 3 L/min per nasal cannula. She is afebrile. Hemodynamically stable. The patient is seen today March 11, 2025 in follow-up on the selective care unit. She is currently resting in bed. Awake and alert in no acute distress. She did have a rapid response team called on her last evening for increasing shortness of breath. Chest x-ray revealed evidence of congestive heart failure. She received IV Lasix and placed on BiPAP. She also was in atrial fibrillation. She is currently maintaining O2 saturations in the mid 90s on 4 L/min per nasal cannula. She has been afebrile. Hemodynamically stable. Blood and sputum cultures are pending. White count 17.1. Hemoglobin 12.1. Platelets 224. Sodium 133. Potassium 4.2. Bicarb 27. BUN 12. Creatinine 0.44. Glucose 101. Procalcitonin 1.63. She remains on DuoNeb inhalations, Symbicort. Antibiotics in the form of Zosyn. She is on a Cardizem drip at 5 mg/h. Remains on digoxin. She is anticoagulated with Eliquis. Progress note dated March 12, 2025. 79-year-old female seen today in room 366. The patient is resting comfortably in bed. She is on 5 L nasal cannula. The patient is receiving Cardizem at 10 mg an hour for her atrial fibrillation. The patient is getting Zosyn. Lactated Ringer's IV, is currently on hold. Current laboratory data includes a white count of 17.7, hemoglobin 11.1, hematocrit 32.7, and a platelet count of 249,000. Sodium 130, potassium 3.3, chlorides 95, CO2 30, BUN 10, creatinine 0.45. Anion gap is 5. Glucose is 100. Calcium is 8.3. Albumin is 2.6. Sputum shows evidence for Yamilet glabrata. CT scan of the chest shows small bilateral pleural effusions, compressive atelectasis, and possible groundglass opacities consistent with pneumonia. Procalcitonin level was elevated on March 09, at 1.63. Progress note dated March 13, 2025. 79-year-old female seen today in room 366. The patient continues on nasal O2 at 9 L. No IV fluids. The patient is a DO NOT RESUSCITATE patient. The patient's procalcitonin level was elevated at 1.63. She is very frail appearing, but she is awake and alert. Current labs include a white count of 19.9, hemoglobin 12.1, hematocrit 35.3, and a platelet count of 317,000. Sodium 133, potassium 3.3, chloride 91, CO2 34, BUN 12, creatinine 0.48. Glucose is 120. Calcium is 8.2. 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 Chest x-ray is largely unchanged. Progress note dated March 14, 2025. 79-year-old female with end-stage COPD. She is currently on 7 L nasal cannula, with saturations between 88 and 90%. She is not receiving any IV fluids. Her Solu-Medrol was converted to prednisone 40 mg a day. She is a DO NOT RESUSCITATE patient. There is not much more we can do for this patient, at this time. Current laboratory data includes a white count of 25.3, hemoglobin 12, hematocrit 36, and platelet count 362,000. Sodium 134, potassium 4.1, chloride 31, CO2 36, BUN 19, creatinine 0.43. Glucose is 150. Calcium is 8.8. Objective - Vital Signs Vital signs: Vital Signs Temp 98 F 03/14/25 08:00 Pulse 85 03/14/25 12:10 Resp 22 03/14/25 08:00 BP 150/84 03/14/25 08:00 Pulse Ox 94 L 03/14/25 08:54 FiO2 40 03/12/25 15:29 Intake & Output 03/13/25 03/14/25 03/14/25 18:59 06:59 18:59 Intake Total 900 40 400 Output Total 1300 700 Balance -400 -660 400 Weight 57.5 kg 57.5 kg Intake: Oral 900 40 400 Output: Urine 1300 700 Other: Voiding Method Bedside Commode Bedside Commode Bedside Commode External Catheter External Catheter External Catheter - Exam No acute distress, oriented 3. Currently on 7 L nasal cannula. Despite that, no obvious respiratory distress. HEENT examination is grossly unremarkable. Mucous membranes are moist. No oral lesions. Neck supple. Full range of motion. No adenopathy thyromegaly or neck vein distention. Cardiovascular examination reveals regular rhythm rate. S1-S2 normal. No S3 or S4. No discernible murmur noted. Lungs reveal mild bilateral scattered rhonchi. No wheezes. No crackles. Breath sounds are equal bilaterally. Abdomen soft bowel sounds are heard. No masses or tenderness. Extremities are intact. No cyanosis clubbing or edema. Skin is without rash or lesion. Neurologic examination is brief but nonfocal. - Labs CBC & Chem 7: 03/14/25 06:35 03/14/25 06:35 Labs: Abnormal Lab Results - Last 24 Hours (Table) 03/14/25 03/14/25 Range/Units 06:35 06:35 WBC 25.29 H (4.50-10.00) 10*3/uL Hct 35.9 L (37.2-46.3) % MPV 9.2 L (9.5-12.2) fL Immature Gran # 0.33 H (0.00-0.04) 10*3/uL Neutrophils # 23.52 H (1.80-7.70) 10*3/uL Lymphocytes # 0.74 L (0.90-5.00) 10*3/uL Eosinophils # 0.00 L (0.04-0.35) 10*3/uL Sodium 134 L (137-145) mmol/L Chloride 91 L (98-107) mmol/L Carbon Dioxide 36 H (22-30) mmol/L BUN 19 H (7-17) mg/dL Creatinine 0.43 L (0.52-1.04) mg/dL Glucose 150 H (74-99) mg/dL Microbiology - Last 24 Hours (Table) 03/10/25 11:46 Gram Stain - Final Sputum Sputum Culture - Final Yamilet tropicalis Yamilet glabrata Assessment and Plan Assessment: Trauma secondary to ground-level fall, tripping over her walker, anticoagulated with Eliquis. Ecchymosis and edema over right eye. CT scan of the head without acute intracranial process and neck without fracture. Acute hypoxic respiratory failure secondary to possible community-acquired pneumonia and underlying congestive heart failure. Procalcitonin 1.63. proBNP 3160. Viral screen negative. Leukocytosis secondary to above. Chronic atrial fibrillation anticoagulated with Eliquis. Chronic and ongoing tobacco dependence of greater than 60 years. Chronic obstructive pulmonary disease. Hypertension. Hyperlipidemia. Hypothyroidism. 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 Lung volume loss of the left lung of unclear etiology. Plan: Plan dated March 12, 2025. The patient is seen today in room 366. The patient remains on Cardizem at 10 mg an hour. The patient is receiving nasal O2 at 5 L/min. Her IV of lactated Ringer's is currently on hold. She continues on Zosyn for possible pneumonia. Procalcitonin level was elevated. The patient has not use of BiPAP in a number of days. We will continue to follow make recommendations along the way. Labs, x-rays, and medications are reviewed. The patient is overall prognosis remains guarded. She is a no code patient. Dictation was produced using [employer] dictation software. Please excuse any grammatical, word or spelling errors. Plan dated March 13, 2025. Yesterday, the patient was on Cardizem. That has been turned off. She does continue on nasal O2 now at 9 L. She is not receiving any IV fluids. Her procalcitonin level was elevated at 1.63. All labs, x-rays, and medications are reviewed. Chest x-ray is unchanged. The patient is very frail and weak appearing. We will continue to follow, make recommendations along the way. Prognosis is poor. The patient is a DO NOT RESUSCITATE patient. Dictation was produced using [employer] software. Please excuse any grammatical, word or spelling errors. Plan dated March 14, 2025. The patient is seen today in room 366. She is a DO NOT RESUSCITATE patient. Oxygen has been weaned down to 7 L. Yesterday she was on 9 L. The patient has severe end-stage COPD. The patient is a DO NOT RESUSCITATE patient. Saturations are probably acceptable above 85%. She is not receiving IV fluids. Her Solu-Medrol is converted to prednisone 40 mg a day. We will continue to follow. Overall prognosis remains poor. Labs, x-rays, medications are reviewed. Dictation was produced using [employer] software. Please excuse any grammatical, word or spelling errors. Time with Patient: Less than 30
--- NOTE | 2025-03-14 13:11 | P.PN ---
Subjective Progress Note Date: 03/14/25 HISTORY OF PRESENT ILLNESS: This is a 79-year-old female with a past medical history significant for pe rmanent atrial fibrillation, peripheral arterial disease, hypertension, hyperlipidemia, carotid stenosis, valvular heart disease, and COPD. Patient follows in the office with Dr. Tobin. We have been asked to see the patient in consultation for atrial fibrillation. Patient examined at the bedside. Patient states that she presented to the hospital after sustaining a fall at home. She states that she was rushing to get to the bathroom and lost her balance. She states that she does use a 4 wheeled walker at home. She states she is usually fairly steady on her feet and does not fall very often. At the time of examination, patient denies any chest pain or pressure. She denies any shortness of breath. She does report that she has had a cough for the past few weeks. Patient was found to be in A-fib with RVR upon admission to the hospital. She was started on IV Cardizem which is currently infusing at 5 mg an hour. Telemetry reveals atrial fibrillation with a heart rate in the 80s. DIAGNOSTICS: - EKG reveals atrial fibrillation with RVR, right bundle branch block. - Chest xray redemonstrated COPD, mild cardiomegaly, and asymmetric volume loss in the left hemothorax. However there are new extensive interstitial opacities throughout and patchy opacities on the left. Consider CHF with interstitial edema versus atypical pneumonia versus patchy conventional pneumonia. - Laboratory data: WBC 11.71. Hemoglobin 11.3. Sodium 134. Potassium 3.5. BUN 15. Creatinine 0.46. proBNP 2340 - Current home cardiac medications include rosuvastatin 10 mg daily, metoprolol tartrate 100 mg twice a day, digoxin 125 mcg daily, Eliquis 5 mg twice a day. - Most recent echocardiogram obtained in November 2022 reveals ejection fraction 50 to 55%, mild pulm hypertension, trace to mild mitral regurgitation, mild to moderate tricuspid regurgitation, small pericardial effusion. - Patient underwent Lexiscan stress test in December 2022 which was negative for ischemia - Cardiac catheterization history: Patient denies Progress note 03/11/2025 Last night patient's heart rates were uncontrolled for which she was started on low-dose Cardizem drip. By morning patient's heart rate was much better controlled. Therefore her Cardizem drip was discontinued. Later in the evening patient's heart rate did go up again for which she was placed on low-dose Cardizem drip again. She is continuing to get IV antibiotics. Denies any chest pain chest pressure. 03/12/2025 Patient seen and examined. Echocardiogram is pending. Patient is on Cardizem drip at 10 mg/h and remains in atrial fibrillation. She is having shortness of breath today. She is on nasal cannula at 5 L nasal cannula with pulse ox of 91% . BiPAP is at bedside. Blood pressure 121/43, heart rate in the 60s. Repeat blood work reveals WBC 17.6, hemoglobin 0.1, potassium 3.3, creatinine one 0.45. 03/13/2025 Patient seen and examined. She is currently on Cardizem drip at 2.5. She is taking oral medications and this will be discontinued and start her on oral Cardizem. Blood pressure 141/67, heart rate 90s, respiratory rate 25-28, pulse ox 94% on high flow nasal cannula at 9 L. Oxygen demands are increasing. Repeat blood work reveals WBC 19.8, hemoglobin 12.1, creatinine 0.48, potassium 3.3. Repeat chest x-ray performed at 1 AM revealed patchy bilateral airspace consolidations consistent with severe multilobar pneumonia and another chest x- ray at 7 AM revealed similar multifocal pneumonia. Small left pleural effusion. Echocardiogram reveals EF of 55 to 60%, mild to moderate mitral regurgitation, moderate tricuspid regurgitation with severe pulmonary hypertension. At least mild aortic stenosis with suboptimal gradient measurement. 03/14/2025 Patient seen and examined. Patient states her breathing feels about the same today. Patient noted to be more awake today. We did transition her off of IV Cardizem yesterday and started her on Cardizem oral 30 mg 3 times daily. Heart rate is running anywhere between 77 and 131. Blood pressure 150/84, pulse ox 88% on 7 L high flow nasal cannula. Repeat blood work reveals WBC 25, hemoglobin 12, BUN 19 creatinine 0.43. PHYSICAL EXAM: VITAL SIGNS: Reviewed. GENERAL: Well-developed in no acute distress. HEENT: Head is normocephalic. Pupils are equal, round. Sclerae anicteric. Neck supple. No JVD or thyromegaly LUNGS: + Accessory muscle usage. Bilateral wheeze HEART: Irregular rate and rhythm. S1 and S2 heard. Systolic murmur at the apex ABDOMEN: Soft. Nondistended. Nontender. EXTREMITIES: No clubbing or cyanosis. Peripheral pulses intact. No lower ext remity edema NEUROLOGIC: Awake and alert. Oriented x 3. ASSESSMENT: Status post mechanical fall Left-sided pneumonia Acute hypoxic respiratory failure secondary to pneumonia, requiring supplemental oxygen Permanent atrial fibrillation with RVR, currently rate controlled History of COPD Peripheral arterial disease with previous lower extremity intervention Hypertension Hyperlipidemia Carotid stenosis Mild pulmonary hypertension Nicotine dependence Debility PLAN: Continue oral Cardizem increased to 60 mg 3 times daily Continue home cardiac medications including rosuvastatin, metoprolol, digoxin, and Eliquis Telemetry monitoring Wean oxygen as tolerated Further recommendations pending patient course Nurse practitioner note has been reviewed, I agree with documented findings and plan of care. Patient was seen and examined. Objective - Vital Signs Vital signs: Vital Signs Temp 97.6 F 03/14/25 12:00 Pulse 85 03/14/25 12:10 Resp 18 03/14/25 12:00 BP 89/66 03/14/25 12:00 Pulse Ox 90 L 03/14/25 12:00 FiO2 40 03/12/25 15:29 Intake & Output 03/13/25 03/14/25 03/14/25 18:59 06:59 18:59 Intake Total 900 40 410 Output Total 1300 700 Balance -400 -660 410 Weight 57.5 kg 57.5 kg Intake: IV 10 Invasive Line 3 10 Oral 900 40 400 Output: Urine 1300 700 Other: Voiding Method Bedside Commode Bedside Commode Bedside Commode External Catheter External Catheter External Catheter - Labs CBC & Chem 7: 03/14/25 06:35 03/14/25 06:35 Labs: Abnormal Lab Results - Last 24 Hours (Table) 03/14/25 03/14/25 Range/Units 06:35 06:35 WBC 25.29 H (4.50-10.00) 10*3/uL Hct 35.9 L (37.2-46.3) % MPV 9.2 L (9.5-12.2) fL Immature Gran # 0.33 H (0.00-0.04) 10*3/uL Neutrophils # 23.52 H (1.80-7.70) 10*3/uL Lymphocytes # 0.74 L (0.90-5.00) 10*3/uL Eosinophils # 0.00 L (0.04-0.35) 10*3/uL Sodium 134 L (137-145) mmol/L Chloride 91 L (98-107) mmol/L Carbon Dioxide 36 H (22-30) mmol/L BUN 19 H (7-17) mg/dL Creatinine 0.43 L (0.52-1.04) mg/dL Glucose 150 H (74-99) mg/dL Microbiology - Last 24 Hours (Table) 03/10/25 11:46 Gram Stain - Final Sputum Sputum Culture - Final Yamilet tropicalis Yamilet glabrata
[2025-03-14] MEDS: DILTIAZEM ORAL 60 MG TAB PO SCH (16:06)
--- NOTE | 2025-03-15 05:33 | PN ---
PROGRESS NOTE DATE OF SERVICE: 03/14/2025 SUBJECTIVE: This 79-year-old was admitted with COPD exacerbation and bilateral pneumonia, is significantly hypoxic. No chest pain. No palpitation. OBJECTIVE: VITAL SIGNS: Pulse is 75, blood pressure 89/60, respirations 18. CHEST: Bilateral scattered rhonchi. ABDOMEN: Soft. NERVOUS SYSTEM: Nonfocal. LABORATORY DATA: WBC 24.2. Rest of the labs are noted. ASSESSMENT: 1. Chronic obstructive pulmonary disease acute exacerbation with bilateral pneumonia with possibly gram-negative. 2. Possible congestive heart failure exacerbation, [id number] diastolic dysfunction. 3. [id number] mitral regurgitation with moderate tricuspid regurgitation. 4. Atrial fibrillation with fast ventricular rate. 5. Fall and left forehead hematoma. 6. Increased WBC. 7. Hyperlipidemia. 8. History of breast cancer. 9. Multiple complex medical issues. RECOMMENDATIONS: Recommend to continue current management and symptomatic treatment. Otherwise at this time, I would recommend continue the bronchodilators closely with Pulmonary. Prognosis extremely guarded because of multiple complex medical issues. See orders for details. Dr. Shirley recommended pulse ox 85%. Further recommendations to follow. MMODL / IJN: [id number] /
--- NOTE | 2025-03-15 07:27 | XR ---
EXAMINATION TYPE: XR chest 1V portable DATE OF EXAM: 03/15/2025 6:37 AM COMPARISON: Chest radiographs from 03/13/2025, CT chest abdomen and pelvis 03/11/2025 TECHNIQUE: XR chest 1V portable Portable AP radiograph of the chest. CLINICAL INDICATION:Female, 79 years old with history of sob, copd, pna; FINDINGS: Lungs/Pleura: Blunting of the left costophrenic angle. Multifocal patchy interstitial airspace opacit ies throughout the lungs. No pneumothorax. Pulmonary vascularity: Unremarkable. Heart/mediastinum: Cardiomediastinal silhouette is enlarged and stable. Atherosclerotic calcificatio ns are seen in the aorta. Musculoskeletal: No acute osseous pathology. Bilateral shoulder arthropathy with high riding humeral head suggesting chronic rotator cuff tears. IMPRESSION: 1. Similar extensive multifocal pneumonia. 2. Small left pleural effusion. [facility], , 03/15/2025 7:25 AM
[2025-03-15] MEDS: predniSONE 20 MG TAB PO SCH (08:43)
--- NOTE | 2025-03-15 11:03 | P.PN ---
Subjective Progress Note Date: 03/15/25 HISTORY OF PRESENT ILLNESS: This is a 79-year-old female with a past medical history significant for pe rmanent atrial fibrillation, peripheral arterial disease, hypertension, hyperlipidemia, carotid stenosis, valvular heart disease, and COPD. Patient follows in the office with Dr. Tobin. We have been asked to see the patient in consultation for atrial fibrillation. Patient examined at the bedside. Patient states that she presented to the hospital after sustaining a fall at home. She states that she was rushing to get to the bathroom and lost her balance. She states that she does use a 4 wheeled walker at home. She states she is usually fairly steady on her feet and does not fall very often. At the time of examination, patient denies any chest pain or pressure. She denies any shortness of breath. She does report that she has had a cough for the past few weeks. Patient was found to be in A-fib with RVR upon admission to the hospital. She was started on IV Cardizem which is currently infusing at 5 mg an hour. Telemetry reveals atrial fibrillation with a heart rate in the 80s. DIAGNOSTICS: - EKG reveals atrial fibrillation with RVR, right bundle branch block. - Chest xray redemonstrated COPD, mild cardiomegaly, and asymmetric volume loss in the left hemothorax. However there are new extensive interstitial opacities throughout and patchy opacities on the left. Consider CHF with interstitial edema versus atypical pneumonia versus patchy conventional pneumonia. - Laboratory data: WBC 11.71. Hemoglobin 11.3. Sodium 134. Potassium 3.5. BUN 15. Creatinine 0.46. proBNP 2340 - Current home cardiac medications include rosuvastatin 10 mg daily, metoprolol tartrate 100 mg twice a day, digoxin 125 mcg daily, Eliquis 5 mg twice a day. - Most recent echocardiogram obtained in November 2022 reveals ejection fraction 50 to 55%, mild pulm hypertension, trace to mild mitral regurgitation, mild to moderate tricuspid regurgitation, small pericardial effusion. - Patient underwent Lexiscan stress test in December 2022 which was negative for ischemia - Cardiac catheterization history: Patient denies Progress note 03/11/2025 Last night patient's heart rates were uncontrolled for which she was started on low-dose Cardizem drip. By morning patient's heart rate was much better controlled. Therefore her Cardizem drip was discontinued. Later in the evening patient's heart rate did go up again for which she was placed on low-dose Cardizem drip again. She is continuing to get IV antibiotics. Denies any chest pain chest pressure. 03/12/2025 Patient seen and examined. Echocardiogram is pending. Patient is on Cardizem drip at 10 mg/h and remains in atrial fibrillation. She is having shortness of breath today. She is on nasal cannula at 5 L nasal cannula with pulse ox of 91% . BiPAP is at bedside. Blood pressure 121/43, heart rate in the 60s. Repeat blood work reveals WBC 17.6, hemoglobin 0.1, potassium 3.3, creatinine one 0.45. 03/13/2025 Patient seen and examined. She is currently on Cardizem drip at 2.5. She is taking oral medications and this will be discontinued and start her on oral Cardizem. Blood pressure 141/67, heart rate 90s, respiratory rate 25-28, pulse ox 94% on high flow nasal cannula at 9 L. Oxygen demands are increasing. Repeat blood work reveals WBC 19.8, hemoglobin 12.1, creatinine 0.48, potassium 3.3. Repeat chest x-ray performed at 1 AM revealed patchy bilateral airspace consolidations consistent with severe multilobar pneumonia and another chest x- ray at 7 AM revealed similar multifocal pneumonia. Small left pleural effusion. Echocardiogram reveals EF of 55 to 60%, mild to moderate mitral regurgitation, moderate tricuspid regurgitation with severe pulmonary hypertension. At least mild aortic stenosis with suboptimal gradient measurement. 03/14/2025 Patient seen and examined. Patient states her breathing feels about the same today. Patient noted to be more awake today. We did transition her off of IV Cardizem yesterday and started her on Cardizem oral 30 mg 3 times daily. Heart rate is running anywhere between 77 and 131. Blood pressure 150/84, pulse ox 88% on 7 L high flow nasal cannula. Repeat blood work reveals WBC 25, hemoglobin 12, BUN 19 creatinine 0.43. 03/15/2025 Patient seen and examined. Patient remains in atrial fibrillation with heart rate running between 79 and 116 which is improved. Yesterday we did increase oral Cardizem to 60 mg 3 times daily. Patient states she does not feel she is back to her baseline because she is significantly weak. She also was complaining of shoulder discomfort. Her lung sounds are improved. Patient remains on high flow nasal cannula decreased this morning to 5 L with pulse ox of 93%, blood pressure 114/61, heart rate 77. No medication changes made today. PHYSICAL EXAM: VITAL SIGNS: Reviewed. GENERAL: Well-developed in no acute distress. HEENT: Head is normocephalic. Pupils are equal, round. Sclerae anicteric. Neck supple. No JVD or thyromegaly LUNGS: Breath sounds auscultated bilaterally. No significant wheezing today. HEART: Irregular rate and rhythm. S1 and S2 heard. Systolic murmur at the apex ABDOMEN: Soft. Nondistended. Nontender. EXTREMITIES: No clubbing or cyanosis. Peripheral pulses intact. No lower extremity edema NEUROLOGIC: Awake and alert. Oriented x 3. ASSESSMENT: Status post mechanical fall Left-sided pneumonia Acute hypoxic respiratory failure secondary to pneumonia, requiring supplemental oxygen Permanent atrial fibrillation with RVR, currently rate controlled History of COPD Peripheral arterial disease with previous lower extremity intervention Hypertension Hyperlipidemia Carotid stenosis Mild pulmonary hypertension Nicotine dependence Debility PLAN: Continue oral Cardizem increased to 60 mg 3 times daily Continue home cardiac medications including rosuvastatin, metoprolol, digoxin, and Eliquis Telemetry monitoring Wean oxygen as tolerated Further recommendations pending patient course Nurse practitioner note has been reviewed, I agree with documented findings and plan of care. Patient was seen and examined. Objective - Vital Signs Vital signs: Vital Signs Temp 97.8 F 03/14/25 20:00 Pulse 73 03/15/25 04:39 Resp 18 03/15/25 04:39 BP 121/74 03/15/25 04:39 Pulse Ox 91 L 03/15/25 04:39 FiO2 40 03/12/25 15:29 Intake & Output 03/14/25 03/15/25 03/15/25 18:59 06:59 18:59 Intake Total 1490 560 Output Total 500 2150 Balance 990 -1590 Weight 56 kg Intake: IV 10 20 Invasive Line 3 10 20 Oral 1480 540 Output: Urine 500 2150 Other: Voiding Method Bedside Commode Bedside Commode External Catheter External Catheter # Bowel Movements 1 - Labs CBC & Chem 7: 03/14/25 06:35 03/14/25 06:35 Labs: Abnormal Lab Results - Last 24 Hours (Table) 03/14/25 Range/Units 06:35 Sodium 134 L (137-145) mmol/L Chloride 91 L (98-107) mmol/L Carbon Dioxide 36 H (22-30) mmol/L BUN 19 H (7-17) mg/dL Creatinine 0.43 L (0.52-1.04) mg/dL Glucose 150 H (74-99) mg/dL Microbiology - Last 24 Hours (Table) 03/09/25 12:05 Blood Culture - Final Blood 03/10/25 11:46 Legionella Culture - Preliminary Sputum
--- NOTE | 2025-03-15 13:51 | P.PN ---
Subjective Progress Note Date: 03/15/25 Principal diagnosis: Atrial fibrillation with RVR. 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 She was brought into the emergency room yesterday after getting up to go to the bathroom and walking with her walker tripped and fell injuring her head with a left forehead hematoma noted. CT scan of the brain revealed no acute intracranial process. The scan of the cervical spine revealed no acute osseous abnormalities. Left hip x-ray reveals no acute fracture. Right total hip arthroplasty noted. Moderate to advanced degenerative changes. Chest x-ray reveals evidence of COPD, mild cardiomegaly and asymmetric volume loss of the left hemithorax. Possible pulmonary edema versus atypical pneum onia. White count 11.7. Hemoglobin 11.3. Platelets 196. Sodium 134. Potassium 3.5. Bicarb 25. BUN 15. Creatinine 0.46. Glucose 81. proBNP 2340. Urinalysis clean. Urine Legionella screen negative. She is seen today in consultation on the selective care unit. She is currently sitting up in bed. Awake and alert in no acute distress. Denies any worsening shortness of breath, cough or congestion. She is maintaining O2 saturations in the 90s on 3 L/min per nasal cannula. She is afebrile. Hemodynamically stable. The patient is seen today March 11, 2025 in follow-up on the selective care unit. She is currently resting in bed. Awake and alert in no acute distress. She did have a rapid response team called on her last evening for increasing shortness of breath. Chest x-ray revealed evidence of congestive heart failure. She received IV Lasix and placed on BiPAP. She also was in atrial fibrillation. She is currently maintaining O2 saturations in the mid 90s on 4 L/min per nasal cannula. She has been afebrile. Hemodynamically stable. Blood and sputum cultures are pending. White count 17.1. Hemoglobin 12.1. Platelets 224. Sodium 133. Potassium 4.2. Bicarb 27. BUN 12. Creatinine 0.44. Glucose 101. Procalcitonin 1.63. She remains on DuoNeb inhalations, Symbicort. Antibiotics in the form of Zosyn. She is on a Cardizem drip at 5 mg/h. Remains on digoxin. She is anticoagulated with Eliquis. Progress note dated March 12, 2025. 79-year-old female seen today in room 366. The patient is resting comfortably in bed. She is on 5 L nasal cannula. The patient is receiving Cardizem at 10 mg an hour for her atrial fibrillation. The patient is getting Zosyn. Lactated Ringer's IV, is currently on hold. Current laboratory data includes a white count of 17.7, hemoglobin 11.1, hematocrit 32.7, and a platelet count of 249,000. Sodium 130, potassium 3.3, chlorides 95, CO2 30, BUN 10, creatinine 0.45. Anion gap is 5. Glucose is 100. Calcium is 8.3. Albumin is 2.6. Sputum shows evidence for Yamilet glabrata. CT scan of the chest shows small bilateral pleural effusions, compressive atelectasis, and possible groundglass opacities consistent with pneumonia. Procalcitonin level was elevated on March 09, at 1.63. Progress note dated March 13, 2025. 79-year-old female seen today in room 366. The patient continues on nasal O2 at 9 L. No IV fluids. The patient is a DO NOT RESUSCITATE patient. The patient's procalcitonin level was elevated at 1.63. She is very frail appearing, but she is awake and alert. Current labs include a white count of 19.9, hemoglobin 12.1, hematocrit 35.3, and a platelet count of 317,000. Sodium 133, potassium 3.3, chloride 91, CO2 34, BUN 12, creatinine 0.48. Glucose is 120. Calcium is 8.2. 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 Chest x-ray is largely unchanged. Progress note dated March 14, 2025. 79-year-old female with end-stage COPD. She is currently on 7 L nasal cannula, with saturations between 88 and 90%. She is not receiving any IV fluids. Her Solu-Medrol was converted to prednisone 40 mg a day. She is a DO NOT RESUSCITATE patient. There is not much more we can do for this patient, at this time. Current laboratory data includes a white count of 25.3, hemoglobin 12, hematocrit 36, and platelet count 362,000. Sodium 134, potassium 4.1, chloride 31, CO2 36, BUN 19, creatinine 0.43. Glucose is 150. Calcium is 8.8. Progress note dated March 15, 2025. 79-year-old female seen today in room 366. The patient has severe end-stage COPD. Her oxygen has been weaned down to 5 L. She is currently on Zosyn, which will be transitioned to Augmentin for 3 more days. She is not receiving any IV fluids. She is a DO NOT RESUSCITATE patient. She is on appropriate medications, including bronchodilators, and oral corticosteroids. No new labs today. Chest x-ray reveals diffuse bilateral infiltrates. Objective - Vital Signs Vital signs: Vital Signs Temp 97.8 F 03/14/25 20:00 Pulse 79 03/15/25 12:56 Resp 20 03/15/25 12:56 BP 96/59 03/15/25 12:56 Pulse Ox 91 L 03/15/25 12:56 FiO2 40 03/12/25 15:29 Intake & Output 03/14/25 03/15/25 03/15/25 18:59 06:59 18:59 Intake Total 1490 560 200 Output Total 500 2150 Balance 990 -1590 200 Weight 56 kg Intake: IV 10 20 Invasive Line 3 10 20 Oral 1480 540 200 Output: Urine 500 2150 Other: Voiding Method Bedside Commode Bedside Commode External Catheter External Catheter # Bowel Movements 1 - Exam No acute distress, oriented 3. Currently on 5 L nasal cannula. Despite that, no obvious respiratory distress. HEENT examination is grossly unremarkable. Mucous membranes are moist. No oral lesions. Neck supple. Full range of motion. No adenopathy thyromegaly or neck vein distention. Cardiovascular examination reveals regular rhythm rate. S1-S2 normal. No S3 or S4. No discernible murmur noted. Lungs reveal mild bilateral scattered rhonchi. No wheezes. No crackles. Breath sounds are equal bilaterally. Abdomen soft bowel sounds are heard. No masses or tenderness. Extremities are intact. No cyanosis clubbing or edema. Skin is without rash or lesion. Neurologic examination is brief but nonfocal. - Labs CBC & Chem 7: 03/14/25 06:35 03/14/25 06:35 Labs: Microbiology - Last 24 Hours (Table) 03/09/25 12:05 Blood Culture - Final Blood 03/10/25 11:46 Legionella Culture - Preliminary Sputum Assessment and Plan Assessment: Trauma secondary to ground-level fall, tripping over her walker, anticoagulated with Eliquis. Ecchymosis and edema over right eye. CT scan of the head without acute intracranial process and neck without fracture. Acute hypoxic respiratory failure secondary to possible community-acquired pneumonia and underlying congestive heart failure. Procalcitonin 1.63. proBNP 3160. Viral screen negative. Leukocytosis secondary to above. Chronic atrial fibrillation anticoagulated with Eliquis. Chronic and ongoing tobacco dependence of greater than 60 years. Chronic obstructive pulmonary disease. Hypertension. Hyperlipidemia. Hypothyroidism. 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 Lung volume loss of the left lung of unclear etiology. Plan: Plan dated March 12, 2025. The patient is seen today in room 366. The patient remains on Cardizem at 10 mg an hour. The patient is receiving nasal O2 at 5 L/min. Her IV of lactated Ri nger's is currently on hold. She continues on Zosyn for possible pneumonia. Procalcitonin level was elevated. The patient has not use of BiPAP in a number of days. We will continue to follow make recommendations along the way. Labs, x-rays, and medications are reviewed. The patient is overall prognosis remains guarded. She is a no code patient. Dictation was produced using [employer] software. Please excuse any grammatical, word or spelling errors. Plan dated March 13, 2025. Yesterday, the patient was on Cardizem. That has been turned off. She does continue on nasal O2 now at 9 L. She is not receiving any IV fluids. Her procalcitonin level was elevated at 1.63. All labs, x-rays, and medications are reviewed. Chest x-ray is unchanged. The patient is very frail and weak appearing. We will continue to follow, make recommendations along the way. Prognosis is poor. The patient is a DO NOT RESUSCITATE patient. Dictation was produced using [employer] software. Please excuse any grammatical, word or spelling errors. Plan dated March 14, 2025. The patient is seen today in room 366. She is a DO NOT RESUSCITATE patient. Oxygen has been weaned down to 7 L. Yesterday she was on 9 L. The patient has severe end-stage COPD. The patient is a DO NOT RESUSCITATE patient. Saturations are probably acceptable above 85%. She is not receiving IV fluids. Her Solu-Medrol is converted to prednisone 40 mg a day. We will continue to follow. Overall prognosis remains poor. Labs, x-rays, medications are reviewed. Dictation was produced using [employer] software. Please excuse any grammatical, word or spelling errors. Plan dated March 15, 2025. The patient was seen today in room 366. The patient is a DO NOT RESUSCITATE patient. She has been weaned down to 5 L nasal cannula. She looks relatively stable. She is not receiving any IV fluids. The patient's Zosyn is discontinued in favor of Augmentin, for 3-4 more days. From my perspective, the patient is pretty much at baseline, could be considered for possible discharge. Labs, x-rays, and all medications are related. We will continue to follow the patient, and make recommendations along the way. Prognosis is poor. Dictation was produced using [employer] software. Please excuse any grammatical, word or spelling errors. Time with Patient: Less than 30
[2025-03-15] MEDS: AMOXIC-POT CLAV 875-125MG 1 EACH TAB PO SCH (21:44)
[2025-03-16 07:11] LABS: Basophils # (A) 0.05 10*3/uL (0.00-0.10); Basophils % (A) 0.2 %; Eosinophils # (A) 0.00 10*3/uL (0.04-0.35); Eosinophils % (A) 0.0 %; HCT 39.0 % (37.2-46.3); HGB 12.6 g/dL (12.0-15.0); Lymphocytes # (A) 0.93 10*3/uL (0.90-5.00); Lymphocytes % (A) 4.2 %; MCH 28.2 pg (27.0-32.0); MCHC 32.3 g/dL (32.0-37.0); MCV 87.2 fL (80.0-97.0); Monocytes # (A) 1.26 10*3/uL (0.20-1.00); Monocytes % (A) 5.6 %; Neutrophils # (A) 19.80 10*3/uL (1.80-7.70); Neutrophils % (A) 88.6 %; Platelet Count 435 10*3/uL (140-440); RBC 4.47 10*6/uL (4.10-5.20); RDW 14.2 % (11.5-14.5); WBC 22.35 10*3/uL (4.50-10.00)
[2025-03-16 07:35] LABS: ALT 50 U/L (4-34); AST 49 U/L (14-36); African American GFR (CKD) >90 (>60 ml/min/1.73 sqM); Albumin 2.7 g/dL (3.5-5.0); Alkaline Phosphatase 129 U/L (38-126); Blood Urea Nitrogen 25 mg/dL (7-17); Calcium 8.8 mg/dL (8.4-10.2); Chloride 89 mmol/L (98-107); Glucose 116 mg/dL (74-99); Non-African American GFR(CKD) 88 (>60 ml/min/1.73 sqM); Potassium 4.9 mmol/L (3.5-5.1); Sodium 134 mmol/L (137-145); Total Protein 5.5 g/dL (6.3-8.2)
[2025-03-16 07:41] LABS: Anion Gap 8 mmol/L
[2025-03-16 07:45] LABS: Carbon Dioxide 37 mmol/L (22-30)
[2025-03-16 08:46] VITALS: TEMP 97.5
--- NOTE | 2025-03-16 10:37 | P.PN ---
Subjective Progress Note Date: 03/16/25 HISTORY OF PRESENT ILLNESS: This is a 79-year-old female with a past medical history significant for pe rmanent atrial fibrillation, peripheral arterial disease, hypertension, hyperlipidemia, carotid stenosis, valvular heart disease, and COPD. Patient follows in the office with Dr. Tobin. We have been asked to see the patient in consultation for atrial fibrillation. Patient examined at the bedside. Patient states that she presented to the hospital after sustaining a fall at home. She states that she was rushing to get to the bathroom and lost her balance. She states that she does use a 4 wheeled walker at home. She states she is usually fairly steady on her feet and does not fall very often. At the time of examination, patient denies any chest pain or pressure. She denies any shortness of breath. She does report that she has had a cough for the past few weeks. Patient was found to be in A-fib with RVR upon admission to the hospital. She was started on IV Cardizem which is currently infusing at 5 mg an hour. Telemetry reveals atrial fibrillation with a heart rate in the 80s. DIAGNOSTICS: - EKG reveals atrial fibrillation with RVR, right bundle branch block. - Chest xray redemonstrated COPD, mild cardiomegaly, and asymmetric volume loss in the left hemothorax. However there are new extensive interstitial opacities throughout and patchy opacities on the left. Consider CHF with interstitial edema versus atypical pneumonia versus patchy conventional pneumonia. - Laboratory data: WBC 11.71. Hemoglobin 11.3. Sodium 134. Potassium 3.5. BUN 15. Creatinine 0.46. proBNP 2340 - Current home cardiac medications include rosuvastatin 10 mg daily, metoprolol tartrate 100 mg twice a day, digoxin 125 mcg daily, Eliquis 5 mg twice a day. - Most recent echocardiogram obtained in November 2022 reveals ejection fraction 50 to 55%, mild pulm hypertension, trace to mild mitral regurgitation, mild to moderate tricuspid regurgitation, small pericardial effusion. - Patient underwent Lexiscan stress test in December 2022 which was negative for ischemia - Cardiac catheterization history: Patient denies Progress note 03/11/2025 Last night patient's heart rates were uncontrolled for which she was started on low-dose Cardizem drip. By morning patient's heart rate was much better controlled. Therefore her Cardizem drip was discontinued. Later in the evening patient's heart rate did go up again for which she was placed on low-dose Cardizem drip again. She is continuing to get IV antibiotics. Denies any chest pain chest pressure. 03/12/2025 Patient seen and examined. Echocardiogram is pending. Patient is on Cardizem drip at 10 mg/h and remains in atrial fibrillation. She is having shortness of breath today. She is on nasal cannula at 5 L nasal cannula with pulse ox of 91% . BiPAP is at bedside. Blood pressure 121/43, heart rate in the 60s. Repeat blood work reveals WBC 17.6, hemoglobin 0.1, potassium 3.3, creatinine one 0.45. 03/13/2025 Patient seen and examined. She is currently on Cardizem drip at 2.5. She is taking oral medications and this will be discontinued and start her on oral Cardizem. Blood pressure 141/67, heart rate 90s, respiratory rate 25-28, pulse ox 94% on high flow nasal cannula at 9 L. Oxygen demands are increasing. Repeat blood work reveals WBC 19.8, hemoglobin 12.1, creatinine 0.48, potassium 3.3. Repeat chest x-ray performed at 1 AM revealed patchy bilateral airspace consolidations consistent with severe multilobar pneumonia and another chest x- ray at 7 AM revealed similar multifocal pneumonia. Small left pleural effusion. Echocardiogram reveals EF of 55 to 60%, mild to moderate mitral regurgitation, moderate tricuspid regurgitation with severe pulmonary hypertension. At least mild aortic stenosis with suboptimal gradient measurement. 03/14/2025 Patient seen and examined. Patient states her breathing feels about the same today. Patient noted to be more awake today. We did transition her off of IV Cardizem yesterday and started her on Cardizem oral 30 mg 3 times daily. Heart rate is running anywhere between 77 and 131. Blood pressure 150/84, pulse ox 88% on 7 L high flow nasal cannula. Repeat blood work reveals WBC 25, hemoglobin 12, BUN 19 creatinine 0.43. 03/15/2025 Patient seen and examined. Patient remains in atrial fibrillation with heart rate running between 79 and 116 which is improved. Yesterday we did increase oral Cardizem to 60 mg 3 times daily. Patient states she does not feel she is back to her baseline because she is significantly weak. She also was complaining of shoulder discomfort. Her lung sounds are improved. Patient remains on high flow nasal cannula decreased this morning to 5 L with pulse ox of 93%, blood pressure 114/61, heart rate 77. No medication changes made today. 03/16/2025 Patient seen and examined. She is anticipating discharge to rehab today. She remains in atrial fibrillation but heart rates are improved and running in the 80s. No chest pain or chest pressure. Blood pressure 111/65, pulse ox 94% on 4 L nasal cannula. Repeat blood work reveals WBC 22, hemoglobin 12.6, creatinine 0.56 and BUN 25. CO2 37. . PHYSICAL EXAM: VITAL SIGNS: Reviewed. GENERAL: Well-developed in no acute distress. HEENT: Head is normocephalic. Pupils are equal, round. Sclerae anicteric. Neck supple. No JVD or thyromegaly LUNGS: Breath sounds auscultated bilaterally. No significant wheezing today. HEART: Irregular rate and rhythm. S1 and S2 heard. Systolic murmur at the apex ABDOMEN: Soft. Nondistended. Nontender. EXTREMITIES: No clubbing or cyanosis. Peripheral pulses intact. No lower extremity edema NEUROLOGIC: Awake and alert. Oriented x 3. ASSESSMENT: Status post mechanical fall Left-sided pneumonia Acute hypoxic respiratory failure secondary to pneumonia, requiring supplemental oxygen Permanent atrial fibrillation with RVR, currently rate controlled History of COPD Peripheral arterial disease with previous lower extremity intervention Hypertension Hyperlipidemia Carotid stenosis Mild pulmonary hypertension Nicotine dependence Debility PLAN: Continue oral Cardizem increased to 60 mg 3 times daily Continue home cardiac medications including rosuvastatin, metoprolol, digoxin, and Eliquis Telemetry monitoring Wean oxygen as tolerated Patient is cleared for discharge from a cardiology perspective and will follow- up in the office with Dr. Tobin in 1 to 2 weeks. Nurse practitioner note has been reviewed, I agree with documented findings and plan of care. Patient was seen and examined. Objective - Vital Signs Vital signs: Vital Signs Temp 97.9 F 03/16/25 04:04 Pulse 84 03/16/25 08:12 Resp 18 03/16/25 04:04 BP 134/75 03/16/25 04:04 Pulse Ox 95 03/16/25 04:04 FiO2 40 03/12/25 15:29 Intake & Output 03/15/25 03/16/25 03/16/25 18:59 06:59 18:59 Intake Total 600 Output Total 800 1150 Balance -200 -1150 Weight 57 kg Intake: Oral 600 Output: Urine 800 1150 Other: Voiding Method Bedside Commode External Catheter - Labs CBC & Chem 7: 03/16/25 06:19 03/16/25 06:19 Labs: Abnormal Lab Results - Last 24 Hours (Table) 03/16/25 03/16/25 Range/Units 06:19 06:19 WBC 22.35 H (4.50-10.00) 10*3/uL MPV 9.2 L (9.5-12.2) fL Immature Gran # 0.31 H (0.00-0.04) 10*3/uL Neutrophils # 19.80 H (1.80-7.70) 10*3/uL Monocytes # 1.26 H (0.20-1.00) 10*3/uL Eosinophils # 0.00 L (0.04-0.35) 10*3/uL Sodium 134 L (137-145) mmol/L Chloride 89 L (98-107) mmol/L Carbon Dioxide 37 H (22-30) mmol/L BUN 25 H (7-17) mg/dL Glucose 116 H (74-99) mg/dL AST 49 H (14-36) U/L ALT 50 H (4-34) U/L Alkaline Phosphatase 129 H (38-126) U/L Total Protein 5.5 L (6.3-8.2) g/dL Albumin 2.7 L (3.5-5.0) g/dL
--- NOTE | 2025-03-16 10:49 | P.PN ---
Subjective Progress Note Date: 03/16/25 Principal diagnosis: Atrial fibrillation with RVR. 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 She was brought into the emergency room yesterday after getting up to go to the bathroom and walking with her walker tripped and fell injuring her head with a left forehead hematoma noted. CT scan of the brain revealed no acute intracranial process. The scan of the cervical spine revealed no acute osseous abnormalities. Left hip x-ray reveals no acute fracture. Right total hip arthroplasty noted. Moderate to advanced degenerative changes. Chest x-ray reveals evidence of COPD, mild cardiomegaly and asymmetric volume loss of the left hemithorax. Possible pulmonary edema versus atypical pneum onia. White count 11.7. Hemoglobin 11.3. Platelets 196. Sodium 134. Potassium 3.5. Bicarb 25. BUN 15. Creatinine 0.46. Glucose 81. proBNP 2340. Urinalysis clean. Urine Legionella screen negative. She is seen today in consultation on the selective care unit. She is currently sitting up in bed. Awake and alert in no acute distress. Denies any worsening shortness of breath, cough or congestion. She is maintaining O2 saturations in the 90s on 3 L/min per nasal cannula. She is afebrile. Hemodynamically stable. The patient is seen today March 11, 2025 in follow-up on the selective care unit. She is currently resting in bed. Awake and alert in no acute distress. She did have a rapid response team called on her last evening for increasing shortness of breath. Chest x-ray revealed evidence of congestive heart failure. She received IV Lasix and placed on BiPAP. She also was in atrial fibrillation. She is currently maintaining O2 saturations in the mid 90s on 4 L/min per nasal cannula. She has been afebrile. Hemodynamically stable. Blood and sputum cultures are pending. White count 17.1. Hemoglobin 12.1. Platelets 224. Sodium 133. Potassium 4.2. Bicarb 27. BUN 12. Creatinine 0.44. Glucose 101. Procalcitonin 1.63. She remains on DuoNeb inhalations, Symbicort. Antibiotics in the form of Zosyn. She is on a Cardizem drip at 5 mg/h. Remains on digoxin. She is anticoagulated with Eliquis. Progress note dated March 12, 2025. 79-year-old female seen today in room 366. The patient is resting comfortably in bed. She is on 5 L nasal cannula. The patient is receiving Cardizem at 10 mg an hour for her atrial fibrillation. The patient is getting Zosyn. Lactated Ringer's IV, is currently on hold. Current laboratory data includes a white count of 17.7, hemoglobin 11.1, hematocrit 32.7, and a platelet count of 249,000. Sodium 130, potassium 3.3, chlorides 95, CO2 30, BUN 10, creatinine 0.45. Anion gap is 5. Glucose is 100. Calcium is 8.3. Albumin is 2.6. Sputum shows evidence for Yamilet glabrata. CT scan of the chest shows small bilateral pleural effusions, compressive atelectasis, and possible groundglass opacities consistent with pneumonia. Procalcitonin level was elevated on March 09, at 1.63. Progress note dated March 13, 2025. 79-year-old female seen today in room 366. The patient continues on nasal O2 at 9 L. No IV fluids. The patient is a DO NOT RESUSCITATE patient. The patient's procalcitonin level was elevated at 1.63. She is very frail appearing, but she is awake and alert. Current labs include a white count of 19.9, hemoglobin 12.1, hematocrit 35.3, and a platelet count of 317,000. Sodium 133, potassium 3.3, chloride 91, CO2 34, BUN 12, creatinine 0.48. Glucose is 120. Calcium is 8.2. 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 Chest x-ray is largely unchanged. Progress note dated March 14, 2025. 79-year-old female with end-stage COPD. She is currently on 7 L nasal cannula, with saturations between 88 and 90%. She is not receiving any IV fluids. Her Solu-Medrol was converted to prednisone 40 mg a day. She is a DO NOT RESUSCITATE patient. There is not much more we can do for this patient, at this time. Current laboratory data includes a white count of 25.3, hemoglobin 12, hematocrit 36, and platelet count 362,000. Sodium 134, potassium 4.1, chloride 31, CO2 36, BUN 19, creatinine 0.43. Glucose is 150. Calcium is 8.8. Progress note dated March 15, 2025. 79-year-old female seen today in room 366. The patient has severe end-stage COPD. Her oxygen has been weaned down to 5 L. She is currently on Zosyn, which will be transitioned to Augmentin for 3 more days. She is not receiving any IV fluids. She is a DO NOT RESUSCITATE patient. She is on appropriate medications, including bronchodilators, and oral corticosteroids. No new labs today. Chest x-ray reveals diffuse bilateral infiltrates. Progress note dated March 16, 2025. 79-year-old female seen today in room 366. She has been weaned down to 3 L nasal cannula. She is not receiving any IV fluids. Clinically, she is much improved. She is a DO NOT RESUSCITATE patient. Current laboratory data includes a white count of 22.4, hemoglobin 12.6, hematocrit 39, and platelet count 435,000. Sodium 134, potassium 4.9, chlorides 89, CO2 37, BUN 25, creatinine 0.56. Albumin is 2.7. Chest x-ray is largely unchanged. Objective - Vital Signs Vital signs: Vital Signs Temp 97.5 F L 03/16/25 08:44 Pulse 71 03/16/25 08:44 Resp 20 03/16/25 08:44 BP 111/65 03/16/25 08:44 Pulse Ox 93 L 03/16/25 09:00 FiO2 40 03/12/25 15:29 Intake & Output 03/15/25 03/16/25 03/16/25 18:59 06:59 18:59 Intake Total 600 Output Total 800 1150 Balance -200 -1150 Weight 57 kg Intake: Oral 600 Output: Urine 800 1150 Other: Voiding Method Bedside Commode Incontinent External Catheter - Exam No acute distress, oriented 3. Currently on 3 L nasal cannula. Despite that, no obvious respiratory distress. HEENT examination is grossly unremarkable. Mucous membranes are moist. No oral lesions. Neck supple. Full range of motion. No adenopathy thyromegaly or neck vein distention. Cardiovascular examination reveals regular rhythm rate. S1-S2 normal. No S3 or S4. No discernible murmur noted. Lungs reveal mild bilateral scattered rhonchi. No wheezes. No crackles. Breath sounds are equal bilaterally. Abdomen soft bowel sounds are heard. No masses or tenderness. Extremities are intact. No cyanosis clubbing or edema. Skin is without rash or lesion. Neurologic examination is brief but nonfocal. - Labs CBC & Chem 7: 03/16/25 06:19 03/16/25 06:19 Labs: Abnormal Lab Results - Last 24 Hours (Table) 03/16/25 03/16/25 Range/Units 06:19 06:19 WBC 22.35 H (4.50-10.00) 10*3/uL MPV 9.2 L (9.5-12.2) fL Immature Gran # 0.31 H (0.00-0.04) 10*3/uL Neutrophils # 19.80 H (1.80-7.70) 10*3/uL Monocytes # 1.26 H (0.20-1.00) 10*3/uL Eosinophils # 0.00 L (0.04-0.35) 10*3/uL Sodium 134 L (137-145) mmol/L Chloride 89 L (98-107) mmol/L Carbon Dioxide 37 H (22-30) mmol/L BUN 25 H (7-17) mg/dL Glucose 116 H (74-99) mg/dL AST 49 H (14-36) U/L ALT 50 H (4-34) U/L Alkaline Phosphatase 129 H (38-126) U/L Total Protein 5.5 L (6.3-8.2) g/dL Albumin 2.7 L (3.5-5.0) g/dL Assessment and Plan Assessment: Trauma secondary to ground-level fall, tripping over her walker, anticoagulated with Eliquis. Ecchymosis and edema over right eye. CT scan of the head without acute intracranial process and neck without fracture. Acute hypoxic respiratory failure secondary to possible community-acquired pneumonia and underlying congestive heart failure. Procalcitonin 1.63. proBNP 3160. Viral screen negative. Leukocytosis secondary to above. Chronic atrial fibrillation anticoagulated with Eliquis. Chronic and ongoing tobacco dependence of greater than 60 years. Chronic obstructive pulmonary disease. Hypertension. Hyperlipidemia. Hypothyroidism. 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 Lung volume loss of the left lung of unclear etiology. Plan: Plan dated March 12, 2025. The patient is seen today in room 366. The patient remains on Cardizem at 10 mg an hour. The patient is receiving nasal O2 at 5 L/min. Her IV of lactated Ringer's is currently on hold. She continues on Zosyn for possible pneumonia. Procalcitonin level was elevated. The patient has not use of BiPAP in a number of days. We will continue to follow make recommendations along the way. Labs, x-rays, and medications are reviewed. The patient is overall prognosis remains guarded. She is a no code patient. Dictation was produced using [employer] software. Please excuse any grammatical, word or spelling errors. Plan dated March 13, 2025. Yesterday, the patient was on Cardizem. That has been turned off. She does continue on nasal O2 now at 9 L. She is not receiving any IV fluids. Her procalcitonin level was elevated at 1.63. All labs, x-rays, and medications are reviewed. Chest x-ray is unchanged. The patient is very frail and weak appearing. We will continue to follow, make recommendations along the way. Prognosis is poor. The patient is a DO NOT RESUSCITATE patient. Dictation was produced using [employer] software. Please excuse any grammatical, word or spelling errors. Plan dated March 14, 2025. The patient is seen today in room 366. She is a DO NOT RESUSCITATE patient. O xygen has been weaned down to 7 L. Yesterday she was on 9 L. The patient has severe end-stage COPD. The patient is a DO NOT RESUSCITATE patient. Saturations are probably acceptable above 85%. She is not receiving IV fluids. Her Solu-Medrol is converted to prednisone 40 mg a day. We will continue to follow. Overall prognosis remains poor. Labs, x-rays, medications are reviewed. Dictation was produced using [employer] software. Please excuse any grammatical, word or spelling errors. Plan dated March 15, 2025. The patient was seen today in room 366. The patient is a DO NOT RESUSCITATE patient. She has been weaned down to 5 L nasal cannula. She looks relatively stable. She is not receiving any IV fluids. The patient's Zosyn is discontinued in favor of Augmentin, for 3-4 more days. From my perspective, the patient is pretty much at baseline, could be considered for possible discharge. Labs, x-rays, and all medications are related. We will continue to follow the patient, and make recommendations along the way. Prognosis is poor. Dictation was produced using [employer] software. Please excuse any grammatical, word or spelling errors. Plan dated March 16, 2025. The patient is seen today in room 366. The patient has been weaned down to 3 L. She is not receiving any IV fluids. She is currently at baseline, as it relates to her COPD. Labs, x-rays, and medications are reviewed. Chest x-ray is reviewed. The patient continues on Augmentin. In addition, she is on Symbicort, DuoNebs, and prednisone. All labs, x-rays, and medications are reviewed. Additional recommendations and suggestions are forthcoming. Prognosis is guarded. Dictation was produced using [employer] software. Please excuse any grammatical, word or spelling errors. Time with Patient: Less than 30
[2025-03-16 11:22] VITALS: BMI 24.5
--- NOTE | 2025-03-16 14:48 | P.DS ---
Providers Date of admission: 03/09/25 12:34 Expected date of discharge: 03/16/25 Attending physician: Melonie Chisholm Consults: 03/09/25 12:18 Consult Physician Urgent Consulting Provider: Dante Rocha Consult Reason/Comments: A-fib with RVR, CHF Do you want consulting provider notified?: Yes Consult Physician Urgent Consulting Provider: Floridalma Stafford Consult Reason/Comments: Acute hypoxic respiratory failure, possible pneumonia Do you want consulting provider notified?: Yes Primary care physician: [facility] Course: Final diagnosis Chronic obstructive pulmonary disease, acute exacerbation with bilateral pneumonia with possibly gram-negative Acute on chronic congestive heart failure with diastolic dysfunction Mild to moderate mitral regurgitation with moderate tricuspid regurgitation Atrial fibrillation with RVR, currently rate controlled Fall and left forehead hematoma Leukocytosis on admission, improved Hyperlipidemia History of breast cancer Moderate protein calorie malnutrition with a BMI of 24.4 GI prophylaxis DVT prophylaxis No code Discharge disposition Patient is being discharged in a stable condition with guarded prognosis to [facility]. Patient will follow-up with primary care provider in the outpatient setting upon discharge. Patient is to continue with current medications including Augmentin for the next 4 days to complete the course. Patient to follow-up with pulmonary as well as cardiology outpatient as scheduled. Total time taken is greater than 35 minutes. Hospital course This is a 79-year-old female who was recently admitted after a fall noted to have struck her head while on thinners and also noted to have significant wheezing with shortness of breath and also atrial fibrillation. Patient requiring oxygen and reports she does not wear oxygen outpatient. Patient is currently on 4 L has been evaluated by pulmonary recommending to continue with current medications including oral Augmentin for the next 4 days to complete the course. Patient was evaluated by cardiology recommending outpatient follow-up with her dietitian assistant in the outpatient setting. Please refer to other consultation notes for further HPI. Currently no reports of chest pain, shortness of breath, or palpitations. Patient is afebrile. No reports of nausea or vomiting and patient is tolerating diet. Patient will be going to [facility] today. Guarded prognosis and high risk for readmissions Physical exam: Gen: This is a 79-year-old female who is awake, alert and oriented x 3, thin built, cachectic, elderly appearing, chronically ill-appearing HEENT: Head is atraumatic, normocephalic. Pupils equal, round. Sclerae is anicteric. NECK: Supple. No JVD. No lymphadenopathy. No thyromegaly. LUNGS: Diminished breath sounds bilaterally with coarse scattered rhonchi and faint expiratory wheezing. No intercostal retractions. HEART: S1, S2 are muffled, irregular ABDOMEN: Soft., Thin, cachectic bowel sounds are present. No masses. No tenderness. EXTREMITIES: No pedal edema. No calf tenderness. NEUROLOGICAL: Patient is awake, alert and oriented x3. Cranial nerves 2 through 12 are grossly intact. Diffusely weak Please refer to medication reconciliation sheet for a list of medications. Active Medications Acetaminophen (Acetaminophen Tab 325 Mg Tab) 650 mg PO Q6HR PRN PRN Reason: Mild Pain or Fever > 100.5 Hydrocodone Bitart/Acetaminophen (Hydrocodone/Apap 5-325mg 1 Each Tab) 1 each PO Q4HR PRN PRN Reason: Moderate Pain (Scale 4 to 6) Albuterol/Ipratropium (Ipratropium-Albuterol 3 Ml Neb) 3 ml INHALATION RT-Q4H PRN PRN Reason: shortness of breath Last Admin: 03/13/25 05:01 Dose: 3 ml Albuterol/Ipratropium (Ipratropium-Albuterol 3 Ml Neb) 3 ml INHALATION RT-QID MILLI Last Admin: 03/16/25 11:14 Dose: 3 ml Alprazolam (Alprazolam 0.25 Mg Tab) 0.25 mg PO DAILY PRN PRN Reason: Anxiety Last Admin: 03/12/25 22:06 Dose: 0.25 mg Amoxicillin/Clavulanate Potassium (Amoxic-Pot Clav 875-125mg 1 Each Tab) 1 each PO Q12HR MILLI; Protocol Stop: 03/18/25 09:01 Last Admin: 03/16/25 08:46 Dose: 1 each Apixaban (Apixaban 2.5 Mg Tablet) 2.5 mg PO BID MILLI; Protocol Last Admin: 03/16/25 08:47 Dose: 2.5 mg Atorvastatin Calcium (Atorvastatin 20 Mg Tab) 20 mg PO DAILY MILLI Last Admin: 03/16/25 08:46 Dose: 20 mg Budesonide/Formoterol Fumarate (Symbicort 160-4.5 Mcg Inhaler) 2 puff INHALATION RT-BID MILLI Last Admin: 03/16/25 07:59 Dose: 2 puff Calcium Carbonate/Glycine (Calcium Carbonate 500 Mg Chewable) 500 mg PO BID [facility] Last Admin: 03/16/25 08:46 Dose: 500 mg Calcium Polycarbophil (Calcium Polycarbophil 625 Mg Tab) 625 mg PO DAILY [facility] Last Admin: 03/16/25 08:49 Dose: 625 mg Digoxin (Digoxin 125 Mcg Tab) 125 mcg PO DAILY@1200 [facility] Last Admin: 03/16/25 12:08 Dose: 125 mcg Diltiazem HCl (Diltiazem Oral 60 Mg Tab) 60 mg PO TID [facility] Last Admin: 03/16/25 08:46 Dose: 60 mg Furosemide (Furosemide 40 Mg Tab) 40 mg PO DAILY [facility] Last Admin: 03/16/25 08:47 Dose: 40 mg Hydromorphone HCl (Hydromorphone 0.5 Mg/0.5 Ml Syringe) 0.25 mg IVP Q6HR PRN PRN Reason: Severe Pain (Scale 7 to 10) Latanoprost (Latanoprost 0.005% Ophth Drops 2.5 Ml Btl) 1 drops BOTH EYES [facility] Last Admin: 03/15/25 21:44 Dose: 1 drops Levothyroxine Sodium (Levothyroxine 88 Mcg Tab) 88 mcg PO DAILY@0630 [facility] Last Admin: 03/16/25 06:54 Dose: 88 mcg Metoprolol Tartrate (Metoprolol Tartrate 50 Mg Tab) 100 mg PO BID [facility] Last Admin: 03/16/25 08:47 Dose: 100 mg Miscellaneous Information (Pneumonia Protocol Utilized 1 Each Misc) 1 each PO ONCE PRN PRN Reason: Per Protocol Miscellaneous Information (Potassium Replacement Protocol 1 Each Misc) 1 each MISCELLANE DAILY PRN; Protocol PRN Reason: Per Protocol Multivitamins (Multivitamins, Thera 1 Each Tab) 1 each PO DAILY [facility] Last Admin: 03/16/25 08:47 Dose: 1 each Naloxone HCl (Naloxone 0.4 Mg/Ml 1 Ml Vial) 0.2 mg IV Q2M PRN PRN Reason: Opioid Reversal Nicotine (Nicotine 14mg/24hr Patch) 1 patch TRANSDERM DAILY [facility] Last Admin: 03/16/25 08:47 Dose: Not Given Ondansetron HCl (Ondansetron 4 Mg/2 Ml Vial) 4 mg IVP Q8HR PRN PRN Reason: Nausea And Vomiting Pantoprazole Sodium (Pantoprazole 40 Mg Tablet) 40 mg PO AC-BRKFST [facility] Last Admin: 03/16/25 06:54 Dose: 40 mg Prednisone (Prednisone 20 Mg Tab) 40 mg PO DAILY [facility] Last Admin: 03/16/25 08:46 Dose: 40 mg The impression and plan of care has been dictated by Lori Cloud, Nurse Practitioner as directed. Dr. Louise MD I have performed a history and examination and MDM of this patient, discussed the same with the dictator, and agree with the dictator's assessment and plan as written ,documented as a scribe. Based on total visit time, I have performed more than 50% of the visit. Patient Condition at Discharge: Fair Plan - Discharge Summary Discharge Rx Participant: Yes New Discharge Prescriptions: No Action Psyllium Husk [Fiber Capsule] 0.8 gm PO DAILY Metoprolol Tartrate [Lopressor] 100 mg PO BID Fluticasone/Vilanterol [Breo Ellipta 200-25 Mcg Inhaler] 1 puff INHALATION RT-HS Calcium(Unknown Dose) 1 tab PO BID Apixaban [Eliquis] 5 mg PO BID 30 Days #60 tab Levothyroxine Sodium [Synthroid] 88 mcg PO DAILY #30 tab Ipratropium/Albuter 20-100Mcg [Combivent Respimat 20-100Mcg Inhaler] 1 puff INHALATION RT-BID Rosuvastatin [Crestor] 10 mg PO DAILY Multivitamins, Thera [Multivitamin (formulary)] 1 tab PO DAILY Latanoprost Ophth [Xalatan 0.005%] 1 drop BOTH EYES HS Digoxin [Lanoxin] 125 mcg PO DAILY@1200 Discharge Medication List Apixaban [Eliquis] 5 mg PO BID 30 Days #60 tab 10/15/22 [Rx] Levothyroxine Sodium [Synthroid] 88 mcg PO DAILY #30 tab 10/15/22 [Rx] Calcium(Unknown Dose) 1 tab PO BID 03/09/25 [History] Digoxin [Lanoxin] 125 mcg PO DAILY@1200 03/09/25 [History] Fluticasone/Vilanterol [Breo Ellipta 200-25 Mcg Inhaler] 1 puff INHALATION RT-HS 03/09/25 [History] Ipratropium/Albuter 20-100Mcg [Combivent Respimat 20-100Mcg Inhaler] 1 puff INHALATION RT-BID 03/09/25 [History] Latanoprost Ophth [Xalatan 0.005%] 1 drop BOTH EYES HS 03/09/25 [History] Metoprolol Tartrate [Lopressor] 100 mg PO BID 03/09/25 [History] Multivitamins, Thera [Multivitamin (formulary)] 1 tab PO DAILY 03/09/25 [History] Psyllium Husk [Fiber Capsule] 0.8 gm PO DAILY 03/09/25 [History] Rosuvastatin [Crestor] 10 mg PO DAILY 03/09/25 [History] Follow up Appointment(s)/Referral(s): Lia Gamble MD [Primary Care Provider] - 1-2 days Myles Tobin MD [STAFF PHYSICIAN] - 1 Week [place], [NON-STAFF] - 1 Week [facility], [NON-STAFF] - 1 Week
[2025-03-16 15:15] VITALS: BP 120/62; RESP 16
[2025-03-16 15:23] VITALS: PULSE 84
--- NOTE | 2025-03-19 08:27 | PN ---
PROGRESS NOTE SUBJECTIVE: This 79-year-old woman admitted with CHF and multiple other complex medical issues, is being closely monitored. The patient continues to be hypoxic. Chest x-ray showed bilateral lesions. PHYSICAL EXAMINATION: VITAL SIGNS: Pulse 74, blood pressure 119/60, respirations 16. HEENT: Conjunctivae normal. CARDIOVASCULAR: S1 and S2. RESPIRATORY: Bilateral scattered rhonchi and crackles. ABDOMEN: Soft. NERVOUS SYSTEM: Nonfocal. LABORATORY DATA: WBC 25.29, rest of the labs are noted. ASSESSMENT: 1. Chronic obstructive pulmonary disease acute exacerbation with possible bilateral pneumonia with possibly gram-negative. 2. Increased WBC. 3. Possible congestive heart failure acute exacerbation with acute on chronic diastolic dysfunction. 4. Mild to moderate mitral regurgitation with moderate tricuspid regurgitation. 5. Atrial fibrillation with fast ventricular rate. 6. Fall and left forehead hematoma. 7. Hypertension. 8. History of breast cancer and multiple complex medical issues. RECOMMENDATIONS: I recommend to continue current medications and continue symptomatic treatment. Otherwise, repeat labs. Continue the antibiotics. Closely monitor. Guarded prognosis. Further recommendations to follow. MMODL / IJN: [id number] /
== END 2025-03-16 16:45 | DRG 177 ==
LOC: EC 09:54 → 3SCARD 12:34
PROVIDERS: ADMIT Hospitalist; ATTEND Hospitalist
PROC: 5A09557 Assistance with Respiratory Ventilation, Greater than 96 Consecutive Hours, Continuous Positive Airway Pressure (ICD-10-PCS; principal; 2025-03-09)
DX: J15.69 Pneumonia due to other Gram-negative bacteria (principal); I50.31 Acute diastolic (congestive) heart failure; J96.01 Acute respiratory failure with hypoxia; E44.0 Moderate protein-calorie malnutrition; I31.39 Other pericardial effusion (noninflammatory); Z66 Do not resuscitate; I48.21 Permanent atrial fibrillation; J94.2 Hemothorax; J44.0 Chronic obstructive pulmonary disease with (acute) lower respiratory infection; I11.0 Hypertensive heart disease with heart failure; I27.20 Pulmonary hypertension, unspecified; I73.9 Peripheral vascular disease, unspecified; E89.0 Postprocedural hypothyroidism; I65.29 Occlusion and stenosis of unspecified carotid artery; I08.1 Rheumatic disorders of both mitral and tricuspid valves; J44.1 Chronic obstructive pulmonary disease with (acute) exacerbation; J45.901 Unspecified asthma with (acute) exacerbation; I50.9 Heart failure, unspecified; J43.9 Emphysema, unspecified; Z93.3 Colostomy status; F17.210 Nicotine dependence, cigarettes, uncomplicated; W01.0XXA Fall on same level from slipping, tripping and stumbling without subsequent striking against object, initial encounter; Y92.009 Unspecified place in unspecified non-institutional (private) residence as the place of occurrence of the external cause; I45.10 Unspecified right bundle-branch block; E78.5 Hyperlipidemia, unspecified; M19.90 Unspecified osteoarthritis, unspecified site; Y93.01 Activity, walking, marching and hiking; S00.83XA Contusion of other part of head, initial encounter; Z79.01 Long term (current) use of anticoagulants; Z79.890 Hormone replacement therapy; Z79.899 Other long term (current) drug therapy; Z82.49 Family history of ischemic heart disease and other diseases of the circulatory system; Z87.11 Personal history of peptic ulcer disease; Z90.2 Acquired absence of lung [part of]; Z85.3 Personal history of malignant neoplasm of breast; Z96.641 Presence of right artificial hip joint; Z96.653 Presence of artificial knee joint, bilateral; Z98.42 Cataract extraction status, left eye; Z98.41 Cataract extraction status, right eye; Z98.51 Tubal ligation status; Z88.6 Allergy status to analgesic agent
CPT/HCPCS: 36415; 70450; 71045; 71046; 71250; 72125; 73502; 74176; 80048; 80053; 81001; 83605; 83735; 83880; 84145; 84484; 85025; 85610; 85730; 86140; 87040; 87070; 87205; 87449; 87636; 93005; 93306; 94640; 94660; 94760; 96361; 96365; 96366; 96368; 99291